=== PATIENT | female | born 1940 | race Caucasian/White ===

== ENCOUNTER → 2017-06-03 | Outpatient (CLI) | payer MEDICARE, BC ==
--- NOTE | 2017-06-03 11:49 | XR ---
Lumbosacral spine HISTORY: Trauma and pain 5 views of the lumbosacral spine No comparisons Lumbar vertebral bodies show preserved alignment. Bone mineralization is reduced. Multilevel endplate deformities are present including L1, L2, L3 and L4 compatible with compression fractures. Some mild loss of disc height at the intervertebral levels. Sclerosis present in the posterior elements. No ev ident spondylolysis. Dense atherosclerotic vascular calcifications present. Patient is post median st ernotomy. IMPRESSION: Osteoporotic compression fractures. Bone scan or MRI may be of benefit to assess for acui ty.
--- NOTE | 2017-06-03 11:51 | XR ---
Thoracic spine HISTORY: Trauma and pain 3 views of the thoracic spine, no comparisons There is multilevel thoracic compression deformities present. Bone mineralization is reduced. Multile jr spondylosis is present. Patient is post median sternotomy, postop change noted to the proximal hu merus. Prominent lung volume may be indicative of COPD. IMPRESSION: Multilevel osteoporotic compression fractures, MRI may be of benefit to assess for acuity , retropulsion as indicated.
--- NOTE | 2017-06-03 11:53 | XR ---
RIBS with PA chest x-ray HISTORY: Trauma and pain Frontal view of the chest and 4 views of the right ribs are submitted. Low bone mineralization may limit sensitivity. No displaced rib fracture is evident. Multilevel compr ession fractures are noted within the spine likely due to osteoporosis. Patient is post median sterno cisco. No pneumothorax or pleural effusion evident. Postop change noted to the proximal left humerus. Apical calcification suspected, pleural thickening. Interstitium is mildly prominent. Increased lung volumes suggest underlying COPD. IMPRESSION: Exam is limited for evaluation rib fractures. Bone scan or CT could be performed for incr eased sensitivity, multilevel osteoporotic compression fractures within the visualized spine.
== END | disposition home or self-care (01) ==
LOC: RADXRYALE 10:38
PROVIDERS: ATTEND Physician Assistant Medical
DX: S22.41XA Multiple fractures of ribs, right side, initial encounter for closed fracture (principal); M80.88XA Other osteoporosis with current pathological fracture, vertebra(e), initial encounter for fracture; G20 Parkinson's disease; M25.511 Pain in right shoulder
CPT/HCPCS: 72072; 72110

== ENCOUNTER → 2018-03-02 | Outpatient (CLI) | payer MEDICARE, BC ==
--- NOTE | 2018-03-02 23:15 | XR ---
EXAMINATION TYPE: XR femur LT DATE OF EXAM: 03/02/2018 COMPARISON: NONE HISTORY: Pain TECHNIQUE: 4 views are submitted FINDINGS: Vascular calcifications and diffuse soft tissue edema noted. There is moderate arthropathy of the hip joint. Moderate to severe arthropathy of the knee joint. Surgical clips in the soft tissue s. There appears to be deformity of the pubic ramus on the left. Referring clinician notified by tele phone. IMPRESSION: 1. Findings in suspicious for pubic ramus fracture recommend CT scan.
== END | disposition home or self-care (01) ==
LOC: RADXRYALE 14:47
PROVIDERS: ATTEND Physician Assistant
DX: M25.552 Pain in left hip (principal); M79.605 Pain in left leg

== ENCOUNTER 2018-04-12 08:16 | Emergency (ER) | payer MEDICARE, BC ==
[2018-04-12 08:27] VITALS: TEMP 97.9
--- NOTE | 2018-04-12 08:52 | ED ---
General Adult HPI - General Source: patient, family, RN notes reviewed Mode of arrival: wheelchair Limitations: no limitations <Shivam Dowling - Last Filed: 04/12/18 10:24> <Vikram Cortez - Last Filed: 04/15/18 01:12> - General Chief complaint: Extremity Injury, Lower Stated complaint: Hip Pain Time Seen by Provider: 04/12/18 08:28 - History of Present Illness Initial comments: Patient 78-year-old female presented to the emergency room today with chief complaint of pain to the left hip area that radiates down to the proximal left knee. Patient does admit that she had a fracture of the pubic rami bone approximately one month ago. She states she was following up Dr. Byrne for this he stated that the hip looked well. She described pain that was radiating down into the left leg and felt that it was coming from her back saw Dr. Alonzo. Most recent was on this past week was started on a steroid tapering dose which she has been taking along with Ultram and Pepcid. Patient states that still expressing pain at times to the left hip. She doesn't that the Ultram does help should this this morning is not as much pain at this time. Family members at bedside stating that she is becoming more immobile and having a more difficult time with ambulation. States limited walking using a walker. Family states that she is basically going from bed to chair to the bathroom. States that she complains about pain in the left hip at times after some of these shorter walks. Patient denies any recent fever, chills, shortness of breath, chest pain, abdominal pain, nausea or vomiting, numbness or tingling, dysuria or hematuria, constipation or diarrhea, headaches or visual changes, or any other complaints. (Shivam Dowling) - Related Data Allergies Allergy/AdvReac Type Severity Reaction Status Date / Time No Known Allergies Allergy Verified 04/12/18 08:27 Review of Systems ROS Other: All systems not noted in ROS Statement are negative. <Shivam Dowling - Last Filed: 04/12/18 10:24> ROS Other: All systems not noted in ROS Statement are negative. <Vikram Cortez - Last Filed: 04/15/18 01:12> ROS Statement: Those systems with pertinent positive or pertinent negative responses have been documented in the HPI. Past Medical History Past Medical History: Coronary Artery Disease (CAD), Hyperlipidemia, Hypertension, Myocardial Infarction ([place]) Additional Past Medical History / Comment(s): Parkinsons History of Any Multi-Drug Resistant Organisms: None Reported Past Surgical History: Appendectomy, Coronary Bypass/CABG, Heart Catheterization With Stent, Tonsillectomy Additional Past Surgical History / Comment(s): Cataracts Past Psychological History: No Psychological Hx Reported Smoking Status: Never smoker Past Alcohol Use History: None Reported Past Drug Use History: None Reported <Shivam Dowling - Last Filed: 04/12/18 10:24> General Exam Limitations: no limitations <Shivam Dowling - Last Filed: 04/12/18 10:24> <Vikram Cortez - Last Filed: 04/15/18 01:12> - General Exam Comments Initial Comments: General: The patient is awake and alert, in no distress, and does not appear acutely ill. Eye: Pupils are equal, round and reactive to light, extra-ocular movements are intact. No nystagmus. There is normal conjunctiva bilaterally. No signs of icterus. Ears, nose, mouth and throat: There are moist mucous membranes and no oral lesions. Neck: The neck is supple, there is no tenderness or JVD. Cardiovascular: There is a regular rate and rhythm. No murmur, rub or gallop is appreciated. Respiratory: Lungs are clear to auscultation, respirations are non-labored, breath sounds are equal. No wheezes, stridor, rales, or rhonchi. Musculoskeletal: Patient has limited range of motion due to pain. Patient no tenderness specifically over the left hip. Patient has normal appearance of thoracic lumbar spine. Does have tenderness lower lumbar. L3 down at L5. Paravertebral tenderness on the left sided this area of the lumbar spine. Strength 5/5. Sensation intact. Pulses equal bilaterally 2+. Neurological: A&O x 3. CN II-XII intact, There are no obvious motor or sensory deficits. Coordination appears grossly intact. Speech is normal. Skin: Skin is warm and dry and no rashes or lesions are noted. Psychiatric: Cooperative, appropriate mood & affect, normal judgment. (Shivam Dowling) Course <Shivam Dowling - Last Filed: 04/12/18 10:24> <Vikram Cortez - Last Filed: 04/15/18 01:12> Vital Signs 04/12/18 04/12/18 08:21 10:40 Temperature 97.9 F 97.9 F Pulse Rate 81 70 Respiratory 18 16 Rate Blood Pressure 201/76 184/84 O2 Sat by Pulse 96 96 Oximetry - Reevaluation(s) Reevaluation #1: 04/12/18 11:18 PA supervision: I did personally evaluate this case and did all the findings as well as the x-ray imaging and reports. I do agree with the assessment and plan the presentation is consistent with a radiculopathy. (Vikram Cortez) Medical Decision Making <Shivam Dowling - Last Filed: 04/12/18 10:24> <Vikram Cortez - Last Filed: 04/15/18 01:12> - Medical Decision Making Patient reexamined at this time shows no signs of distress she is resting comfort. She has been able to abdomen. Weight here in the emergency room. She uses walker. Family describing that she is ample eating less and less at home. There is been no new injury or fall since previous fall when she broke her pubic rami bone. Patient has been following up with orthopedics currently on Ultram, prednisone for her symptoms on particular pain down the left leg. Patient does not that the Ultram helps. They state that in between doses she does experience pain at times. Was discussed with family that options of admission here for possible rehab placement versus outpatient follow-up. At this time and comfortable following up outpatient. They're advised follow both orthopedics and the family physician for further recommendations. (Shivam Dowling) Disposition Is patient prescribed a controlled substance at d/c from ED?: No Time of Disposition: 10:26 <Shivam Dowling - Last Filed: 04/12/18 10:24> Is patient prescribed a controlled substance at d/c from ED?: No <Vikram Cortez - Last Filed: 04/15/18 01:12> Clinical Impression: Lumbar radiculopathy, acute Disposition: HOME SELF-CARE Condition: Good Instructions: Lumbar Radiculopathy (ED) Additional Instructions: Please follow-up with orthopedic/family doctor in the next 2 days of symptoms have not improved. Please return to emergency room if the symptoms increase or worsen or for any other concerns. Referrals: Ross Lennon, [Primary Care Provider] - 1-2 days
--- NOTE | 2018-04-12 09:29 | XR ---
PROCEDURE: XR Hip LT and AP Pelvis 3 views DATE AND TIME: 04/12/2018 9:16 AM REFERRING PHYSICIAN: Shivam Dowling CLINICAL INDICATION: PHH, Pain TECHNIQUE: Department protocol. COMPARISON: March 06, 2012 FINDINGS: Generalized osteopenia and markedly advanced degenerative disc and facet changes are redemo nstrated. Since the prior study the L5 vertebral body has been moderately decompressed, the L4 inferi or endplate has been compressed, the L3 vertebral body has been mildly compressed, and the prominent L1 vertebral body compression has progressed mildly. There is no radiographic evidence that these fin dings are hyperacute. There is no malalignment. IMPRESSION: NO DEFINITE ACUTE PROCESS.
--- NOTE | 2018-04-12 10:05 | XR ---
PROCEDURE: XR lumbar spine 3V DATE AND TIME: 04/12/2018 9:16 AM REFERRING PHYSICIAN: Shivam Dowling CLINICAL INDICATION: PHH, Pain TECHNIQUE: Department protocol. COMPARISON: None FINDINGS: Generalized osteopenia and markedly advanced degenerative disc and facet changes are redemo nstrated. Since the prior study the L5 vertebral body has been moderately decompressed, the L4 inferi or endplate has been compressed, the L3 vertebral body has been mildly compressed, and the prominent L1 vertebral body compression has progressed mildly. There is no radiographic evidence that these fin dings are hyperacute. There is no malalignment. IMPRESSION: NO DEFINITE ACUTE PROCESS.
[2018-04-12 10:41] VITALS: BP 184/84; PULSE 70; RESP 16
== END 2018-04-12 10:40 | disposition home or self-care (01) ==
LOC: EC 08:16
DX: M54.16 Radiculopathy, lumbar region (principal); I25.10 Atherosclerotic heart disease of native coronary artery without angina pectoris; I10 Essential (primary) hypertension; Z95.5 Presence of coronary angioplasty implant and graft; Z95.1 Presence of aortocoronary bypass graft
CPT/HCPCS: 72100; 73502; 99283

== ENCOUNTER → 2018-04-20 | Outpatient (CLI) | payer MEDICARE, BC ==
--- NOTE | 2018-04-20 11:33 | MR ---
EXAMINATION TYPE: MR lumbar spine wo con DATE OF EXAM: 04/20/2018 COMPARISON: 04/12/2018 lumbar spine images HISTORY: Low back pain CONTRAST: 0 mL intravenous Gadavist. TECHNIQUE: Multiplanar, multisequence images of the lumbar spine were acquired. FINDINGS: L5-S1: Disc height appears preserved. There is collapse of the L5 vertebral level. No posterior wall displacement is evident. No focal disc herniation or significant disc bulge is evident. Ligamentum fl avum laxity has mild posterior lateral thecal sac compression without lateral canal narrowing. There is severe left and moderate right foraminal narrowing. Some compression of the nerve root within the left foramen may be present. Correlate with radicular symptoms. L4-L5: Disc spaces preserved. Schmorl's node formation is present. No spinal canal stenosis present. Facet hypertrophy and ligamentum flavum laxity is posterior lateral thecal sac compression. Mild bob l narrowing is present in the lateral dimension. Foramen appear patent. Left foramen has some mild na rrowing from facet hypertrophy. L3-L4: Severe left foraminal narrowing from facet hypertrophy is present.. Some nerve root contact ma y be present within the foramen. The right foramen is patent. Disc bulging extends into the foramen b ilaterally. Schmorl's node formation may be present. There is loss of the central vertebral body heig ht of the L3 and L4 levels. No posterior wall displacement is evident. There is some disc bulging wit h mild anterior thecal sac contact. Left and right subligamentous disc herniation may be present near the foramen. L2-L3: Disc height appears preserved. No focal disc herniation is evident. Minimal disc bulge may be present with anterior thecal sac contact. Extension into the foramen is present bilaterally with mild foraminal narrowing. No AP spinal canal stenosis is present. The L2 vertebral level is preserved. L1-L2: No significant disc bulge or disc herniation is evident. No spinal canal stenosis or significa nt neural foraminal stenosis is evident. There is collapse of L1 without posterior wall displacement. T12-L1: There is collapse of L1 with some mild superior endplate collapse of T12. Mild central disc b ulge is present with mild anterior thecal sac compression. No cord contact is evident. Neural foramen are patent. T11-T12: In the sagittal plane there may be some mild posterior wall displacement of the superior end plate of T12. No cord contact or spinal canal stenosis is evident. This area is not evaluated on the axial plane. IMPRESSION: 1. Severe left L5-S1 foraminal cyst stenosis due to disc bulging and facet hypertrophy may have some compression of the left S1 nerve root. Correlate with radicular symptoms. 2. Facet hypertrophy and ligamentum flavum laxity with mild lateral canal narrowing. 3. Disc bulging into the left and right foramen as well as facet hypertrophy at the L3-4 level. Some nerve root contact within the left foramen may be present. Correlate with radicular symptoms. 4. Mild disc bulging into the L2-L3 foramen with mild narrowing. 5. Multilevel vertebral body collapse greatest at L1 superior endplate changes at T12 mid body collap se of L2 inferior endplate of L3 and collapse of L5. Mild posterior wall displacement of the superior endplate of T12 may be present without cord contact. Signal change within L5 suggest possibility of metastasis. L5 looks worse on MRI than x-ray. The inferior endplate of L4 is less well appreciated on x-ray.
== END | disposition home or self-care (01) ==
LOC: RADMRIMAIN 05:59
PROVIDERS: ATTEND Orthopaedic Surgery Orthopaedic Surgery of the Spine
DX: M99.73 Connective tissue and disc stenosis of intervertebral foramina of lumbar region (principal); M51.26 Other intervertebral disc displacement, lumbar region; M48.56XA Collapsed vertebra, not elsewhere classified, lumbar region, initial encounter for fracture
CPT/HCPCS: 72148

== ENCOUNTER 2018-06-08 11:29 | Inpatient (IN) | payer MEDICARE, BC ==
[2018-06-08] MEDS ORDERED: ACETAMINOPHEN TAB 325 MG TAB PO PRN (12:47)
[2018-06-08] MEDS ORDERED: HYDROmorphone 1 MG/ML 1 ML SYRINGE IVP PRN ×2 (12:47)
[2018-06-08] MEDS ORDERED: MAGNESIUM HYDROXIDE 2,400 MG/10 ML CUP PO PRN (12:47)
[2018-06-08] MEDS ORDERED: NALOXONE 0.4 MG/ML 1 ML VIAL IV PRN (12:47)
[2018-06-08] MEDS ORDERED: ONDANSETRON 4 MG/2 ML VIAL IVP PRN (12:47)
[2018-06-08 14:06] LABS: HCT 34.7 % (34.0-46.0); HGB 11.4 gm/dL (11.4-16.0); MCH 27.8 pg (25.0-35.0); MCHC 32.9 g/dL (31.0-37.0); MCV 84.5 fL (80.0-100.0); Mean Platelet Volume 6.2; Platelet Count 198 k/uL (150-450); RDW 13.2 % (11.5-15.5); WBC 17.1 k/uL (3.8-10.6)
[2018-06-08 14:22] LABS: Anion Gap 8 mmol/L; Blood Urea Nitrogen 17 mg/dL (7-17); Calcium 9.4 mg/dL (8.4-10.2); Carbon Dioxide 26 mmol/L (22-30); Chloride 107 mmol/L (98-107); Glucose 102 mg/dL (74-99); Potassium 4.1 mmol/L (3.5-5.1); Sodium 141 mmol/L (137-145)
[2018-06-08 14:37] LABS: INR 1.1 (<1.2); Prothrombin Time 10.5 sec (9.0-12.0)
--- NOTE | 2018-06-08 14:40 | P.HPOR ---
History of Present Illness H&P Date: 06/08/18 This 78-year-old female who is admitted for left hip fracture. Patient was seen by Dr. Ross Valdes in the office today as an outpatient. Patient states that this morning she was sitting on the edge of her bed and when she went to get up she fell onto the left hip. Patient states she that was unable to get up and her family brought her in to [facility] for evaluation. Patient denies any head injury or any loss of consciousness. Patient states that her left shoulder is also sore and she has a history of ORIF of the left proximal humerus. Patient denies being on any anticoagulants. Patient denies any fever/chills, numbness, weakness, tingling, abdominal pain, shortness of breath or chest pain. Review of Systems See HPI. Past Medical History Past Medical History: Coronary Artery Disease (CAD), Hyperlipidemia, Hypertension, Myocardial Infarction ([place]) Additional Past Medical History / Comment(s): Parkinsons History of Any Multi-Drug Resistant Organisms: None Reported Past Surgical History: Appendectomy, Coronary Bypass/CABG, Heart Catheterization With Stent, Tonsillectomy Additional Past Surgical History / Comment(s): Cataracts Past Psychological History: No Psychological Hx Reported Smoking Status: Never smoker Past Alcohol Use History: None Reported Past Drug Use History: None Reported - Past Family History Mother Family Medical History: CVA/TIA, Musculoskeletal Disorder, Neurologic Disorder Additional Family Medical History / Comment(s): Mother had beginnings of parkinsons. Father Family Medical History: Myocardial Infarction ([place]) Additional Family Medical History / Comment(s): Father of a [place] at the age of 91 yrs. Medications and Allergies Allergies Allergy/AdvReac Type Severity Reaction Status Date / Time No Known Allergies Allergy Verified 04/12/18 08:27 Physical Examination On exam patient is alert and oriented 3. Patient is sitting comfortably in a wheelchair in no acute distress. There is tenderness to palpation over the left hip. Calf is soft and nontender to palpation. Patient has full foot and ankle motion without pain or difficulty. Left lower extremity is warm and well perfused. Neurovascular status and circulatory status are intact. There is some soreness in the left shoulder. Patient has full range of motion of the left elbow, wrist and hand. Exams of the head, neck, right upper extremity and right lower extremity are within normal limits. Results X-rays of the left humerus are negative for any fracture or dislocation. No loosening of hardware. X-rays of the left hip and pelvis show a fracture of the femoral neck left femur. - Labs Result Diagrams: 06/08/18 13:46 06/08/18 13:46 Assessment and Plan (1) Closed left hip fracture Current Visit: Yes Status: Acute Code(s): S72.002A - FRACTURE OF UNSP PART OF NECK OF LEFT FEMUR, INIT SNOMED Code(s): 894862582 (2) Fall Current Visit: Yes Status: Acute Code(s): W19.XXXA - UNSPECIFIED FALL, INITIAL ENCOUNTER SNOMED Code(s): 1077965 Plan: 1. Nonweightbearing to the left lower extremity. 2. Pain control and DVT prophylaxis with SCD's ad SHAYLA hose. 3. NPO after midnight. 4. Left hip hemiarthroplasty is scheduled for 06/09/2018 pending medical clearance and consent.
[2018-06-08] MEDS: HYDROmorphone 1 MG/ML 1 ML SYRINGE IVP PRN ×2 (16:15→19:43)
[2018-06-08] MEDS: SODIUM CHLORIDE 0.9% 1,000 ML IV SCH (17:07)
[2018-06-08] MEDS: ASCORBIC ACID 500 MG TAB PO SCH (21:12)
[2018-06-08] MEDS: ATORVASTATIN 10 MG TAB PO SCH (21:12)
[2018-06-08] MEDS: PRAMIPEXOLE 0.125 MG TAB PO SCH (21:12)
[2018-06-08] MEDS: SENNOSIDES-DOCUSATE SODIUM 1 EACH TAB PO SCH (21:13)
[2018-06-09 00:24] LABS: Appearance,Urine Clear (Clear); Bilirubin,Urine Negative (Negative); Blood,Urine Negative (Negative); Color,Urine Yellow; Glucose,Urine (UA) Negative (Negative); Ketones,Urine Negative (Negative); Leukocyte Esterase,Urine Small (Negative); Mucus,Urine Occasional /hpf; Nitrite,Urine Negative (Negative); Protein,Urine Trace (Negative); RBC,Urine 19 /hpf (0-5); Squamous Epithelial Cell,Urine <1 /hpf (0-4); WBC,Urine 18 /hpf (0-5)
[2018-06-09] MEDS: HYDROmorphone 1 MG/ML 1 ML SYRINGE IVP PRN ×5 (01:09→23:54)
--- NOTE | 2018-06-09 06:24 | CONS ---
CONSULTATION DATE OF SERVICE: 06/08/2018 REASON FOR CONSULTATION: Advice regarding hypertension and myocardial infarction and other multiple medical issues requested by Orthopedic Surgery. HISTORY OF PRESENT ILLNESS: This is a 78-year-old woman with a past medical history of multiple medical problems including CAD, hypertension, hyperlipidemia, myocardial infarction, Parkinson's, CAD, CABG, stent being followed by Dr. Lennon in the outpatient setting apparently had a fall and left hip fracture. Patient evaluated by Dr. Valdes in the outpatient setting and was admitted for further evaluation and possible surgery. There is no history of any fever or rigors. No history of any headache, loss of consciousness, seizures. PAST MEDICAL HISTORY: History of CAD, hypertension, hyperlipidemia, myocardial infarction, Parkinson's, CAD, CABG, stent. MEDICATIONS: The medications are: 1. Zocor 20 mg at bedtime. 2. Mirapex 0.125 mg p.o. b.i.d. 3. Fish oil 1 p.o. b.i.d. 4. Zestril 5 mg p.o. daily. 5. Vitamin D3, 5000 units. 6. Tenormin 25 mg p.o. daily. 7. Ecotrin 81 mg p.o. daily. 8. Vitamin C 500 mg at bedtime. ALLERGIES: Allergies are none. FAMILY HISTORY: History of CVA, TIA, musculoskeletal problems. SOCIAL HISTORY: No history of current smoking or alcohol intake. REVIEW OF SYSTEMS: ENT: Diminished hearing and diminished vision, left eye. CARDIOVASCULAR SYSTEM: No angina or palpitation. RESPIRATORY SYSTEM: No cough or hemoptysis. GI: No nausea : No dysuria. NERVOUS SYSTEM: No numbness or weakness. ALLERGY/IMMUNOLOGY: No history of asthma. MUSCULOSKELETAL: As mentioned earlier. HEMATOLOGY/ONCOLOGY: No history anemia. ENDOCRINE: No history of diabetes, hypothyroidism. CONSTITUTIONAL: As mentioned earlier. DERMATOLOGY: Negative. RHEUMATOLOGY: Negative. PSYCHIATRY: As mentioned earlier. PHYSICAL EXAMINATION: Patient is alert, oriented x3. Pulse 71, blood pressure 114/70, respiration 18, temperature 97.9, pulse ox 97% on 2 L. HEENT: Conjunctivae normal. Oral mucosa moist. NECK: No jugular venous distention. No carotid bruit. No lymph node enlargement. CARDIOVASCULAR: S1 and S2 muffled, no S3, no S4. RESPIRATORY: Breath sounds diminished at the bases. No rhonchi. No crackles. ABDOMEN: Soft, nontender. No mass palpable. LEGS: Status post hip fracture. NERVOUS SYSTEM: Higher functions as mentioned earlier. Moves all 4 limbs. No focal motor or sensory deficits. LYMPHATICS: No lymphadenopathy of the neck, axillae or groin. SKIN: No ulcer, rash or bleeding. LAB STUDIES: WBC 17.1 and sodium is 141, potassium 4.1. ASSESSMENT: 1. Status post left hip fracture. 2. History of coronary artery disease. 3. Hypertension. 4. Hyperlipidemia. 5. Myocardial infarction. 6. Parkinson's. 7. History of coronary artery disease, coronary artery bypass grafting, stent. 8. History of motion sickness. RECOMMENDATION AND DISCUSSION: In this 78-year-old woman who presented with multiple medical issues, at this time I recommend to continue current medications and symptomatic treatment. Otherwise I would also recommend baseline EKG, chest x-ray. The patient appears to be medically stable and cleared for surgery with some added risk because of the past medical history, even though the previous exercise tolerance appears to be excellent. I would also recommend a cardiology consultation for continued followup. Will follow the patient closely with you. Thank you Dr. Valdes for letting us participate in the care of this patient. Please see orders for further details. The patient may be asked to follow with Dr. Lennon closely after discharge. MMODL / IJN: [id number] /
[2018-06-09 07:06] LABS: Basophils % (A) 0 %; Eosinophils # (A) 0.3 k/uL (0-0.7); Eosinophils % (A) 3 %; HCT 30.5 % (34.0-46.0); HGB 10.1 gm/dL (11.4-16.0); Lymphocytes # (A) 1.2 k/uL (1.0-4.8); Lymphocytes % (A) 12 %; MCH 28.1 pg (25.0-35.0); MCHC 33.2 g/dL (31.0-37.0); MCV 84.7 fL (80.0-100.0); Mean Platelet Volume 6.5; Monocytes # (A) 0.5 k/uL (0-1.0); Monocytes % (A) 5 %; Neutrophils # (A) 7.7 k/uL (1.3-7.7); Neutrophils % (A) 79 %; Platelet Count 170 k/uL (150-450); RDW 13.3 % (11.5-15.5); WBC 9.8 k/uL (3.8-10.6)
[2018-06-09] MEDS: LISINOPRIL 5 MG TAB PO SCH (08:27)
[2018-06-09] MEDS: ATENOLOL 25 MG TAB PO SCH (08:27)
[2018-06-09] MEDS: CHOLECALCIFEROL 1,000 UNIT TAB PO SCH (08:30)
[2018-06-09] MEDS: SODIUM CHLORIDE 0.9% 1,000 ML IV SCH ×3 (08:30→20:41)
[2018-06-09] MEDS: PRAMIPEXOLE 0.125 MG TAB PO SCH ×2 (08:31→20:41)
--- NOTE | 2018-06-09 11:05 | P.CRDCN ---
History of Present Illness History of present illness: Mrs. Moore is a pleasant 78-year-old female past medical history significant for coronary artery disease status post bypass grafting in 2010, dyslipidemia, hypertension and Parkinson's disease. She follows with Dr. Zhao in the office. We have been asked to see her in consultation for preoperative evaluation prior to hip surgery. She states she slipped and fell off her bed Friday morning onto her left side. Denies chest pain, shortness of breath, dizziness, palpitations or diaphoresis. Complains of pleuritic type pain on the left thoracic region. Denies PND or orthopnea. Bypass surgery was in 2010 she has a ROBB to LAD, SVG to diagonal, SVG to circumflex. She also underwent angioplasty of the proximal mid and distal RCA in 2010. Most recent echocardiogram performed in the office November 2015 reveals preserved left ventricular systolic function with ejection fraction 60% moderately dilated left atrium, mild to moderate mitral regurgitation with mild anterior valve prolapse and mild to moderate TR. There is no evidence of any heart failure clinically. She is euvolemic. She was sent over from Dr. Valdes's office. X -rays obtained at his office reveal fracture of the left femoral neck. There is no EKG or chest x-ray on admission. Laboratory data reviewed, WBC on admission 17.1 repeat this morning 9.8, hemoglobin 10.1, platelets 170, sodium 141, potassium 4.1, creatinine 0.53. Current cardiac medications include atenolol 25 mg daily, lisinopril 5 mg daily , aspirin 81 mg daily and simvastatin 20 mg daily. Review of Systems At the time of my exam: CONSTITUTIONAL: Denies fever. Denies chills. EYES: Denies blurred vision. Denies vision changes. Denies eye pain. EARS, NOSE, MOUTH & THROAT: Denies headache. Denies sore throat. Denies ear pain. CARDIOVASCULAR: Denies chest pain. Denies shortness of breath. Denies orthopnea. Denies PND. Denies palpitations. RESPIRATORY: Denies cough. GASTROINTESTINAL: Denies abdominal pain. Denies diarrhea. Denies constipation. Denies nausea. Denies vomiting. MUSCULOSKELETAL: Complains of discomfort of the left thoracic region as well as the left hip and lower extremity. INTEGUMENTARY: Denies pruitis. Denies rash. NEUROLOGIC: Denies numbness. Denies tingling. Denies weakness. PSYCHIATRIC: Denies anxiety. Denies depression. ENDOCRINE: Denies fatigue. Denies weight change. Denies polydipsia. Denies polyurina. GENITOURINARY: Denies burning, hematuria or urgency with micturation. HEMATOLOGIC: Denies history of anemia. Denies bleeding. Past Medical History Past Medical History: Coronary Artery Disease (CAD), Hyperlipidemia, Hypertension, Myocardial Infarction (OK) Additional Past Medical History / Comment(s): Parkinsons Last Myocardial Infarction Date:: 01/2011 History of Any Multi-Drug Resistant Organisms: None Reported Past Surgical History: Appendectomy, Coronary Bypass/CABG, Heart Catheterization With Stent, Tonsillectomy Additional Past Surgical History / Comment(s): Cataracts Past Anesthesia/Blood Transfusion Reactions: No Reported Reaction, Motion Sickness Date of Last Stent Placement:: 01/2011 Past Psychological History: No Psychological Hx Reported Smoking Status: Never smoker Past Alcohol Use History: None Reported Past Drug Use History: None Reported - Past Family History Mother Family Medical History: CVA/TIA, Musculoskeletal Disorder, Neurologic Disorder Additional Family Medical History / Comment(s): Mother had beginnings of parkinsons. Father Family Medical History: Myocardial Infarction (OK) Additional Family Medical History / Comment(s): Father of a OK at the age of 91 yrs. Medications and Allergies Home Medications Medication Instructions Recorded Confirmed Type Ascorbic Acid [Vitamin C] 500 mg PO HS 06/08/18 06/08/18 History Aspirin EC [Ecotrin Low Dose] 81 mg PO DAILY 06/08/18 06/08/18 History Atenolol [Tenormin] 25 mg PO DAILY 06/08/18 06/08/18 History Cholecalciferol [Vitamin D3] 5,000 unit PO DAILY 06/08/18 06/08/18 History Lisinopril [Zestril] 5 mg PO DAILY 06/08/18 06/08/18 History Ferdinand-3 Fatty Acids/Fish Oil [Fish 1 cap PO BID 06/08/18 06/08/18 History Oil 1,000 mg Softgel] Pramipexole [Mirapex] 0.125 mg PO BID 06/08/18 06/08/18 History Simvastatin [Zocor] 20 mg PO HS 06/08/18 06/08/18 History Allergies Allergy/AdvReac Type Severity Reaction Status Date / Time No Known Allergies Allergy Verified 06/08/18 14:52 Physical Exam Vitals: Vital Signs Temp Pulse Resp BP Pulse Ox 06/09/18 04:00 92 15 06/09/18 01:05 97.3 F L 92 15 122/70 96 06/09/18 00:00 71 18 06/08/18 20:00 71 18 06/08/18 19:00 97.9 F 71 18 114/70 97 06/08/18 18:00 98.8 F 90 16 99/61 94 L Intake and Output 06/08/18 06/09/18 06/09/18 22:59 06:59 14:59 Intake Total 195 Output Total 300 Balance 195 -300 Intake: Intake, IV Titration 195 Amount Sodium Chloride 0.9% 1, 195 000 ml @ 65 mls/hr IV . [id number] [facility] Rx#:[id number] Oral 0 Output: Urine 300 Other: Voiding Method Indwelling Catheter Indwelling Catheter Weight 53.5 kg 53.5 kg Blood pressure 122/70 heart rate 92 afebrile maintaining oxygen saturation on room air GENERAL: This is a 78-year-old female in no apparent distress at the time of my examination. HEENT: Head is atraumatic, normocephalic. Pupils are equal, round. Sclerae anicteric. Conjunctivae are clear. Mucous membranes of the mouth are moist. Neck is supple. There is no jugular venous distention. No carotid bruit is heard. LUNGS: Clear to auscultation no wheezes, rales or rhonchi. No chest wall tenderness is noted on palpation or with deep breathing. HEART: Regular rate and rhythm with murmur at the base, no rubs or gallops. S1 and S2 heard. ABDOMEN: Soft, nontender. Bowel sounds are heard. No organomegaly noted. EXTREMITIES: Mild non-pitting edema noted to left lower extremity. No swelling of the right lower extremity. No calf tenderness noted. VASCULAR: Radial and dorsalis pedis pulses palpated, no evidence of clubbing. NEUROLOGIC: Patient is awake, alert and oriented x3. Results 06/09/18 20:24 06/08/18 13:46 Coagulation 06/08/18 Range/Units 13:46 PT 10.5 (9.0-12.0) sec CBC 06/08/18 06/09/18 Range/Units 13:46 06:35 WBC 17.1 H 9.8 (3.8-10.6) k/uL RBC 4.10 3.60 L (3.80-5.40) m/uL Hgb 11.4 10.1 L (11.4-16.0) gm/dL Hct 34.7 30.5 L (34.0-46.0) % Plt Count 198 170 (150-450) k/uL Comprehensive Metabolic Panel 06/08/18 Range/Units 13:46 Sodium 141 (137-145) mmol/L Potassium 4.1 (3.5-5.1) mmol/L Chloride 107 (98-107) mmol/L Carbon Dioxide 26 (22-30) mmol/L BUN 17 (7-17) mg/dL Creatinine 0.53 (0.52-1.04) mg/dL Glucose 102 H (74-99) mg/dL Calcium 9.4 (8.4-10.2) mg/dL Current Medications Generic Name Dose Route Start Last Admin Trade Name Wilner PRN Reason Stop Dose Admin Acetaminophen 650 mg 06/08/18 12:47 Tylenol Tab PO Q4HR PRN Pain Scale 1 to 5 Ascorbic Acid 500 mg 06/08/18 21:00 06/08/18 21:12 Vitamin C PO 500 mg HS [facility] Administration Atenolol 25 mg 06/09/18 09:00 Tenormin PO DAILY [facility] Atorvastatin Calcium 10 mg 06/08/18 21:00 06/08/18 21:12 Lipitor PO 10 mg HS [facility] Administration Cholecalciferol 5,000 unit 06/09/18 09:00 Vitamin D3 PO DAILY [facility] Hydromorphone HCl 0.125 mg 06/08/18 12:47 Dilaudid IVP Q3HR PRN Pain Scale 1 to 3 Hydromorphone HCl 0.25 mg 06/08/18 12:47 Dilaudid IVP Q3HR PRN Pain Scale 4 to 6 Hydromorphone HCl 0.5 mg 06/08/18 12:47 06/09/18 04:16 Dilaudid IVP 0.5 mg Q3HR PRN Administration Pain Scale 7 to 10 Sodium Chloride 1,000 mls @ 65 mls/hr 06/08/18 13:00 06/08/18 17:07 Saline 0.9% IV 65 mls/hr .[id number] [facility] Administration Lisinopril 5 mg 06/09/18 09:00 Zestril PO DAILY [facility] Magnesium Hydroxide 2,400 mg 06/08/18 12:47 Milk Of Magnesia PO DAILY PRN Constipation Naloxone HCl 0.2 mg 06/08/18 12:47 Narcan IV Q2M PRN Opioid Reversal Ondansetron HCl 4 mg 06/08/18 12:47 Zofran IVP DAILY PRN Nausea And Vomiting Pramipexole Dihydrochloride 0.125 mg 06/08/18 21:00 06/08/18 21:12 Mirapex PO 0.125 mg BID [facility] Administration Senna/Docusate Sodium 2 each 06/08/18 21:00 06/08/18 21:13 Senokot-S PO Not Given HS [facility] Intake and Output 06/08/18 06/09/18 06/09/18 22:59 06:59 14:59 Intake Total 195 Output Total 300 Balance 195 -300 Intake: Intake, IV Titration 195 Amount Sodium Chloride 0.9% 1, 195 000 ml @ 65 mls/hr IV . [id number] [facility] Rx#:[id number] Oral 0 Output: Urine 300 Other: Voiding Method Indwelling Catheter Indwelling Catheter Weight 53.5 kg 53.5 kg 06/09/18 06:35 06/08/18 13:46 Assessment and Plan Assessment: ASSESSMENT Left femoral neck fracture status post slip and fall out of bed History of coronary artery disease status post bypass grafting 2010 Hypertension Dyslipidemia PLAN Obtain 2-D echocardiogram and Doppler study to assess cardiac structure and function. Obtain baseline EKG. Chest x-ray has been ordered per primary will be reviewed. Clinically the patient is seen and examined laying flat resting comfortably in bed. She has no symptoms of angina, shortness of breath, PND or orthopnea. She is clinically euvolemic with no acute contraindications for surgical intervention. Thank you kindly for this consultation. Nurse Practitioner note has been reviewed, I agree with a documented findings and plan of care. Patient was seen and examined.
[2018-06-09] MEDS: cefTRIAXone IN SWFI 1,000 MG/10 ML SYRINGE IVP SCH (11:45)
--- NOTE | 2018-06-09 12:35 | PN ---
PROGRESS NOTE DATE OF SERVICE: 06/09/2018 This is a 78-year-old woman who was admitted after left hip fracture to have surgery today. No chest pain, no palpitation. Cardiac investigation is stable. The chest x- ray which was done today is reviewed showed no evidence of CHF at this time. PHYSICAL EXAM: Alert and oriented x1. Pulse 90, blood pressure 130/70, respiration 16, temperature 99.8, pulse ox 94% on 2 L. HEENT: Conjunctivae normal. Oral mucosa moist. Neck is no jugular venous distention. No lymph node enlargement. CARDIOVASCULAR SYSTEM: S1, S2, muffled, no S3, no S4. RESPIRATORY: Breath sounds diminished in the bases, a few scattered rhonchi, no crackles. ABDOMEN: Soft, nontender. LEGS: Status post fracture. NERVOUS SYSTEM: No focal deficits. LABS: WBC is 9.1, hemoglobin is 10.1, UA noted. ASSESSMENT: 1. Status post left hip fracture. 2. History of coronary artery disease. 3. Hypertension. 4. Urinary tract infection, present on admission. 5. Hyperlipidemia. 6. Increased WBC, improved. 7. Myocardial infarction. 8. Parkinson's. 9. History of coronary artery disease, coronary artery bypass grafting, stenting. 10.History of motion sickness. RECOMMENDATION: recommend to continue current management and symptomatic treatment. Otherwise, add a course of antibiotics and closely monitor with Cardiology. Further recommendations to follow. The patient is currently stable. Further recommendations to follow. MMODL / IJN: [id number] /
--- NOTE | 2018-06-09 12:36 | ECHOF ---
Referral Reason:pre-op MEASUREMENTS -------- HEIGHT: 149.9 cm WEIGHT: 53.1 kg BP: 122/70 RVIDd: 3.3 cm (< 3.3) IVSd: 0.9 cm (0.6 - 1.1) LVIDd: 5.1 cm (3.9 - 5.3) LVPWd: 1.1 cm (0.6 - 1.1) IVSs: 1.7 cm LVIDs: 3.0 cm LVPWs: 1.6 cm LA Diam: 3.6 cm (2.7 - 3.8) LAESV Index (A-L): 33.44 ml/m Ao Diam: 3.7 cm (2.0 - 3.7) AV Cusp: 2.2 cm (1.5 - 2.6) MV EXCURSION: 9.111 mm (> 18.000) MV EF SLOPE: 52 mm/s (70 - 150) EPSS: 0.8 cm MV E Erlin: 1.25 m/s MV DecT: 171 ms MV A Erlin: 1.31 m/s MV E/A Ratio: 0.95 RAP: 5.00 mmHg RVSP: 43.12 mmHg FINDINGS -------- Sinus rhythm. This was a technically good study. The left ventricular size is normal. Left ventricular wall thickness is normal. Overall left vent ricular systolic function is normal with, an EF between 60 - 65 %. The right ventricle is mildly enlarged. LA is midly dilated 29-33ml/m2. The right atrium is normal in size. There is mild aortic valve sclerosis. The mitral valve leaflets are mildly thickened. Mild mitral annular calcification present. Mild m itral regurgitation is present. The peak and mean MV gradients are 9.99mmHg 3.45mmHg as measured b y doppler. Mild tricuspid regurgitation present. There is mild pulmonary hypertension. The right ventricular systolic pressure, as measured by Doppler, is 43.12mmHg. The pulmonic valve was not well visualized. The aortic root size is normal. Normal inferior vena cava with normal inspiratory collapse consistent with estimated right atrial pre ssure of 5 mmHg. There is no pericardial effusion. CONCLUSIONS -------- 1. Sinus rhythm. 2. This was a technically good study. 3. The left ventricular size is normal. 4. Left ventricular wall thickness is normal. 5. Overall left ventricular systolic function is normal with, an EF between 60 - 65 %. 6. The right ventricle is mildly enlarged. 7. LA is midly dilated 29-33ml/m2. 8. The right atrium is normal in size. 9. There is mild aortic valve sclerosis. 10. The mitral valve leaflets are mildly thickened. 11. Mild mitral annular calcification present. 12. Mild mitral regurgitation is present. 13. The peak and mean MV gradients are 9.99mmHg 3.45mmHg as measured by doppler. 14. Mild tricuspid regurgitation present. 15. There is mild pulmonary hypertension. 16. The right ventricular systolic pressure, as measured by Doppler, is 43.12mmHg. 17. The pulmonic valve was not well visualized. 18. The aortic root size is normal. 19. Normal inferior vena cava with normal inspiratory collapse consistent with estimated right atrial pressure of 5 mmHg. 20. There is no pericardial effusion. ENVIRONMENTAL SCIENTIST: Dior Dowell RDCS
--- NOTE | 2018-06-09 12:58 | XR ---
EXAMINATION TYPE: XR chest 1V portable DATE OF EXAM: 06/09/2018 COMPARISON: Prior chest x-ray 02/09/2013 HISTORY: Preop, congestive heart failure TECHNIQUE: Single frontal view of the chest is obtained. FINDINGS: Patient is rotated and post median sternotomy. Central vascularity and interstitium are in creased. Prominence of the aorta and heart may be accentuated by rotation. Apical pleural scarring is noted. Postop change noted to the left humerus is stable. Bone mineralization is reduced. No pneumot horax or pleural effusion. IMPRESSION: Findings suggest pulmonary venous hypertension and interstitial edema, additional findin gs above, follow-up recommended.
[2018-06-09] MEDS ORDERED: IV FLUID CONTINUATION 1,000 ML IV ONE (14:36)
[2018-06-09] MEDS ORDERED: LACTATED RINGERS 1,000 ML IV ONE (15:12)
[2018-06-09] MEDS ORDERED: LIDOCAINE 1% 20 ML VIAL (10MG/ML) FOR IV START INTRADERMA ONE (15:13)
[2018-06-09] MEDS ORDERED: hydrOXYzine PAMOATE 25 MG CAP PO PRN (16:39)
[2018-06-09] MEDS ORDERED: HYDROcodone/APAP 5-325MG 1 EACH TAB PO PRN (16:39)
[2018-06-09] MEDS ORDERED: NALOXONE 0.4 MG/ML 1 ML VIAL IV PRN (16:39)
[2018-06-09] MEDS ORDERED: DIAZEPAM 5 MG TAB PO PRN (16:39)
[2018-06-09] MEDS ORDERED: HYDROmorphone 1 MG/ML 1 ML SYRINGE IVP PRN ×2 (16:39)
[2018-06-09] MEDS ORDERED: PHENYLEPHRINE-0.9% NACL SYG 1 MG/10 ML SYRINGE ONE (16:43)
[2018-06-09] MEDS ORDERED: diphenhydrAMINE 50 MG/ML 1 ML VIAL ONE (16:43)
[2018-06-09] MEDS ORDERED: MIDAZOLAM 2 MG/2 ML VIAL ONE (16:43)
[2018-06-09] MEDS ORDERED: KETAMINE 10 MG/ML 20 ML VIAL ONE (16:43)
[2018-06-09] MEDS ORDERED: fentaNYL (PF) 50 MCG/ML 2 ML AMP ONE (16:43)
[2018-06-09] MEDS ORDERED: ceFAZolin 3,000 MG in SODIUM CHLORIDE 0.9% IRRIGATIO 3,000 ML IRRIGATION ONE (17:20)
--- NOTE | 2018-06-09 17:52 | P.OP ---
Date of Procedure: 06/09/18 Preoperative Diagnosis: Subcapital fracture left hip Postoperative Diagnosis: Subcapital fracture left hip Procedure(s) Performed: Left hip hemiarthroplasty Implants: Thomas and nephew Polarstem size 3 standard Thomas & Nephew tandem unipolar, 46 mm Thomas & Nephew tandem unipolar 12/14 taper sleeve, +0 mm All components were press-fit. Anesthesia: spinal Surgeon: Ross Valdes Programmer Numerical Control #1: Sheryl Silveira Estimated Blood Loss (ml): 50 Pathology: other (Femoral head) Condition: stable Disposition: PACU Indications for Procedure: This is a 78-year-old female that was seen by me in the office yesterday after falling out of bed. X-rays were obtained in the office which showed a displaced subcapital fracture of her left hip. Patient was subsequently directly admitted to the hospital for surgery today. Discussed the surgical and nonsurgical treatment options with her and her family at length including the possible outcomes complications. Informed consent was obtained. Operative Findings: The operative findings are consistent with a subcapital fracture of the left hip. Description of Procedure: Patient was seen and evaluated in the preoperative area, consent was reviewed and the operative site was marked with a skin marker. Patient was then brought to the operating room and given 2 g of Ancef intravenously. A spinal anesthetic was administered by the anesthesia department. Patient was then placed in a lateral decubitus position and held with a Montral hip positioner. The bony prominences were well-padded and an axillary roll was placed. The hip was then prepped and draped in the usual sterile fashion. A universal timeout was then performed which confirmed the patient's name, surgical site, ALLERGIES, and procedure. A standard anterolateral approach the hip was performed. Skin and subcutaneous tissues were sharply incised with an incision centered over the tip of the greater trochanter. The incision was carefully dissected down to the fascia. The fascia was then split in line with skin incision and a Charnley retractor was gently placed. The abductors were then identified, and the anterior one third of the abductors were released off the trochanter and one large sleeve. The fracture hematoma was evacuated and the proximal femur was exposed by externally rotating the femur. The fracture site was readily visualized. Next , using an osteotomy guide, the proximal femur was osteotomized at the appropriate level of the above the lesser trochanter. This bone was then removed. Attention was then turned to the femoral head. Using a corkscrew, the femoral head was removed from the acetabulum without incident. The acetabulum was inspected, and found to have no significant arthrosis. Femoral head was then measured. Attention was then redirected to the femur. Proximal femur was re-exposed and a box osteotome was used to lateralize the proximal femur. A bench hand machine was then used to locate the femoral canal. Sequential broaching was then performed to the appropriate size. The calcar was then planed and trial head and neck were placed. The hip was then gently reduced. Leg lengths were checked and found to be equal. Hip was then taken through a full range of motion was stable throughout. The hip was then gently dislocated with the aid of a bone hook. The trial head and neck were then removed. The femoral broach was then inspected and found to have a secure fit. The broach was then removed. The hip was then copiously irrigated with antibiotic solution with a pulse lavage. Components were then opened and the femoral stem was then impacted into the proximal femur. The trunnion was cleaned and dried, and the femoral head and neck were then impacted. Hip was again gently reduced. Again leg lengths were checked and found to be equal, and the hip was taken through a full range of motion and found to be stable. The hip was again irrigated with pulsatile lavage, then followed by the Irrrisept solution. The abductors were then repaired through drill holes to the bone to the greater trochanter, utilizing #5 Ethibond suture. Next the fascia was repaired with #2 strata fix suture. The subcutaneous tissue was then repaired with 3-0 Vicryl. The subcuticular tissue was then repaired with 3-0 strata fix suture. Skin was then closed with Dermabond tape. A sterile dressing was then applied and the patient was transported to the recovery room in stable condition. Programmer Numerical Control SHANNAN Brunson was required due to the complexity of surgery the need for skilled certified surgical tech/first assistant. She assisted with positioning the patient , draping the patient, retraction during the surgery, and closure of the wound.
--- NOTE | 2018-06-09 18:32 | XR ---
PROCEDURE: XR Hip Limited LT - 1V DATE AND TIME: 06/09/2018 6:19 PM REFERRING PHYSICIAN: Sheryl Silveira CLINICAL INDICATION: PHH, s/p hip ismael TECHNIQUE: Single AP view. COMPARISON: None FINDINGS: The left hip orthopedic hardware has anatomic positioning and alignment. Soft tissue emphysema noted, but no unexpected postoperative findings. IMPRESSION: Postoperative AP left hip.
[2018-06-09] MEDS: SENNOSIDES-DOCUSATE SODIUM 1 EACH TAB PO SCH (20:41)
[2018-06-09] MEDS: ATORVASTATIN 10 MG TAB PO SCH (20:41)
[2018-06-09] MEDS: ASCORBIC ACID 500 MG TAB PO SCH (20:41)
[2018-06-09 20:59] LABS: Basophils % (A) 0 %; Eosinophils # (A) 0.4 k/uL (0-0.7); Eosinophils % (A) 3 %; HCT 32.8 % (34.0-46.0); HGB 10.7 gm/dL (11.4-16.0); Lymphocytes # (A) 1.3 k/uL (1.0-4.8); Lymphocytes % (A) 11 %; MCH 27.6 pg (25.0-35.0); MCHC 32.7 g/dL (31.0-37.0); MCV 84.3 fL (80.0-100.0); Mean Platelet Volume 7.2; Monocytes # (A) 0.6 k/uL (0-1.0); Monocytes % (A) 5 %; Neutrophils # (A) 9.9 k/uL (1.3-7.7); Neutrophils % (A) 80 %; Platelet Count 164 k/uL (150-450); RDW 13.3 % (11.5-15.5); WBC 12.4 k/uL (3.8-10.6)
[2018-06-09] MEDS ORDERED: SENNOSIDES-DOCUSATE SODIUM 1 EACH TAB PO SCH (21:00)
[2018-06-09] MEDS: ceFAZolin IN SWFI 2 GM/20 ML SYRINGE IVP SCH (23:50)
[2018-06-10] MEDS: HYDROcodone/APAP 5-325MG 1 EACH TAB PO PRN ×2 (07:43→20:04)
[2018-06-10] MEDS: PRAMIPEXOLE 0.125 MG TAB PO SCH ×2 (07:47→20:03)
[2018-06-10] MEDS: RIVAROXABAN 10 MG TAB PO SCH (07:47)
[2018-06-10] MEDS: CHOLECALCIFEROL 1,000 UNIT TAB PO SCH (07:48)
[2018-06-10] MEDS: LISINOPRIL 5 MG TAB PO SCH (07:48)
[2018-06-10] MEDS: ATENOLOL 25 MG TAB PO SCH (07:50)
[2018-06-10] MEDS: ceFAZolin IN SWFI 2 GM/20 ML SYRINGE IVP SCH (09:13)
[2018-06-10] MEDS: SODIUM CHLORIDE 0.9% 1,000 ML IV SCH ×4 (09:16→23:21)
--- NOTE | 2018-06-10 09:45 | P.PN ---
Subjective Progress Note Date: 06/10/18 This is a 78-year-old female who is status post left hip hemiarthroplasty. This is postoperative day #1. Patient is seen and evaluated at bedside. Patient states that her pain is well controlled. Patient does complain of some pain in the left calf. Patient denies any fever/chills, numbness, weakness, tingling, abdominal pain, shortness of breath or chest pain. Objective - Vital Signs Vital signs: Vital Signs Temp 97.6 F 06/10/18 07:32 Pulse 85 06/10/18 07:32 Resp 16 06/10/18 07:32 BP 124/73 06/10/18 07:32 Pulse Ox 96 06/10/18 07:32 Intake & Output 06/09/18 06/10/18 06/10/18 18:59 06:59 18:59 Intake Total 1595 1050 Output Total 450 Balance 1145 1050 Weight 53.5 kg Intake: IV 1051 Intake, IV Titration 544 520 Amount Sodium Chloride 0.9% 1, 544 000 ml @ 65 mls/hr IV . [id number] [facility] Rx#:[id number] Sodium Chloride 0.9% 1, 520 000 ml @ 65 mls/hr IV . [id number] [facility] Rx#:[id number] Oral 530 Output: Urine 400 Estimated Blood Loss 50 Other: Voiding Method Indwelling Catheter Indwelling Catheter - Exam Vital signs are stable. Patient is in no acute distress and is alert and oriented 3. Calf is soft and nontender to palpation. Dressing is clean, dry, and intact. There is tenderness to palpation over the left calf. Calf is soft. Patient has full foot and ankle motion without pain or difficulty. Neurovascular status and circulatory status are intact. - Labs CBC & Chem 7: 06/09/18 20:24 06/08/18 13:46 Labs: Abnormal Lab Results - Last 24 Hours (Table) 06/09/18 Range/Units 20:24 WBC 12.4 H (3.8-10.6) k/uL Hgb 10.7 L (11.4-16.0) gm/dL Hct 32.8 L (34.0-46.0) % Neutrophils # 9.9 H (1.3-7.7) k/uL Microbiology - Last 24 Hours (Table) 06/09/18 21:30 Urine Culture - Preliminary Urine,Catheterized Assessment and Plan (1) Closed left hip fracture Current Visit: Yes Status: Acute Code(s): S72.002A - FRACTURE OF UNSP PART OF NECK OF LEFT FEMUR, INIT SNOMED Code(s): 273597413 (2) Fall Current Visit: Yes Status: Acute Code(s): W19.XXXA - UNSPECIFIED FALL, INITIAL ENCOUNTER SNOMED Code(s): 4371675 Plan: Continue routine postop care. Continue hip precautions with abductor pillow. Continue antocoagulation with Xarelto. Weightbearing as tolerated with a walker. Doppler of the left lower extremity is pending. Leave dressing in place for 10 days. Likely discharge to rehab the next 1-2 days.
[2018-06-10] MEDS: cefTRIAXone IN SWFI 1,000 MG/10 ML SYRINGE IVP SCH (10:18)
--- NOTE | 2018-06-10 11:25 | US ---
EXAMINATION TYPE: US venous doppler duplex LE LT DATE OF EXAM: 06/10/2018 9:41 AM COMPARISON: NONE CLINICAL HISTORY: pain. hx fracture. Pain. No swelling. No redness. Poor historian. SIDE PERFORMED: Left TECHNIQUE: The lower extremity deep venous system is examined utilizing real time linear array sonog alexandre with graded compression, doppler sonography and color-flow sonography. VESSELS IMAGED: External Iliac Vein (EIV) Common Femoral Vein Deep Femoral Vein Greater Saphenous Vein * Femoral Vein Popliteal Vein Small Saphenous Vein * Proximal Calf Veins (* superficial vessels) Grayscale, color doppler, spectral doppler imaging performed of the deep veins of the lower extremiti es. There is normal flow, compressibility, vascular waveforms. Left Leg: Negative for DVT IMPRESSION: No evident deep venous thrombosis at or above the left knee.
[2018-06-10] MEDS: HYDROmorphone 1 MG/ML 1 ML SYRINGE IVP PRN (12:18)
--- NOTE | 2018-06-10 12:46 | PN ---
PROGRESS NOTE DATE OF SERVICE: 06/10/2018 This is a 78-year-old woman who was admitted with left hip fracture, is being closely monitored. No chest pain. No palpitation. No fever. The patient underwent left hip hemiarthroplasty by Dr. Valdes. The venous Doppler shows no evidence of DVT. No chest pain. No palpitations. No fever. PHYSICAL EXAM: Alert and oriented x1. Pulse 85, blood pressure 125/70, respirations 16, temperature 97.6, pulse ox 96% on 3 L. HEENT: Conjunctivae normal. Oral mucosa moist. Neck is no jugular venous distention. No lymph node enlargement. CARDIOVASCULAR SYSTEM: S1, S2, muffled. RESPIRATORY: Breath sounds diminished at the bases, no rhonchi, no crackles. ABDOMEN: Soft, nontender. LEGS: Status post surgery. NERVOUS SYSTEM: No focal or motor deficits. LABS: WBC 12.4, UTI. ASSESSMENT: 1. Status post left hip fracture and hemiarthroplasty. 2. History of coronary artery disease. 3. Hypertension. 4. Urinary tract infection, present on admission. 5. Hyperlipidemia. 6. Increased WBC, improving. 7. Myocardial infarction. 8. History of Parkinson's. 9. History of gait dysfunction. 10.History of coronary artery disease, coronary artery bypass grafting, stenting. 11.History most of motion weakness. 12.FULL CODE. RECOMMENDATION: In this 78-year-old woman who presented with multiple complex medical issues, will monitor the patient closely, continue with the current management and symptomatic treatment. Otherwise, at this time I recommend continue the antibiotics, incentive spirometry, PT, OT evaluation. Otherwise, possible ECF rehab. Further recommendations to follow. MMODL / IJN: [id number] /
[2018-06-10] MEDS: SENNOSIDES-DOCUSATE SODIUM 1 EACH TAB PO SCH (20:03)
[2018-06-10] MEDS: ASCORBIC ACID 500 MG TAB PO SCH (20:03)
[2018-06-10] MEDS: ATORVASTATIN 10 MG TAB PO SCH (20:03)
[2018-06-10] MEDS ORDERED: IPRATROPIUM-ALBUTEROL 3 ML NEB INHALATION PRN (21:34)
--- NOTE | 2018-06-10 22:05 | XR ---
EXAMINATION TYPE: XR chest 1V portable DATE OF EXAM: 06/10/2018 COMPARISON: 06/09/2018 HISTORY: Fever TECHNIQUE: Single frontal view of the chest is obtained. FINDINGS: There is coarsening of interstitial pulmonary markings. There is no heart failure. There a re sternal wires. Costophrenic angles are clear. IMPRESSION: Pulmonary interstitial fibrosis. Pleural reaction at the lung bases. No gross heart fail ure.
[2018-06-11 01:46] LABS: Appearance,Urine Clear (Clear); Bacteria,Urine Rare /hpf; Bilirubin,Urine Negative (Negative); Blood,Urine Small (Negative); Color,Urine Light Yellow; Glucose,Urine (UA) Negative (Negative); Ketones,Urine Negative (Negative); Leukocyte Esterase,Urine Moderate (Negative); Nitrite,Urine Negative (Negative); PH, Urine 6.5 (5.0-8.0); Protein,Urine Negative (Negative); RBC,Urine 2 /hpf (0-5); Specific Gravity,Urine 1.004 (1.001-1.035); Urobilinogen,Urine <2.0 mg/dL (<2.0); WBC,Urine 3 /hpf (0-5)
[2018-06-11 06:46] LABS: Basophils % (A) 0 %; Eosinophils # (A) 0.4 k/uL (0-0.7); Eosinophils % (A) 4 %; HCT 28.2 % (34.0-46.0); HGB 9.4 gm/dL (11.4-16.0); Lymphocytes # (A) 0.9 k/uL (1.0-4.8); Lymphocytes % (A) 9 %; MCH 28.1 pg (25.0-35.0); MCHC 33.2 g/dL (31.0-37.0); MCV 84.4 fL (80.0-100.0); Mean Platelet Volume 6.8; Monocytes # (A) 0.6 k/uL (0-1.0); Monocytes % (A) 7 %; Neutrophils # (A) 7.3 k/uL (1.3-7.7); Neutrophils % (A) 79 %; Platelet Count 166 k/uL (150-450); RBC 3.34 m/uL (3.80-5.40); RDW 13.4 % (11.5-15.5); WBC 9.3 k/uL (3.8-10.6)
[2018-06-11] MEDS: HYDROcodone/APAP 5-325MG 1 EACH TAB PO PRN (08:14)
[2018-06-11] MEDS: LISINOPRIL 5 MG TAB PO SCH (08:15)
[2018-06-11] MEDS: PRAMIPEXOLE 0.125 MG TAB PO SCH (08:15)
[2018-06-11] MEDS: ATENOLOL 25 MG TAB PO SCH (08:15)
[2018-06-11] MEDS: RIVAROXABAN 10 MG TAB PO SCH (08:15)
[2018-06-11] MEDS: CHOLECALCIFEROL 1,000 UNIT TAB PO SCH (08:15)
[2018-06-11] MEDS: cefTRIAXone IN SWFI 1,000 MG/10 ML SYRINGE IVP SCH (08:16)
[2018-06-11] MEDS: IPRATROPIUM-ALBUTEROL 3 ML NEB INHALATION SCH ×3 (08:25→15:27)
--- NOTE | 2018-06-11 09:35 | P.DS ---
Providers Date of admission: 06/08/18 11:52 Expected date of discharge: 06/11/18 Attending physician: Ross Valdes Consults: 06/08/18 12:47 Consult Physician Routine Consulting Provider: Zayda Reyes Consult Reason/Comments: surgical clearance and medical management Do you want consulting provider notified?: Yes 06/09/18 00:08 Consult Physician Routine Consulting Provider: Alena Mcnair Consult Reason/Comments: cad Do you want consulting provider notified?: Yes Primary care physician: Ross Valdes - Discharge Diagnosis(es) (1) Closed left hip fracture Current Visit: Yes Status: Acute (2) Fall Current Visit: Yes Status: Acute Hospital Course: This is a 78-year-old female who sustained a left hip fracture after a fall on 06/08/2018. The patient presents for evaluation. After discussion and consideration patient elects to proceed with left hip hemiarthroplasty. The patient is seen preoperatively by Dr. Valdes and medically cleared for surgery by internal medicine. Patient is admitted to [facility] on 06/08/2018 and left hip hemiarthroplasty is performed on 06/09/2018. The procedures performed without complication or sequelae. The patient is doing well postoperatively. A Doppler ultrasound of the left lower extremity was done on 06/10/2018 and was negative for any DVT. Labs and vital signs are stable on day of discharge. On day of discharge patient's hip incision is healing well. There is minimal erythema. There is no drainage noted at this time. There is minimal soft tissue swelling to the hip and thigh. Patient has full foot and ankle motion without difficulty or pain. Neurovascular status to the left lower extremity is intact. Patient is discharged to rehab in good condition. Please see med rec for accurate list of home medications. Plan - Discharge Summary Discharge Rx Participant: No New Discharge Prescriptions: New HYDROcodone/APAP 5-325MG [Graham 5-325] 1 - 2 tab PO Q4-6H PRN #84 tab PRN Reason: Pain Rivaroxaban [Xarelto] 10 mg PO DAILY #30 tab Sennosides [Senokot] 1 tab PO BID #60 tablet No Action Simvastatin [Zocor] 20 mg PO HS Superior-3 Fatty Acids/Fish Oil [Fish Oil 1,000 mg Softgel] 1 cap PO BID Ascorbic Acid [Vitamin C] 500 mg PO HS Pramipexole [Mirapex] 0.125 mg PO BID Lisinopril [Zestril] 5 mg PO DAILY Cholecalciferol [Vitamin D3] 5,000 unit PO DAILY Atenolol [Tenormin] 25 mg PO DAILY Aspirin EC [Ecotrin Low Dose] 81 mg PO DAILY Discharge Medication List Ascorbic Acid [Vitamin C] 500 mg PO HS 06/08/18 [History] Aspirin EC [Ecotrin Low Dose] 81 mg PO DAILY 06/08/18 [History] Atenolol [Tenormin] 25 mg PO DAILY 06/08/18 [History] Cholecalciferol [Vitamin D3] 5,000 unit PO DAILY 06/08/18 [History] Lisinopril [Zestril] 5 mg PO DAILY 06/08/18 [History] Superior-3 Fatty Acids/Fish Oil [Fish Oil 1,000 mg Softgel] 1 cap PO BID 06/08/18 [ History] Pramipexole [Mirapex] 0.125 mg PO BID 06/08/18 [History] Simvastatin [Zocor] 20 mg PO HS 06/08/18 [History] HYDROcodone/APAP 5-325MG [Graham 5-325] 1 - 2 tab PO Q4-6H PRN #84 tab 06/11/18 [ Rx] Rivaroxaban [Xarelto] 10 mg PO DAILY #30 tab 06/11/18 [Rx] Sennosides [Senokot] 1 tab PO BID #60 tablet 06/11/18 [Rx] Follow up Appointment(s)/Referral(s): Ross Valdes DO [Primary Care Provider] - 10 Days Activity/Diet/Wound Care/Special Instructions: Weightbearing as tolerated with walker. Leave dressing intact. Dressing may be removed by home care nurse in 10 days. May shower with dressing on. Continue use if abductor pillow for 6 weeks. Follow-up with [facility] in 2 weeks, please call with any questions or concerns [phone] Discharge Disposition: TRANSFER TO SNF/ECF
[2018-06-11 09:47] VITALS: RESP 16
--- NOTE | 2018-06-11 13:02 | PN ---
PROGRESS NOTE DATE OF SERVICE: 06/11/2018 This 78-year-old woman was admitted after left knee arthroplasty, is being closely monitored. The patient's sensorium was definitely improved and the patient is planned to be discharged to [facility] on the [place]. At this time Orthopedics is following the patient closely. PAST MEDICAL HISTORY: Reviewed. REVIEW OF SYSTEMS: CARDIOVASCULAR: No angina or palpitations. RESPIRATORY: As mentioned earlier. GI: No nausea. : No dysuria. NERVOUS SYSTEM: No numbness or weakness. MUSCULOSKELETAL: As mentioned earlier. CURRENT MEDICATIONS ARE REVIEWED, INCLUDE: 1. Tylenol 650 q.4 p.r.n. 2. [place] 5 mg q.6 hours p.r.n.. 3. DuoNeb q.i.d. and p.r.n. 4. Vitamin C 500 mg q.h.s. 5. Tenormin 25 mg. 6. Lipitor 10 mg q.h.s. 7. Rocephin 1 g daily. 8. Vitamin D3 five thousand daily. 9. Valium 2.5 mg q.8 p.r.n. 10.Dilaudid p.r.n. 11.Vistaril. 12.Narcan. 13.Xarelto. PHYSICAL EXAM: Patient is alert and oriented x2. Pulse is 72, blood pressure 144/70, respiration 16, temp 97.1, pulse ox 98% on 3 L. HEENT: Conjunctivae normal. Oral mucosa moist. Neck is no jugular venous distention. No lymph node enlargement. CARDIOVASCULAR SYSTEM: S1, S2, muffled. RESPIRATION: Breath sounds diminished at the bases, a few scattered rhonchi, no crackles. ABDOMEN: Soft, nontender, no mass. LEGS: Status post surgery. NERVOUS SYSTEM: No focal deficits. LABS: UA is improving. Hemoglobin 9.4. ASSESSMENT: 1. Status post left hip fracture and hemiarthroplasty. 2. History of coronary artery. 3. Hypertension. 4. Urinary tract infection, present on admission. 5. Hyperlipidemia. 6. Increased WBC, improved. 7. Myocardial infarction. 8. History of Parkinson's. 9. Gait dysfunction. 10.History of coronary artery disease, coronary artery bypass grafting, stenting. 11.History of motion sickness. 12.FULL CODE. RECOMMENDATION: Recommend to continue current management. Continue with the monitoring and symptomatic treatment. Otherwise, at this time I would recommend resume the home medications and medication reconstitution was done. I would also discuss the final diagnosis with pulmonary as described the present chest x-ray. I would also recommend close follow up with primary physician, Dr. Lennon in the outpatient setting. Otherwise, I would also recommend follow up with Dr. Gilbert in [facility]. Once again, the patient will be discharged in a stable condition with guarded prognosis. MMODL / IJN: [id number] /
[2018-06-11] MEDS ORDERED: FUROSEMIDE 10 MG/ML 2 ML VIAL IV STA (13:39)
[2018-06-11 14:38] VITALS: BP 120/73; PULSE 99; TEMP 98.2
== END 2018-06-11 15:25 | DRG 470 ==
LOC: 2ORMAIN 11:52 → 3SUR 12:00
PROVIDERS: ADMIT Orthopaedic Surgery; ATTEND Orthopaedic Surgery
PROC: 0SRS01A Replacement of Left Hip Joint, Femoral Surface with Metal Synthetic Substitute, Uncemented, Open Approach (ICD-10-PCS; principal; 2018-06-09 07:30)
DX: S72.012A Unspecified intracapsular fracture of left femur, initial encounter for closed fracture (principal); N39.0 Urinary tract infection, site not specified; E78.5 Hyperlipidemia, unspecified; G20 Parkinson's disease; I10 Essential (primary) hypertension; I25.10 Atherosclerotic heart disease of native coronary artery without angina pectoris; I25.2 Old myocardial infarction; H91.90 Unspecified hearing loss, unspecified ear; H54.7 Unspecified visual loss; I08.1 Rheumatic disorders of both mitral and tricuspid valves; D72.829 Elevated white blood cell count, unspecified; Z79.82 Long term (current) use of aspirin; Z79.899 Other long term (current) drug therapy; Z95.5 Presence of coronary angioplasty implant and graft; Z95.1 Presence of aortocoronary bypass graft; Z90.49 Acquired absence of other specified parts of digestive tract; Z82.0 Family history of epilepsy and other diseases of the nervous system; Z82.49 Family history of ischemic heart disease and other diseases of the circulatory system; Z82.3 Family history of stroke; W06.XXXA Fall from bed, initial encounter; Y92.9 Unspecified place or not applicable
CPT/HCPCS: 71045; 73501; 80048; 81001; 83880; 85025; 85027; 85610; 86850; 86900; 86901; 87040; 87086; 88305; 88311; 93005; 93306; 94640

== ENCOUNTER → 2018-08-19 | Outpatient (CLI) | payer MEDICARE, BC ==
[2018-08-19 16:52] LABS: HCT 30.8 % (34.0-46.0); HGB 9.9 gm/dL (11.4-16.0); Hypochromasia Moderate; MCH 26.3 pg (25.0-35.0); MCHC 32.1 g/dL (31.0-37.0); MCV 81.9 fL (80.0-100.0); Mean Platelet Volume 6.4; Platelet Count 378 k/uL (150-450); RBC 3.76 m/uL (3.80-5.40); RDW 13.6 % (11.5-15.5); WBC 11.1 k/uL (3.8-10.6)
[2018-08-19 17:05] LABS: ALT 33 U/L (9-52); AST 26 U/L (14-36); Albumin 3.1 g/dL (3.5-5.0); Alkaline Phosphatase 140 U/L (38-126); Anion Gap 10 mmol/L; Blood Urea Nitrogen 18 mg/dL (7-17); Calcium 9.1 mg/dL (8.4-10.2); Carbon Dioxide 27 mmol/L (22-30); Chloride 101 mmol/L (98-107); Glucose 86 mg/dL (74-99); Potassium 4.2 mmol/L (3.5-5.1); Sodium 138 mmol/L (137-145); Total Bilirubin 0.2 mg/dL (0.2-1.3); Total Protein 6.3 g/dL (6.3-8.2)
== END | disposition home or self-care (01) ==
LOC: LABWHC1 15:25
PROVIDERS: ATTEND Thoracic Surgery (Cardiothoracic Vascular Surgery)
DX: E63.8 Other specified nutritional deficiencies (principal)
CPT/HCPCS: 36415; 80053; 84134; 85027

== ENCOUNTER 2018-11-26 14:21 | Day surgery (SDC) | payer MEDICARE, BC ==
[2018-11-25 11:32] VITALS: BMI 23.4
[~2018-11-26 14:21] MED LIST: DEXAMETHASONE SOD PHOSPHATE 10 MG/ML 1 ML VIAL IV ONE; LACTATED RINGERS 1,000 ML IV SCH; LIDOCAINE 1% 20 ML VIAL (10MG/ML) FOR IV START INTRADERMA PRN; MIDAZOLAM (PF) 2 MG/2 ML VIAL IV PRN; ONDANSETRON 4 MG/2 ML VIAL IVP ONE; Pre Op ABX Message 1 EACH MISC MISCELLANE ONE; SCOPOLAMINE 1.5MG/72HR PATCH TRANSDERM ONE
[2018-11-26] MEDS ORDERED: ceFAZolin IN SWFI 2 GM/20 ML SYRINGE IVP ONE (14:48)
[2018-11-26] MEDS ORDERED: ceFAZolin 1,000 MG in DEXTROSE/WATER 1 50ML.BAG IVPB STA (14:50)
[2018-11-26 15:03] LABS: Glucose,Whole Blood 80 mg/dL (75-99)
[2018-11-26] MEDS ORDERED: SUCCINYLCHOLINE CHLORIDE 100 MG/5 ML SYR IV ONE (15:22)
[2018-11-26] MEDS ORDERED: LIDOCAINE 1% INJ 10MG/ML (20 ML MDV) ONE (15:22)
[2018-11-26] MEDS ORDERED: PROPOFOL 10 MG/ML 20 ML VIAL IV ONE (15:22)
[2018-11-26] MEDS ORDERED: fentaNYL (PF) 50 MCG/ML 2 ML AMP ONE (15:22)
[2018-11-26] MEDS ORDERED: ePHEDrine SULFATE/0.9% NACL/PF 50 MG/5 ML SYRINGE IV ONE (15:22)
[2018-11-26] MEDS: HYDROmorphone 0.5 MG/0.5 ML SYRINGE IVP PRN ×3 (17:10→17:28)
[2018-11-26 17:14] VITALS: TEMP 97
[2018-11-26] MEDS ORDERED: ACETAMINOPHEN TAB 325 MG TAB PO PRN (17:27)
[2018-11-26] MEDS ORDERED: NALOXONE 0.4 MG/ML 1 ML VIAL IV PRN (17:27)
--- NOTE | 2018-11-26 17:36 | P.OP ---
Date of Procedure: 11/26/18 Preoperative Diagnosis: Multiple nonhealing ulcerations left lower extremity Postoperative Diagnosis: Same Procedure(s) Performed: Debridement of 3 wounds of the left foot with application of wound VAC. Anesthesia: GAYATHRI Surgeon: Stefan Mosley Estimated Blood Loss (ml): 10 Pathology: none sent Condition: stable Disposition: other Indications for Procedure: Nonhealing ulcerations left foot Operative Findings: Stage II nonhealing ulcerations of the left foot and heel Description of Procedure: Patient is a 78-year-old female who had previously presented with critical limb ischemia of the left foot. She was found be suffering from a occluded left common femoral artery for which he underwent a common femoral profundus femoris thromboendarterectomy and patch angioplasty. This resulted in markedly improved blood flow into the foot however the patient did require amputation of the left great toe due to the reversible ischemia. She had presented with 2 other wounds of the foot at that time one on the dorsum of the foot and wanted to heal. Since revascularization the patient's wounds have slowly been healing however are now in need of surgical debridement. The procedure of debridement and application of wound VAC were discussed with the patient and her daughter including all inherent risk and benefits. Patient wished to proceed with same. Description of procedure and findings patient brought to the operating room and placed in the supine position. She received general endotracheal anesthesia delivered by the department anesthesiology. The patient received 1 g of Ancef in the perioperative phase for prophylactic antibiotic therapy. Patient was then no placed in the left lateral decubitus position and the left foot and lower leg were sterilely prepped and draped in usual manner. 3 separate wounds were noted on the left foot. The toe amputation site wound measured 3.5 x 3 cm x 0.2 cm in depth. On the dorsal surface of the foot patient at a wound that measured 50 x 38 x 2 mm and the left heel wound measured 11 x 5 cm with a depth of 2 mm. All wounds had a heavy layer of fluff fibrin which was said to prided with a curet as well as a surgical scrub brush. There is no evidence of undermining, tunneling or cellulitic reaction. Her graft with adequate debridement being performed revealing good granular tissue throughout the almost the entirety of all wounds wound VAC was applied to all wounds. The wound VAC was then placed to -125 mmHg suction with good seal noted. Patient tolerated procedure well awoke without apparent consultation was transferred to recovery area in satisfactory and stable condition.
[2018-11-26 17:58] VITALS: RESP 18
[2018-11-26] MEDS ORDERED: ONDANSETRON 4 MG/2 ML VIAL IVP ONE (18:16)
[2018-11-26 20:07] VITALS: BP 153/78; PULSE 81
--- NOTE | 2018-11-30 14:14 | CDI ---
Date: 11/30/18 CDS/Software Applications Designer Name: Shelbie Walker Phone: If any questions, call Lorri Mcallister Switcher at [phone] Patient Name: Mya Moore Admit Date: 11/26/18 Discharge Date: 11/29/18 ATTENTION: The [facility] Coding Staff appreciate your assistance in clarifying documentation. Please respond to the clarification below the line at the bottom and electronically sign. The [facility] Coding staff will review the response and follow-up if needed. Please note: Queries are made part of the Legal Health Record. If you have any questions, please contact the Switcher. Dear , Please provide clarification as to the depth of each ulcer debrided. In order to correctly code debridement, the depth of the debridement is needed. Please clarify skin and subcutaneous, fascia, bone. Thank you for your kind consideration. skin and subcutaneous tissues ___ MTDD
== END 2018-11-26 20:35 | disposition home health service (06) ==
LOC: OR 14:21
PROVIDERS: ATTEND Surgery
DX: L97.429 Non-pressure chronic ulcer of left heel and midfoot with unspecified severity (principal); L97.529 Non-pressure chronic ulcer of other part of left foot with unspecified severity; Z89.412 Acquired absence of left great toe; Z98.62 Peripheral vascular angioplasty status; Z86.79 Personal history of other diseases of the circulatory system; Z95.1 Presence of aortocoronary bypass graft; I25.10 Atherosclerotic heart disease of native coronary artery without angina pectoris; I10 Essential (primary) hypertension; Z82.49 Family history of ischemic heart disease and other diseases of the circulatory system; Z82.3 Family history of stroke; E78.5 Hyperlipidemia, unspecified; G20 Parkinson's disease; Z79.82 Long term (current) use of aspirin; Z79.899 Other long term (current) drug therapy
CPT/HCPCS: 11042; 11045 ×4; J1100; J2405; J2001; J3010; J0690; J0330; J2704; J1170

== ENCOUNTER 2020-04-20 09:31 | Emergency (ER) | payer MEDICARE, BC ==
[2020-04-20 09:37] VITALS: TEMP 99.7
[2020-04-20] MEDS ORDERED: ONDANSETRON 4 MG/2 ML VIAL IVP STA (09:52)
[2020-04-20] MEDS ORDERED: FAMOTIDINE 20 MG/2 ML VIAL IV STA (09:52)
[2020-04-20] MEDS ORDERED: SODIUM CHLORIDE 0.9% 1,000 ML IV STA (09:52)
--- NOTE | 2020-04-20 09:54 | ED ---
General Adult HPI - General Chief complaint: Nausea/Vomiting/Diarrhea Stated complaint: Vomiting Time Seen by Provider: 04/20/20 09:43 Source: patient, family, RN notes reviewed Mode of arrival: wheelchair Limitations: physical limitation - History of Present Illness Initial comments: Patient is a pleasant 80-year-old female presenting to the emergency Department with complaints of nausea vomiting. Onset was yesterday afternoon. Patient has vomited several times however now has dry heaves. Patient does have some abdominal discomfort. No fevers at home. No history of chronic similar problems previously. Patient may be a little bit constipated, last bowel movement was a couple of days ago. No diarrhea. - Related Data Home Medications Medication Instructions Recorded Confirmed Ascorbic Acid [Vitamin C] 500 mg PO HS 06/08/18 04/20/20 Atenolol [Tenormin] 25 mg PO DAILY 06/08/18 04/20/20 Cholecalciferol [Vitamin D3 (25 5,000 unit PO DAILY 06/08/18 04/20/20 Mcg = 1000 Iu)] Lisinopril [Zestril] 5 mg PO DAILY 06/08/18 04/20/20 Simvastatin [Zocor] 20 mg PO HS 06/08/18 04/20/20 Aspirin [Adult Low Dose Aspirin EC] 81 mg PO DAILY 08/19/18 04/20/20 Pramipexole Di-HCl [Mirapex] 0.125 mg PO BID 04/20/20 04/20/20 Previous Rx's Medication Instructions Recorded Amoxic-Pot Clav 875-125Mg 1 tab PO Q12HR 7 Days #14 tab 04/20/20 [Augmentin 875-125] Ondansetron Odt [Zofran Odt] 4 mg PO Q8HR PRN #10 tab 04/20/20 Allergies Allergy/AdvReac Type Severity Reaction Status Date / Time No Known Allergies Allergy Verified 04/20/20 13:44 Review of Systems ROS Statement: Those systems with pertinent positive or pertinent negative responses have been documented in the HPI. ROS Other: All systems not noted in ROS Statement are negative. Constitutional: Denies: fever Eyes: Denies: eye pain ENT: Denies: ear pain Respiratory: Denies: cough, dyspnea Cardiovascular: Denies: chest pain Endocrine: Denies: fatigue Gastrointestinal: Reports: as per HPI, abdominal pain, nausea, vomiting Genitourinary: Denies: dysuria Musculoskeletal: Denies: back pain Skin: Denies: rash Neurological: Denies: weakness Past Medical History Past Medical History: Coronary Artery Disease (CAD), Hyperlipidemia, Hypertension, Myocardial Infarction (SC) Additional Past Medical History / Comment(s): Parkinsons,wounds to foot & buttocks Last Myocardial Infarction Date:: 01/2011 History of Any Multi-Drug Resistant Organisms: None Reported Past Surgical History: Appendectomy, Coronary Bypass/CABG, Heart Catheterization With Stent, Tonsillectomy Additional Past Surgical History / Comment(s): Cataracts. 10-12-18 left great toe amputation Past Anesthesia/Blood Transfusion Reactions: No Reported Reaction, Motion Si ckness Date of Last Stent Placement:: 01/2011 Past Psychological History: Depression Smoking Status: Never smoker Past Alcohol Use History: None Reported Past Drug Use History: None Reported - Past Family History Mother Family Medical History: CVA/TIA, Musculoskeletal Disorder, Neurologic Disorder Additional Family Medical History / Comment(s): Mother had beginnings of parkinsons. Father Family Medical History: Myocardial Infarction (SC) Additional Family Medical History / Comment(s): Father of a SC at the age of 91 yrs. General Exam Limitations: physical limitation General appearance: alert, in no apparent distress Head exam: Present: normocephalic Eye exam: Present: normal appearance, PERRL ENT exam: Present: normal oropharynx Neck exam: Present: normal inspection Respiratory exam: Present: normal lung sounds bilaterally Cardiovascular Exam: Present: regular rate, normal rhythm Expanded Peripheral pulses: 2+: Dorsalis Pedis (R), Dorsalis Pedis (L) GI/Abdominal exam: Present: soft, tenderness (Mild. Umbilical tenderness), normal bowel sounds. Absent: distended, guarding, rebound, rigid, pulsatile mass Extremities exam: Present: normal inspection Neurological exam: Present: alert Psychiatric exam: Present: normal affect, normal mood Skin exam: Present: normal color Course Vital Signs 04/20/20 04/20/20 04/20/20 09:34 10:26 10:30 Temperature 99.7 F H Pulse Rate 95 94 92 Respiratory 18 18 17 Rate Blood Pressure 126/73 119/83 119/83 O2 Sat by Pulse 96 97 94 L Oximetry 04/20/20 11:00 Temperature Pulse Rate 90 Respiratory 17 Rate Blood Pressure 110/51 O2 Sat by Pulse 95 Oximetry EKG Findings - EKG Comments: EKG Findings:: Sinus rhythm at 100. PVCs present. Motion artifact present. DE 176. QRS 78. QT 372. QTC 479. Normal axis. Normal QRS. No acute ST change. Medical Decision Making - Medical Decision Making Case was discussed with Dr. Harman who felt patient was comfortable could be discharged on oral antibiotics and follow-up in a week. Patient reevaluated and resting comfortably at bedside stating she feels much better. No nausea. Abdomen soft and nontender. Patient does request discharge. - Lab Data Result diagrams: 04/20/20 10:08 04/20/20 10:08 Lab Results 04/20/20 04/20/20 04/20/20 Range/Units 10:08 10:08 10:08 WBC 10.1 (3.8-10.6) k/uL RBC 4.18 (3.80-5.40) m/uL Hgb 11.8 (11.4-16.0) gm/dL Hct 36.5 (34.0-46.0) % MCV 87.4 (80.0-100.0) fL MCH 28.2 (25.0-35.0) pg MCHC 32.3 (31.0-37.0) g/dL RDW 12.8 (11.5-15.5) % Plt Count 190 (150-450) k/uL Neutrophils % 87 % Lymphocytes % 6 % Monocytes % 5 % Eosinophils % 1 % Basophils % 0 % Neutrophils # 8.8 H (1.3-7.7) k/uL Lymphocytes # 0.6 L (1.0-4.8) k/uL Monocytes # 0.5 (0-1.0) k/uL Eosinophils # 0.1 (0-0.7) k/uL Basophils # 0.0 (0-0.2) k/uL PT 10.3 (9.0-12.0) sec INR 1.0 (<1.2) APTT 23.9 (22.0-30.0) sec Sodium 138 (137-145) mmol/L Potassium 4.0 (3.5-5.1) mmol/L Chloride 104 (98-107) mmol/L Carbon Dioxide 28 (22-30) mmol/L Anion Gap 6 mmol/L BUN 25 H (7-17) mg/dL Creatinine 0.54 (0.52-1.04) mg/dL Est GFR (CKD-EPI)AfAm >90 (>60 ml/min/1.73 sqM) Est GFR (CKD-EPI)NonAf >90 (>60 ml/min/1.73 sqM) Glucose 97 (74-99) mg/dL Calcium 8.8 (8.4-10.2) mg/dL Total Bilirubin 0.7 (0.2-1.3) mg/dL AST 22 (14-36) U/L ALT 12 (4-34) U/L Alkaline Phosphatase 115 (38-126) U/L Troponin I (0.000-0.034) ng/mL Total Protein 6.2 L (6.3-8.2) g/dL Albumin 3.5 (3.5-5.0) g/dL Amylase 44 (30-110) U/L Lipase 40 (23-300) U/L Urine Color Urine Appearance (Clear) Urine pH (5.0-8.0) Ur Specific [place] (1.001-1.035) Urine Protein (Negative) Urine Glucose (UA) (Negative) Urine Ketones (Negative) Urine Blood (Negative) Urine Nitrite (Negative) Urine Bilirubin (Negative) Urine Urobilinogen (<2.0) mg/dL Ur Leukocyte Esterase (Negative) Urine RBC (0-5) /hpf Urine WBC (0-5) /hpf Ur Squamous Epith Cells (0-4) /hpf Urine Mucus (None) /hpf 04/20/20 04/20/20 Range/Units 10:08 13:25 WBC (3.8-10.6) k/uL RBC (3.80-5.40) m/uL Hgb (11.4-16.0) gm/dL Hct (34.0-46.0) % MCV (80.0-100.0) fL MCH (25.0-35.0) pg MCHC (31.0-37.0) g/dL RDW (11.5-15.5) % Plt Count (150-450) k/uL Neutrophils % % Lymphocytes % % Monocytes % % Eosinophils % % Basophils % % Neutrophils # (1.3-7.7) k/uL Lymphocytes # (1.0-4.8) k/uL Monocytes # (0-1.0) k/uL Eosinophils # (0-0.7) k/uL Basophils # (0-0.2) k/uL PT (9.0-12.0) sec INR (<1.2) APTT (22.0-30.0) sec Sodium (137-145) mmol/L Potassium (3.5-5.1) mmol/L Chloride (98-107) mmol/L Carbon Dioxide (22-30) mmol/L Anion Gap mmol/L BUN (7-17) mg/dL Creatinine (0.52-1.04) mg/dL Est GFR (CKD-EPI)AfAm (>60 ml/min/1.73 sqM) Est GFR (CKD-EPI)NonAf (>60 ml/min/1.73 sqM) Glucose (74-99) mg/dL Calcium (8.4-10.2) mg/dL Total Bilirubin (0.2-1.3) mg/dL AST (14-36) U/L ALT (4-34) U/L Alkaline Phosphatase (38-126) U/L Troponin I <0.012 (0.000-0.034) ng/mL Total Protein (6.3-8.2) g/dL Albumin (3.5-5.0) g/dL Amylase (30-110) U/L Lipase (23-300) U/L Urine Color Yellow Urine Appearance Clear (Clear) Urine pH 7.0 (5.0-8.0) Ur Specific [place] >1.050 H (1.001-1.035) Urine Protein Trace H (Negative) Urine Glucose (UA) Negative (Negative) Urine Ketones Negative (Negative) Urine Blood Trace H (Negative) Urine Nitrite Negative (Negative) Urine Bilirubin Negative (Negative) Urine Urobilinogen <2.0 (<2.0) mg/dL Ur Leukocyte Esterase Small H (Negative) Urine RBC 16 H (0-5) /hpf Urine WBC 7 H (0-5) /hpf Ur Squamous Epith Cells 2 (0-4) /hpf Urine Mucus Rare H (None) /hpf - Radiology Data Radiology results: report reviewed (Ultrasound gallbladder is limited exam. Sl udge within the gallbladder. Gallbladder players hydropic. Computed tomography scan abdomen pelvis shows probable enteritis. Hydropic gallbladder. Aortic calcifications. Vertebral compression bodies. Hepatic hypodensities, likely cyst.) Disposition Clinical Impression: Enteritis, Gallbladder sludge Disposition: HOME SELF-CARE Condition: Stable Instructions (If sedation given, give patient instructions): Acute Nausea and Vomiting (ED), Biliary Colic (ED) Additional Instructions: Please follow-up with primary care physician in the next day or 2 for recheck. Please also follow-up with Dr. Harman in less than one week for reevaluation. Return for fever, vomiting, increased pain, worsening or changing symptoms or other concerns. Prescription sent to [facility] pharmacy in [place] Prescriptions: Amoxic-Pot Clav 875-125Mg [Augmentin 875-125] 1 tab PO Q12HR 7 Days #14 tab Ondansetron Odt [Zofran Odt] 4 mg PO Q8HR PRN #10 tab PRN Reason: Nausea Is patient prescribed a controlled substance at d/c from ED?: No Referrals: Ross Lennon DO [Primary Care Provider] - 1-2 days Shivam Cerna MD [Medical Doctor] - 1-2 days Time of Disposition: 14:10
[2020-04-20 10:54] LABS: Basophils % (A) 0 %; Eosinophils # (A) 0.1 k/uL (0-0.7); Eosinophils % (A) 1 %; HCT 36.5 % (34.0-46.0); HGB 11.8 gm/dL (11.4-16.0); Lymphocytes # (A) 0.6 k/uL (1.0-4.8); Lymphocytes % (A) 6 %; MCH 28.2 pg (25.0-35.0); MCHC 32.3 g/dL (31.0-37.0); MCV 87.4 fL (80.0-100.0); Mean Platelet Volume 7.5; Monocytes # (A) 0.5 k/uL (0-1.0); Monocytes % (A) 5 %; Neutrophils # (A) 8.8 k/uL (1.3-7.7); Neutrophils % (A) 87 %; Platelet Count 190 k/uL (150-450); RBC 4.18 m/uL (3.80-5.40); RDW 12.8 % (11.5-15.5); WBC 10.1 k/uL (3.8-10.6)
[2020-04-20 10:57] LABS: ALT 12 U/L (4-34); AST 22 U/L (14-36); African American GFR (CKD) >90 (>60 ml/min/1.73 sqM); Albumin 3.5 g/dL (3.5-5.0); Alkaline Phosphatase 115 U/L (38-126); Amylase 44 U/L (30-110); Anion Gap 6 mmol/L; Blood Urea Nitrogen 25 mg/dL (7-17); Calcium 8.8 mg/dL (8.4-10.2); Carbon Dioxide 28 mmol/L (22-30); Chloride 104 mmol/L (98-107); Glucose 97 mg/dL (74-99); Non-African American GFR(CKD) >90 (>60 ml/min/1.73 sqM); Partial Thromboplastin Time 23.9 sec (22.0-30.0); Prothrombin Time 10.3 sec (9.0-12.0); Sodium 138 mmol/L (137-145); Total Bilirubin 0.7 mg/dL (0.2-1.3); Total Protein 6.2 g/dL (6.3-8.2)
--- NOTE | 2020-04-20 12:02 | CT ---
EXAMINATION TYPE: CT abdomen pelvis w con DATE OF EXAM: 04/20/2020 COMPARISON: 12/24/2012. Lumbar radiographs 06/03/2017 HISTORY: 80-year-old female Nausea and vomiting, abdominal pain TECHNIQUE: Contiguous axial scanning of the abdomen and pelvis following administration of 100 ml Iso tip 300 IV contrast. Delayed images through the kidneys and coronal/sagittal reconstructions perform ed. CT DLP: 1071.5 mGycm Automated exposure control for dose reduction was used. FINDINGS: Median sternotomy wires. Heart borderline enlarged without pericardial effusion. Interstitial and ret icular changes in the lower lungs appear chronic with mild bronchiolectasis. No pleural effusion. Small hiatal hernia. Scattered indeterminate hepatic hypodensities measuring up to 7 mm anterior mid liver. On the hypoden sities not clearly seen in 2012. Cysts remain favored. The gallbladder is hydropic measuring 5.0 cm wide. No surrounding inflammation seen at this time. No biliary ductal dilatation. Portal venous system is patent. Adrenal glands left kidney, spleen with some vascular calcifications, and pancreas appear within norm al limits allowing for some motion artifact. 8 mm lateral cortical hypodensity within the right kidney too small for accurate CT characterization, probable cyst. Moderate to severe atherosclerotic calcifications inferior abdominal aorta and common iliac arteries. There may be focal severe stenoses at the aortic bifurcation and proximal common iliac arteries. No dilated small bowel, free fluid, or free air. Some prominent fluid-filled small bowel loops in the lower abdomen and pelvis. Mild to moderate stool burden. Sigmoid diverticulosis. No pericolonic inflammatory change. Extensive artifact from the patient's left hip total arthroplasty limits visualization of the pelvis. Uterus is visualized, anteverted. Left ovary not clearly seen. Suspect visualization of a small righ t ovary. No abnormal fluid collection clearly seen in the pelvis or pelvic lymphadenopathy. Suspect severe atherosclerotic calcifications within the right common femoral artery. Bones: Old healed fracture deformities of the left superior and inferior pubic rami. Vertebral compre ssion collapse is T12-L5. Mild diffuse spinal canal narrowing throughout. Collapse of the L2, L4, L5 vertebral bodies are new from 06/03/2017. Still, age indeterminate and suspected chronic. IMPRESSION: 1. PROMINENT FLUID-FILLED SMALL BOWEL LOOPS IN THE LOWER ABDOMEN AND PELVIS MAY REFLECT AN ENTERITIS. SIGMOID DIVERTICULOSIS WITHOUT ACUTE DIVERTICULITIS. 2. HYDROPIC GALLBLADDER AT 5.0 CM WIDE. NO SURROUNDING INFLAMMATION SEEN AT THIS TIME. IF RIGHT UPPER QUADRANT PAIN OR CONCERN FOR EARLY ACUTE CHOLECYSTITIS, HIDA SCAN CAN BE CONSIDERED. 3. MODERATE TO SEVERE PROSTATIC CALCIFICATIONS. THERE MAY BE FOCAL SEVERE STENOSES AT THE AORTIC BIFU RCATION AND PROXIMAL COMMON ILIAC ARTERIES WELL THE RIGHT COMMON FEMORAL ARTERY. 4. 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 COLLAPSE OF THE L2, L4, AND L5 VERTEBRA L BODIES IS NEW FROM 06/03/2017 BUT STILL AGE INDETERMINATE AND SUSPECTED CHRONIC. CLINICALLY CORRELATE . 5. INDETERMINATE MULTIPLE HEPATIC HYPODENSITIES, MOST TOO SMALL FOR ACCURATE CT CHARACTERIZATION. KAILA IGN CYSTS ARE SUSPECTED. IF INDICATED, CONSIDER A FOLLOW-UP IN 3 MONTHS WITH MRI FOR MORE DEFINITIVE EVALUATION.
--- NOTE | 2020-04-20 13:36 | US ---
EXAMINATION TYPE: US gallbladder DATE OF EXAM: 04/20/2020 COMPARISON: CT 04/20/2020 CLINICAL HISTORY: Abdomen pain. EXAM MEASUREMENTS: Liver Length: 11.9 cm Gallbladder Wall: 0.2 cm CBD: not seen, obscured by overlying bowel gas Right Kidney: 8.1 x 3.2 x 3.8 cm Patient had to sit upright with knees up due to discomfort, very limited scanning area. Pancreas: Obscured by bowel gas Liver: minimal visualization, unable to see masses seen on CT Gallbladder: limited views, possible debris Evidence for sonographic Mclean's sign: no CBD: not visualized Right Kidney: limited visualization, no hydro or mass identified, measures small There is no ascites. IMPRESSION: Exam is somewhat limited. Possible tumefactive sludge within the gallbladder. Gallbladder appears hydropic.
[2020-04-20 13:50] LABS: Appearance,Urine Clear (Clear); Bilirubin,Urine Negative (Negative); Blood,Urine Trace (Negative); Color,Urine Yellow; Glucose,Urine (UA) Negative (Negative); Ketones,Urine Negative (Negative); Leukocyte Esterase,Urine Small (Negative); Mucus,Urine Rare /hpf; Nitrite,Urine Negative (Negative); Protein,Urine Trace (Negative); RBC,Urine 16 /hpf (0-5); Squamous Epithelial Cell,Urine 2 /hpf (0-4); Urobilinogen,Urine <2.0 mg/dL (<2.0); WBC,Urine 7 /hpf (0-5)
[2020-04-20 13:59] LABS: Specific Gravity,Urine >1.050 (1.001-1.035)
[2020-04-20 14:37] VITALS: BP 122/76; PULSE 87; RESP 18
== END 2020-04-20 14:37 | disposition home or self-care (01) ==
LOC: EC 09:31
DX: K52.9 Noninfective gastroenteritis and colitis, unspecified (principal); K82.8 Other specified diseases of gallbladder; I25.10 Atherosclerotic heart disease of native coronary artery without angina pectoris; E78.5 Hyperlipidemia, unspecified; I10 Essential (primary) hypertension; G20 Parkinson's disease; I25.2 Old myocardial infarction; Z79.82 Long term (current) use of aspirin; Z79.899 Other long term (current) drug therapy; Z95.1 Presence of aortocoronary bypass graft; Z95.5 Presence of coronary angioplasty implant and graft; Z89.412 Acquired absence of left great toe
CPT/HCPCS: 99284; 96374; 96375; 96361 ×4; 36415; 93005; 80053; 82150; 83690; 84484; 85025; 85610; 85730; 81001; 76705; 74177; U0003; J2405; Q9967

== ENCOUNTER → 2020-09-08 | Outpatient (CLI) | payer MEDICARE, BC ==
--- NOTE | 2020-09-09 15:58 | XR ---
EXAMINATION TYPE: XR wrist complete RT DATE OF EXAM: 09/08/2020 CLINICAL HISTORY: Right wrist pain, fall today TECHNIQUE: Frontal, lateral and oblique images of the right wrist are obtained. COMPARISON: None FINDINGS: There is a comminuted impacted distal radial fracture extending to the radiocarpal joint a nd likely the distal radioulnar joint. No significant angulation. No dislocation. Diffuse wrist soft tissue swelling. Decreased osseous mineralization. Degenerative changes of the fingers. Difficult to exclude small avulsion fracture fragment of the ulnar styloid. IMPRESSION: 1. Comminuted impacted intra-articular fracture of the distal radius. 2. Difficult to exclude tiny avulsion fracture fragment of the ulnar styloid. 3. Diffuse wrist soft tissue swelling. 4. Minimally decreased osseous mineralization. A Yellow level critical message alert has been initiated for Ross Lennon DO via the [employer] Critical Results System on 09/09/2020 3:56 PM. This message alert has been sent to Ross bocanegra DO via the preferences provided by the clinician for the receipt of Radiology Critical Findings. Message ID [id number].
== END | disposition home or self-care (01) ==
LOC: RADXRYALE 16:49
PROVIDERS: ATTEND Family Medicine
DX: S52.571A Other intraarticular fracture of lower end of right radius, initial encounter for closed fracture (principal); S52.611A Displaced fracture of right ulna styloid process, initial encounter for closed fracture; M79.89 Other specified soft tissue disorders; M89.8X4 Other specified disorders of bone, hand

== ENCOUNTER → 2022-03-28 | Outpatient (CLI) | payer MEDICARE, BC ==
--- NOTE | 2022-03-29 13:37 | CT ---
CTA abdomen and pelvis with runoff. HISTORY: Lower extremity pain. COMPARISON: None. TECHNIQUE: Multiple axial images were obtained through the abdomen, pelvis and lower extremities foll owing uneventful administration nonionic IV contrast. Exam was performed according to the CTA protoco l. Coronal and sagittal reconstructions were generated and reviewed. 3-D postprocessing was performed . MIPS images were obtained and reviewed. FINDINGS: Inflow CTA: There is marked diffuse vascular calcification involving abdominal aorta and iliac arteries. Secondar y to dense calcified plaque there is a moderate to severe stenosis of the distal abdominal aorta at t he bifurcation of the iliac arteries. Although there is diffuse calcification of the common and exter nal iliac arteries there is no definite significant stenosis. Outflow CTA: There is marked diffuse vascular calcification involving the superficial femoral arteries bilaterally . There are multiple mild stenoses throughout the course of the right superficial femoral artery. The re are multiple moderate to severe focal stenoses of the mid to distal left superficial femoral arter y. The popliteal arteries are patent without significant stenosis. Runoff CTA: There is diffuse disease with arteriosclerosis of the runoff vessels bilaterally. There is single ves beatris runoff via the anterior tibial arteries bilaterally. The peroneal arteries occlude in the distal third of the calf and the posterior tibial arteries occlude in the distal calf as well. IMPRESSION: 1. 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 2. Moderate to severe stenoses of the distal left superficial femoral artery. 3. Diffuse vascular calcification multiple mild stenoses of the right superficial femoral artery. 4. Single vessel runoff bilaterally via the anterior tibial arteries. 5. Diffuse vascular calcifications of the inflow, outflow and runoff arteries with diminished contras t opacification throughout which somewhat limits the evaluation.
== END | disposition home or self-care (01) ==
LOC: RADCTMAIN 15:03
PROVIDERS: ATTEND Surgery
DX: I70.213 Atherosclerosis of native arteries of extremities with intermittent claudication, bilateral legs (principal)
CPT/HCPCS: 75635; 82565; 84520

== ENCOUNTER → 2022-08-30 | Outpatient (CLI) | payer MEDICARE, BC ==
--- NOTE | 2022-09-01 15:26 | CT ---
EXAMINATION TYPE: CT angio abd aorta w/Runoff DATE OF EXAM: 08/30/2022 COMPARISON: 03/28/2022 INDICATION: Leg blockage DLP: 1588.1 mGycm, Automated exposure control for dose reduction was used. CONTRAST: 125ml mL of Isovue 370. Study performed without Oral Contrast TECHNIQUE: Axial images were obtained from above the diaphragm to the pubic rami in the axial plane a t 5 mm thick sections. Reconstructed images are reviewed on the computer in the coronal plane. FINDINGS: Limited CT sections are obtained the lung bases. Mild scattered infiltrates may be present. Peribron chial calcification is noted. Vascular calcifications within the coronary vessels. Large sized hiatal hernia is present.. CT ABDOMEN: Liver: Normal Spleen: Normal Pancreas: Normal Adrenal glands: The adrenal glands are normal. Gallbladder: Normal Kidneys: Right kidney is somewhat small. There is a 0.3 cm calcification in the medial left kidney. N o masses are evident. No hydronephrosis is present. No cysts are present. Delayed images were obta ined through the kidneys, which remain unremarkable. Aorta: Vascular calcification is within the aorta. This extends into the iliac vessels. Inferior vena cava: Normal. CT PELVIS: Loops of bowel within the abdomen and pelvis are normal. Scattered diverticuli are present. There are loops of bowel which are incompletely distended or lack oral contrast limiting their evaluation. Appendix: Normal as visualized. Urinary bladder: Normal. Genitourinary structures: Osseous structures: No suspicious lytic or sclerotic lesions. Left hip prosthesis is present. CTA: Celiac axis and superior mesenteric artery identified. Lateral renal arteries are identified. Th ere is some tortuosity of the aorta. No aneurysmal dilatation is evident. Iliac vessels are patent. I nternal and external iliac vessels are patent. Common femoral arteries are patent. There is some narrowing of the proximal right superficial femoral artery. Superficial femoral arterie s are otherwise patent. Popliteal arteries as visualized appear patent without focal stenosis. Mild n arrowing may be present within the proximal portions bilaterally. Some mild narrowing of the distal p opliteal artery on the left may be present. Proximal trifurcation vessels are patent bilaterally. The left posterior tibial artery appears occlud ed at its proximal portion. Left peroneal artery is somewhat attenuated through the midportion. Anter ior and posterior tibial arteries on the right and the anterior tibial artery on the left are patent to the level of the ankle. Anterior tibial arteries are patent past the ankle bilaterally. Posterior tibial arteries are poorly visualized distal to the ankle mortise. Peroneal arteries appear to extend to nearly the ankle bilaterally. IMPRESSIONS: 1. 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 2. Anterior tibial artery is patent at the level of the ankle. 3. Mild areas of narrowing within the proximal and distal superficial femoral arteries discussed abonahum reilly.
== END | disposition home or self-care (01) ==
LOC: RADCTMAIN 11:47
PROVIDERS: ATTEND Surgery
DX: I70.213 Atherosclerosis of native arteries of extremities with intermittent claudication, bilateral legs (principal)
CPT/HCPCS: 82565; 84520; 75635; 36415; Q9967

== ENCOUNTER → 2022-09-03 | Outpatient (CLI) | payer MEDICARE, BC ==
--- NOTE | 2022-09-04 09:05 | XR ---
EXAMINATION TYPE: XR soft tissue neck DATE OF EXAM: 09/03/2022 COMPARISON: NONE HISTORY: Cough TECHNIQUE: 2 view soft tissue neck submitted FINDINGS: Diffuse osteopenia noted. Postsurgical changes are seen involving the mediastinum and humer us. Airway appears patent. Degenerative change of the cervical spine with diffuse osteopenia. Epiglot tis normal. Calcifications of the soft tissue the neck likely related to carotid artery atherosclerot ic disease. There is a small portion of the cardiac silhouette included in the [id number] which ap pears enlarged. There is chronic rib deformities and question chronic interstitial lung disease. Apic al pleural calcifications can be associated with asbestos related disease. IMPRESSION: 1. Airways patent. See above.
== END | disposition home or self-care (01) ==
LOC: RADXRYALE 16:13
PROVIDERS: ATTEND Family Medicine
DX: S10.15XA Superficial foreign body of throat, initial encounter (principal); R05.1 Acute cough; R13.10 Dysphagia, unspecified
CPT/HCPCS: 70360

== ENCOUNTER 2023-03-12 20:29 | Emergency (ER) | payer MEDICARE, BC ==
[2023-03-12 20:59] VITALS: RESP 18; TEMP 98.3
--- NOTE | 2023-03-12 22:21 | XR ---
EXAM: XR Soft Tissue Neck CLINICAL HISTORY: ITS.REASON XR Reason: possible esophageal impaction TECHNIQUE: Frontal and lateral views of the soft tissues of the neck. COMPARISON: No relevant prior studies available. FINDINGS: Airway: No significant abnormality. Bones/joints: No acute abnormality. Soft tissues: Indeterminate calcific densities project anterior to the C2 and C3 vertebral bodies on the lateral radiograph without a correlate on the frontal projection. IMPRESSION: Indeterminate calcific densities project anterior to the C2 and C3 vertebral bodies on the lateral radiograph without a correlate on the frontal projection. CT may be considered for further characterization, as clinically indicated.
--- NOTE | 2023-03-12 22:23 | XR ---
EXAM: XR Chest, 2 Views CLINICAL HISTORY: ITS.REASON XR Reason: possible esophageal impaction TECHNIQUE: Frontal and lateral views of the chest. COMPARISON: No relevant prior studies available. FINDINGS: Lungs: Mild pulmonary vascular congestion. Pleural space: No significant abnormality. No pneumothorax. Heart: No significant abnormality. No cardiomegaly. Mediastinum: No significant abnormality. Bones/joints: Postsurgical changes are present in the left proximal humerus. Sternotomy wires. Age-indeterminate multilevel vertebral body compression fractures. IMPRESSION: Mild pulmonary vascular congestion.
--- NOTE | 2023-03-12 22:56 | ED ---
General Adult HPI - General Chief complaint: ENT Stated complaint: Food lodged in throat Time Seen by Provider: 03/12/23 21:18 Source: patient, family, RN notes reviewed, old records reviewed Mode of arrival: wheelchair Limitations: no limitations - History of Present Illness Initial comments: Patient is an 83-year-old female with past medical history remarkable for CAD, hypertension, dysphasia who states that around 5 PM she was eating a [employer] beef and broccoli meal when she states she did not to the beef very well and felt like to get stuck in her throat. Had one episode of emesis. Since that time has a little bit of irritation in her throat but has been tolerating swelling her spit, as well as fluids as well as the rest of her meal. She told her daughter this evening and brought her here for further evaluation of a concern for esophageal obstruction. Patient has been eating and drinking without difficulty. Still has a little bit of irritation in her throat. She is concerned something still may be stuck. Presents for further evaluation at this time. Denies any other symptoms. - Related Data Home Medications Medication Instructions Recorded Confirmed Ascorbic Acid [Vitamin C] 500 mg PO HS 06/08/18 04/20/20 Cholecalciferol [Vitamin D3 (25 5,000 unit PO DAILY 06/08/18 04/20/20 Mcg = 1000 Iu)] Simvastatin [Zocor] 20 mg PO HS 06/08/18 04/20/20 atenoloL [Tenormin] 25 mg PO DAILY 06/08/18 04/20/20 lisinopriL [Zestril] 5 mg PO DAILY 06/08/18 04/20/20 Aspirin [Adult Low Dose Aspirin EC] 81 mg PO DAILY 08/19/18 04/20/20 Pramipexole Di-HCl [Mirapex] 0.125 mg PO BID 04/20/20 04/20/20 Previous Rx's Medication Instructions Recorded Amoxic-Pot Clav 875-125Mg 1 tab PO Q12HR 7 Days #14 tab 04/20/20 [Augmentin 875-125] Ondansetron Odt [Zofran Odt] 4 mg PO Q8HR PRN #10 tab 04/20/20 Allergies Allergy/AdvReac Type Severity Reaction Status Date / Time No Known Allergies Allergy Verified 03/12/23 20:56 Review of Systems ROS Statement: Those systems with pertinent positive or pertinent negative responses have been documented in the HPI. Review of Systems: CONST: Denies fever EYES: Denies blurry vision ENT: Denies nasal congestion C/V: Denies Chest pain RESP: Denies shortness of breath GI: Denies abdominal pain : Denies dysuria SKIN: Denies rash. MSK: Denies joint pain. NEURO: Denies headache ROS Other: All systems not noted in ROS Statement are negative. Past Medical History Past Medical History: Coronary Artery Disease (CAD), Hyperlipidemia, Hypertens ion, Myocardial Infarction (ME) Additional Past Medical History / Comment(s): Parkinsons,wounds to foot & buttocks Last Myocardial Infarction Date:: 01/2011 History of Any Multi-Drug Resistant Organisms: None Reported Past Surgical History: Appendectomy, Coronary Bypass/CABG, Heart Catheterization With Stent, Orthopedic Surgery, Tonsillectomy Additional Past Surgical History / Comment(s): Cataracts. 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 Father Family Medical History: Myocardial Infarction (ME) Additional Family Medical History / Comment(s): Father of a ME at the age of 91 yrs. General Exam - General Exam Comments Initial Comments: General: Appears in no acute distress. HEAD: Normal with no signs of head trauma. EYES: PERRLA, EOMI, conjunctiva normal, no discharge. ENT: Hearing grossly intact, normal oropharynx. No stridor. RESPIRATORY: Clear breath sounds bilaterally. No wheezes, rales, or rhonchi. C/V: Regular rate and rhythm. S1 and S2 auscultated,peripheral pulses 2+ and intact throughout ABD: Abd is soft, nontender, nondistended EXT: no obvious deformity SKIN: No rashes or lesions observed on exposed skin. NEURO: Alert and oriented 4. Limitations: no limitations Course Vital Signs 03/12/23 20:56 Temperature 98.3 F Pulse Rate 79 Respiratory 18 Rate Blood Pressure 157/78 O2 Sat by Pulse 98 Oximetry Medical Decision Making - Medical Decision Making Was pt. sent in by a medical professional or institution (, [facility], [facility], urgent care, hospital, or senior living...) When possible be specific @ -No Did you speak to anyone other than the patient for history (EMS, parent, family, police, friend...)? What history was obtained from this source @ -No Did you review nursing and triage notes (agree or disagree)? Why? @ -I reviewed and agree with nursing and triage notes Were old charts reviewed (outside hosp., previous admission, EMS record, old EKG, old radiological studies, urgent care reports/EKG's, senior living records)? Report findings @ -No old charts were reviewed Differential Diagnosis (chest pain, altered mental status, abdominal pain women, abdominal pain men, vaginal bleeding, weakness, fever, dyspnea, syncope, headache, dizziness, GI bleed, back pain, seizure, CVA, palpatations, mental health, musculoskeletal)? @ -Esophageal foreign body, resolved esophageal food impaction, this list is not all-inclusive. EKG interpreted by me (3pts min.). @ -None done X-rays interpreted by me (1pt min.). @ -Chest x-ray as well as x-ray of the soft tissue neck revealed no obvious injury, free air. Radiology does note some cervical spine abnormalities that are unrelated and do not appear acute. CT interpreted by me (1pt min.). @ -None done U/S interpreted by me (1pt. min.). @ -None done What testing was considered but not performed or refused? (CT, X-rays, U/S, labs)? Why? @ -None What meds were considered but not given or refused? Why? @ -None Did you discuss the management of the patient with other professionals (professionals i.e. , [facility], [facility], lab, RT, psych nurse, director social, agricultural service technician, teacher, sustainability officer, case preparer and liner)? Give summary @ -No Was smoking cessation discussed for >3mins.? @ -No Was critical care preformed (if so, how long)? @ -No Were there social determinants of health that impacted care today? How? (Homelessness, low income, unemployed, alcoholism, drug addiction, trans portation, low edu. Level, literacy, decrease access to med. care, retirement, rehab)? @ -No Was there de-escalation of care discussed even if they declined (Discuss DNR or withdrawal of care, Hospice)? DNR status @ -No What co-morbidities impacted this encounter? (DM, HTN, Smoking, COPD, CAD, Cancer, CVA, ARF, Chemo, Hep., AIDS, mental health diagnosis, sleep apnea, morbid obesity)? @ -None Was patient admitted / discharged? Hospital course, mention meds given and route, prescriptions, significant lab abnormalities, going to OR and other pertinent info. @ -Based on the patient's presentation and physical exam, do believe she likely had a resolved food impaction of her esophagus. She is feeling improved at this time but wanted to be evaluated. We will obtain x-rays of the neck and chest. We also by mouth challenge the patient. Initially we'll start with chas ed and progressed to solids. She was in agreement with this plan. X-rays unremarkable for any injury. Patient has tolerated a full can of chas ed as well as crackers. She is feeling improved at this time. No longer has any discomfort. We discussed she likely had a resolved food impaction. She was in agreement with this plan. She'll be discharged from this time with strict return precautions. I instructed the patient to follow up with their PCP in the next 1-3 days. I provided contact information for follow up with GI. I explained that the patient should return to the emergency department if they experience any worsening symptoms. Strict return precautions were discussed with the patient. The patient expressed understanding of these instructions. I answered all questions that the patient had. The patient was discharged home in good condition with their prescriptions and follow up information. Undiagnosed new problem with uncertain prognosis? @ -No Drug Therapy requiring intensive monitoring for toxicity (Heparin, Nitro, Insulin, Cardizem)? @ -No Were any procedures done? @ -No Diagnosis/symptom? @ -Suspected esophageal food impaction, resolved Acute, or Chronic, or Acute on Chronic? @ -Acute Uncomplicated (without systemic symptoms) or Complicated (systemic symptoms)? @ -Uncomplicated Side effects of treatment? @ -No Exacerbation, Progression, or Severe Exacerbation? @ -No Poses a threat to life or bodily function? How? (Chest pain, [place], ME, pneumonia, PE, COPD, DKA, ARF, appy, cholecystitis, CVA, Diverticulitis, Homicidal, Suicidal, threat to staff... and all critical care pts) @ -No Disposition Clinical Impression: Obstruction of esophagus due to food impaction Disposition: HOME SELF-CARE Condition: Good Instructions (If sedation given, give patient instructions): Food Impaction (ED) Is patient prescribed a controlled substance at d/c from ED?: No Referrals: Ross Lennon DO [Primary Care Provider] - 1-2 days Graciela Greene MD [STAFF PHYSICIAN] - 1-2 days Time of Disposition: 22:51
[2023-03-12 23:09] VITALS: BP 145/79; PULSE 77
== END 2023-03-12 23:10 | disposition home or self-care (01) ==
LOC: EC 20:29
DX: K22.2 Esophageal obstruction (principal); I10 Essential (primary) hypertension; I25.10 Atherosclerotic heart disease of native coronary artery without angina pectoris; I25.2 Old myocardial infarction; G20 Parkinson's disease; E78.5 Hyperlipidemia, unspecified; Z79.82 Long term (current) use of aspirin; Z79.899 Other long term (current) drug therapy; Z95.1 Presence of aortocoronary bypass graft; Z90.49 Acquired absence of other specified parts of digestive tract
CPT/HCPCS: 70360; 71046; 99283

== ENCOUNTER 2023-03-13 11:24 | Emergency (ER) | payer MEDICARE, BC ==
[2023-03-13 11:50] VITALS: RESP 16
[2023-03-13] MEDS ORDERED: DIPH,PERTUS(ACELL)TETVAC-LF 0.5 ML VIAL IM ONE (12:17)
--- NOTE | 2023-03-13 12:19 | ED ---
General Adult HPI - General Chief complaint: Fall Stated complaint: fall - head laceration/injury Time Seen by Provider: 03/13/23 12:00 Source: patient, family, RN notes reviewed, old records reviewed Mode of arrival: wheelchair Limitations: physical limitation - History of Present Illness Initial comments: This is an 83-year-old female presents emergency department stating that she tripped and fell yesterday and bumped her head on the ground she has a laceration over the right eye she denies any headache she denies any numbness weakness per patient denies any neck pain. Patient denies being on blood. Patient also is supposed to the right forearm which she states is tender but she has no pain in any of the joints. Patient denies any other injury at this time patient denies any other problems at this time. Patient fell last night at 11:30 - Related Data Home Medications Medication Instructions Recorded Confirmed Ascorbic Acid [Vitamin C] 500 mg PO HS 06/08/18 04/20/20 Cholecalciferol [Vitamin D3 (25 5,000 unit PO DAILY 06/08/18 04/20/20 Mcg = 1000 Iu)] Simvastatin [Zocor] 20 mg PO HS 06/08/18 04/20/20 atenoloL [Tenormin] 25 mg PO DAILY 06/08/18 04/20/20 lisinopriL [Zestril] 5 mg PO DAILY 06/08/18 04/20/20 Aspirin [Adult Low Dose Aspirin EC] 81 mg PO DAILY 08/19/18 04/20/20 Pramipexole Di-HCl [Mirapex] 0.125 mg PO BID 04/20/20 04/20/20 Previous Rx's Medication Instructions Recorded Amoxic-Pot Clav 875-125Mg 1 tab PO Q12HR 7 Days #14 tab 04/20/20 [Augmentin 875-125] Ondansetron Odt [Zofran Odt] 4 mg PO Q8HR PRN #10 tab 04/20/20 Allergies Allergy/AdvReac Type Severity Reaction Status Date / Time No Known Allergies Allergy Verified 03/13/23 11:31 Review of Systems ROS Statement: Those systems with pertinent positive or pertinent negative responses have been documented in the HPI. ROS Other: All systems not noted in ROS Statement are negative. Past Medical History Past Medical History: Coronary Artery Disease (CAD), Hyperlipidemia, Hypertension, Myocardial Infarction (DC) Additional Past Medical History / Comment(s): Parkinsons,wounds to foot & buttocks Last Myocardial Infarction Date:: 01/2011 History of Any Multi-Drug Resistant Organisms: None Reported Past Surgical History: Appendectomy, Coronary Bypass/CABG, Heart Catheterization With Stent, Orthopedic Surgery, Tonsillectomy Additional Past Surgical History / Comment(s): Cataracts. 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 Father Family Medical History: Myocardial Infarction (DC) Additional Family Medical History / Comment(s): Father of a DC at the age of 91 yrs. General Exam - General Exam Comments Initial Comments: GENERAL: Patient is well-developed and well-nourished. Patient is nontoxic and well- hydrated and is in no acute distress. ENT: Neck is soft and supple. No significant lymphadenopathy is noted. Oropharynx is clear. Moist mucous membranes. Neck has full range of motion without eliciting any pain. EYES: The sclera were anicteric and conjunctiva were pink and moist. Extraocular movements were intact and pupils were equal round and reactive to light. Eyelids were unremarkable. PULMONARY: Unlabored respirations. Good breath sounds bilaterally. No audible rales rhonchi or wheezing was noted. CARDIOVASCULAR: There is a regular rate and rhythm without any murmurs gallops or rubs. Femoral pulses are equal bilaterally ABDOMEN: Soft and nontender with normal bowel sounds. No palpable organomegaly was noted. There is no palpable pulsatile mass. SKIN: Patient has ecchymosis to the posterior aspect of the right forearm in the proximal region. Patient also has a laceration above the right eyebrow that looks like it's already healing and it measures about 3 cm. NEUROLOGIC: Patient is alert and oriented x3. Cranial nerves II through XII are grossly intact. Motor and sensory are also intact. Normal speech, volume and content. Symmetrical smile. MUSCULOSKELETAL: Normal extremities with adequate strength and full range of motion. LYMPHATICS: No significant lymphadenopathy is noted PSYCHIATRIC: Normal psychiatric evaluation. Limitations: physical limitation Course Vital Signs 03/13/23 03/13/23 03/13/23 11:27 11:41 11:48 Temperature 98.6 F Pulse Rate 68 62 Respiratory 18 16 Rate Blood Pressure 156/72 143/75 O2 Sat by Pulse 95 95 97 Oximetry 03/13/23 03/13/23 12:00 12:30 Temperature Pulse Rate 76 80 Respiratory Rate Blood Pressure 143/75 153/71 O2 Sat by Pulse 95 95 Oximetry Procedures - Laceration Laceration #1 Consent Obtained: verbal consent Indication: laceration Site: face Description: linear Type of Sutures: other (I used Exofin to close the wound) Patient Tolerated Procedure: well Medical Decision Making - Medical Decision Making EKG was interpreted by myself shows a sinus rhythm at 65 bpm FL interval 190 QRS is 93 QT interval 470 QTC is 419. Patient's EKG shows no ST segment elevation or depression. Was pt. sent in by a medical professional or institution (, PA, ENLISTED AIRCREW/AERIAL OBSERVER/GUNNER, urgent care, hospital, or usp...) When possible be specific @ -No Did you speak to anyone other than the patient for history (EMS, parent, family, police, friend...)? What history was obtained from this source @ -Daughter gave most of the history Did you review nursing and triage notes (agree or disagree)? Why? @ -I reviewed and agree with nursing and triage notes Were old charts reviewed (outside hosp., previous admission, EMS record, old EKG, old radiological studies, urgent care reports/EKG's, usp records)? Report findings @ -I reviewed prior charts and lab work on this patient Differential Diagnosis (chest pain, altered mental status, abdominal pain women, abdominal pain men, vaginal bleeding, weakness, fever, dyspnea, syncope, headache, dizziness, GI bleed, back pain, seizure, CVA, palpatations, mental health, musculoskeletal)? @ -Differential Musculoskeletal Muscular strain, contusion, ligament sprain, fracture, arthritis, septic arthritis, bursitis, cellulitis, muscle spasm, nerve compression, DVT, arterial occlusion, herpes zoster, electrolyte abnormality, tumor.... This is not meant to be in all inclusive list EKG interpreted by me (3pts min.). @ -As above X-rays interpreted by me (1pt min.). @ -X-ray of the forearm knee were interpreted by myself is in no acute abnormality. CT interpreted by me (1pt min.). @ -CT of the brain and C-spine were interpreted by me. CT of the brain and C- spine showed no acute abnormality U/S interpreted by me (1pt. min.). @ -None done What testing was considered but not performed or refused? (CT, X-rays, U/S, labs)? Why? @ -None What meds were considered but not given or refused? Why? @ -None Did you discuss the management of the patient with other professionals (professionals i.e. Dr., PA, ENLISTED AIRCREW/AERIAL OBSERVER/GUNNER, lab, RT, psych nurse, social media assistant, rn imcu, teacher, worldwide chief creative officer, case specialist)? Give summary @ -No Was smoking cessation discussed for >3mins.? @ -No Was critical care preformed (if so, how long)? @ -No Were there social determinants of health that impacted care today? How? (Homelessness, low income, unemployed, alcoholism, drug addiction, transportation, low edu. Level, literacy, decrease access to med. care, [facility], rehab)? @ -No Was there de-escalation of care discussed even if they declined (Discuss DNR or withdrawal of care, Hospice)? DNR status @ -No What co-morbidities impacted this encounter? (DM, HTN, Smoking, COPD, CAD, Cancer, CVA, ARF, Chemo, Hep., AIDS, mental health diagnosis, sleep apnea, morbid obesity)? @ -None Was patient admitted / discharged? Hospital course, mention meds given and route, prescriptions, significant lab abnormalities, going to OR and other pertinent info. @ -I used Exofin to close the wound on the patient's forehead. X-rays and CTs were done all showed no acute abnormality. Daughter was informed that the patient has any further symptoms even weeks from now especially altered mental status she is to bring the patient back immediately Undiagnosed new problem with uncertain prognosis? @ -No Drug Therapy requiring intensive monitoring for toxicity (Heparin, Nitro, Insulin, Cardizem)? @ -No Were any procedures done? @ -No Diagnosis/symptom? @ -Fall Acute, or Chronic, or Acute on Chronic? @ -Acute Uncomplicated (without systemic symptoms) or Complicated (systemic symptoms)? @ -Uncomplicated Side effects of treatment? @ -No Exacerbation, Progression, or Severe Exacerbation? @ -No Poses a threat to life or bodily function? How? (Chest pain, [place], DC, pneumonia, PE, COPD, DKA, ARF, appy, cholecystitis, CVA, Diverticulitis, Homicidal, Suicidal, threat to staff... and all critical care pts) @ -No Diagnosis/symptom? @ -Laceration forehead Acute, or Chronic, or Acute on Chronic? @ -Acute Uncomplicated (without systemic symptoms) or Complicated (systemic symptoms)? @ -default Side effects of treatment? @ -none Exacerbation, Progression, or Severe Exacerbation] @ -no Poses a threat to life or bodily function? @ -no Diagnosis/symptom? @ -Contusion forearm Acute, or Chronic, or Acute on Chronic? @ -Acute Uncomplicated (without systemic symptoms) or Complicated (systemic symptoms)? @ -Uncomplicated Side effects of treatment? @ -none Exacerbation, Progression, or Severe Exacerbation] @ -no Poses a threat to life or bodily function? @ -no Disposition Clinical Impression: Fall, Forehead laceration, Contusion, forearm Disposition: HOME SELF-CARE Instructions (If sedation given, give patient instructions): Fall Prevention for Older Adults (ED), Laceration (ED) Is patient prescribed a controlled substance at d/c from ED?: No Referrals: Ross Lennon DO [Primary Care Provider] - 1-2 days Time of Disposition: 14:44
[2023-03-13] MEDS ORDERED: SODIUM CHLORIDE 0.9% 500 ML 500 ML IV STA (12:22)
--- NOTE | 2023-03-13 13:07 | CT ---
EXAMINATION TYPE: CT brain wilder wood con DATE OF EXAM: 03/13/2023 COMPARISON: NONE HISTORY: Fall injury with headache and neck pain. CT DLP: 1296.4 mGycm. Automated Exposure Control for Dose Reduction was Utilized. TECHNIQUE: CT scan of the head and cervical spine are performed without contrast. FINDINGS: There is no acute intracranial hemorrhage . Mild ventricular and sulcal prominence. Old i nfarct or encephalomalacia left frontal lobe causing slight left-sided volume loss and midline shift. Mild low-attenuation in the periventricular white matter. Hyperostosis frontalis is present. Bilater al aphakia is seen. The paranasal sinuses are clear. Cervical spine is visualized in its entirety from C1 through upper thoracic levels and demonstrates s atisfactory alignment without evidence of acute fracture or dislocation. Prevertebral soft tissue ap pears within normal limits. The C1-C2 articulation is within normal limits on the coronal images. O sseous structures are demineralized. Minimal height loss involving the C7 vertebra and T2 vertebra. M ild to moderate height loss involving the T5 vertebra. Posterior disc herniation effaces the anterior thecal sac at C4-C5 level on sagittal and axial images. Review of axial images shows multilevel unco vertebral and facet degenerative changes causing multilevel bilateral neural foraminal narrowing. The re is moderate to severe calcified plaque at bilateral carotid bulb level. Thyroid gland appears with in normal limits. Lung apices show no pneumothorax. There is partial visualization of sternal wires a nd mediastinal clips. IMPRESSION: 1. There is no acute fracture or dislocation evident in the cervical spine. 2. No acute intracranial hemorrhage is seen.
--- NOTE | 2023-03-13 13:12 | XR ---
EXAMINATION TYPE: XR forearm RT DATE OF EXAM: 03/13/2023 COMPARISON: 09/08/2020 HISTORY: Pain Two views of the forearm demonstrate that the osseous structures appear to be intact and the joint sp aces appear to be preserved. There is no acute fracture or dislocation. Chronic appearing deformity seen posteriorly on the lateral view corresponds to previous fracture. First MCP and carpometacarpal joint arthropathy noted with diffuse osteopenia. There is a positive ulnar variance. IMPRESSION: 1. No acute fracture or dislocation
--- NOTE | 2023-03-13 13:14 | XR ---
EXAMINATION TYPE: XR knee complete RT DATE OF EXAM: 03/13/2023 COMPARISON: NONE HISTORY: Pain TECHNIQUE: Three views are submitted. FINDINGS: Diffuse osteopenia. There are vascular calcifications. Hypertrophic spurring along the upper margin o f the patella.. Osseous structures are intact. No acute fracture seen. IMPRESSION: 1. No acute fracture or dislocation. 2. Diffuse osteopenia and osteoarthritis.
[2023-03-13] MEDS ORDERED: TOPICAL SKIN ADHESIVE 1 EACH AMP TOPICAL ONE (14:14)
[2023-03-13 15:23] VITALS: BP 150/63; PULSE 73; TEMP 98.2
[2023-03-13 15:50] LABS: Basophils # (A) 0.1 k/uL (0-0.2); Basophils % (A) 0 %; Eosinophils # (A) 0.3 k/uL (0-0.7); Eosinophils % (A) 3 %; HCT 35.4 % (34.0-46.0); HGB 11.8 gm/dL (11.4-16.0); Lymphocytes # (A) 1.6 k/uL (1.0-4.8); Lymphocytes % (A) 14 %; MCH 27.6 pg (25.0-35.0); MCHC 33.3 g/dL (31.0-37.0); MCV 82.9 fL (80.0-100.0); Mean Platelet Volume 8.5; Monocytes # (A) 0.7 k/uL (0-1.0); Monocytes % (A) 6 %; Neutrophils # (A) 8.1 k/uL (1.3-7.7); Neutrophils % (A) 75 %; Platelet Count 256 k/uL (150-450); RBC 4.27 m/uL (3.80-5.40); WBC 10.9 k/uL (3.8-10.6)
[2023-03-13 16:12] LABS: ALT 15 U/L (4-34); AST 29 U/L (14-36); African American GFR (CKD) 76 (>60 ml/min/1.73 sqM); Albumin 3.6 g/dL (3.5-5.0); Alkaline Phosphatase 117 U/L (38-126); Anion Gap 7 mmol/L; Blood Urea Nitrogen 23 mg/dL (7-17); Calcium 9.1 mg/dL (8.4-10.2); Carbon Dioxide 30 mmol/L (22-30); Chloride 101 mmol/L (98-107); Creatine Kinase 87 U/L (30-135); Glucose 91 mg/dL (74-99); Non-African American GFR(CKD) 66 (>60 ml/min/1.73 sqM); Potassium 4.7 mmol/L (3.5-5.1); Sodium 138 mmol/L (137-145); Total Bilirubin 0.6 mg/dL (0.2-1.3); Total Protein 6.7 g/dL (6.3-8.2)
[2023-03-14 09:50] LABS: % Iron Saturation 15.57 (12.00-45.00); Chol/HDL Ratio 3.18 Ratio; Iron 63 ug/dL (50-170); LDL Cholesterol,Calculated 77.7 mg/dL (0.0-131.0); Total Iron Binding Capacity 406 ug/dL (228-460); VLDL Calculation 18.86 mg/dL (5.00-40.00)
== END 2023-03-13 15:23 | disposition home or self-care (01) ==
LOC: EC 11:24
DX: S01.81XA Laceration without foreign body of other part of head, initial encounter (principal); S50.11XA Contusion of right forearm, initial encounter; I10 Essential (primary) hypertension; I25.10 Atherosclerotic heart disease of native coronary artery without angina pectoris; I25.2 Old myocardial infarction; E78.5 Hyperlipidemia, unspecified; F32.A Depression, unspecified; Z79.82 Long term (current) use of aspirin; Z79.899 Other long term (current) drug therapy; Z23 Encounter for immunization; W01.0XXA Fall on same level from slipping, tripping and stumbling without subsequent striking against object, initial encounter
CPT/HCPCS: 12001; 36415; 70450; 72125; 80053; 80061; 82306; 82550; 83540; 83550; 84443; 85025; 90471; 90715; 93005; 99284

== ENCOUNTER 2024-06-01 12:43 | Emergency (ER) | payer MEDICARE, BC ==
[2024-06-01 12:56] VITALS: BP 161/75; PULSE 69; RESP 16; TEMP 97.7
--- NOTE | 2024-06-01 13:16 | ED ---
Wound/Laceration HPI - General Chief Complaint: Wound/Laceration Stated Complaint: Fall-Left Hand laceration-blood thinners Time Seen by Provider: 06/01/24 13:00 Source: patient, family, RN notes reviewed Mode of arrival: wheelchair Limitations: no limitations - History of Present Illness Initial Comments: 84-year-old female presenting for fall prior to arrival. States she was at home alone and was walking when she fell to the floor. She believes it was a slip and fall as she is unsteady on her feet however she is not sure. She has an abrasion on her left thumb and is also complaining of right elbow pain and right rib pain. She does not believe she lost consciousness or hit her head. She states she laid on the floor for about 5 minutes before her daughter came home to find her. Her daughter reports she may have been on the floor for longer and is concerned since this fall was unwitnessed. Denies chest pain or shortness of breath. Patient takes daily baby aspirin. Last tetanus was March 2023 - Related Data Home Medications Medication Instructions Recorded Confirmed Simvastatin [Zocor] 20 mg PO HS 06/08/18 03/13/23 atenoloL [Tenormin] 25 mg PO DAILY 06/08/18 03/13/23 lisinopriL [Zestril] 5 mg PO DAILY 06/08/18 03/13/23 Aspirin [Adult Low Dose Aspirin EC] 81 mg PO DAILY 08/19/18 03/13/23 Pramipexole Di-HCl [Mirapex] 0.125 mg PO BID 04/20/20 03/13/23 Ascorbic Acid [Vitamin C] 1,000 mg PO DAILY 03/13/23 03/13/23 Furosemide [Lasix] 20 mg PO DAILY PRN 03/13/23 03/13/23 Sertraline [Zoloft] 25 mg PO DAILY 03/13/23 03/13/23 Previous Rx's Medication Instructions Recorded Cephalexin [Keflex] 500 mg PO Q12HR 5 Days #10 cap 06/01/24 Allergies Allergy/AdvReac Type Severity Reaction Status Date / Time No Known Allergies Allergy Verified 03/13/23 14:55 Review of Systems ROS Statement: Those systems with pertinent positive or pertinent negative responses have been documented in the HPI. ROS Other: All systems not noted in ROS Statement are negative. Past Medical History Past Medical History: Coronary Artery Disease (CAD), Hyperlipidemia, Hypertension, Myocardial Infarction ([place]) Additional Past Medical History / Comment(s): Parkinsons,wounds to foot & buttocks Last Myocardial Infarction Date:: 01/2011 History of Any Multi-Drug Resistant Organisms: None Reported Past Surgical History: Appendectomy, Coronary Bypass/CABG, Heart Catheterization With Stent, Orthopedic Surgery, Tonsillectomy Additional Past Surgical History / Comment(s): Cataracts. 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 Father Family Medical History: Myocardial Infarction ([place]) Additional Family Medical History / Comment(s): Father of a [place] at the age of 91 yrs. General Exam Limitations: no limitations General appearance: alert, in no apparent distress Head exam: Present: atraumatic, normocephalic, normal inspection Eye exam: Present: normal appearance, PERRL, EOMI. Absent: scleral icterus, conjunctival injection, periorbital swelling ENT exam: Present: normal exam, mucous membranes moist Neck exam: Present: normal inspection. Absent: tenderness, meningismus, lymphadenopathy Respiratory exam: Present: normal lung sounds bilaterally, chest wall tenderness (Mild right rib tenderness). Absent: respiratory distress, wheezes, rales, rhonchi, stridor Cardiovascular Exam: Present: regular rate, normal rhythm, normal heart sounds. Absent: systolic murmur, diastolic murmur, rubs, gallop, clicks GI/Abdominal exam: Present: soft, normal bowel sounds. Absent: distended, tenderness, guarding, rebound, rigid Left Shoulder Exam: Present: normal inspection, full ROM. Absent: tenderness, swelling Upper Arm exam: Present: normal inspection, full ROM. Absent: tenderness, swelling Elbow exam: Present: normal inspection, full ROM. Absent: tenderness, swelling Forearm Wrist exam: Present: normal inspection, full ROM. Absent: tenderness, swelling Hand Wrist exam: Present: full ROM, laceration (Skin tear extending around thumb with minimal active bleeding. Full range of motion of thumb. Cap refill less than 2 seconds.). Absent: normal inspection, tenderness, swelling Vascular: Present: vascular compromise, normal capillary refill. Absent: radial pulse Right Shoulder Exam: Present: normal inspection, full ROM. Absent: tenderness, swelling, abrasion Upper Arm exam: Present: normal inspection, full ROM. Absent: tenderness, swelling Elbow exam: Present: normal inspection, full ROM. Absent: tenderness, swelling Forearm Wrist exam: Present: normal inspection, full ROM. Absent: tenderness, swelling Hand Wrist exam: Present: normal inspection, full ROM. Absent: tenderness, swelling Vascular: Present: normal capillary refill, radial pulse. Absent: vascular compromise Neurological exam: Present: alert, oriented X3 Psychiatric exam: Present: normal affect, normal mood Skin exam: Present: warm, dry, intact, normal color. Absent: rash Course Vital Signs 06/01/24 12:52 Temperature 97.7 F Pulse Rate 69 Respiratory 16 Rate Blood Pressure 161/75 O2 Sat by Pulse 92 L Oximetry Medical Decision Making - Medical Decision Making Was pt. sent in by a medical professional or institution (, PA, MAIL TELLER, urgent care, hospital, or long term...) When possible be specific @ -No Did you speak to anyone other than the patient for history (EMS, parent, family, police, friend...)? What history was obtained from this source @ -Patient's daughter supplemented history Did you review nursing and triage notes (agree or disagree)? Why? @ -I reviewed and agree with nursing and triage notes Were old charts reviewed (outside hosp., previous admission, EMS record, old EKG, old radiological studies, urgent care reports/EKG's, long term records)? Report findings @ -No old charts were reviewed Differential Diagnosis (chest pain, altered mental status, abdominal pain women, abdominal pain men, vaginal bleeding, weakness, fever, dyspnea, syncope, headache, dizziness, GI bleed, back pain, seizure, CVA, palpatations, mental health, musculoskeletal)? @ -Differential Musculoskeletal Muscular strain, contusion, ligament sprain, fracture, arthritis, septic arthritis, bursitis, cellulitis, muscle spasm, nerve compression, DVT, arterial occlusion, herpes zoster, electrolyte abnormality, tumor.... This is not meant to be in all inclusive list EKG interpreted by me (3pts min.). @ -As above X-rays interpreted by me (1pt min.). @ -Chest x-ray reveals cardiomegaly and pulmonary vascular congestion however reviewed chest x-ray of March 2023 which revealed pulmonary congestion as well x- ray of left hand, x-ray of right ribs and elbow reveal no acute fracture or dislocation CT interpreted by me (1pt min.). @ -CT of head and neck revealed mild bifrontal atrophy and mild burden of chronic small vessel ischemic disease, encephalomalacia likely old infarct, no acute intracranial abnormality, C-spine shows degenerative grade 1 anterolisthesis, partial opacification left mastoid air cells, suspect chronic pleural paronychial scarring throughout U/S interpreted by me (1pt. min.). @ -None done What testing was considered but not performed or refused? (CT, X-rays, U/S, labs)? Why? @ -None What meds were considered but not given or refused? Why? @ -None Did you discuss the management of the patient with other professionals (professionals i.e. , PA, MAIL TELLER, lab, RT, psych nurse, perinatal social worker, front end loader operator, teacher, traffic division commanding officer, case management specialist)? Give summary @ -No Was smoking cessation discussed for >3mins.? @ -No Was critical care preformed (if so, how long)? @ -No Were there social determinants of health that impacted care today? How? (Homelessness, low income, unemployed, alcoholism, drug addiction, transportation, low edu. Level, literacy, decrease access to med. care, fdc, rehab)? @ -No Was there de-escalation of care discussed even if they declined (Discuss DNR or withdrawal of care, Hospice)? DNR status @ -No What co-morbidities impacted this encounter? (DM, HTN, Smoking, COPD, CAD, Cancer, CVA, ARF, Chemo, Hep., AIDS, mental health diagnosis, sleep apnea, morbid obesity)? @ -None Was patient admitted / discharged? Hospital course, mention meds given and route, prescriptions, significant lab abnormalities, going to OR and other pertinent info. @ -Patient was discharged. Patient was seen and evaluated for fall earlier today. Patient believes it was mechanical fall but is not completely sure. Vital signs are within normal limits, satting 92% on room air however patient states this is her normal. Physical examination remarkable for abrasion to left hand. Neuro examination unremarkable. CT of head and neck revealed no acute fracture or abnormality. EKG reveals normal sinus rhythm with no ST changes. Chest x-ray reveals cardiomegaly and pulmonary vascular congestion however unchanged from previous x-ray. X-ray of left hand and right elbow and right ribs are negative for acute abnormality. Lab work including CBC, CMP, coags, lactic acid, troponin unremarkable for BUN of 30 and alkaline phosphate of 138. Discussed findings with patient and daughter. I do believe at this time fall was mechanical as there are no signs of emergent etiology upon examination. Steri-Strips applied to abrasion as sutures are not indicated at this time patient and daughter are agreeable to discharge at this time. Strict return parameters discussed. Patient started on antibiotics for bacterial prophylaxis for left hand abrasion. Case was discussed with my ED attending Dr. Philippe. Patient discharged stable condition. Undiagnosed new problem with uncertain prognosis? @ -No Drug Therapy requiring intensive monitoring for toxicity (Heparin, Nitro, Insulin, Cardizem)? @ -No Were any procedures done? @ -No Diagnosis/symptom? @ -Mechanical fall, left hand abrasion Acute, or Chronic, or Acute on Chronic? @ -Acute Uncomplicated (without systemic symptoms) or Complicated (systemic symptoms)? @ -Uncomplicated Side effects of treatment? @ -No Exacerbation, Progression, or Severe Exacerbation? @ -No Poses a threat to life or bodily function? How? (Chest pain, [place], [place], pneumonia, PE, COPD, DKA, ARF, appy, cholecystitis, CVA, Diverticulitis, Homicidal, Suicidal, threat to staff... and all critical care pts) @ -Unlikely at this time - Lab Data Result diagrams: 06/01/24 14:17 06/01/24 14:17 Lab Results 06/01/24 06/01/24 06/01/24 Range/Units 14:17 14:17 14:17 WBC 9.9 (3.8-10.6) k/uL RBC 4.43 (3.80-5.40) m/uL Hgb 12.2 (11.4-16.0) gm/dL Hct 37.6 (34.0-46.0) % MCV 85.1 (80.0-100.0) fL MCH 27.6 (25.0-35.0) pg MCHC 32.5 (31.0-37.0) g/dL RDW 13.7 (11.5-15.5) % Plt Count 237 (150-450) k/uL MPV 7.4 Neutrophils % 77 % Lymphocytes % 14 % Monocytes % 5 % Eosinophils % 3 % Basophils % 1 % Neutrophils # 7.6 (1.3-7.7) k/uL Lymphocytes # 1.3 (1.0-4.8) k/uL Monocytes # 0.5 (0-1.0) k/uL Eosinophils # 0.3 (0-0.7) k/uL Basophils # 0.1 (0-0.2) k/uL PT 10.6 (10.0-12.5) sec INR 1.0 (<1.2) APTT 24.3 (22.0-30.0) sec Sodium 138 (137-145) mmol/L Potassium 4.9 (3.5-5.1) mmol/L Chloride 104 (98-107) mmol/L Carbon Dioxide 28 (22-30) mmol/L Anion Gap 6 mmol/L BUN 30 H (7-17) mg/dL Creatinine 0.97 (0.52-1.04) mg/dL Est GFR (CKD-EPI)AfAm 63 (>60 ml/min/1.73 sqM) Est GFR (CKD-EPI)NonAf 54 (>60 ml/min/1.73 sqM) Glucose 93 (74-99) mg/dL Plasma Lactic Acid Jigar (0.7-2.0) mmol/L Calcium 9.6 (8.4-10.2) mg/dL Total Bilirubin 0.5 (0.2-1.3) mg/dL AST 26 (14-36) U/L ALT 12 (4-34) U/L Alkaline Phosphatase 138 H (38-126) U/L Troponin I (0.000-0.034) ng/mL Total Protein 7.0 (6.3-8.2) g/dL Albumin 4.1 (3.5-5.0) g/dL 06/01/24 06/01/24 Range/Units 14:17 14:17 WBC (3.8-10.6) k/uL RBC (3.80-5.40) m/uL Hgb (11.4-16.0) gm/dL Hct (34.0-46.0) % MCV (80.0-100.0) fL MCH (25.0-35.0) pg MCHC (31.0-37.0) g/dL RDW (11.5-15.5) % Plt Count (150-450) k/uL MPV Neutrophils % % Lymphocytes % % Monocytes % % Eosinophils % % Basophils % % Neutrophils # (1.3-7.7) k/uL Lymphocytes # (1.0-4.8) k/uL Monocytes # (0-1.0) k/uL Eosinophils # (0-0.7) k/uL Basophils # (0-0.2) k/uL PT (10.0-12.5) sec INR (<1.2) APTT (22.0-30.0) sec Sodium (137-145) mmol/L Potassium (3.5-5.1) mmol/L Chloride (98-107) mmol/L Carbon Dioxide (22-30) mmol/L Anion Gap mmol/L BUN (7-17) mg/dL Creatinine (0.52-1.04) mg/dL Est GFR (CKD-EPI)AfAm (>60 ml/min/1.73 sqM) Est GFR (CKD-EPI)NonAf (>60 ml/min/1.73 sqM) Glucose (74-99) mg/dL Plasma Lactic Acid Jigar 0.7 (0.7-2.0) mmol/L Calcium (8.4-10.2) mg/dL Total Bilirubin (0.2-1.3) mg/dL AST (14-36) U/L ALT (4-34) U/L Alkaline Phosphatase (38-126) U/L Troponin I <0.012 (0.000-0.034) ng/mL Total Protein (6.3-8.2) g/dL Albumin (3.5-5.0) g/dL - EKG Data -: EKG Interpreted by Id EKG Comments: EKG reveals normal sinus rhythm with first-degree AV block. Ventricular rate 68 bpm, NJ interval 212, QRS duration 92, QT/QTc 402/420 Disposition Clinical Impression: Fall, Abrasion of right hand Disposition: HOME SELF-CARE Condition: Stable Instructions (If sedation given, give patient instructions): Fall Prevention for Older Adults (ED), Abrasion (ED) Additional Instructions: Please take antibiotic as directed. Please return to the Emergency Department if symptoms worsen or any other concerns. Prescriptions: Cephalexin [Keflex] 500 mg PO Q12HR 5 Days #10 cap Is patient prescribed a controlled substance at d/c from ED?: No Referrals: Ross Lennon DO [Primary Care Provider] - 1-2 days Time of Disposition: 15:19
--- NOTE | 2024-06-01 14:12 | CT ---
EXAMINATION TYPE: CT brain wilder wood con DATE OF EXAM: 06/01/2024 COMPARISON: None HISTORY: 84-year-old female with pain after fall CT DLP: 1342.9 mGycm Automated exposure control for dose reduction was used. Technique: Examination of the head was done in axial plane without intravenous contrast. Coronal and sagittal reconstructions performed. CT of the cervical spine was obtained in axial plane without intravenous injection of contrast mater ial. Coronal and sagittal reformatted images were obtained from the axial views for evaluation of f ractures, spinal alignment and canal. FINDINGS: Head: There is no evidence of acute intracranial hemorrhage, acute ischemic changes, mass, mass-effect, or extra-axial fluid collection. There is no effacement of cerebral sulci or basal subarachnoid cister ns. There is no hydrocephalus. There is no midline shift. Nuñez-white matter distinction is preserv ed. Mild bifrontal cerebral volume loss. Encephalomalacia left frontal lobe related to prior vascular tra umatic insult Atherosclerotic calcifications in the carotid siphons. Mild patchy white matter hypodensities in both cerebral hemispheres. Normal variation hyperostosis frontalis interna. Paranasal sinuses well pneumatized. Orbits and globe s are intact. Partial opacification left mastoid air cells. Cervical spine: No cranial cervical junction abnormality, predental space widening, or prevertebral soft tissue swell ing. Degenerative change of the C1 dens of dictation. Scattered mild to moderate facet and uncovertebral joint arthropathy. Degenerative grade 1 anterolisthesis C4-C5, C6-C7, C7-T1. Patient is prominently obliqued towards the left limiting the evaluation. No discrete fracture is seen. Median sternotomy wires. Groundglass and reticular change in the visualized lungs. Some biapical pleu ral parenchymal scarring also present. Minimal anterior wedging T1, T3, T4 vertebral bodies suspected old given the lack of paravertebral so ft tissue swelling. Sagittal and coronal reformatted images confirm above findings. COMBINED IMPRESSION: 1. Mild bifrontal atrophy and mild burden of chronic small vessel ischemic disease. 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 No acute intracranial abnormality seen. 2. Cervical spine shows degenerative grade 1 anterolisthesis C4-C5, C6-C7, and C7-T1. Mild anterior w edging of T1, T3, and T4 vertebral bodies suspected old given the lack of paravertebral soft tissue s welling. Clinically correlate. No definite acute fracture seen. 3. Partial opacification left mastoid air cells. Correlate for any mastoid pain to exclude mastoiditi s. 4. Suspect chronic pleural parenchymal scarring throughout the lungs.
--- NOTE | 2024-06-01 14:21 | XR ---
EXAMINATION TYPE: XR hand complete LT DATE OF EXAM: 06/01/2024 1:51 PM CLINICAL INDICATION:Female, 84 years old with history of left hand injury; [facility] COMPARISON: None TECHNIQUE: XR hand complete LT Frontal, lateral and oblique views were obtained. FINDINGS: Normal alignment of the visualized joints. No acute osseous pathology is identified. No e vidence of soft tissue swelling. Multifocal degeneration changes with joint space narrowing and osteo phyte formation. IMPRESSION: 1. No acute osseous pathology. 2. 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
--- NOTE | 2024-06-01 14:22 | XR ---
EXAMINATION TYPE: XR elbow complete RT DATE OF EXAM: 06/01/2024 1:51 PM CLINICAL INDICATION:Female, 84 years old with history of right elbow injury; [facility] COMPARISON: None TECHNIQUE: XR elbow complete RT; elbow was examined in AP, lateral, and oblique projections. FINDINGS: No evidence of any acute osseous pathology, joint dislocation, or soft tissue swelling is n oted. No evidence of joint effusion is present. IMPRESSION: No evidence of acute fracture.
--- NOTE | 2024-06-01 14:22 | XR ---
EXAMINATION TYPE: XR chest 2V DATE OF EXAM: 06/01/2024 1:51 PM CLINICAL INDICATION:Female, 84 years old with history of fall; COMPARISON: Chest radiographs from 03/12/2023 TECHNIQUE: XR chest 2V Frontal view of the chest. FINDINGS: Lungs/Pleura: There is no evidence of pleural effusion, focal consolidation, or pneumothorax. Pulmonary vascularity: Pulmonary vascular congestion. Heart/mediastinum: Cardiomediastinal silhouette is enlarged and stable. Musculoskeletal: No acute osseous pathology. Shoulder fixation hardware appears intact. IMPRESSION: Cardiomegaly and mild pulmonary vascular congestion. Correlate with BNP for congestive heart failure.
[2024-06-01 14:26] LABS: Basophils # (A) 0.1 k/uL (0-0.2); Basophils % (A) 1 %; Eosinophils # (A) 0.3 k/uL (0-0.7); Eosinophils % (A) 3 %; HCT 37.6 % (34.0-46.0); HGB 12.2 gm/dL (11.4-16.0); Lymphocytes # (A) 1.3 k/uL (1.0-4.8); Lymphocytes % (A) 14 %; MCH 27.6 pg (25.0-35.0); MCHC 32.5 g/dL (31.0-37.0); MCV 85.1 fL (80.0-100.0); Mean Platelet Volume 7.4; Monocytes # (A) 0.5 k/uL (0-1.0); Monocytes % (A) 5 %; Neutrophils # (A) 7.6 k/uL (1.3-7.7); Neutrophils % (A) 77 %; Platelet Count 237 k/uL (150-450); RBC 4.43 m/uL (3.80-5.40); RDW 13.7 % (11.5-15.5); WBC 9.9 k/uL (3.8-10.6)
--- NOTE | 2024-06-01 14:34 | XR ---
EXAMINATION TYPE: XR ribs RT DATE OF EXAM: 06/01/2024 1:51 PM CLINICAL INDICATION:Female, 84 years old with history of fall; [facility] COMPARISON: Chest radiograph same day. TECHNIQUE: XR ribs RT; Frontal and oblique views of the ribs with frontal chest radiograph. FINDINGS: Limited evaluation due to chondrocalcinosis and overlapping structures. No displaced fractu re definitely visualized. Sternotomy wires are present. The remainder of the chest is grossly unremar kable. Multilevel degeneration changes throughout the spine. Aortic stent graft noted. IMPRESSION: No acute osseous pathology.
[2024-06-01 14:36] LABS: Partial Thromboplastin Time 24.3 sec (22.0-30.0); Prothrombin Time 10.6 sec (10.0-12.5)
[2024-06-01 14:52] LABS: ALT 12 U/L (4-34); AST 26 U/L (14-36); African American GFR (CKD) 63 (>60 ml/min/1.73 sqM); Albumin 4.1 g/dL (3.5-5.0); Alkaline Phosphatase 138 U/L (38-126); Anion Gap 6 mmol/L; Blood Urea Nitrogen 30 mg/dL (7-17); Calcium 9.6 mg/dL (8.4-10.2); Carbon Dioxide 28 mmol/L (22-30); Chloride 104 mmol/L (98-107); Glucose 93 mg/dL (74-99); Non-African American GFR(CKD) 54 (>60 ml/min/1.73 sqM); Potassium 4.9 mmol/L (3.5-5.1); Sodium 138 mmol/L (137-145); Total Bilirubin 0.5 mg/dL (0.2-1.3)
== END 2024-06-01 15:48 | disposition home or self-care (01) ==
LOC: EC 12:43
DX: S60.511A Abrasion of right hand, initial encounter (principal); W01.0XXA Fall on same level from slipping, tripping and stumbling without subsequent striking against object, initial encounter
CPT/HCPCS: 36415; 70450; 71046; 72125; 80053; 83605; 84484; 85025; 85610; 85730; 93005; 99284

== ENCOUNTER 2024-09-20 10:13 | Inpatient (IN) | payer MEDICARE, BC ==
--- NOTE | 2024-09-20 10:40 | ED ---
General Adult HPI - General Chief complaint: Extremity Injury, Lower Stated complaint: R hip fracture Time Seen by Provider: 09/20/24 10:15 Source: patient, family, RN notes reviewed Mode of arrival: wheelchair Limitations: no limitations - History of Present Illness Initial comments: 84 year old female presents to the emergency department per Dr. Mosqueda request. Approximately three weeks ago she fell onto her right hip for which she was seen previously. According to her daughter, she has fractures in two places but was sent home to follow physical therapy with a walker. She states that her pain was worsening and was sent in from office today. 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 She denies blood thinners. She denies other complaints. - Related Data Home Medications Medication Instructions Recorded Confirmed Simvastatin [Zocor] 20 mg PO HS 06/08/18 03/13/23 atenoloL [Tenormin] 25 mg PO DAILY 06/08/18 03/13/23 lisinopriL [Zestril] 5 mg PO DAILY 06/08/18 03/13/23 Aspirin [Adult Low Dose Aspirin EC] 81 mg PO DAILY 08/19/18 03/13/23 Pramipexole Di-HCl [Mirapex] 0.125 mg PO BID 04/20/20 03/13/23 Ascorbic Acid [Vitamin C] 1,000 mg PO DAILY 03/13/23 03/13/23 Furosemide [Lasix] 20 mg PO DAILY PRN 03/13/23 03/13/23 Sertraline [Zoloft] 25 mg PO DAILY 03/13/23 03/13/23 Previous Rx's Medication Instructions Recorded Cephalexin [Keflex] 500 mg PO Q12HR 5 Days #10 cap 06/01/24 Allergies Allergy/AdvReac Type Severity Reaction Status Date / Time No Known Allergies Allergy Verified 09/20/24 10:17 Review of Systems ROS Statement: Those systems with pertinent positive or pertinent negative responses have been documented in the HPI. ROS Other: All systems not noted in ROS Statement are negative. Past Medical History Past Medical History: Coronary Artery Disease (CAD), Hyperlipidemia, Hypertension, Myocardial Infarction ([place]) Additional Past Medical History / Comment(s): Parkinsons,wounds to foot & buttocks Last Myocardial Infarction Date:: 01/2011 History of Any Multi-Drug Resistant Organisms: None Reported Past Surgical History: Appendectomy, Coronary Bypass/CABG, Heart Catheterization With Stent, Orthopedic Surgery, Tonsillectomy Additional Past Surgical History / Comment(s): Cataracts. 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 Father Family Medical History: Myocardial Infarction ([place]) Additional Family Medical History / Comment(s): Father of a [place] at the age of 91 yrs. General Exam Limitations: no limitations General appearance: alert, in no apparent distress Head exam: Present: atraumatic, normocephalic, normal inspection Eye exam: Present: normal appearance, PERRL, EOMI. Absent: scleral icterus, conjunctival injection, periorbital swelling ENT exam: Present: normal exam, mucous membranes moist Neck exam: Present: normal inspection. Absent: tenderness, meningismus, lymphadenopathy Respiratory exam: Present: normal lung sounds bilaterally. Absent: respiratory distress, wheezes, rales, rhonchi, stridor Cardiovascular Exam: Present: regular rate, normal rhythm, normal heart sounds. Absent: systolic murmur, diastolic murmur, rubs, gallop, clicks GI/Abdominal exam: Present: soft, normal bowel sounds. Absent: distended, tenderness, guarding, rebound, rigid Extremities exam: Present: normal inspection, full ROM, tenderness (mild right rib/pelvic), normal capillary refill. Absent: pedal edema, joint swelling, calf tenderness Back exam: Present: normal inspection Neurological exam: Present: alert, oriented X3, CN II-XII intact Psychiatric exam: Present: normal affect, normal mood Skin exam: Present: warm, dry, intact, normal color. Absent: rash Course Vital Signs 09/20/24 09/20/24 10:14 10:31 Temperature 98 F 98.3 F Pulse Rate 74 70 Respiratory 20 15 Rate Blood Pressure 149/75 121/52 O2 Sat by Pulse 99 94 L Oximetry Medical Decision Making - Medical Decision Making Was pt. sent in by a medical professional or institution (SHANNAN Shaw, OPTICAL LATHE OPERATOR, urgent care, hospital, or retirement...) When possible be specific @ -Orthopedics Did you speak to anyone other than the patient for history (EMS, parent, family, police, friend...)? What history was obtained from this source @ -No Did you review nursing and triage notes (agree or disagree)? Why? @ -I reviewed and agree with nursing and triage notes Were old charts reviewed (outside hosp., previous admission, EMS record, old EKG, old radiological studies, urgent care reports/EKG's, retirement records)? Report findings @ -No old charts were reviewed Differential Diagnosis (chest pain, altered mental status, abdominal pain women, abdominal pain men, vaginal bleeding, weakness, fever, dyspnea, syncope, headache, dizziness, GI bleed, back pain, seizure, CVA, palpatations, mental health, musculoskeletal)? @ -Pelvic fracture, hip fracture EKG interpreted by me (3pts min.). @ -None X-rays interpreted by me (1pt min.). @ -None done CT interpreted by me (1pt min.). @ -None done U/S interpreted by me (1pt. min.). @ -None done What testing was considered but not performed or refused? (CT, X-rays, U/S, labs)? Why? @ -None What meds were considered but not given or refused? Why? @ -None Did you discuss the management of the patient with other professionals (professionals i.e. SHANNAN Shaw, OPTICAL LATHE OPERATOR, lab, RT, psych nurse, social secretary, delivery driver assistant, teacher, strategic debriefing officer, social work case manager)? Give summary @ -I did this case with [facility] associate recommends inpatient treatment further imaging to follow as needed ordered by orthopedics Was smoking cessation discussed for >3mins.? @ -No Was critical care preformed (if so, how long)? @ -No Were there social determinants of health that impacted care today? How? (Homelessness, low income, unemployed, alcoholism, drug addiction, transportation, low edu. Level, literacy, decrease access to med. care, fpc, rehab)? @ -No Was there de-escalation of care discussed even if they declined (Discuss DNR or withdrawal of care, Hospice)? DNR status @ -No What co-morbidities impacted this encounter? (DM, HTN, Smoking, COPD, CAD, Cancer, CVA, ARF, Chemo, Hep., AIDS, mental health diagnosis, sleep apnea, morbid obesity)? @ -None Was patient admitted / discharged? Hospital course, mention meds given and route, prescriptions, significant lab abnormalities, going to OR and other pertinent info. @ -Admitted patient sent over from orthopedics for admission, therapy, possible MRI or further imaging as needed. For right pelvic fracture Undiagnosed new problem with uncertain prognosis? @ -No Drug Therapy requiring intensive monitoring for toxicity (Heparin, Nitro, Insulin, Cardizem)? @ -No Were any procedures done? @ -No Diagnosis/symptom? @ -Right superior, inferior pubic rami fracture Acute, or Chronic, or Acute on Chronic? @ -Acute Uncomplicated (without systemic symptoms) or Complicated (systemic symptoms)? @ -Complicated Side effects of treatment? @ -No Exacerbation, Progression, or Severe Exacerbation? @ -No Poses a threat to life or bodily function? How? (Chest pain, [place], [place], pneumonia, PE, COPD, DKA, ARF, appy, cholecystitis, CVA, Diverticulitis, Homicidal, Suicidal, threat to staff... and all critical care pts) @ -No Disposition Clinical Impression: Fracture of right inferior pubic ramus, Fracture of right superior pubic ramus Disposition: ADMITTED IP TO THIS [facility] Condition: Fair Referrals: Ross Lennon DO [Primary Care Provider] - 1-2 days Time of Disposition: 11:10
[2024-09-20] MEDS ORDERED: NALOXONE 0.4 MG/ML 1 ML VIAL IV PRN (11:10)
[2024-09-20] MEDS ORDERED: ACETAMINOPHEN TAB 325 MG TAB PO PRN (11:10)
[2024-09-20] MEDS ORDERED: ONDANSETRON 4 MG/2 ML VIAL IVP PRN (11:10)
[2024-09-20] MEDS ORDERED: traMADol 50 MG TAB PO PRN (11:32)
[2024-09-20 11:59] LABS: Basophils % (A) 0 %; Eosinophils # (A) 0.1 k/uL (0-0.7); Eosinophils % (A) 1 %; HCT 35.6 % (34.0-46.0); HGB 11.4 gm/dL (11.4-16.0); Lymphocytes # (A) 0.7 k/uL (1.0-4.8); Lymphocytes % (A) 5 %; MCH 27.9 pg (25.0-35.0); MCHC 31.9 g/dL (31.0-37.0); MCV 87.5 fL (80.0-100.0); Mean Platelet Volume 7.2; Monocytes # (A) 0.5 k/uL (0-1.0); Monocytes % (A) 3 %; Neutrophils # (A) 12.9 k/uL (1.3-7.7); Neutrophils % (A) 91 %; Platelet Count 296 k/uL (150-450); RBC 4.07 m/uL (3.80-5.40); RDW 13.1 % (11.5-15.5); WBC 14.2 k/uL (3.8-10.6)
--- NOTE | 2024-09-20 12:17 | P.HPOR ---
History of Present Illness H&P Date: 09/20/24 The patient is a very pleasant 84-year-old female who is well-known to my offices practice. The patient had a left-sided hip fracture [address] partner [address]. Valdes. 3 weeks ago the patient sustained a ground-level fall this had pain in her hip and groin since that time. She was brought into the office this morning where x-rays showed a right superior and inferior pubic rami fracture. The patient was having a difficult time getting around at home and her family was having increasing difficulty taking care of her. They brought her to the emergency department to be admitted for likely placement to rehab. Past Medical History Past Medical History: Coronary Artery Disease (CAD), Hyperlipidemia, Hypertension, Myocardial Infarction ([place]) Additional Past Medical History / Comment(s): Parkinsons,wounds to foot & buttoc ks Last Myocardial Infarction Date:: 01/2011 History of Any Multi-Drug Resistant Organisms: None Reported Past Surgical History: Appendectomy, Coronary Bypass/CABG, Heart Catheterization With Stent, Orthopedic Surgery, Tonsillectomy Additional Past Surgical History / Comment(s): Cataracts. 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 Father Family Medical History: Myocardial Infarction ([place]) Additional Family Medical History / Comment(s): Father of a [place] at the age of 91 yrs. Medications and Allergies Home Medications Medication Instructions Recorded Confirmed Type RX: Simvastatin [Zocor] 20 mg PO HS 06/08/18 03/13/23 History RX: atenoloL [Tenormin] 25 mg PO DAILY 06/08/18 03/13/23 History RX: lisinopriL [Zestril] 5 mg PO DAILY 06/08/18 03/13/23 History Aspirin [Adult Low Dose Aspirin EC] 81 mg PO DAILY 08/19/18 03/13/23 History Pramipexole Di-HCl [Mirapex] 0.125 mg PO BID 04/20/20 03/13/23 History Ascorbic Acid [Vitamin C] 1,000 mg PO DAILY 03/13/23 03/13/23 History Furosemide [Lasix] 20 mg PO DAILY PRN 03/13/23 03/13/23 History Sertraline [Zoloft] 25 mg PO DAILY 03/13/23 03/13/23 History Cephalexin [Keflex] 500 mg PO Q12HR 5 Days #10 cap 06/01/24 Rx Allergies Allergy/AdvReac Type Severity Reaction Status Date / Time No Known Allergies Allergy Verified 09/20/24 10:17 Physical Examination at the time of my evaluation in the office the patient was sitting comfortably in a wheelchair. She was alert and able to answer questions. Her head was normocephalic and atraumatic. She demonstrates nonlabored breathing with symmetric chest expansion. She had no obvious deformities to the upper extremities and no tenderness. There was a healed incision over the left hip. She had pain with passive range of motion of the right hip. Results x-rays from my office showed a right high root superior pubic rami fracture, a right inferior pubic rami fracture, a prior left hip hemiarthroplasty, severe degenerative disc disease in the lumbar spine, and abdominal aortic stent, and severe osteopenia. - Labs Labs: Abnormal Lab Results - Last 24 Hours (Table) 09/20/24 Range/Units 11:53 WBC 14.2 H (3.8-10.6) k/uL Neutrophils # 12.9 H (1.3-7.7) k/uL Lymphocytes # 0.7 L (1.0-4.8) k/uL H & H 09/20/24 Range/Units 11:53 Hgb 11.4 (11.4-16.0) gm/dL Hct 35.6 (34.0-46.0) % Result Diagrams: 09/20/24 11:53 Assessment and Plan Assessment: subacute right superior and inferior pubic rami fracture Failure to thrive Prior left hip fracture status post hemiarthroplasty Multiple Medical problems Plan: the patient was seen by me in the office earlier this morning. She had x-ray findings showing pubic rami fractures. She has been having increasing pain and difficulty caring for herself at home with her daughter. They presented to the ER for admission to the hospital for pain control and placement for rehab. Internal medicine will be consulted for medical management. She can weight-bear as tolerated with a walker. Time with Patient: Greater than 30
[2024-09-20 12:26] LABS: ALT 13 U/L (4-34); AST 18 U/L (14-36); African American GFR (CKD) >90 (>60 ml/min/1.73 sqM); Albumin 3.6 g/dL (3.5-5.0); Alkaline Phosphatase 251 U/L (38-126); Anion Gap 7 mmol/L; Blood Urea Nitrogen 21 mg/dL (7-17); Calcium 9.1 mg/dL (8.4-10.2); Carbon Dioxide 28 mmol/L (22-30); Chloride 104 mmol/L (98-107); Glucose 113 mg/dL (74-99); Magnesium 2.1 mg/dL (1.6-2.3); Non-African American GFR(CKD) 81 (>60 ml/min/1.73 sqM); Potassium 4.3 mmol/L (3.5-5.1); Sodium 139 mmol/L (137-145); Total Bilirubin 0.3 mg/dL (0.2-1.3); Total Protein 6.4 g/dL (6.3-8.2)
[2024-09-20 12:54] LABS: Appearance,Urine Clear (Clear); Bilirubin,Urine Negative (Negative); Blood,Urine Negative (Negative); Color,Urine Colorless; Glucose,Urine (UA) Negative (Negative); Ketones,Urine Negative (Negative); Leukocyte Esterase,Urine Negative (Negative); Nitrite,Urine Negative (Negative); Protein,Urine Negative (Negative); Specific Gravity,Urine 1.012 (1.001-1.035); Urobilinogen,Urine <2.0 mg/dL (<2.0)
[2024-09-20] MEDS ORDERED: FUROSEMIDE 20 MG TAB PO PRN (17:23)
--- NOTE | 2024-09-20 18:40 | P.HPIM ---
History of Present Illness H&P Date: 09/20/24 Patient is a 84-year-old female with CAD, hypertension, hyperlipidemia, chronic left leg swelling, Parkinson's, depression who came in for right hip pain. Today she reported that she fell in the bathroom and was down for about 20 minutes where in she hit her right hip onto the floor first. She experienced sharp pain on her right hip radiating to the back and an intensity of 8 out of 10. She also noticed a bruise in her anterior right thigh. She denies loss of consciousness, lightheadedness, sweats, changes in vision, facial asymmetry, weakness, tremors, palpitations, chest pain, shortness of breath, leg tenderness, or abdominal pain. X-ray recorded on Ortho notes show that she had a right superior and inferior pubic rami fracture. WBC elevated at 14.2, glucose 113, ALP 251. Vitals on admission show patient was afebrile at 98 F pulse rate 74 respiration rate 20 elevated blood pressure at 149/75 O2 saturation 99% on room air. Review of systems: Pertinent positives and negatives as discussed in HPI, a complete review of systems was performed and all other systems are negative. Social history: Tobacco: Denies tobacco use Alcohol: denies alcohol use Recreational drugs: Denies recreational drug use Travel: No recent travel Physical examination: General: non toxic, no distress Derm: no unusual rashes/lesions, warm Head: atraumatic, normocephalic, symmetric Eyes: EOMI, anicteric sclera, pupils equal round reactive to light ENT: Nose and ears atraumatic Neck: No cervical lymphadenopathy, trachea midline, supple Mouth: no lip lesion, mucus membranes moist Cardiovascular: S1S2 reg, no murmur Lungs: CTA bilateral, no rhonchi, no rales, no accessory muscle use Abdominal: soft, nondistended, nontender to palpation, no guarding Ext: no gross muscle atrophy, no contractures, positive dorsalis pedis pulse bilateral, bruise localized to the right medial thigh, +2 left lower extremity pitting edema Neuro: CN II-XI grossly intact, no gross focal neuro deficits Psych: Alert and oriented x 3, appropriate affect and mood Assessment/Plan: 84-year-old female who came in from [facility] and was found on chest x-ray to have a right superior and inferior pubic rami fracture. #. CAD Aspirin 81 mg p.o. daily #. Hypertension Lisinopril 5 mg p.o. daily, atenolol 25 mg daily Anticipate improvement with pain control as well #. Hyperlipidemia Simvastatin 20 mg p.o. daily #. Depression Sertraline 25 mg p.o. daily #. Chronic left leg swelling Furosemide 20 mg p.o. daily as needed #. Leukocytosis likely reactive due to fall WBC 14.2. Patient not experiencing any symptoms such as fever and is stable at this time Will monitor CBC for now #. Hyperglycemia likely reactive to fall Glucose at 113 patient not symptomatic Will monitor CMP for now #. Increased ALP ALP at 251 Will monitor CMP for now #. Right superior and inferior pubic rami fracture secondary to mechanical fall Pain control and anticoagulation per primary orthopedic surgery service DVT ppx: Lovenox 40 mg SQ daily Dispo: The patient is admitted with an anticipated greater than than 2 midnight stay for evaluation of right superior and inferior pubic rami fracture CODE STATUS: No code Discussed with: Patient and patient's daughter Anticipated discharge place: Home Madeleine Pinto MD PGY-1 IM Dictation was produced using [employer] dictation software. please excuse any grammatical, word or spelling errors. I saw and evaluated the patient during the cabezas and critical portions of this encounter, and discussed the case in detail with the resident author of this note, I agree with the Assessment and Plan, and my changes, if any, are highlighted in blue. Past Medical History Past Medical History: Coronary Artery Disease (CAD), Hyperlipidemia, Hypertension, Myocardial Infarction ([place]) Additional Past Medical History / Comment(s): Parkinsons,wounds to foot & buttocks Last Myocardial Infarction Date:: 01/2011 History of Any Multi-Drug Resistant Organisms: None Reported Past Surgical History: Appendectomy, Coronary Bypass/CABG, Heart Catheterization With Stent, Orthopedic Surgery, Tonsillectomy Additional Past Surgical History / Comment(s): Cataracts. 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 Father Family Medical History: Myocardial Infarction ([place]) Additional Family Medical History / Comment(s): Father of a [place] at the age of 91 yrs. Medications and Allergies Home Medications Medication Instructions Recorded Confirmed Type Simvastatin [Zocor] 20 mg PO HS 06/08/18 09/20/24 History atenoloL [Tenormin] 25 mg PO DAILY 06/08/18 09/20/24 History lisinopriL [Zestril] 5 mg PO DAILY 06/08/18 09/20/24 History Aspirin [Adult Low Dose Aspirin EC] 81 mg PO DAILY 08/19/18 09/20/24 History Ascorbic Acid [Vitamin C] 1,000 mg PO HS 03/13/23 09/20/24 History Furosemide [Lasix] 20 mg PO DAILY PRN 03/13/23 09/20/24 History Sertraline [Zoloft] 25 mg PO HS 03/13/23 09/20/24 History Cholecalciferol [Vitamin D3 (125 125 mcg PO DAILY 09/20/24 09/20/24 History Mcg = 5000 Iu)] Ferrous Sulfate [Feosol] 325 mg PO DAILY 09/20/24 09/20/24 History Pramipexole [Mirapex] 0.5 mg PO BID 09/20/24 09/20/24 History Allergies Allergy/AdvReac Type Severity Reaction Status Date / Time No Known Allergies Allergy Verified 09/20/24 12:30 Physical Exam Osteopathic Statement: *. No significant issues noted on an osteopathic structural exam other than those noted in the History and Physical/Consult. Vitals: Vital Signs Temp Pulse Resp BP Pulse Ox 09/20/24 16:00 98.1 F 76 17 149/63 95 09/20/24 14:00 16 09/20/24 13:20 15 09/20/24 11:46 69 17 149/63 95 09/20/24 10:31 98.3 F 70 15 121/52 94 L 09/20/24 10:14 98 F 74 20 149/75 99 Intake and Output 09/20/24 09/20/24 09/20/24 06:59 14:59 22:59 Other: Weight 60.781 kg Results CBC & Chem 7: 09/20/24 11:53 09/20/24 11:53 Labs: Abnormal Lab Results - Last 24 Hours (Table) 09/20/24 09/20/24 Range/Units 11:53 11:53 WBC 14.2 H (3.8-10.6) k/uL Neutrophils # 12.9 H (1.3-7.7) k/uL Lymphocytes # 0.7 L (1.0-4.8) k/uL BUN 21 H (7-17) mg/dL Glucose 113 H (74-99) mg/dL Alkaline Phosphatase 251 H (38-126) U/L
[2024-09-20] MEDS: PRAMIPEXOLE 0.5 MG TAB PO SCH (22:00)
[2024-09-20] MEDS: ASCORBIC ACID 500 MG TAB PO SCH (22:00)
[2024-09-20] MEDS: SERTRALINE 25 MG TAB PO SCH (22:00)
[2024-09-20] MEDS: ATORVASTATIN 10 MG TAB PO SCH (22:00)
[2024-09-21] MEDS: FERROUS SULFATE 325 MG TAB PO SCH (08:49)
[2024-09-21] MEDS: CHOLECALCIFEROL 125 MCG (5000 IU) TABLET PO SCH (08:49)
[2024-09-21] MEDS: ENOXAPARIN 40 MG/0.4 ML SYRINGE SQ SCH (08:49)
[2024-09-21] MEDS: lisinopriL 5 MG TAB PO SCH (08:49)
[2024-09-21] MEDS: atenoloL 25 MG TAB PO SCH (08:49)
[2024-09-21] MEDS: ASPIRIN 81 MG PO SCH (08:49)
[2024-09-21 09:04] LABS: ALT 9 U/L (8-44); AST 13 U/L (13-35); Albumin 3.1 g/dL (3.8-4.9); Albumin/Globulin Ratio 1.48 Ratio (1.60-3.17); Alkaline Phosphatase 221 U/L (41-126); BUN/Creat Ratio 27.14 Ratio (12.00-20.00); Calcium 8.4 mg/dL (8.7-10.3); Carbon Dioxide 25.3 mmol/L (21.6-31.8); Chloride 107 mmol/L (96-109); Globulin 2.1 g/dL (1.6-3.3); Glucose 79 mg/dL (70-110); Potassium 4.1 mmol/L (3.5-5.5); Sodium 141 mmol/L (135-145); Total Bilirubin <0.2 mg/dL (0.3-1.2); Total Protein 5.2 g/dL (6.2-8.2)
[2024-09-21] MEDS: HYDROcodone/APAP 5-325MG 1 EACH TAB PO PRN (10:21)
[2024-09-21 10:29] LABS: Basophils # (A) 0.09 X 10*3/uL (0.00-0.10); Basophils % (A) 0.8 %; Eosinophils # (A) 0.29 X 10*3/uL (0.04-0.35); Eosinophils % (A) 2.5 %; HCT 31.7 % (37.2-46.3); HGB 9.8 g/dL (12.0-15.0); Lymphocytes # (A) 2.24 X 10*3/uL (0.90-5.00); Lymphocytes % (A) 19.7 %; MCH 28.3 pg (27.0-32.0); MCHC 30.9 g/dL (32.0-37.0); MCV 91.6 FL (80.0-97.0); Mean Platelet Volume 10.5 FL (9.5-12.2); Monocytes # (A) 1.29 X 10*3/uL (0.20-1.00); Monocytes % (A) 11.3 %; NRBC Per 100 WBC 0 X 10*3/uL (0.00-0.01); Neutrophils # (A) 7.39 X 10*3/uL (1.80-7.70); Platelet Count 268 X 10*3/uL (140-440); RBC 3.46 X 10*6/uL (4.10-5.20); RDW 13.6 % (11.5-14.5); WBC 11.38 X 10*3/uL (4.50-10.00)
--- NOTE | 2024-09-21 11:18 | P.PN ---
Subjective Progress Note Date: 09/21/24 Patient is a 84-year-old female with CAD, hypertension, hyperlipidemia, chronic left leg swelling, Parkinson's, depression who came in for right hip pain. Today she reported that she fell in the bathroom and was down for about 20 minutes where in she hit her right hip onto the floor first. She experienced sharp pain on her right hip radiating to the back and an intensity of 8 out of 10. She also noticed a bruise in her anterior right thigh. She denies loss of consciousness, lightheadedness, sweats, changes in vision, facial asymmetry, weakness, tremors, palpitations, chest pain, shortness of breath, leg tenderness, or abdominal pain. X-ray recorded on Ortho notes show that she had a right superior and inferior pubic rami fracture. WBC elevated at 14.2, glucose 113, ALP 251. Vitals on admission show patient was afebrile at 98 F pulse rate 74 respiration rate 20 elevated blood pressure at 149/75 O2 saturation 99% on room air. 09/21/2024 patient seen and examined at bedside. Patient had no new complaints or new symptoms overnight. Vitals unremarkable overnight. WBC 11.38 hemoglobin 9.8 platelet 268,000 sodium 141 potassium 4.1 BUN 19 creatinine 0.7 glucose 79 calcium 8.4 AST 13 ALT 9 albumin 3.1 total protein 5.2 alk phos 221 Review of systems: Pertinent positives and negatives as discussed in HPI, a complete review of systems was performed and all other systems are negative. Physical examination: General: non toxic, no distress Derm: no unusual rashes/lesions, warm Head: atraumatic, normocephalic, symmetric Eyes: EOMI, anicteric sclera, pupils equal round reactive to light ENT: Nose and ears atraumatic Neck: No cervical lymphadenopathy, trachea midline, supple Mouth: no lip lesion, mucus membranes moist Cardiovascular: S1S2 reg, no murmur Lungs: CTA bilateral, no rhonchi, no rales, no accessory muscle use Abdominal: soft, nondistended, nontender to palpation, no guarding Ext: no gross muscle atrophy, no contractures, positive dorsalis pedis pulse bilateral, bruise localized to the right medial thigh, +2 left lower extremity pitting edema Neuro: CN II-XI grossly intact, no gross focal neuro deficits Psych: Alert and oriented x 3, appropriate affect and mood Assessment/Plan: 84-year-old female who came in [facility] and was found on chest x-ray to have a right superior and inferior pubic rami fracture. #. CAD Aspirin 81 mg p.o. daily #. Hypertension Lisinopril 5 mg p.o. daily, atenolol 25 mg daily Anticipate improvement with pain control as well #. Hyperlipidemia Simvastatin 20 mg p.o. daily #. Depression Sertraline 25 mg p.o. daily #. Chronic left leg swelling Furosemide 20 mg p.o. daily as needed #. Leukocytosis likely reactive due to fall, improving WBC 14.2 today at 11.38 Patient not experiencing any symptoms such as fever and is stable at this time Will monitor CBC for now #. Hyperglycemia likely reactive to fall, resolved Glucose at 113 patient not symptomatic Will monitor CMP for now #. Increased ALP ALP at 251. Today at 221 Will monitor CMP for now #. Hypocalcemia #. Hypoalbuminemia Albumin 3.1. Corrected calcium 9.1. Patient has no symptoms and is stable Monitor CMP for now #. Right superior and inferior pubic rami fracture secondary to mechanical fall Pain control and anticoagulation per primary orthopedic surgery service DVT ppx: Lovenox 40 mg SQ daily I saw and evaluated the patient during the cabezas and critical portions of this encounter, and discussed the case in detail with the resident author of this note, I agree with the Assessment and Plan, and my changes, if any, are highlighted in blue. Objective - Vital Signs Vital signs: Vital Signs Temp 98.2 F 09/21/24 01:57 Pulse 65 09/21/24 01:57 Resp 15 09/21/24 01:57 BP 129/56 09/21/24 01:57 Pulse Ox 93 L 09/21/24 01:57 FiO2 Intake & Output 09/20/24 09/21/24 09/21/24 18:59 06:59 18:59 Output Total 300 150 Balance -300 -150 Weight 60.781 kg Output: Urine 300 150 Other: Voiding Method Diaper - Labs CBC & Chem 7: 09/21/24 02:54 09/21/24 02:54 Labs: Abnormal Lab Results - Last 24 Hours (Table) 09/20/24 09/20/24 Range/Units 11:53 11:53 WBC 14.2 H (3.8-10.6) k/uL Neutrophils # 12.9 H (1.3-7.7) k/uL Lymphocytes # 0.7 L (1.0-4.8) k/uL BUN 21 H (7-17) mg/dL Glucose 113 H (74-99) mg/dL Alkaline Phosphatase 251 H (38-126) U/L
--- NOTE | 2024-09-21 15:06 | P.PN ---
Subjective Progress Note Date: 09/21/24 Principal diagnosis: subacute right superior and inferior pubic rami fracture The patient is a very pleasant 84-year-old female who is well-known to my offices practice. The patient had a left-sided hip fracture 2018 managed [address] partner [address] Valdes. 3 weeks ago the patient sustained a ground-level fall this had pain in her hip and groin since that time. She was brought into the office this morning where x-rays showed a right superior and inferior pubic rami fracture. The patient was having a difficult time getting around at home and her family was having increasing difficulty taking care of her. They brought her to the emergency department to be admitted for likely placement to rehab. 09/21/2024 progress note: Spoke with nursing staff, no acute events overnight. Patient was evaluated by physical therapy and short acute rehab was recommended. Patient is a 72-hour stay, planning for discharge to rehab on 09/23/2024. Spoke with patient, no acute events overnight, no new complaints today. Objective - Vital Signs Vital signs: Vital Signs Temp 97.4 F L 09/21/24 12:23 Pulse 63 09/21/24 12:23 Resp 18 09/21/24 12:23 BP 129/57 09/21/24 12:23 Pulse Ox 96 09/21/24 12:23 FiO2 Intake & Output 09/20/24 09/21/24 09/21/24 18:59 06:59 18:59 Output Total 300 150 Balance -300 -150 Weight 60.781 kg Output: Urine 300 150 Other: Voiding Method Diaper Incontinent External Catheter - Exam Patient was examined at bedside today. Patient was sitting up in chair. Patient was awake, alert, and able to answer questions difficulty due to chronic hearing loss per patient. Her head is normocephalic and atraumatic. She demonstrates nonlabored breathing with symmetric chest expansion. She had no obvious deformities to the upper extremities and no tenderness. She had pain with passive range of motion of the right hip. - Labs CBC & Chem 7: 09/21/24 02:54 09/21/24 02:54 Labs: Abnormal Lab Results - Last 24 Hours (Table) 09/21/24 09/21/24 Range/Units 02:54 02:54 WBC 11.38 H (4.50-10.00) X 10*3/uL RBC 3.46 L (4.10-5.20) X 10*6/uL Hgb 9.8 L (12.0-15.0) g/dL Hct 31.7 L (37.2-46.3) % MCHC 30.9 L (32.0-37.0) g/dL Immature Gran # 0.08 H (0.00-0.04) X 10*3/uL Monocytes # 1.29 H (0.20-1.00) X 10*3/uL BUN/Creatinine Ratio 27.14 H (12.00-20.00) Ratio Calcium 8.4 L (8.7-10.3) mg/dL Total Bilirubin <0.2 L (0.3-1.2) mg/dL Alkaline Phosphatase 221 H (41-126) U/L Total Protein 5.2 L (6.2-8.2) g/dL Albumin 3.1 L (3.8-4.9) g/dL Albumin/Globulin Ratio 1.48 L (1.60-3.17) Ratio Assessment and Plan Assessment: : subacute right superior and inferior pubic rami fracture Failure to thrive Prior left hip fracture status post hemiarthroplasty Multiple Medical problems Plan: She had x-ray findings showing pubic rami fractures. She has been having increasing pain and difficulty caring for herself at home with her daughter. They presented to the ER for admission to the hospital for pain control and placement for rehab. Internal medicine will be consulted for medical management. She can weight-bear as tolerated with a walker. She will stay for 72 hours, has been evaluated with physical therapy, rehabilitation case coordinator has been involved, and plan is to transfer to rehab on 09/23/2024.
[2024-09-22 08:47] LABS: Basophils # (A) 0.09 X 10*3/uL (0.00-0.10); Basophils % (A) 0.8 %; Eosinophils # (A) 0.49 X 10*3/uL (0.04-0.35); Eosinophils % (A) 4.1 %; HCT 36.2 % (37.2-46.3); HGB 11.3 g/dL (12.0-15.0); Lymphocytes # (A) 2.09 X 10*3/uL (0.90-5.00); Lymphocytes % (A) 17.4 %; MCH 27.7 pg (27.0-32.0); MCHC 31.2 g/dL (32.0-37.0); MCV 88.7 FL (80.0-97.0); Mean Platelet Volume 10.2 FL (9.5-12.2); Monocytes # (A) 1.16 X 10*3/uL (0.20-1.00); Monocytes % (A) 9.7 %; NRBC Per 100 WBC 0 X 10*3/uL (0.00-0.01); Neutrophils # (A) 8.08 X 10*3/uL (1.80-7.70); Neutrophils % (A) 67.3 %; Platelet Count 300 X 10*3/uL (140-440); RBC 4.08 X 10*6/uL (4.10-5.20); RDW 13.5 % (11.5-14.5); WBC 11.99 X 10*3/uL (4.50-10.00)
[2024-09-22 08:58] LABS: ALT 9 U/L (8-44); AST 14 U/L (13-35); Albumin 3.3 g/dL (3.8-4.9); Albumin/Globulin Ratio 1.43 Ratio (1.60-3.17); Alkaline Phosphatase 252 U/L (41-126); BUN/Creat Ratio 27.14 Ratio (12.00-20.00); Calcium 8.8 mg/dL (8.7-10.3); Carbon Dioxide 25.8 mmol/L (21.6-31.8); Chloride 106 mmol/L (96-109); Globulin 2.3 g/dL (1.6-3.3); Glucose 89 mg/dL (70-110); Potassium 4.5 mmol/L (3.5-5.5); Sodium 140 mmol/L (135-145); Total Bilirubin 0.2 mg/dL (0.3-1.2); Total Protein 5.6 g/dL (6.2-8.2)
[2024-09-22] MEDS: NYSTATIN 100,000 UNIT/GM POWD 15 GM TOPICAL SCH (10:05)
--- NOTE | 2024-09-22 12:25 | P.PN ---
Subjective Progress Note Date: 09/22/24 Principal diagnosis: subacute right superior and inferior pubic rami fracture The patient is a very pleasant 84-year-old female who is well-known to my offices practice. The patient had a left-sided hip fracture 2018 managed [address] my partner [address] Valdes. 3 weeks ago the patient sustained a ground-level fall this had pain in her hip and groin since that time. She was brought into the office this morning where x-rays showed a right superior and inferior pubic rami fracture. The patient was having a difficult time getting around at home and her family was having increasing difficulty taking care of her. They brought her to the emergency department to be admitted for likely placement to rehab. 09/21/2024 progress note: Spoke with nursing staff, no acute events overnight. Patient was evaluated by physical therapy and short acute rehab was recommended. Patient is a 72-hour stay, planning for discharge to rehab on 09/23/2024. Spoke with patient, no acute events overnight, no new complaints today. 09/22/2024 progress note: Spoke with nursing staff, no acute events overnight. Spoke with patient, no acute events overnight, patient complains of mild right hip pain, discussed I would discuss with nurse team. Objective - Vital Signs Vital signs: Vital Signs Temp 98.4 F 09/22/24 07:30 Pulse 59 L 09/22/24 07:30 Resp 17 09/22/24 07:30 BP 147/72 09/22/24 07:30 Pulse Ox 96 09/22/24 07:30 FiO2 Intake & Output 09/21/24 09/22/24 09/22/24 18:59 06:59 18:59 Intake Total 1500 Output Total 450 1100 Balance -450 400 Intake: Oral 1500 Output: Urine 450 1100 Other: Voiding Method Incontinent External Catheter External Catheter # Voids 1 1 - Exam Patient was examined at bedside today. Patient was sitting up in chair. Patient was awake, alert, and able to answer questions difficulty due to chronic hearing loss per patient. Her head is normocephalic and atraumatic. She demonstrates nonlabored breathing with symmetric chest expansion. She had no obvious deformities to the upper extremities and no tenderness. She had pain with passive range of motion of the right hip. - Labs CBC & Chem 7: 09/22/24 05:59 09/22/24 05:59 Labs: Abnormal Lab Results - Last 24 Hours (Table) 09/22/24 09/22/24 Range/Units 05:59 05:59 WBC 11.99 H (4.50-10.00) X 10*3/uL RBC 4.08 L (4.10-5.20) X 10*6/uL Hgb 11.3 L (12.0-15.0) g/dL Hct 36.2 L (37.2-46.3) % MCHC 31.2 L (32.0-37.0) g/dL Immature Gran # 0.08 H (0.00-0.04) X 10*3/uL Neutrophils # 8.08 H (1.80-7.70) X 10*3/uL Monocytes # 1.16 H (0.20-1.00) X 10*3/uL Eosinophils # 0.49 H (0.04-0.35) X 10*3/uL BUN/Creatinine Ratio 27.14 H (12.00-20.00) Ratio Total Bilirubin 0.2 L (0.3-1.2) mg/dL Alkaline Phosphatase 252 H (41-126) U/L Total Protein 5.6 L (6.2-8.2) g/dL Albumin 3.3 L (3.8-4.9) g/dL Albumin/Globulin Ratio 1.43 L (1.60-3.17) Ratio Assessment and Plan Assessment: : subacute right superior and inferior pubic rami fracture Failure to thrive Prior left hip fracture status post hemiarthroplasty Multiple Medical problems Plan: She had x-ray findings showing pubic rami fractures. She has been having increasing pain and difficulty caring for herself at home with her daughter. They presented to the ER for admission to the hospital for pain control and placement for rehab. Internal medicine will be consulted for medical management. She can weight-bear as tolerated with a walker. She will stay for 72 hours, has been evaluated with physical therapy, case specialist has been involved, and plan is to transfer to rehab on 09/23/2024.
--- NOTE | 2024-09-22 14:26 | P.PN ---
Subjective Progress Note Date: 09/22/24 Patient is a 84-year-old female with CAD, hypertension, hyperlipidemia, chronic left leg swelling, Parkinson's, depression who came in for right hip pain. Today she reported that she fell in the bathroom and was down for about 20 minutes where in she hit her right hip onto the floor first. She experienced sharp pain on her right hip radiating to the back and an intensity of 8 out of 10. She also noticed a bruise in her anterior right thigh. She denies loss of consciousness, lightheadedness, sweats, changes in vision, facial asymmetry, weakness, tremors, palpitations, chest pain, shortness of breath, leg tenderness, or abdominal pain. X-ray recorded on Ortho notes show that she had a right superior and inferior pubic rami fracture. WBC elevated at 14.2, glucose 113, ALP 251. Vitals on admission show patient was afebrile at 98 F pulse rate 74 respiration rate 20 elevated blood pressure at 149/75 O2 saturation 99% on room air. 09/21/2024 patient seen and examined at bedside. Patient had no new complaints or new symptoms overnight. Vitals unremarkable overnight. WBC 11.38 hemoglobin 9.8 platelet 268,000 sodium 141 potassium 4.1 BUN 19 creatinine 0.7 glucose 79 calcium 8.4 AST 13 ALT 9 albumin 3.1 total protein 5.2 alk phos 221 09/22/2024 patient seen and examined at bedside. Patient had no new complaints or new symptoms overnight. Vitals unremarkable overnight. WBC 11.99 hemoglobin 11.3 platelet count 300,000 sodium 140 potassium 4.5 chloride 106 bicarb 25.8 BUN 19 creatinine 0.7 glucose 89 calcium 8.8 alk phos 252 albumin 3.3 Review of systems: Pertinent positives and negatives as discussed in HPI, a complete review of systems was performed and all other systems are negative. Physical examination: General: non toxic, no distress Derm: no unusual rashes/lesions, warm Head: atraumatic, normocephalic, symmetric Eyes: EOMI, anicteric sclera, pupils equal round reactive to light ENT: Nose and ears atraumatic Neck: No cervical lymphadenopathy, trachea midline, supple Mouth: no lip lesion, mucus membranes moist Cardiovascular: S1S2 reg, no murmur Lungs: CTA bilateral, no rhonchi, no rales, no accessory muscle use Abdominal: soft, nondistended, nontender to palpation, no guarding Ext: no gross muscle atrophy, no contractures, positive dorsalis pedis pulse bilateral, bruise localized to the right medial thigh, +2 left lower extremity pitting edema Neuro: CN II-XI grossly intact, no gross focal neuro deficits Psych: Alert and oriented x 3, appropriate affect and mood Assessment/Plan: 84-year-old female who came in [facility] and was found on chest x-ray to have a right superior and inferior pubic rami fracture. #. CAD Aspirin 81 mg p.o. daily #. Hypertension Lisinopril 5 mg p.o. daily, atenolol 25 mg daily Anticipate improvement with pain control as well #. Hyperlipidemia Simvastatin 20 mg p.o. daily #. Depression Sertraline 25 mg p.o. daily #. Chronic left leg swelling Furosemide 20 mg p.o. daily as needed #. Leukocytosis likely reactive due to fall, improving WBC 14.2 -> 11.38 -> 11.99 Patient not experiencing any symptoms such as fever and is stable at this time Will monitor CBC for now #. Hyperglycemia likely reactive to fall, resolved Glucose at 89 #. Increased ALP, likely due to fracture ALP initially 251 -> 221 -> 252. Patient has no symptoms and is stable Will monitor CMP #. Hypocalcemia #. Hypoalbuminemia Albumin 3. Corrected calcium 9.4. Patient has no symptoms and is stable Monitor CMP for now #. Right superior and inferior pubic rami fracture secondary to mechanical fall Pain control and anticoagulation per primary orthopedic surgery service. In acute rehab for 72 hours (last day 09/23/2024) DVT ppx: Lovenox 40 mg SQ daily Dispo: The patient is admitted with an anticipated greater than than 2 midnight stay for evaluation of right superior and inferior pubic rami fracture CODE STATUS: No code Anticipated discharge place: Home Madeleine Pinto MD PGY-1 IM Dictation was produced using [email or web address] dictation software. please excuse any grammatical, word or spelling errors. I saw and evaluated the patient during the cabezas and critical portions of this encounter, and discussed the case in detail with the resident author of this note, I agree with the Assessment and Plan, and my changes, if any, are ment ioned below. Plans for SNF tomorrow. Objective - Vital Signs Vital signs: Vital Signs Temp 98.4 F 09/22/24 07:30 Pulse 59 L 09/22/24 07:30 Resp 17 09/22/24 07:30 BP 147/72 09/22/24 07:30 Pulse Ox 96 09/22/24 07:30 FiO2 Intake & Output 09/21/24 09/22/24 09/22/24 18:59 06:59 18:59 Intake Total 1500 Output Total 450 1100 Balance -450 400 Intake: Oral 1500 Output: Urine 450 1100 Other: Voiding Method Incontinent External Catheter External Catheter # Voids 1 1 - Labs CBC & Chem 7: 09/22/24 05:59 09/22/24 05:59 Labs: Abnormal Lab Results - Last 24 Hours (Table) 09/21/24 09/21/24 Range/Units 02:54 02:54 WBC 11.38 H (4.50-10.00) X 10*3/uL RBC 3.46 L (4.10-5.20) X 10*6/uL Hgb 9.8 L (12.0-15.0) g/dL Hct 31.7 L (37.2-46.3) % MCHC 30.9 L (32.0-37.0) g/dL Immature Gran # 0.08 H (0.00-0.04) X 10*3/uL Monocytes # 1.29 H (0.20-1.00) X 10*3/uL BUN/Creatinine Ratio 27.14 H (12.00-20.00) Ratio Calcium 8.4 L (8.7-10.3) mg/dL Total Bilirubin <0.2 L (0.3-1.2) mg/dL Alkaline Phosphatase 221 H (41-126) U/L Total Protein 5.2 L (6.2-8.2) g/dL Albumin 3.1 L (3.8-4.9) g/dL Albumin/Globulin Ratio 1.48 L (1.60-3.17) Ratio
--- NOTE | 2024-09-23 07:44 | P.PN ---
Subjective Progress Note Date: 09/23/24 Principal diagnosis: subacute right superior and inferior pubic rami fracture The patient is a very pleasant 84-year-old female who is well-known to my offices practice. The patient had a left-sided hip fracture 2018 managed by my partner Dr. Valdes. 3 weeks ago the patient sustained a ground-level fall this had pain in her hip and groin since that time. She was brought into the office this morning where x-rays showed a right superior and inferior pubic rami fracture. The patient was having a difficult time getting around at home and her family was having increasing difficulty taking care of her. They brought her to the emergency department to be admitted for likely placement to rehab. 09/21/2024 progress note: Spoke with nursing staff, no acute events overnight. Patient was evaluated by physical therapy and short acute rehab was recommended. Patient is a 72-hour stay, planning for discharge to rehab on 09/23/2024. Spoke with patient, no acute events overnight, no new complaints today. 09/22/2024 progress note: Spoke with nursing staff, no acute events overnight. Spoke with patient, no acute events overnight, patient complains of mild right hip pain, discussed I would discuss with nurse team. 09/23/2024 progress note: Spoke with nursing staff, no acute events overnight. Spoke with patient, no acute events overnight, doing well, eating breakfast at time of visit. No new complaints. Plans for rehab 09/24/2024. Objective - Vital Signs Vital signs: Vital Signs Temp 98.1 F 09/23/24 00:47 Pulse 69 09/23/24 00:47 Resp 18 09/23/24 00:47 BP 122/72 09/23/24 00:47 Pulse Ox 94 L 09/23/24 00:47 FiO2 Intake & Output 09/22/24 09/23/24 09/23/24 18:59 06:59 18:59 Output Total 1200 100 Balance -1200 -100 Output: Urine 1200 100 Other: Voiding Method External Catheter - Exam Patient was examined at bedside today. Patient was sitting up in bed eating breakfast. Patient was awake, alert, and able to answer questions but difficulty due to chronic hearing loss per patient. Her head is normocephalic and atraumatic. She demonstrates nonlabored breathing with symmetric chest expansion. She had no obvious deformities to the upper extremities and no tenderness. She had pain with passive range of motion of the right hip. - Labs CBC & Chem 7: 09/22/24 05:59 09/22/24 05:59 Labs: Abnormal Lab Results - Last 24 Hours (Table) 09/22/24 09/22/24 Range/Units 05:59 05:59 WBC 11.99 H (4.50-10.00) X 10*3/uL RBC 4.08 L (4.10-5.20) X 10*6/uL Hgb 11.3 L (12.0-15.0) g/dL Hct 36.2 L (37.2-46.3) % MCHC 31.2 L (32.0-37.0) g/dL Immature Gran # 0.08 H (0.00-0.04) X 10*3/uL Neutrophils # 8.08 H (1.80-7.70) X 10*3/uL Monocytes # 1.16 H (0.20-1.00) X 10*3/uL Eosinophils # 0.49 H (0.04-0.35) X 10*3/uL BUN/Creatinine Ratio 27.14 H (12.00-20.00) Ratio Total Bilirubin 0.2 L (0.3-1.2) mg/dL Alkaline Phosphatase 252 H (41-126) U/L Total Protein 5.6 L (6.2-8.2) g/dL Albumin 3.3 L (3.8-4.9) g/dL Albumin/Globulin Ratio 1.43 L (1.60-3.17) Ratio Assessment and Plan Assessment: : subacute right superior and inferior pubic rami fracture Failure to thrive Prior left hip fracture status post hemiarthroplasty Multiple Medical problems Plan: She had x-ray findings showing pubic rami fractures. She has been having increasing pain and difficulty caring for herself at home with her daughter. They presented to the ER for admission to the hospital for pain control and placement for rehab. Internal medicine will be consulted for medical management. She can weight-bear as tolerated with a walker. She has been evaluated by physical therapy, patient case manager, and plan is to transfer to rehab on 09/24/2024.
[2024-09-23 08:24] LABS: Basophils # (A) 0.09 X 10*3/uL (0.00-0.10); Basophils % (A) 0.8 %; Eosinophils # (A) 0.45 X 10*3/uL (0.04-0.35); Eosinophils % (A) 3.9 %; HGB 10.3 g/dL (12.0-15.0); Lymphocytes % (A) 14.9 %; MCH 28.1 pg (27.0-32.0); MCHC 31.2 g/dL (32.0-37.0); MCV 89.9 FL (80.0-97.0); Mean Platelet Volume 10.2 FL (9.5-12.2); Monocytes % (A) 10.5 %; NRBC Per 100 WBC 0 X 10*3/uL (0.00-0.01); Neutrophils # (A) 7.88 X 10*3/uL (1.80-7.70); Platelet Count 252 X 10*3/uL (140-440); RBC 3.67 X 10*6/uL (4.10-5.20); RDW 13.5 % (11.5-14.5); WBC 11.42 X 10*3/uL (4.50-10.00)
--- NOTE | 2024-09-23 08:30 | P.DS ---
Providers Date of admission: 09/20/24 11:34 Attending physician: Emerson Mosqueda Consults: 09/20/24 11:10 Consult Physician Urgent Consulting Provider: Lebron Winter Consult Reason/Comments: Medical management Do you want consulting provider notified?: Yes [facility] Course: The patient is a very pleasant 84-year-old female who is well-known to my [facility] practice. The patient had a left-sided hip fracture 2018 managed by my partner Dr. Valdes. 3 weeks ago the patient sustained a ground-level fall this had pain in her hip and groin since that time. She was brought into the office this morning where x-rays showed a right superior and inferior pubic rami fracture. The patient was having a difficult time getting around at home and her family was having increasing difficulty taking care of her. They brought her to the emergency department to be admitted for likely placement to rehab. 09/21/2024 progress note: Spoke with nursing staff, no acute events overnight. Patient was evaluated by physical therapy and short acute rehab was recommended. Patient is a 72-hour stay, planning for discharge to rehab on 09/23/2024. Spoke with patient, no acute events overnight, no new complaints today. 09/22/2024 progress note: Spoke with nursing staff, no acute events overnight. Spoke with patient, no acute events overnight, patient complains of mild right hip pain, discussed I would discuss with nurse team. 09/23/2024 progress note: Spoke with nursing staff, no acute events overnight. Spoke with patient, no acute events overnight, doing well, eating breakfast at time of visit. No new complaints. Update: Patient has been accepted to [facility] rehab facility, medication scripts printed and placed in chart, start form completed and placed in chart, will transfer today 09/23/2024. She can weight-bear as tolerated with walker. Assessment: subacute right superior and inferior pubic rami fracture Failure to thrive Prior left hip fracture status post hemiarthroplasty Multiple Medical problems Patient Condition at Discharge: Fair Plan - Discharge Summary Discharge Rx Participant: No New Discharge Prescriptions: New Docusate [Colace] 100 mg PO BID #60 capsule Omeprazole 20 mg PO DAILY PRN #30 tab PRN Reason: Gi Upset HYDROcodone/APAP 5-325MG [[place] 5] 1 each PO Q6HR PRN #28 tab PRN Reason: Pain No Action Simvastatin [Zocor] 20 mg PO HS lisinopriL [Zestril] 5 mg PO DAILY atenoloL [Tenormin] 25 mg PO DAILY Aspirin [Adult Low Dose Aspirin EC] 81 mg PO DAILY Ascorbic Acid [Vitamin C] 1,000 mg PO HS Furosemide [Lasix] 20 mg PO DAILY PRN PRN Reason: Edema Pramipexole [Mirapex] 0.5 mg PO BID Sertraline [Zoloft] 25 mg PO HS Ferrous Sulfate [Feosol] 325 mg PO DAILY Cholecalciferol [Vitamin D3 (125 Mcg = 5000 Iu)] 125 mcg PO DAILY Discharge Medication List Simvastatin [Zocor] 20 mg PO HS 06/08/18 [History] atenoloL [Tenormin] 25 mg PO DAILY 06/08/18 [History] lisinopriL [Zestril] 5 mg PO DAILY 06/08/18 [History] Aspirin [Adult Low Dose Aspirin EC] 81 mg PO DAILY 08/19/18 [History] Ascorbic Acid [Vitamin C] 1,000 mg PO HS 03/13/23 [History] Furosemide [Lasix] 20 mg PO DAILY PRN 03/13/23 [History] Sertraline [Zoloft] 25 mg PO HS 03/13/23 [History] Cholecalciferol [Vitamin D3 (125 Mcg = 5000 Iu)] 125 mcg PO DAILY 09/20/24 [History] Ferrous Sulfate [Feosol] 325 mg PO DAILY 09/20/24 [History] Pramipexole [Mirapex] 0.5 mg PO BID 09/20/24 [History] Docusate [Colace] 100 mg PO BID #60 capsule 09/23/24 [Rx] HYDROcodone/APAP 5-325MG [[place] 5] 1 each PO Q6HR PRN #28 tab 09/23/24 [Rx] Omeprazole 20 mg PO DAILY PRN #30 tab 09/23/24 [Rx] Follow up Appointment(s)/Referral(s): Ross Lennon DO [Primary Care Provider] - 1-2 days Emerson Mosqueda MD [Medical Doctor] - 2 Weeks Activity/Diet/Wound Care/Special Instructions: Weightbearing status: Weight-bear as tolerated with walker. Resume home aspirin regimen for anticoagulation. Discharge Disposition: TRANSFER TO SNF/ECF
[2024-09-23 08:43] LABS: BUN/Creat Ratio 28.38 Ratio (12.00-20.00); Blood Urea Nitrogen 22.7 mg/dL (9.0-27.0); Calcium 8.4 mg/dL (8.7-10.3); Carbon Dioxide 24.8 mmol/L (21.6-31.8); Chloride 107 mmol/L (96-109); Glucose 108 mg/dL (70-110); Potassium 4.3 mmol/L (3.5-5.5); Sodium 142 mmol/L (135-145)
[2024-09-23 13:41] VITALS: BP 122/76; PULSE 66; RESP 15; TEMP 98.3
--- NOTE | 2024-09-23 15:11 | P.PN ---
Subjective Progress Note Date: 09/23/24 Patient is a 84-year-old female with CAD, hypertension, hyperlipidemia, chronic left leg swelling, Parkinson's, depression who came in for right hip pain. Today she reported that she fell in the bathroom and was down for about 20 minutes where in she hit her right hip onto the floor first. She experienced sharp pain on her right hip radiating to the back and an intensity of 8 out of 10. She also noticed a bruise in her anterior right thigh. She denies loss of consciousness, lightheadedness, sweats, changes in vision, facial asymmetry, weakness, tremors, palpitations, chest pain, shortness of breath, leg tenderness, or abdominal pain. X-ray recorded on Ortho notes show that she had a right superior and inferior pubic rami fracture. WBC elevated at 14.2, glucose 113, ALP 251. Vitals on admission show patient was afebrile at 98 F pulse rate 74 respiration rate 20 elevated blood pressure at 149/75 O2 saturation 99% on room air. 09/21/2024 patient seen and examined at bedside. Patient had no new complaints or new symptoms overnight. Vitals unremarkable overnight. WBC 11.38 hemoglobin 9.8 platelet 268,000 sodium 141 potassium 4.1 BUN 19 creatinine 0.7 glucose 79 calcium 8.4 AST 13 ALT 9 albumin 3.1 total protein 5.2 alk phos 221 09/22/2024 patient seen and examined at bedside. Patient had no new complaints or new symptoms overnight. Vitals unremarkable overnight. WBC 11.99 hemoglobin 11.3 platelet count 300,000 sodium 140 potassium 4.5 chloride 106 bicarb 25.8 BUN 19 creatinine 0.7 glucose 89 calcium 8.8 alk phos 252 albumin 3.3 09/23/2024 patient seen and examined at bedside. Patient had no new complaints or new symptoms overnight. Vitals unremarkable overnight. WBC 11.44 hemoglobin 10.3 platelet count 352,000 sodium 142 potassium 4.3 BUN 22 creatinine 0.8 glucose 108 calcium 8.4 Review of systems: Pertinent positives and negatives as discussed in HPI, a complete review of systems was performed and all other systems are negative. Physical examination: General: non toxic, no distress Derm: no unusual rashes/lesions, warm Head: atraumatic, normocephalic, symmetric Eyes: EOMI, anicteric sclera, pupils equal round reactive to light ENT: Nose and ears atraumatic Neck: No cervical lymphadenopathy, trachea midline, supple Mouth: no lip lesion, mucus membranes moist Cardiovascular: S1S2 reg, no murmur Lungs: CTA bilateral, no rhonchi, no rales, no accessory muscle use Abdominal: soft, nondistended, nontender to palpation, no guarding Ext: no gross muscle atrophy, no contractures, positive dorsalis pedis pulse bilateral, +2 left lower extremity pitting edema Neuro: CN II-XI grossly intact, no gross focal neuro deficits Psych: Alert and oriented x 3, appropriate affect and mood Assessment/Plan: 84-year-old female who came in [facility] and was found on chest x-ray to have a right superior and inferior pubic rami fracture. #. CAD Aspirin 81 mg p.o. daily #. Hypertension Lisinopril 5 mg p.o. daily, atenolol 25 mg daily Anticipate improvement with pain control as well #. Hyperlipidemia Simvastatin 20 mg p.o. daily #. Depression Sertraline 25 mg p.o. daily #. Chronic left leg swelling Furosemide 20 mg p.o. daily as needed #. Leukocytosis likely reactive due to fall, stable WBC 14.2 -> 11.38 -> 11.99 -> 11.42 Patient not experiencing any symptoms such as fever and is stable at this time Will monitor CBC for now #. Hyperglycemia likely reactive to fall, resolved Glucose at 89 #. Increased ALP, likely due to fracture ALP initially 251 -> 221 -> 252. Patient has no symptoms and is stable #. Hypocalcemia, stable #. Hypoalbuminemia, stable Patient has no symptoms and is stable #. Right superior and inferior pubic rami fracture secondary to mechanical fall Pain control and anticoagulation per primary orthopedic surgery service. In acute rehab for 72 hours (last day 09/23/2024) DVT ppx: Lovenox 40 mg SQ daily Dispo: The patient is admitted with an anticipated greater than than 2 midnight stay for evaluation of right superior and inferior pubic rami fracture CODE STATUS: No code Anticipated discharge place: Subacute rehab Madeleine Pinto MD PGY-1 IM Dictation was produced using [employer] dictation software. please excuse any grammatical, word or spelling errors. Patient is medically optimized for discharge Thank you for allowing us to participate in the care of this pleasant patient. Do not hesitate to contact us with questions. Someone can be reached from the [facility] hospitalist group all hours of the day at [phone] or via perfect serve. I have seen and evaluated the patient today. Discussed with the resident and agree with the residents finding and plan as documented in the resident's note. Changes highlighted in blue font. Objective - Vital Signs Vital signs: Vital Signs Temp 98.3 F 09/23/24 13:02 Pulse 66 09/23/24 13:02 Resp 15 09/23/24 13:02 BP 122/76 09/23/24 13:02 Pulse Ox 96 09/23/24 13:02 FiO2 Intake & Output 09/22/24 09/23/24 09/23/24 18:59 06:59 18:59 Output Total 1200 100 Balance -1200 -100 Output: Urine 1200 100 Other: Voiding Method External Catheter External Catheter - Labs CBC & Chem 7: 09/23/24 05:41 09/23/24 05:41 Labs: Abnormal Lab Results - Last 24 Hours (Table) 09/23/24 09/23/24 Range/Units 05:41 05:41 WBC 11.42 H (4.50-10.00) X 10*3/uL RBC 3.67 L (4.10-5.20) X 10*6/uL Hgb 10.3 L (12.0-15.0) g/dL Hct 33.0 L (37.2-46.3) % MCHC 31.2 L (32.0-37.0) g/dL Immature Gran # 0.10 H (0.00-0.04) X 10*3/uL Neutrophils # 7.88 H (1.80-7.70) X 10*3/uL Monocytes # 1.20 H (0.20-1.00) X 10*3/uL Eosinophils # 0.45 H (0.04-0.35) X 10*3/uL BUN/Creatinine Ratio 28.38 H (12.00-20.00) Ratio Calcium 8.4 L (8.7-10.3) mg/dL
== END 2024-09-23 17:24 | DRG 536 ==
LOC: EC 10:13 → 4SSUR 11:34
PROVIDERS: ADMIT Orthopaedic Surgery; ATTEND Orthopaedic Surgery
DX: S32.511A Fracture of superior rim of right pubis, initial encounter for closed fracture (principal); M79.89 Other specified soft tissue disorders; S32.591A Other specified fracture of right pubis, initial encounter for closed fracture; F32.A Depression, unspecified; E78.5 Hyperlipidemia, unspecified; I10 Essential (primary) hypertension; I25.10 Atherosclerotic heart disease of native coronary artery without angina pectoris; R73.9 Hyperglycemia, unspecified; G20.A1 Parkinson's disease without dyskinesia, without mention of fluctuations; R62.7 Adult failure to thrive; D72.829 Elevated white blood cell count, unspecified; E88.09 Other disorders of plasma-protein metabolism, not elsewhere classified; E83.51 Hypocalcemia; I25.2 Old myocardial infarction; W19.XXXA Unspecified fall, initial encounter; Z68.27 Body mass index [BMI] 27.0-27.9, adult; Z79.82 Long term (current) use of aspirin; Z95.1 Presence of aortocoronary bypass graft
CPT/HCPCS: 80048; 80053; 81003; 83735; 85025; 99285

== ENCOUNTER 2024-11-21 20:33 | Inpatient (IN) | payer MEDICARE, BC ==
--- NOTE | 2024-11-21 21:03 | ED ---
Fever HPI - General Chief Complaint: Fall Stated Complaint: fall Time Seen by Provider: 11/21/24 21:02 Source: patient, EMS, RN notes reviewed, old records reviewed, Caregiver Mode of arrival: EMS Limitations: no limitations - History of Present Illness Initial Comments: This is a 84 female to the ER for evaluation patient presents today for evaluation of a fall unsure of how patient fell the patient was found down unsure of injuries. Patient does have fever or historian secondary to clinical condition, patient is again a poor historian history obtained from prior records and transport MD Complaint: fever, malaise, weakness, other (Fall from standing) -: unknown Temperature Source: subjective Context: sick contacts, multiple patients with similar symptoms Associated Symptoms: chills, nasal congestion, sore throat, cough, shortness of breath, nausea, confusion Treatments Prior to Arrival: none - Related Data Home Medications Medication Instructions Recorded Confirmed Simvastatin [Zocor] 20 mg PO HS 06/08/18 11/22/24 atenoloL [Tenormin] 25 mg PO DAILY 06/08/18 11/22/24 lisinopriL [Zestril] 5 mg PO DAILY 06/08/18 11/22/24 Aspirin [Adult Low Dose Aspirin EC] 81 mg PO DAILY 08/19/18 11/22/24 Furosemide [Lasix] 20 mg PO DAILY PRN 03/13/23 11/22/24 Sertraline [Zoloft] 25 mg PO HS 03/13/23 11/22/24 Cholecalciferol [Vitamin D3 (125 125 mcg PO DAILY 09/20/24 11/22/24 Mcg = 5000 Iu)] Ferrous Sulfate [Iron (65 MG 325 mg PO DAILY 09/20/24 11/22/24 Elemental)] Pramipexole [Mirapex] 0.5 mg PO BID 09/20/24 11/22/24 Ascorbic Acid [Vitamin C] 500 mg PO DAILY 11/22/24 11/22/24 Omeprazole [PriLOSEC] 20 mg PO DAILY 11/22/24 11/22/24 Previous Rx's Medication Instructions Recorded Docusate [Colace] 100 mg PO BID #60 capsule 09/23/24 Allergies Allergy/AdvReac Type Severity Reaction Status Date / Time No Known Allergies Allergy Verified 11/21/24 20:55 Review of Systems ROS Statement: Those systems with pertinent positive or pertinent negative responses have been documented in the HPI. ROS Other: All systems not noted in ROS Statement are negative. Past Medical History Past Medical History: Coronary Artery Disease (CAD), Hyperlipidemia, Hypertens ion, Myocardial Infarction (OR) Additional Past Medical History / Comment(s): Parkinsons,wounds to foot & buttocks Last Myocardial Infarction Date:: 01/2011 History of Any Multi-Drug Resistant Organisms: None Reported Past Surgical History: Appendectomy, Coronary Bypass/CABG, Heart Catheterization With Stent, Orthopedic Surgery, Tonsillectomy Additional Past Surgical History / Comment(s): Cataracts. 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 Father Family Medical History: Myocardial Infarction (OR) Additional Family Medical History / Comment(s): Father of a OR at the age of 91 yrs. General Exam Limitations: no limitations General appearance: anxious Head exam: Present: atraumatic, normocephalic, normal inspection Eye exam: Present: normal appearance, PERRL, EOMI. Absent: scleral icterus, conjunctival injection, periorbital swelling ENT exam: Present: normal exam, mucous membranes moist Neck exam: Present: normal inspection. Absent: tenderness, meningismus, lymphadenopathy Respiratory exam: Present: normal lung sounds bilaterally. Absent: respiratory distress, wheezes, rales, rhonchi, stridor Cardiovascular Exam: Present: regular rate, normal rhythm, normal heart sounds. Absent: systolic murmur, diastolic murmur, rubs, gallop, clicks GI/Abdominal exam: Present: soft, normal bowel sounds. Absent: distended, tenderness, guarding, rebound, rigid Extremities exam: Present: normal inspection, full ROM, normal capillary refill. Absent: tenderness, pedal edema, joint swelling, calf tenderness Back exam: Present: normal inspection Neurological exam: Present: alert, oriented X3, CN II-XII intact Psychiatric exam: Present: normal affect, normal mood Skin exam: Present: warm, dry, intact, normal color. Absent: rash Course Vital Signs 11/21/24 11/21/24 11/21/24 20:46 21:00 22:15 Temperature 100.9 F H 101.1 F H Pulse Rate 104 H 75 Respiratory 18 20 Rate Blood Pressure 134/98 80/21 O2 Sat by Pulse 92 L Oximetry Fraction of Inspired Oxygen (FIO2) 11/21/24 11/21/24 11/21/24 22:25 22:37 22:40 Temperature Pulse Rate 76 71 Respiratory 24 28 H Rate Blood Pressure 71/40 73/43 O2 Sat by Pulse 94 L 92 L Oximetry Fraction of 50 Inspired Oxygen (FIO2) 11/21/24 11/21/24 11/21/24 23:00 23:30 23:42 Temperature Pulse Rate 81 68 73 Respiratory 20 20 20 Rate Blood Pressure 68/39 69/46 69/46 O2 Sat by Pulse 95 96 96 Oximetry Fraction of Inspired Oxygen (FIO2) 11/22/24 11/22/24 11/22/24 00:00 00:07 00:27 Temperature Pulse Rate 75 68 72 Respiratory 20 20 Rate Blood Pressure 81/51 90/74 O2 Sat by Pulse 99 96 Oximetry Fraction of Inspired Oxygen (FIO2) 11/22/24 11/22/24 11/22/24 00:28 00:34 00:44 Temperature Pulse Rate 90 72 Respiratory Rate Blood Pressure 73/63 O2 Sat by Pulse 99 Oximetry Fraction of 40 Inspired Oxygen (FIO2) 11/22/24 11/22/24 11/22/24 01:00 01:14 01:42 Temperature Pulse Rate 81 79 66 Respiratory 20 20 20 Rate Blood Pressure 70/58 70/58 73/39 O2 Sat by Pulse 97 97 97 Oximetry Fraction of Inspired Oxygen (FIO2) 11/22/24 11/22/24 11/22/24 02:39 03:50 03:56 Temperature 97.9 F Pulse Rate 73 62 Respiratory 20 16 Rate Blood Pressure 83/55 86/41 O2 Sat by Pulse 97 98 Oximetry Fraction of 40 Inspired Oxygen (FIO2) 11/22/24 11/22/24 11/22/24 04:21 05:16 05:37 Temperature Pulse Rate 61 65 62 Respiratory 18 17 Rate Blood Pressure 83/47 102/56 110/76 O2 Sat by Pulse 97 97 99 Oximetry Fraction of Inspired Oxygen (FIO2) - Reevaluation(s) Reevaluation #1: 11/21/24 22:18 Medical records reviewed Reevaluation #2: 11/21/24 22:18 Patient symptoms improved Reevaluation #3: 11/21/24 22:18 Informed of results questions answered Reevaluation #4: Was pt. sent in by a medical professional or institution ([facility] Shaw, [employer], urgent care, hospital, or skilled nursing...) When possible be specific @ -no Did you speak to anyone other than the patient for history (EMS, parent, family, police, friend...)? What history was obtained from this source @ -no Did you review nursing and triage notes (agree or disagree)? Why? @ -agree Are old charts reviewed (outside hosp., previous admission, EMS record, old EKG, old radiological studies, urgent care reports/EKG's, skilled nursing records)? Report findings @ -yes Differential Diagnosis (chest pain, altered mental status, abdominal pain women, abdominal pain men, vaginal bleeding, weakness, fever, dyspnea, syncope, headache, dizziness, GI bleed, back pain, seizure, CVA, palpatations, mental health, musculoskeletal)? @ -prior EKG interpreted by me (3pts min.). @ -yes X-rays interpreted by me (1pt min.). @ -yes negative for acute disease CT interpreted by me (1pt min.). @ -Yes negative for acute disease U/S interpreted by me (1pt. min.). @ -no What testing was considered but not performed or refused? (CT, X-rays, U/S, labs)? Why? @ -none What meds were considered but not given or refused? Why? @ -none Did you discuss the management of the patient with other professionals (professionals i.e. SHANNAN Shaw, [employer]ER, lab, RT, psych nurse, bilingual social worker, die maker, teacher, wildlife conservation officer, child support case officer)? Give summary @ -no Was smoking cessation discussed for >3mins.? @ -no Was critical care preformed (if so, how long)? @ -no Were there social determinants of health that impacted care today? How? (Homelessness, low income, unemployed, alcoholism, drug addiction, transportation, low edu. Level, literacy, decrease access to med. care, shelter, rehab)? @ -none Was there de-escalation of care discussed even if they declined (Discuss DNR or withdrawal of care, Hospice)? DNR status @ -no What co-morbidities impacted this encounter? (DM, HTN, Smoking, COPD, CAD, Cancer, CVA, ARF, Chemo, Hep., AIDS, mental health diagnosis, sleep apnea, morbid obesity)? @ -none Was patient admitted / discharged? Hospital course, mention meds given and route, prescriptions, significant lab abnormalities, going to OR and other pertinent info. @ - 83 female fall found down with fever. Patient will be admitted on IV antibiotics, found to have influenza here in the ER started on antibiotics prophylaxis, patient will be admitted for symptomatic therapy Admitted Undiagnosed new problem with uncertain prognosis? @ -no Drug Therapy requiring intensive monitoring for toxicity (Heparin, Nitro, Insulin, Cardizem)? @ -no Were any procedures done? @ -no Diagnosis/symptom? @ -Influenza fever weakness Acute, or Chronic, or Acute on Chronic? @ -Acute Uncomplicated (without systemic symptoms) or Complicated (systemic symptoms)? @ -Complicated Side effects of treatment? @ -no Exacerbation, Progression, or Severe Exacerbation? @ -exacerbation Poses a threat to life or bodily function? How? (Chest pain, USA, OR, pneumonia, PE, COPD, DKA, ARF, appy, cholecystitis, CVA, Diverticulitis, Homicidal, Suicidal, threat to staff... and all critical care pts) @ -yes yes extremes of age Reevaluation #5: Differential Fever: Pneumonia, viral URI, endocarditis, myocarditis, pericarditis, otitis, sinusitis, peritonsillar Abscess, retropharyngeal Abscess, epiglottitis, peritonitis, appendicitis, Svetlana cystitis, diverticulitis, hepatitis, colitis, UTI, PID, TOA, pyelonephritis, prostatitis, epididymitis, meningitis, encephalitis, pulmonary embolism, CVA, thyroid storm, pancreatitis, adrenal crisis, cavernous sinus thrombosis, this is not meant to be an all-inclusive list. - Consultations Consultation #1: With sound who agrees to admit this patient Medical Decision Making - Medical Decision Making 83 female fall found down with fever. Patient will be admitted on IV antibiotics, found to have influenza here in the ER started on antibiotics prophylaxis, patient will be admitted for symptomatic therapy - Lab Data Result diagrams: 11/28/24 03:07 11/28/24 03:07 Lab Results 11/21/24 11/21/24 11/21/24 Range/Units 21:20 21:20 21:20 WBC 19.0 H (3.8-10.6) k/uL RBC 4.06 (3.80-5.40) m/uL Hgb 11.5 (11.4-16.0) gm/dL Hct 34.9 (34.0-46.0) % MCV 86.0 (80.0-100.0) fL MCH 28.3 (25.0-35.0) pg MCHC 32.9 (31.0-37.0) g/dL RDW 13.4 (11.5-15.5) % Plt Count 213 (150-450) k/uL MPV 7.4 Neutrophils % 94 % Lymphocytes % 2 % Monocytes % 3 % Eosinophils % 0 % Basophils % 0 % Neutrophils # 17.8 H (1.3-7.7) k/uL Lymphocytes # 0.4 L (1.0-4.8) k/uL Monocytes # 0.6 (0-1.0) k/uL Eosinophils # 0.1 (0-0.7) k/uL Basophils # 0.0 (0-0.2) k/uL Hypochromasia Slight PT 12.3 (10.0-12.5) sec INR 1.1 (<1.2) APTT 22.9 (22.0-30.0) sec Sodium 134 L (137-145) mmol/L Potassium 4.3 (3.5-5.1) mmol/L Chloride 100 (98-107) mmol/L Carbon Dioxide 24 (22-30) mmol/L Anion Gap 10 mmol/L BUN 22 H (7-17) mg/dL Creatinine 0.95 (0.52-1.04) mg/dL Est GFR (CKD-EPI)AfAm 64 (>60 ml/min/1.73 sqM) Est GFR (CKD-EPI)NonAf 56 (>60 ml/min/1.73 sqM) Glucose 119 H (74-99) mg/dL POC Glucose (mg/dL) (70-110) mg/dL POC Glu Web Developer Programmer ID Lactic Ac Sepsis Rflx Plasma Lactic Acid Jigar (0.7-2.0) mmol/L Calcium 8.5 (8.4-10.2) mg/dL Phosphorus 3.8 (2.5-4.5) mg/dL Magnesium 1.9 (1.6-2.3) mg/dL Total Bilirubin 0.3 (0.2-1.3) mg/dL AST 57 H (14-36) U/L ALT 30 (4-34) U/L Alkaline Phosphatase 168 H (38-126) U/L Creatine Kinase (30-135) U/L Troponin I (0.000-0.034) ng/mL NT-Pro-B Natriuret Pep 4500 pg/mL Total Protein 6.3 (6.3-8.2) g/dL Albumin 3.5 (3.5-5.0) g/dL Procalcitonin (0.02-0.50) ng/mL Urine Color Urine Appearance (Clear) Urine pH (5.0-8.0) Ur Specific Arp (1.001-1.035) Urine Protein (Negative) Urine Glucose (UA) (Negative) Urine Ketones (Negative) Urine Blood (Negative) Urine Nitrite (Negative) Urine Bilirubin (Negative) Urine Urobilinogen (<2.0) mg/dL Ur Leukocyte Esterase (Negative) Urine RBC (0-5) /hpf Urine WBC (0-5) /hpf Urine Bacteria (None) /hpf Hyaline Casts (0-2) /lpf Granular Casts (0) /lpf Urine Mucus (None) /hpf Influenza Type A (PCR) (Not Detectd) Influenza Type B (PCR) (Not Detectd) RSV (PCR) (Not Detectd) SARS-CoV-2 (PCR) (Not Detectd) 11/21/24 11/21/24 11/21/24 Range/Units 21:20 21:20 21:20 WBC (3.8-10.6) k/uL RBC (3.80-5.40) m/uL Hgb (11.4-16.0) gm/dL Hct (34.0-46.0) % MCV (80.0-100.0) fL MCH (25.0-35.0) pg MCHC (31.0-37.0) g/dL RDW (11.5-15.5) % Plt Count (150-450) k/uL MPV Neutrophils % % Lymphocytes % % Monocytes % % Eosinophils % % Basophils % % Neutrophils # (1.3-7.7) k/uL Lymphocytes # (1.0-4.8) k/uL Monocytes # (0-1.0) k/uL Eosinophils # (0-0.7) k/uL Basophils # (0-0.2) k/uL Hypochromasia PT (10.0-12.5) sec INR (<1.2) APTT (22.0-30.0) sec Sodium (137-145) mmol/L Potassium (3.5-5.1) mmol/L Chloride (98-107) mmol/L Carbon Dioxide (22-30) mmol/L Anion Gap mmol/L BUN (7-17) mg/dL Creatinine (0.52-1.04) mg/dL Est GFR (CKD-EPI)AfAm (>60 ml/min/1.73 sqM) Est GFR (CKD-EPI)NonAf (>60 ml/min/1.73 sqM) Glucose (74-99) mg/dL POC Glucose (mg/dL) (70-110) mg/dL POC Glu Web Developer Programmer ID Lactic Ac Sepsis Rflx Plasma Lactic Acid Jigar 2.5 H* (0.7-2.0) mmol/L Calcium (8.4-10.2) mg/dL Phosphorus (2.5-4.5) mg/dL Magnesium (1.6-2.3) mg/dL Total Bilirubin (0.2-1.3) mg/dL AST (14-36) U/L ALT (4-34) U/L Alkaline Phosphatase (38-126) U/L Creatine Kinase (30-135) U/L Troponin I 0.860 H* (0.000-0.034) ng/mL NT-Pro-B Natriuret Pep pg/mL Total Protein (6.3-8.2) g/dL Albumin (3.5-5.0) g/dL Procalcitonin (0.02-0.50) ng/mL Urine Color Urine Appearance (Clear) Urine pH (5.0-8.0) Ur Specific Arp (1.001-1.035) Urine Protein (Negative) Urine Glucose (UA) (Negative) Urine Ketones (Negative) Urine Blood (Negative) Urine Nitrite (Negative) Urine Bilirubin (Negative) Urine Urobilinogen (<2.0) mg/dL Ur Leukocyte Esterase (Negative) Urine RBC (0-5) /hpf Urine WBC (0-5) /hpf Urine Bacteria (None) /hpf Hyaline Casts (0-2) /lpf Granular Casts (0) /lpf Urine Mucus (None) /hpf Influenza Type A (PCR) Detected A (Not Detectd) Influenza Type B (PCR) Not Detected (Not Detectd) RSV (PCR) Not Detected (Not Detectd) SARS-CoV-2 (PCR) Not Detected (Not Detectd) 11/21/24 11/21/24 11/22/24 Range/Units 21:20 22:05 00:47 WBC (3.8-10.6) k/uL RBC (3.80-5.40) m/uL Hgb (11.4-16.0) gm/dL Hct (34.0-46.0) % MCV (80.0-100.0) fL MCH (25.0-35.0) pg MCHC (31.0-37.0) g/dL RDW (11.5-15.5) % Plt Count (150-450) k/uL MPV Neutrophils % % Lymphocytes % % Monocytes % % Eosinophils % % Basophils % % Neutrophils # (1.3-7.7) k/uL Lymphocytes # (1.0-4.8) k/uL Monocytes # (0-1.0) k/uL Eosinophils # (0-0.7) k/uL Basophils # (0-0.2) k/uL Hypochromasia PT (10.0-12.5) sec INR (<1.2) APTT (22.0-30.0) sec Sodium (137-145) mmol/L Potassium (3.5-5.1) mmol/L Chloride (98-107) mmol/L Carbon Dioxide (22-30) mmol/L Anion Gap mmol/L BUN (7-17) mg/dL Creatinine (0.52-1.04) mg/dL Est GFR (CKD-EPI)AfAm (>60 ml/min/1.73 sqM) Est GFR (CKD-EPI)NonAf (>60 ml/min/1.73 sqM) Glucose (74-99) mg/dL POC Glucose (mg/dL) (70-110) mg/dL POC Glu Web Developer Programmer ID Lactic Ac Sepsis Rflx Y Plasma Lactic Acid Jigar 0.8 (0.7-2.0) mmol/L Calcium (8.4-10.2) mg/dL Phosphorus (2.5-4.5) mg/dL Magnesium (1.6-2.3) mg/dL Total Bilirubin (0.2-1.3) mg/dL AST (14-36) U/L ALT (4-34) U/L Alkaline Phosphatase (38-126) U/L Creatine Kinase 102 (30-135) U/L Troponin I (0.000-0.034) ng/mL NT-Pro-B Natriuret Pep pg/mL Total Protein (6.3-8.2) g/dL Albumin (3.5-5.0) g/dL Procalcitonin (0.02-0.50) ng/mL Urine Color Urine Appearance (Clear) Urine pH (5.0-8.0) Ur Specific Arp (1.001-1.035) Urine Protein (Negative) Urine Glucose (UA) (Negative) Urine Ketones (Negative) Urine Blood (Negative) Urine Nitrite (Negative) Urine Bilirubin (Negative) Urine Urobilinogen (<2.0) mg/dL Ur Leukocyte Esterase (Negative) Urine RBC (0-5) /hpf Urine WBC (0-5) /hpf Urine Bacteria (None) /hpf Hyaline Casts (0-2) /lpf Granular Casts (0) /lpf Urine Mucus (None) /hpf Influenza Type A (PCR) (Not Detectd) Influenza Type B (PCR) (Not Detectd) RSV (PCR) (Not Detectd) SARS-CoV-2 (PCR) (Not Detectd) 11/22/24 11/22/24 11/22/24 Range/Units 00:53 00:53 02:50 WBC 11.2 H (3.8-10.6) k/uL RBC 3.27 L (3.80-5.40) m/uL Hgb 9.0 L D (11.4-16.0) gm/dL Hct 28.3 L (34.0-46.0) % MCV 86.7 (80.0-100.0) fL MCH 27.4 (25.0-35.0) pg MCHC 31.6 (31.0-37.0) g/dL RDW 13.5 (11.5-15.5) % Plt Count 152 (150-450) k/uL MPV 7.9 Neutrophils % 92 % Lymphocytes % 3 % Monocytes % 4 % Eosinophils % 0 % Basophils % 0 % Neutrophils # 10.3 H (1.3-7.7) k/uL Lymphocytes # 0.3 L (1.0-4.8) k/uL Monocytes # 0.5 (0-1.0) k/uL Eosinophils # 0.0 (0-0.7) k/uL Basophils # 0.0 (0-0.2) k/uL Hypochromasia PT (10.0-12.5) sec INR (<1.2) APTT (22.0-30.0) sec Sodium 135 L (137-145) mmol/L Potassium 3.8 (3.5-5.1) mmol/L Chloride 107 (98-107) mmol/L Carbon Dioxide 22 (22-30) mmol/L Anion Gap 6 mmol/L BUN 21 H (7-17) mg/dL Creatinine 0.90 (0.52-1.04) mg/dL Est GFR (CKD-EPI)AfAm 69 (>60 ml/min/1.73 sqM) Est GFR (CKD-EPI)NonAf 60 (>60 ml/min/1.73 sqM) Glucose 99 (74-99) mg/dL POC Glucose (mg/dL) (70-110) mg/dL POC Glu Web Developer Programmer ID Lactic Ac Sepsis Rflx Plasma Lactic Acid Jigar (0.7-2.0) mmol/L Calcium 7.2 L (8.4-10.2) mg/dL Phosphorus 4.0 (2.5-4.5) mg/dL Magnesium 1.7 (1.6-2.3) mg/dL Total Bilirubin 0.3 (0.2-1.3) mg/dL AST 182 H (14-36) U/L ALT 83 H (4-34) U/L Alkaline Phosphatase 156 H (38-126) U/L Creatine Kinase (30-135) U/L Troponin I (0.000-0.034) ng/mL NT-Pro-B Natriuret Pep pg/mL Total Protein 4.7 L (6.3-8.2) g/dL Albumin 2.3 L (3.5-5.0) g/dL Procalcitonin (0.02-0.50) ng/mL Urine Color Yellow Urine Appearance Cloudy H (Clear) Urine pH 5.5 (5.0-8.0) Ur Specific Arp 1.028 (1.001-1.035) Urine Protein 1+ H (Negative) Urine Glucose (UA) Negative (Negative) Urine Ketones Trace H (Negative) Urine Blood Negative (Negative) Urine Nitrite Negative (Negative) Urine Bilirubin Negative (Negative) Urine Urobilinogen <2.0 (<2.0) mg/dL Ur Leukocyte Esterase Negative (Negative) Urine RBC 1 (0-5) /hpf Urine WBC 2 (0-5) /hpf Urine Bacteria Rare H (None) /hpf Hyaline Casts 4 H (0-2) /lpf Granular Casts 4 (0) /lpf Urine Mucus Rare H (None) /hpf Influenza Type A (PCR) (Not Detectd) Influenza Type B (PCR) (Not Detectd) RSV (PCR) (Not Detectd) SARS-CoV-2 (PCR) (Not Detectd) 11/22/24 11/22/24 11/22/24 Range/Units 06:08 06:25 06:25 WBC (3.8-10.6) k/uL RBC (3.80-5.40) m/uL Hgb (11.4-16.0) gm/dL Hct (34.0-46.0) % MCV (80.0-100.0) fL MCH (25.0-35.0) pg MCHC (31.0-37.0) g/dL RDW (11.5-15.5) % Plt Count (150-450) k/uL MPV Neutrophils % % Lymphocytes % % Monocytes % % Eosinophils % % Basophils % % Neutrophils # (1.3-7.7) k/uL Lymphocytes # (1.0-4.8) k/uL Monocytes # (0-1.0) k/uL Eosinophils # (0-0.7) k/uL Basophils # (0-0.2) k/uL Hypochromasia PT (10.0-12.5) sec INR (<1.2) APTT (22.0-30.0) sec Sodium 137 (137-145) mmol/L Potassium 3.9 (3.5-5.1) mmol/L Chloride 109 H (98-107) mmol/L Carbon Dioxide 20 L (22-30) mmol/L Anion Gap 8 mmol/L BUN 21 H (7-17) mg/dL Creatinine 0.87 (0.52-1.04) mg/dL Est GFR (CKD-EPI)AfAm 71 (>60 ml/min/1.73 sqM) Est GFR (CKD-EPI)NonAf 62 (>60 ml/min/1.73 sqM) Glucose 96 (74-99) mg/dL POC Glucose (mg/dL) 114 H (70-110) mg/dL POC Glu Web Developer Programmer ID Feucht Hanane Lactic Ac Sepsis Rflx Plasma Lactic Acid Jigar (0.7-2.0) mmol/L Calcium 7.4 L (8.4-10.2) mg/dL Phosphorus (2.5-4.5) mg/dL Magnesium 1.8 (1.6-2.3) mg/dL Total Bilirubin 0.1 L (0.2-1.3) mg/dL AST 329 H (14-36) U/L ALT 156 H (4-34) U/L Alkaline Phosphatase 183 H (38-126) U/L Creatine Kinase (30-135) U/L Troponin I (0.000-0.034) ng/mL NT-Pro-B Natriuret Pep pg/mL Total Protein 5.0 L (6.3-8.2) g/dL Albumin 2.6 L (3.5-5.0) g/dL Procalcitonin 29.20 H (0.02-0.50) ng/mL Urine Color Urine Appearance (Clear) Urine pH (5.0-8.0) Ur Specific Arp (1.001-1.035) Urine Protein (Negative) Urine Glucose (UA) (Negative) Urine Ketones (Negative) Urine Blood (Negative) Urine Nitrite (Negative) Urine Bilirubin (Negative) Urine Urobilinogen (<2.0) mg/dL Ur Leukocyte Esterase (Negative) Urine RBC (0-5) /hpf Urine WBC (0-5) /hpf Urine Bacteria (None) /hpf Hyaline Casts (0-2) /lpf Granular Casts (0) /lpf Urine Mucus (None) /hpf Influenza Type A (PCR) (Not Detectd) Influenza Type B (PCR) (Not Detectd) RSV (PCR) (Not Detectd) SARS-CoV-2 (PCR) (Not Detectd) 11/22/24 Range/Units 06:30 WBC 8.0 (3.8-10.6) k/uL RBC 3.67 L (3.80-5.40) m/uL Hgb 10.2 L (11.4-16.0) gm/dL Hct 32.2 L (34.0-46.0) % MCV 87.7 (80.0-100.0) fL MCH 27.9 (25.0-35.0) pg MCHC 31.9 (31.0-37.0) g/dL RDW 13.5 (11.5-15.5) % Plt Count 160 (150-450) k/uL MPV 7.5 Neutrophils % 85 % Lymphocytes % 9 % Monocytes % 4 % Eosinophils % 0 % Basophils % 0 % Neutrophils # 6.8 (1.3-7.7) k/uL Lymphocytes # 0.7 L (1.0-4.8) k/uL Monocytes # 0.3 (0-1.0) k/uL Eosinophils # 0.0 (0-0.7) k/uL Basophils # 0.0 (0-0.2) k/uL Hypochromasia Moderate PT (10.0-12.5) sec INR (<1.2) APTT (22.0-30.0) sec Sodium (137-145) mmol/L Potassium (3.5-5.1) mmol/L Chloride (98-107) mmol/L Carbon Dioxide (22-30) mmol/L Anion Gap mmol/L BUN (7-17) mg/dL Creatinine (0.52-1.04) mg/dL Est GFR (CKD-EPI)AfAm (>60 ml/min/1.73 sqM) Est GFR (CKD-EPI)NonAf (>60 ml/min/1.73 sqM) Glucose (74-99) mg/dL POC Glucose (mg/dL) (70-110) mg/dL POC Glu Web Developer Programmer ID Lactic Ac Sepsis Rflx Plasma Lactic Acid Jigar (0.7-2.0) mmol/L Calcium (8.4-10.2) mg/dL Phosphorus (2.5-4.5) mg/dL Magnesium (1.6-2.3) mg/dL Total Bilirubin (0.2-1.3) mg/dL AST (14-36) U/L ALT (4-34) U/L Alkaline Phosphatase (38-126) U/L Creatine Kinase (30-135) U/L Troponin I (0.000-0.034) ng/mL NT-Pro-B Natriuret Pep pg/mL Total Protein (6.3-8.2) g/dL Albumin (3.5-5.0) g/dL Procalcitonin (0.02-0.50) ng/mL Urine Color Urine Appearance (Clear) Urine pH (5.0-8.0) Ur Specific Arp (1.001-1.035) Urine Protein (Negative) Urine Glucose (UA) (Negative) Urine Ketones (Negative) Urine Blood (Negative) Urine Nitrite (Negative) Urine Bilirubin (Negative) Urine Urobilinogen (<2.0) mg/dL Ur Leukocyte Esterase (Negative) Urine RBC (0-5) /hpf Urine WBC (0-5) /hpf Urine Bacteria (None) /hpf Hyaline Casts (0-2) /lpf Granular Casts (0) /lpf Urine Mucus (None) /hpf Influenza Type A (PCR) (Not Detectd) Influenza Type B (PCR) (Not Detectd) RSV (PCR) (Not Detectd) SARS-CoV-2 (PCR) (Not Detectd) - EKG Data -: EKG Interpreted by Me (EKG is sinus tachycardia 103 PA 187 QRS 95 QTc 395) - Radiology Data Radiology results: report reviewed (CT brain C-spine chest and pelvis negative for acute disease), image reviewed Disposition Clinical Impression: Fever, Weakness, Fall, NSTEMI (non-ST elevated myocardial infarction), Influenza A Disposition: ADMITTED IP TO THIS HOSP Condition: Fair Is patient prescribed a controlled substance at d/c from ED?: No Time of Disposition: 22:10
[2024-11-21] MEDS: ACETAMINOPHEN IV (For NPO) 1,000 MG in EMPTY BAG 1 BAG IVPB STA (21:39)
[2024-11-21 21:51] LABS: Basophils % (A) 0 %; Eosinophils # (A) 0.1 k/uL (0-0.7); Eosinophils % (A) 0 %; HCT 34.9 % (34.0-46.0); HGB 11.5 gm/dL (11.4-16.0); Hypochromasia Slight; Lymphocytes # (A) 0.4 k/uL (1.0-4.8); Lymphocytes % (A) 2 %; MCH 28.3 pg (25.0-35.0); MCHC 32.9 g/dL (31.0-37.0); Mean Platelet Volume 7.4; Monocytes # (A) 0.6 k/uL (0-1.0); Monocytes % (A) 3 %; Neutrophils # (A) 17.8 k/uL (1.3-7.7); Neutrophils % (A) 94 %; Platelet Count 213 k/uL (150-450); RBC 4.06 m/uL (3.80-5.40); RDW 13.4 % (11.5-15.5)
[2024-11-21 22:03] LABS: ALT 30 U/L (4-34); AST 57 U/L (14-36); African American GFR (CKD) 64 (>60 ml/min/1.73 sqM); Albumin 3.5 g/dL (3.5-5.0); Alkaline Phosphatase 168 U/L (38-126); Anion Gap 10 mmol/L; Blood Urea Nitrogen 22 mg/dL (7-17); Calcium 8.5 mg/dL (8.4-10.2); Carbon Dioxide 24 mmol/L (22-30); Chloride 100 mmol/L (98-107); Glucose 119 mg/dL (74-99); INR 1.1 (<1.2); Magnesium 1.9 mg/dL (1.6-2.3); Non-African American GFR(CKD) 56 (>60 ml/min/1.73 sqM); Partial Thromboplastin Time 22.9 sec (22.0-30.0); Phosphorus 3.8 mg/dL (2.5-4.5); Potassium 4.3 mmol/L (3.5-5.1); Prothrombin Time 12.3 sec (10.0-12.5); Sodium 134 mmol/L (137-145); Total Bilirubin 0.3 mg/dL (0.2-1.3); Total Protein 6.3 g/dL (6.3-8.2)
--- NOTE | 2024-11-21 22:04 | CT ---
EXAMINATION TYPE: CT brain cspine wo con DATE OF EXAM: 11/21/2024 9:57 PM COMPARISON: None. CLINICAL INDICATION: Female, 84 years old with history of fall; Fall this evening, multiple recent fa lls., pain TECHNIQUE: Brain: Multiple axial CT images of the brain were obtained without IV contrast. Cspine: Axial CT images from the skull base to the inferior aspect of T2 we obtained without intraven ous contrast. Coronal and sagittal reformatted images were also reviewed. . CT DLP: 1285.2 mGycm, Automated exposure control for dose reduction was used. FINDINGS: Brain: Extra-axial spaces: No abnormal extra-axial fluid collections. Ventricular system: Dilatation in proportion to cerebral atrophy. Cerebral parenchyma: Remote left frontal lobe injury. Cerebral atrophy. No acute intraparenchymal hem orrhage or mass effect. The la-white junction is well differentiated. Scattered hypoattenuating ar eas are seen within the white matter. Cerebellum: Unremarkable. Mass effect: No evidence of midline shift. Intracranial vasculature: Atherosclerotic calcifications of the intracranial vessels. Soft tissues: Normal. Calvarium/osseous structures: No depressed skull fracture. Paranasal sinuses and mastoid air cells: Clear. Visualized orbits: Bilateral aphakia Cervical spine: Fracture: Multilevel wedge compression deformities throughout the spine. Worse at T4 with up to 50% h eight loss. Osseous structures: Diffuse osseous demineralization. This limits evaluation for fractures. Multileve l degenerative disc disease changes with endplate spurring and disc osteophyte complex's. Vertebral alignment: Within normal limits. Spinal canal/Neural Foramina: No evidence of significant spinal canal narrowing. No evidence for sign ificant neural foraminal stenosis. Neck soft tissues: Prevertebral soft tissues are within normal limits. Other: The airway is patent. Atherosclerosis of the carotid bifurcations. Pulmonary vascular congesti on. Pleural calcified plaques. IMPRESSION: 1. No acute intracranial process. 2. Nonspecific white matter changes, likely secondary to chronic small vessel ischemic disease. 3. Remote left frontal lobe injury. 4. Multilevel wedge compression deformities throughout the visualized spine correlate with pain and MRI to exclude acute/subacute fracture. No obvious displaced spinal fracture. 5. Mild multilevel degenerative disc disease. 6. Partially visualized pulmonary edema correlate with serum BNP. 7. Calcified pleural plaques correlate for history of asbestos exposure. Diffuse osseous demineraliz ation. [facility], , 11/21/2024 10:01 PM
--- NOTE | 2024-11-21 22:04 | XR ---
EXAMINATION TYPE: XR chest 1V DATE OF EXAM: 11/21/2024 COMPARISON: Chest x-ray June 01, 2024 CLINICAL INDICATION: Female, 84 years old with history of Weakness; TECHNIQUE: Single frontal view of the chest is obtained. FINDINGS: Overlying sternal wires are redemonstrated. Cardiomegaly with ectatic thoracic aorta is ag ain seen. There is chronic parenchymal change with patchy bibasilar opacities. Osseous structures are intact. IMPRESSION: Chronic changes and cardiomegaly with new bibasilar atelectasis and/or less likely acute infiltrates. [facility], , 11/21/2024 10:01 PM
--- NOTE | 2024-11-21 22:05 | XR ---
EXAMINATION TYPE: XR pelvis AP view DATE OF EXAM: 11/21/2024 10:00 PM COMPARISON: 03/02/2018 CLINICAL INDICATION: Female, 84 years old with history of FALL; pain [facility] TECHNIQUE: XR pelvis AP view, examined in a single projection. FINDINGS: Left hip arthroplasty appears intact. There is no evidence of fracture or dislocation. Ther e is no soft tissue abnormality. No abnormal calcifications are present. Multilevel degenerative geena nges of the lower spine. The hips appear intact. No significant degeneration. Atherosclerosis of the arterial vasculature. St ent grafts noted throughout the vasculature. IMPRESSION: Somewhat limited exam due to body habitus, no discrete fracture visualized. No acute osseous patholog y. [facility], , 11/21/2024 10:03 PM
[2024-11-21 22:10] LABS: NT-Pro-B-Type Natriuretic Pept 4500 pg/mL
[2024-11-21] MEDS ORDERED: MORPHINE SULFATE 4 MG/ML SYRINGE IV PRN (22:10)
[2024-11-21] MEDS ORDERED: ONDANSETRON 4 MG/2 ML VIAL IVP PRN (22:10)
[2024-11-21] MEDS ORDERED: NALOXONE 0.4 MG/ML 1 ML VIAL IV PRN (22:10)
[2024-11-21] MEDS: SODIUM CHLORIDE 0.9% 1,000 ML IV STA ×3 (22:11→22:55)
[2024-11-21] MEDS: IBUPROFEN IV 800 MG in SODIUM CHLORIDE 0.9% 250 ML IV ONE (22:12)
[2024-11-21] MEDS: ONDANSETRON 4 MG/2 ML VIAL IVP STA (22:15)
[2024-11-21 22:28] LABS: Influenza A Detected (Not Detectd); Influenza B Not Detected (Not Detectd); RSV Not Detected (Not Detectd)
[2024-11-21] MEDS: SODIUM CHLORIDE 0.9% 1,000 ML IV SCH (22:50)
[2024-11-21] MEDS: SODIUM CHLORIDE 0.9% 500 ML 500 ML IV ONE (23:49)
[2024-11-21] MEDS: AZITHROMYCIN 500 MG in SODIUM CHLORIDE 0.9% 250 ML IVPB STA (23:51)
[2024-11-22] MEDS: IPRATROPIUM-ALBUTEROL 3 ML NEB INHALATION STA (00:26)
[2024-11-22 01:16] LABS: Basophils % (A) 0 %; Eosinophils % (A) 0 %; HCT 28.3 % (34.0-46.0); Lymphocytes # (A) 0.3 k/uL (1.0-4.8); Lymphocytes % (A) 3 %; MCH 27.4 pg (25.0-35.0); MCHC 31.6 g/dL (31.0-37.0); MCV 86.7 fL (80.0-100.0); Mean Platelet Volume 7.9; Monocytes # (A) 0.5 k/uL (0-1.0); Monocytes % (A) 4 %; Neutrophils # (A) 10.3 k/uL (1.3-7.7); Neutrophils % (A) 92 %; Platelet Count 152 k/uL (150-450); RBC 3.27 m/uL (3.80-5.40); RDW 13.5 % (11.5-15.5); WBC 11.2 k/uL (3.8-10.6)
[2024-11-22 01:41] LABS: ALT 83 U/L (4-34); AST 182 U/L (14-36); African American GFR (CKD) 69 (>60 ml/min/1.73 sqM); Albumin 2.3 g/dL (3.5-5.0); Alkaline Phosphatase 156 U/L (38-126); Anion Gap 6 mmol/L; Blood Urea Nitrogen 21 mg/dL (7-17); Calcium 7.2 mg/dL (8.4-10.2); Carbon Dioxide 22 mmol/L (22-30); Chloride 107 mmol/L (98-107); Glucose 99 mg/dL (74-99); Magnesium 1.7 mg/dL (1.6-2.3); Non-African American GFR(CKD) 60 (>60 ml/min/1.73 sqM); Potassium 3.8 mmol/L (3.5-5.1); Sodium 135 mmol/L (137-145); Total Bilirubin 0.3 mg/dL (0.2-1.3); Total Protein 4.7 g/dL (6.3-8.2)
--- NOTE | 2024-11-22 02:20 | P.HPIM ---
History of Present Illness H&P Date: 11/22/24 Patient is a 84-year-old female with CAD, hypertension, hyperlipidemia, Parkinson's, depression who came into the ED with chief complaint of weakness and a fall. Further history regarding mechanism of fall was difficult to obtain due to patient's current clinical status. Per chart review, patient was febrile on arrival and deemed to be a poor historian. She did endorse feeling fatigued at the time of interview. She also reported feeling short of breath over the past few days with subjective fever and chills. Denies experiencing chest discomfort at the time of interview. Vitals on admission for 200.9, heart rate 104, respiratory rate 18, blood pressure 134/98, saturating 92% on 3 L nasal cannula then switched to BiPAP at an FiO2 of 50% and saturating 95% EKG independently interpreted as sinus tachycardia with rate of 103 bpm and QTc of 395 ms CXR shows chronic changes and cardiomegaly with new bibasilar atelectasis and/or acute infiltrates CT of head and cervical spine showed no acute intracranial process, multilevel wedge compression deformities, multilevel degenerative disc disease X-ray of the pelvis shows no discrete fracture Labs on admission show WBCs of 19 with left shift, hemoglobin 11.5, platelet 213. PT 12.3, INR 1.1, PTT 22.9. Sodium 134, potassium 4.3, chloride 100, bicarb 24, BUN 22, creatinine 0.95, glucose 119. Lactic acid 2.5, repeat 0.8. AST 57, ALT, ALP 168. CK102. Troponin 0.86. NT proBNP 4500. Cepheid positive for influenza A. Review of systems: Pertinent positives and negatives as discussed in HPI, a complete review of systems was performed and all other systems are negative. Physical examination: Vital signs reviewed General: Somewhat ill-appearing female, on BiPAP, no distress, appears at stated age Derm: warm, dry, intact Head: atraumatic, normocephalic, symmetric Eyes: anicteric sclera Mouth: no lip lesion, mucus membranes moist Cardiovascular: S1 S2 reg, no murmur Lungs: Coarse breath sounds with rhonchi diffusely, no rales, no accessory muscle use Abdominal: soft, non-tender to palpation, nondistended Extremities: No cyanosis, clubbing, or pedal edema. This is wild Neuro: Lethargic, Oriented to person, time and place, Gross neurological examination did not reveal any focal deficits. Cranial nerves II to XII grossly intact. Bilateral upper and lower extremity muscle strength intact and sensation intact. Psych: well appearing, appropriate affect Assessment/Plan: Patient is a 84-year-old female CAD, hypertension, hyperlipidemia, Parkinson's, and depression who came to the ED with chief complaint of weakness and a fall. Case was discussed with the ED doc and patient will be admitted to internal medicine service. Active: Septic shock Acute hypoxic respiratory failure secondary to Influenza A infection Chest x-ray showed bibasilar atelectasis and/or acute infiltrates Patient currently on BiPAP Continue DuoNebs 4 times daily and every 2 hours as needed Continue Zithromax 500 mg daily Discontinued Rocephin 2 g daily Initiate cefepime 2 g daily Follow-up procalcitonin Consult pulmonology Initiate pressors and transfer patient to MICU Patient is agreeable to IV pressor support although does not wish to undergo CPR or be placed on a ventilator Mechanical fall of unknown etiology CT of head and cervical spine showed no acute intracranial process, multilevel wedge compression deformities, multilevel degenerative disc disease X-ray of the pelvis shows no discrete fracture Fall precautions PT consult Elevated troponin and NT proBNP Continue aspirin 81 mg daily Cardiac monitoring Consult cardiology Follow-up echocardiogram Patient currently denying chest discomfort Hyponatremia, likely secondary to dehydration Continue to monitor Continue IV fluids Lactic acidosis, likely secondary to dehydration Continue to monitor Continue IV fluids Chronic: Hypertension Hold atenolol 25 mg daily Hold lisinopril 5 mg daily Hyperlipidemia Continue simvastatin 20 mg p.o. at bedtime Parkinson's Continue Mirapex 0.5 mg twice daily Depression Continue sertraline 25 mg p.o. at bedtime GERD Continue omeprazole 20 mg F: 0.9% NS at 125 mL/h E: Replete as needed N: Heart healthy A: Fall precautions DVT prophylaxis: Lovenox 40 mg subcutaneously daily The patient is admitted with an anticipated more than 2 midnight stay for evaluation of cute hypoxic respiratory failure CODE STATUS: NO CODE Discussed with: Patient Anticipated discharge place: Pending clinical course Past Medical History Past Medical History: Coronary Artery Disease (CAD), Hyperlipidemia, Hyper tension, Myocardial Infarction ([place]) Additional Past Medical History / Comment(s): Parkinsons,wounds to foot & buttocks Last Myocardial Infarction Date:: 01/2011 History of Any Multi-Drug Resistant Organisms: None Reported Past Surgical History: Appendectomy, Coronary Bypass/CABG, Heart Catheterization With Stent, Orthopedic Surgery, Tonsillectomy Additional Past Surgical History / Comment(s): Cataracts. 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 Father Family Medical History: Myocardial Infarction ([place]) Additional Family Medical History / Comment(s): Father of a [place] at the age of 91 yrs. Medications and Allergies Home Medications Medication Instructions Recorded Confirmed Type Simvastatin [Zocor] 20 mg PO HS 06/08/18 09/20/24 History atenoloL [Tenormin] 25 mg PO DAILY 06/08/18 09/20/24 History lisinopriL [Zestril] 5 mg PO DAILY 06/08/18 09/20/24 History Aspirin [Adult Low Dose Aspirin EC] 81 mg PO DAILY 08/19/18 09/20/24 History Ascorbic Acid [Vitamin C] 1,000 mg PO HS 03/13/23 09/20/24 History Furosemide [Lasix] 20 mg PO DAILY PRN 03/13/23 09/20/24 History Sertraline [Zoloft] 25 mg PO HS 03/13/23 09/20/24 History Cholecalciferol [Vitamin D3 (125 125 mcg PO DAILY 09/20/24 09/20/24 History Mcg = 5000 Iu)] Ferrous Sulfate [Iron (65 MG 325 mg PO DAILY 09/20/24 09/20/24 History Elemental)] Pramipexole [Mirapex] 0.5 mg PO BID 09/20/24 09/20/24 History Docusate [Colace] 100 mg PO BID #60 capsule 09/23/24 Rx HYDROcodone/APAP 5-325MG [[place] 5] 1 each PO Q6HR PRN #28 tab 09/23/24 Rx Omeprazole 20 mg PO DAILY PRN #30 tab 09/23/24 Rx Allergies Allergy/AdvReac Type Severity Reaction Status Date / Time No Known Allergies Allergy Verified 11/21/24 20:55 Physical Exam Vitals: Vital Signs Temp Pulse Resp BP Pulse Ox FiO2 11/22/24 00:07 68 20 90/74 96 11/21/24 23:42 73 20 69/46 96 11/21/24 22:40 50 11/21/24 22:37 71 28 H 73/43 92 L 11/21/24 22:25 76 24 71/40 94 L 11/21/24 22:15 101.1 F H 75 80/21 92 L 11/21/24 20:46 100.9 F H 104 H 18 134/98 Intake and Output 11/21/24 11/21/24 11/22/24 14:59 22:59 06:59 Other: Weight 60.781 kg Results CBC & Chem 7: 11/22/24 00:53 11/22/24 00:53 Labs: Abnormal Lab Results - Last 24 Hours (Table) 11/21/24 11/21/24 11/21/24 Range/Units 21:20 21:20 21:20 WBC 19.0 H (3.8-10.6) k/uL Neutrophils # 17.8 H (1.3-7.7) k/uL Lymphocytes # 0.4 L (1.0-4.8) k/uL Sodium 134 L (137-145) mmol/L BUN 22 H (7-17) mg/dL Glucose 119 H (74-99) mg/dL Plasma Lactic Acid Jigar 2.5 H* (0.7-2.0) mmol/L AST 57 H (14-36) U/L Alkaline Phosphatase 168 H (38-126) U/L Troponin I (0.000-0.034) ng/mL Influenza Type A (PCR) (Not Detectd) 11/21/24 11/21/24 Range/Units 21:20 21:20 WBC (3.8-10.6) k/uL Neutrophils # (1.3-7.7) k/uL Lymphocytes # (1.0-4.8) k/uL Sodium (137-145) mmol/L BUN (7-17) mg/dL Glucose (74-99) mg/dL Plasma Lactic Acid Jigar (0.7-2.0) mmol/L AST (14-36) U/L Alkaline Phosphatase (38-126) U/L Troponin I 0.860 H* (0.000-0.034) ng/mL Influenza Type A (PCR) Detected A (Not Detectd)
[2024-11-22] MEDS: SODIUM CHLORIDE 0.9% 1,000 ML IV ONE (03:30)
[2024-11-22] MEDS ORDERED: IPRATROPIUM-ALBUTEROL 3 ML NEB INHALATION PRN (03:51)
[2024-11-22 03:53] LABS: Appearance,Urine Cloudy (Clear); Bacteria,Urine Rare /hpf; Bilirubin,Urine Negative (Negative); Blood,Urine Negative (Negative); Color,Urine Yellow; Glucose,Urine (UA) Negative (Negative); Granular Casts,Urine 4 /lpf (0); Hyaline Casts,Urine 4 /lpf (0-2); Ketones,Urine Trace (Negative); Leukocyte Esterase,Urine Negative (Negative); Mucus,Urine Rare /hpf; Nitrite,Urine Negative (Negative); PH, Urine 5.5 (5.0-8.0); Protein,Urine 1+ (Negative); RBC,Urine 1 /hpf (0-5); Specific Gravity,Urine 1.028 (1.001-1.035); Urobilinogen,Urine <2.0 mg/dL (<2.0); WBC,Urine 2 /hpf (0-5)
[2024-11-22] MEDS ORDERED: PANTOPRAZOLE 40 MG TABLET PO PRN (03:58)
[2024-11-22] MEDS: CEFEPIME 2 GM in SODIUM CHLORIDE 0.9% 100 ML IVPB SCH ×2 (04:38→12:08)
[2024-11-22] MEDS: NOREPINEPHRINE 4 MG in SODIUM CHLORIDE 0.9% 250 ML IV SCH ×2 (05:11→07:55)
[2024-11-22 06:09] LABS: Glucose,Whole Blood 114 mg/dL (70-110)
--- NOTE | 2024-11-22 06:35 | P.CNPUL ---
History of Present Illness Consult date: 11/22/24 Requesting physician: Milagro Kirkland Reason for consult: other (ICU management; vasopressors) Chief complaint: Fall History of present illness: Patient is 84-year-old female with past medical history significant for coronary artery disease with previous CABG, hypertension, hyperlipidemia, among other things. I was contacted by [facility] physician as the patient was hypotensive refractory to fluid resuscitation, and needed to be started on vasopressors. Currently, an overflow patient in the ED. Patient presented the emergency department late last night after having a fall at her assisted living facility. I believe she stays at [facility]. While in the emergency department, she was noted to have high fevers with a Tmax of 101.1 F. Also, has had a cough over the last 2 days. She did test positive for influenza A. Chest x-ray showing cardiomegaly, pulmonary vascular congestion, with new bibasilar atelectasis and/or less likely acute infiltrates. Patient was placed on BiPAP in the emergency department. She has received a total of 3.5 L normal saline form of fluid boluses. Despite this, reportedly remained hypotensive, and started on Levophed. I am currently evaluating the patient in the emergency department, room 16. She is on BiPAP with settings 12/5 and FiO2 of 40%. She is achieving adequate tidal volumes of around 400. Respiratory rate is nontachypneic and nonlabored. SpO2 is reading 100%. She is awake and appears alert on the BiPAP. She does follow commands appropriately. It is difficult to communicate as the patient is hard of hearing and on BiPAP. Normal saline is currently infusing at 125 mL/h. Patient also is on norepinephrine at 0.03 mcg/kg/min. Blood pressure is up to 110/[address] of the brain and C-spine done on arrival did not show any acute intracranial process. 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 Multi level wedge compression deformities throughout the visualized spine correlate with pain and MRI to exclude acute/subacute f racture. No obvious displaced spinal fracture. Multilevel degenerative disc disease. Calcified pleural plaquing noted. Most recent CBC: WC count 11, hemoglobin 9, hematocrit 28.3, platelets 152. CMP: Sodium 135, potassium 3.8, chloride 107, serum bicarb 22, BUN 21, creatinine 0.9, glucose 99. Lactic was 2.5 and is down to 0.8. Magnesium 1.7. LFTs mildly elevated. Troponin initially 0.86. EKG: Sinus tachycardia, rate 103 bpm, minimal diffuse ST depressions. NT proBNP was elevated at 4500. She has been started on combination of empiric antibiotics in the form of azithromycin and cefepime, as well as, Tamiflu. Review of Systems ROS unobtainable: due to mental status Past Medical History Past Medical History: Coronary Artery Disease (CAD), Hyperlipidemia, Hypertension, Myocardial Infarction ([place]) Additional Past Medical History / Comment(s): Parkinsons,wounds to foot & buttoc ks Last Myocardial Infarction Date:: 01/2011 History of Any Multi-Drug Resistant Organisms: None Reported Past Surgical History: Appendectomy, Coronary Bypass/CABG, Heart Catheterization With Stent, Orthopedic Surgery, Tonsillectomy Additional Past Surgical History / Comment(s): Cataracts. 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 Father Family Medical History: Myocardial Infarction ([place]) Additional Family Medical History / Comment(s): Father of a [place] at the age of 91 yrs. Medications and Allergies Home Medications Medication Instructions Recorded Confirmed Type Simvastatin [Zocor] 20 mg PO HS 06/08/18 09/20/24 History atenoloL [Tenormin] 25 mg PO DAILY 06/08/18 09/20/24 History lisinopriL [Zestril] 5 mg PO DAILY 06/08/18 09/20/24 History Aspirin [Adult Low Dose Aspirin EC] 81 mg PO DAILY 08/19/18 09/20/24 History Ascorbic Acid [Vitamin C] 1,000 mg PO HS 03/13/23 09/20/24 History Furosemide [Lasix] 20 mg PO DAILY PRN 03/13/23 09/20/24 History Sertraline [Zoloft] 25 mg PO HS 03/13/23 09/20/24 History Cholecalciferol [Vitamin D3 (125 125 mcg PO DAILY 09/20/24 09/20/24 History Mcg = 5000 Iu)] Ferrous Sulfate [Iron (65 MG 325 mg PO DAILY 09/20/24 09/20/24 History Elemental)] Pramipexole [Mirapex] 0.5 mg PO BID 09/20/24 09/20/24 History Docusate [Colace] 100 mg PO BID #60 capsule 09/23/24 Rx HYDROcodone/APAP 5-325MG [[place] 5] 1 each PO Q6HR PRN #28 tab 09/23/24 Rx Omeprazole 20 mg PO DAILY PRN #30 tab 09/23/24 Rx Allergies Allergy/AdvReac Type Severity Reaction Status Date / Time No Known Allergies Allergy Verified 11/21/24 20:55 Physical Exam Vitals: Vital Signs Temp Pulse Resp BP Pulse Ox FiO2 11/22/24 05:37 62 110/76 99 11/22/24 05:16 65 17 102/56 97 11/22/24 04:21 61 18 83/47 97 11/22/24 03:56 62 16 86/41 98 11/22/24 03:50 40 11/22/24 02:39 97.9 F 73 20 83/55 97 11/22/24 01:42 66 20 73/39 97 11/22/24 01:14 79 20 70/58 97 11/22/24 01:00 81 20 70/58 97 11/22/24 00:44 72 11/22/24 00:34 90 73/63 99 11/22/24 00:28 40 11/22/24 00:27 72 11/22/24 00:07 68 20 90/74 96 11/22/24 00:00 75 20 81/51 99 11/21/24 23:42 73 20 69/46 96 11/21/24 23:30 68 20 69/46 96 11/21/24 23:00 81 20 68/39 95 11/21/24 22:40 50 11/21/24 22:37 71 28 H 73/43 92 L 11/21/24 22:25 76 24 71/40 94 L 11/21/24 22:15 101.1 F H 75 80/21 92 L 11/21/24 21:00 20 11/21/24 20:46 100.9 F H 104 H 18 134/98 Intake and Output 11/21/24 11/21/24 11/22/24 14:59 22:59 06:59 Other: Weight 60.781 kg GENERAL EXAM: Alert and calm, 84-year-old female, on BiPAP, follows commands appropriately. Nondistressed. HEAD: Normocephalic and atraumatic EYES: Normal reaction of pupils, equal size. NOSE: Clear with pink turbinates. THROAT: No erythema or exudates. NECK: No masses, no JVD. CHEST: No chest wall deformity. LUNGS: Equal air entry with coarse rhonchi bilaterally and bibasilar crackles. On BiPAP with settings 12/5 and FiO2 40%. Achieving tidal volumes around 400 cc and nontachypneic. No conversational dyspnea or accessory muscle use.. CVS: S1 and S2 normal with no audible murmur, regular rhythm. No extra heart sounds ABDOMEN: No hepatosplenomegaly, active bowel sounds, no guarding or rigidity. SPINE: No scoliosis or deformity SKIN: No rashes CENTRAL NERVOUS SYSTEM: No focal deficits, tone is normal in all 4 extremities. EXTREMITIES: There is no peripheral edema, clubbing, or cyanosis. Peripheral pulses are intact. Results - Laboratory Findings CBC and BMP: 11/22/24 00:53 11/22/24 00:53 PT/INR, D-dimer PT 12.3 sec (10.0-12.5) 11/21/24 21:20 INR 1.1 (<1.2) 11/21/24 21:20 Abnormal lab findings: Abnormal Labs 11/21/24 11/21/24 11/21/24 21:20 21:20 21:20 WBC 19.0 H RBC Hgb Hct Neutrophils # 17.8 H Lymphocytes # 0.4 L Sodium 134 L BUN 22 H Glucose 119 H Plasma Lactic Acid Jigar 2.5 H* Calcium AST 57 H ALT Alkaline Phosphatase 168 H Troponin I Total Protein Albumin Urine Appearance Urine Protein Urine Ketones Urine Bacteria Hyaline Casts Urine Mucus Influenza Type A (PCR) 11/21/24 11/21/24 11/22/24 21:20 21:20 00:53 WBC 11.2 H RBC 3.27 L Hgb 9.0 L D Hct 28.3 L Neutrophils # 10.3 H Lymphocytes # 0.3 L Sodium BUN Glucose Plasma Lactic Acid Jigar Calcium AST ALT Alkaline Phosphatase Troponin I 0.860 H* Total Protein Albumin Urine Appearance Urine Protein Urine Ketones Urine Bacteria Hyaline Casts Urine Mucus Influenza Type A (PCR) Detected A 11/22/24 11/22/24 00:53 02:50 WBC RBC Hgb Hct Neutrophils # Lymphocytes # Sodium 135 L BUN 21 H Glucose Plasma Lactic Acid Jigar Calcium 7.2 L AST 182 H ALT 83 H Alkaline Phosphatase 156 H Troponin I Total Protein 4.7 L Albumin 2.3 L Urine Appearance Cloudy H Urine Protein 1+ H Urine Ketones Trace H Urine Bacteria Rare H Hyaline Casts 4 H Urine Mucus Rare H Influenza Type A (PCR) - Diagnostic Findings Chest x-ray: image reviewed Assessment and Plan Assessment: Acute influenza A infection Suspect acute CHF exacerbation, unknown ejection fraction Acute hypoxemic respiratory failure, currently on BiPAP, chest x-ray demonstrating cardiomegaly with pulmonary vascular congestion and bibasilar atelectasis and/or less likely acute infiltrates. NT proBNP and elevated at 4500 Sepsis/septic shock, with hypotension refractory to fluid resuscitation, currently on low-dose norepinephrine Acute leukocytosis Acute febrile illness Elevated troponins, rule out non-ST elevation CA Fall, unspecified; CT of the brain and C-spine done on arrival did not show any acute intracranial process. 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 Multi level wedge compression deformities throughout the visualized spine. No obvious displaced spinal fracture. Multilevel degenerative disc disease. Normocytic, normochromic anemia; possibly hemodilutional, monitor for acute blood loss History of hypertension History of hyperlipidemia History of coronary artery disease with previous CABG History of anxiety/depression History of Parkinson's disease Plan: Patient's medications, labs, imaging reviewed Hypotension refractory to aggressive fluid resuscitation, with a total of 3.5 L normal saline in the form of fluid boluses Patient requiring low-dose norepinephrine which is currently infusing at 0.03 mcg/kg/min Continue empiric antibiotics Blood cultures pending Procalcitonin level pending Continue Tamiflu Chest x-ray concerning for CHF exacerbation/pulmonary edema, continue on BiPAP with current settings Obtain transthoracic echocardiogram Consider diuresing this patient when blood pressure stabilizes Cardiology consulted Patient carries a DO NOT RESUSCITATE/DO NOT INTUBATE status. Reportedly okay with vasopressors Patient will be transferred to the intensive care unit, prognosis is guarded secondary to above mentioned comorbidities I have personally seen and examined the patient, performed the documentation and the assessment and plan as written. Number of minutes spent on the visit:20 Time with Patient: Greater than 30
[2024-11-22 06:52] LABS: Basophils % (A) 0 %; Eosinophils % (A) 0 %; HCT 32.2 % (34.0-46.0); HGB 10.2 gm/dL (11.4-16.0); Hypochromasia Moderate; Lymphocytes # (A) 0.7 k/uL (1.0-4.8); Lymphocytes % (A) 9 %; MCH 27.9 pg (25.0-35.0); MCHC 31.9 g/dL (31.0-37.0); MCV 87.7 fL (80.0-100.0); Mean Platelet Volume 7.5; Monocytes # (A) 0.3 k/uL (0-1.0); Monocytes % (A) 4 %; Neutrophils # (A) 6.8 k/uL (1.3-7.7); Neutrophils % (A) 85 %; Platelet Count 160 k/uL (150-450); RBC 3.67 m/uL (3.80-5.40); RDW 13.5 % (11.5-15.5)
[2024-11-22] MEDS: IPRATROPIUM-ALBUTEROL 3 ML NEB INHALATION SCH (07:28)
[2024-11-22 07:38] LABS: ALT 156 U/L (4-34); AST 329 U/L (14-36); African American GFR (CKD) 71 (>60 ml/min/1.73 sqM); Albumin 2.6 g/dL (3.5-5.0); Alkaline Phosphatase 183 U/L (38-126); Anion Gap 8 mmol/L; Blood Urea Nitrogen 21 mg/dL (7-17); Calcium 7.4 mg/dL (8.4-10.2); Carbon Dioxide 20 mmol/L (22-30); Chloride 109 mmol/L (98-107); Glucose 96 mg/dL (74-99); Magnesium 1.8 mg/dL (1.6-2.3); Non-African American GFR(CKD) 62 (>60 ml/min/1.73 sqM); Potassium 3.9 mmol/L (3.5-5.1); Sodium 137 mmol/L (137-145); Total Bilirubin 0.1 mg/dL (0.2-1.3)
[2024-11-22] MEDS: ENOXAPARIN 40 MG/0.4 ML SYRINGE SQ SCH (08:47)
[2024-11-22] MEDS: ASPIRIN 81 MG PO SCH (08:47)
[2024-11-22] MEDS: OSELTAMIVIR 30 MG CAP PO SCH (08:48)
[2024-11-22] MEDS ORDERED: OSELTAMIVIR 75 MG CAP PO SCH (09:00)
--- NOTE | 2024-11-22 11:29 | CA ---
Transthoracic Echo Report Name: Mya Moore Age: 84 Gender: F : 1940 Exam Date: 11/22/2024 07:47 Exam Location: [facility] Ht (in): 59 Wt (lb): 134 Ordering Physician: Carmen Hui MD Attending/Referring Phys: Section Maintainer Dior Dowell RDCS Procedure CPT: Indications: LV function Cardiac Hx: Technical Quality: Good Contrast 1: Total Dose (mL): Contrast 2: Total Dose (mL): MEASUREMENTS (Male / Female) Normal Values 2D ECHO LV Diastolic Diameter PLAX 4.8 cm 4.2 - 5.9 / 3.9 - 5.3 cm LV Systolic Diameter PLAX 3.2 cm IVS Diastolic Thickness 1.0 cm 0.6 - 1.0 / 0.6 - 0.9 cm LVPW Diastolic Thickness 1.0 cm 0.6 - 1.0 / 0.6 - 0.9 cm LV Relative Wall Thickness 0.4 RV Internal Dim ED PLAX 3.7 cm LA Systolic Diameter LX 4.0 cm 3.0 - 4.0 / 2.7 - 3.8 cm LV Diastolic Volume MOD 4C 79.0 cm??? LV Systolic Volume MOD 4C 36.5 cm??? LV Ejection Fraction MOD 4C 53.8 % LV Cardiac Index MOD 4C 1768.9 cm???/min???m??? LV Diastolic Length 4C 7.4 cm LV Systolic Length 4C 6.1 cm LV Diastolic Volume MOD 2C 67.8 cm??? LV Systolic Volume MOD 2C 35.8 cm??? LV Ejection Fraction MOD 2C 47.2 % LV Cardiac Index MOD 2C 1332.9 cm???/min???m??? LV Diastolic Length 2C 7.5 cm LV Systolic Length 2C 6.1 cm LA Volume 78.2 cm??? 18 - 58 / 22 - 52 cm??? LA Volume Index 48.6 cm???/m??? 16 - 28 cm???/m??? M-MODE Aortic Root Diameter MM 3.6 cm AV Cusp Separation MM 2.3 cm DOPPLER AV Peak Velocity 141.4 cm/s AV Peak Gradient 8.0 mmHg MV Peak Velocity 177.2 cm/s MV Peak Gradient 12.6 mmHg MV Mean Velocity 97.9 cm/s MV Mean Gradient 4.4 mmHg MV Velocity Time Integral 52.0 cm MV Area PHT 3.3 cm??? MR Peak Velocity 532.2 cm/s MR Peak Gradient 113.3 mmHg Mitral E Point Velocity 115.0 cm/s Mitral A Point Velocity 139.2 cm/s Mitral E to A Ratio 0.8 MV Deceleration Time 226.6 ms TR Peak Velocity 347.2 cm/s TR Peak Gradient 48.2 mmHg Right Ventricular Systolic Press 53.2 mmHg FINDINGS Left Ventricle Left ventricular ejection fraction is estimated at 50%. Left ventricular cavity size normal. Left ventricular wall thickness normal. Right Ventricle Moderate right ventricular dilatation. Moderate pulmonary hypertension. Right ventricular systolic pressure estimated at 53 mm hg. Right Atrium Moderate right atrial dilatation. No right atrial thrombus or mass seen. Left Atrium Normal left atrial size. No left atrial thrombus or mass present. Mitral Valve Mild thickening/calcification of the anterior mitral valve leaflet. Moderate thickening/calcification of the posterior mitral valve leaflet. Moderate to severe mitral regurgitation. Mild gradient across MV Aortic Valve Trileaflet aortic valve. Thickened aortic valve without stenosis. No aortic regurgitation. Tricuspid Valve Structurally normal tricuspid valve. Moderate tricuspid regurgitation. Pulmonic Valve Structurally normal pulmonic valve. Mild pulmonic regurgitation. Pericardium No pericardial or pleural effusion. Aorta Normal size aortic root and proximal ascending aorta. CONCLUSIONS Left ventricular ejection 50% RVSP 53 Moderate right ventricular dilation Moderate to severe mitral calcification Mean gradient across mitral valve 4mmHg at heart rate 60 bpm consistent with mild mitral stenosis Moderate to severe mitral regurgitation Moderate tricuspid regurgitation No pericardial effusion Previewed by: Dr. Gustavo Reddy DO (Electronically Signed) Final Date: 22 November 2024 11:28
[2024-11-22] MEDS ORDERED: HEPARIN SODIUM 1,000 UN/ML (10ML VL) IV PRN (11:32)
[2024-11-22] MEDS: HEPARIN SODIUM 1,000 UN/ML (10ML VL) IV ONE (12:01)
[2024-11-22] MEDS: HEPARIN SOD,PORK IN 0.45% NACL 25,000 UNIT in 0.45% NACL 1 250ML.BAG IV SCH (12:03)
[2024-11-22 12:15] LABS: INR 1.1 (<1.2); Prothrombin Time 12.2 sec (10.0-12.5)
[2024-11-22] MEDS: MAGNESIUM SULFATE-D5W PMX 1 GM in DEXTROSE/WATER 1 100ML.BAG IVPB ONE (12:15)
[2024-11-22] MEDS: PRAMIPEXOLE 0.5 MG TAB PO SCH (12:15)
--- NOTE | 2024-11-22 12:22 | US ---
EXAMINATION TYPE: US liver DATE OF EXAM: 11/22/2024 COMPARISON: 04/20/2020 CLINICAL INDICATION: Female, 84 years old with history of assess for Budd Chiari; 84 years old in ICU with influenza, assess for Budd Chiari, elevated labs TECHNIQUE: Grayscale and color Doppler imaging of the right upper quadrant was performed. FINDINGS: EXAM MEASUREMENTS: Liver Length: 16.0 cm Gallbladder Wall: 0.4 cm CBD: 0.6 cm Right Kidney: 7.2 x 3.2 x 4.1 cm CHIEF CONTROLLER NOTES:difficult to image, elderly patient coughing and unable to take in deep breath, no mobility Pancreas: limited view appears wnl Liver: limited views, flow noted within hepatic veins Gallbladder: single, 1.1cm probable stone seen toward neck with possible inflammation seen surroundi ng GB Evidence for sonographic Mclean's sign: no CBD: wnl Right Kidney: atrophic, limited assessment IMPRESSION: 1. Cholelithiasis with mild wall thickening and borderline biliary duct dilation. Mild pericholecysti c fluid seen. Findings are suspicious for acute cholecystitis. 2. Hepatic veins appear to be patent. A Forrest level critical message alert has been initiated for Milagro Kirkland MD via the [employer] Results System on 11/22/2024 12:19 PM. This message alert has been sent to Milagro Kirkland MD vi a the preferences provided by the clinician for the receipt of Radiology Critical Findings. Message I D [id number]. [facility], , 11/22/2024 12:20 PM
--- NOTE | 2024-11-22 13:54 | P.PN ---
Subjective Progress Note Date: 11/22/24 Hospital Course: Patient is a 84-year-old female with CAD, hypertension, hyperlipidemia, Parkinson's, depression who came into the ED with chief complaint of weakness and a fall. Further history regarding mechanism of fall was difficult to obtain due to patient's current clinical status. Per chart review, patient was febrile on arrival and deemed to be a poor historian. She did endorse feeling fatigued at the time of interview. She also reported feeling short of breath over the past few days with subjective fever and chills. Denies experiencing chest discomfort at the time of interview. Vitals on admission for 200.9, heart rate 104, respiratory rate 18, blood pressure 134/98, saturating 92% on 3 L nasal cannula then switched to BiPAP at an FiO2 of 50% and saturating 95% EKG independently interpreted as sinus tachycardia with rate of 103 bpm and QTc of 395 ms CXR shows chronic changes and cardiomegaly with new bibasilar atelectasis and/or acute infiltrates CT of head and cervical spine showed no acute intracranial process, multilevel wedge compression deformities, multilevel degenerative disc disease X-ray of the pelvis shows no discrete fracture Labs on admission show WBCs of 19 with left shift, hemoglobin 11.5, platelet 213. PT 12.3, INR 1.1, PTT 22.9. Sodium 134, potassium 4.3, chloride 100, bicarb 24, BUN 22, creatinine 0.95, glucose 119. Lactic acid 2.5, repeat 0.8. AST 57, ALT, ALP 168. CK102. Troponin 0.86. NT proBNP 4500. Cepheid positive for influenza A. Review of systems: Pertinent positives and negatives as discussed in HPI, a complete review of systems was performed and all other systems are negative. Subjective: 11/22/2024: Pertinent positives and negatives as discussed above, a complete review of systems was performed and all other systems are negative. Vitals: Signs Reviewed Physical Exam: Vital signs reviewed General: Somewhat ill-appearing female, no distress, appears at stated age Derm: warm, dry, intact Head: atraumatic, normocephalic, symmetric Eyes: anicteric sclera Mouth: no lip lesion, mucus membranes moist Cardiovascular: S1 S2 reg, no murmur Lungs: Coarse breath sounds with rhonchi diffusely, no rales, no accessory muscle use Abdominal: soft, non-tender to palpation, nondistended Extremities: No cyanosis, clubbing, or pedal edema. This is wild Neuro: Lethargic, Oriented to person, time and place, Gross neurological examination did not reveal any focal deficits. Cranial nerves II to XII grossly intact. Bilateral upper and lower extremity muscle strength intact and sensation intact. Psych: well appearing, appropriate affect Data Received Today: Pertinent Labs: Troponin 0.860 => 1.730, AST 329, ALT 156, alk phos 183, CO2 20, anion gap 8, BUN 21, creatinine 0.7, hemoglobin 10.2, MCV 87 point Imaging: Gallbladder ultrasound concerning for acute cholecystitis Assessment/Plan: Patient is a 84-year-old female CAD, hypertension, hyperlipidemia, Parkinson's, and depression who came to the ED with chief complaint of weakness and a fall. Active: Septic shock Acute hypoxic respiratory failure secondary to Influenza A infection Chest x-ray showed bibasilar atelectasis and/or acute infiltrates Patient currently off BiPAP, on 1 L nasal cannula Continue DuoNebs 4 times daily and every 2 hours as needed Continue Zithromax 500 mg daily Continue with cefepime 2 g Fluids discontinued, consider diuresis Procalcitonin pending Blood cultures pending MRSA nares, sputum culture, Legionella urine ordered Pulmonology following Patient is agreeable to IV pressor support although does not wish to undergo CPR or be placed on a ventilator Elevated troponin and NT proBNP Likely type II NSTEMI Continue aspirin 81 mg daily Troponin 0.860 => 1.730, continue to trend Follow-up echocardiogram Patient currently denying chest discomfort Aspirin 81 mg p.o. daily Cardiac monitoring Placed on heparin by cardiology Consult cardiology Possible acute cholecystitis Transaminitis Ischemic hepatitis vs congestive hepatopathy U/S liver Doppler showing cholelithiasis with mild wall thickening and borderline biliary duct dilatation, mild pericholecystic fluid seen. Findings suspicious for acute cholecystitis. Hepatic veins appear to be patent Surgery consulted Patient also started on Flagyl 500 IV every 8 hours Normocytic anemia Hgb 10.2, MCV 87.7 at baseline Continue to monitor with follow-up CBC Mechanical fall of unknown etiology CT of head and cervical spine showed no acute intracranial process, multilevel wedge compression deformities, multilevel degenerative disc disease X-ray of the pelvis shows no discrete fracture Fall precautions PT consult Non-anion gap metabolic acidosis CO2 20, anion gap 8 Likely secondary to fluids Monitor with follow-up BMP Chronic: Hypertension Hold atenolol 25 mg daily Hold lisinopril 5 mg daily Hyperlipidemia Continue simvastatin 20 mg p.o. at bedtime Parkinson's Continue Mirapex 0.5 mg twice daily Depression Continue sertraline 25 mg p.o. at bedtime GERD Continue omeprazole 20 mg Resolved: Hyponatremia, likely secondary to dehydration Lactic acidosis, likely secondary to dehydration F: N/A E: Replete as needed N: Heart healthy A: Fall precautions DVT ppx: Lovenox 40 mg SQ daily Code status: NO CODE, okay with vasopressors Anticipated discharge place: Pending clinical course Anticipated discharge time: Pending clinical course Galina Pelletier MD PGY-1 IM Dictation was produced using [employer] dictation software. please excuse any grammatical, word or spelling errors. I have seen and evaluated the patient today. Discussed with the resident and agree with the residents finding and plan as documented in the resident's note. Changes highlighted in blue font. This is an update note, no charge associated with note. Objective - Vital Signs Vital signs: Vital Signs Temp 98.4 F 11/22/24 06:49 Pulse 57 L 11/22/24 06:49 Resp 17 11/22/24 06:49 BP 129/67 11/22/24 06:49 Pulse Ox 99 11/22/24 06:49 FiO2 40 11/22/24 06:49 Intake & Output 11/21/24 11/22/24 11/22/24 18:59 06:59 18:59 Intake Total 125 Output Total 0 Balance 125 Weight 60.781 kg Intake: IV 125 Sodium Chloride 0.9% 1, 125 000 ml @ 125 mls/hr IV . Q8H ELIZABETH Rx#:[id number] Oral 0 Output: Urine 0 - Labs CBC & Chem 7: 11/22/24 06:30 11/22/24 06:25 Labs: Abnormal Lab Results - Last 24 Hours (Table) 11/21/24 11/21/24 11/21/24 Range/Units 21:20 21:20 21:20 WBC 19.0 H (3.8-10.6) k/uL RBC (3.80-5.40) m/uL Hgb (11.4-16.0) gm/dL Hct (34.0-46.0) % Neutrophils # 17.8 H (1.3-7.7) k/uL Lymphocytes # 0.4 L (1.0-4.8) k/uL Sodium 134 L (137-145) mmol/L BUN 22 H (7-17) mg/dL Glucose 119 H (74-99) mg/dL POC Glucose (mg/dL) (70-110) mg/dL Plasma Lactic Acid Jigar 2.5 H* (0.7-2.0) mmol/L Calcium (8.4-10.2) mg/dL AST 57 H (14-36) U/L ALT (4-34) U/L Alkaline Phosphatase 168 H (38-126) U/L Troponin I (0.000-0.034) ng/mL Total Protein (6.3-8.2) g/dL Albumin (3.5-5.0) g/dL Urine Appearance (Clear) Urine Protein (Negative) Urine Ketones (Negative) Urine Bacteria (None) /hpf Hyaline Casts (0-2) /lpf Urine Mucus (None) /hpf Influenza Type A (PCR) (Not Detectd) 11/21/24 11/21/24 11/22/24 Range/Units 21:20 21:20 00:53 WBC 11.2 H (3.8-10.6) k/uL RBC 3.27 L (3.80-5.40) m/uL Hgb 9.0 L D (11.4-16.0) gm/dL Hct 28.3 L (34.0-46.0) % Neutrophils # 10.3 H (1.3-7.7) k/uL Lymphocytes # 0.3 L (1.0-4.8) k/uL Sodium (137-145) mmol/L BUN (7-17) mg/dL Glucose (74-99) mg/dL POC Glucose (mg/dL) (70-110) mg/dL Plasma Lactic Acid Jigar (0.7-2.0) mmol/L Calcium (8.4-10.2) mg/dL AST (14-36) U/L ALT (4-34) U/L Alkaline Phosphatase (38-126) U/L Troponin I 0.860 H* (0.000-0.034) ng/mL Total Protein (6.3-8.2) g/dL Albumin (3.5-5.0) g/dL Urine Appearance (Clear) Urine Protein (Negative) Urine Ketones (Negative) Urine Bacteria (None) /hpf Hyaline Casts (0-2) /lpf Urine Mucus (None) /hpf Influenza Type A (PCR) Detected A (Not Detectd) 11/22/24 11/22/24 11/22/24 Range/Units 00:53 02:50 06:08 WBC (3.8-10.6) k/uL RBC (3.80-5.40) m/uL Hgb (11.4-16.0) gm/dL Hct (34.0-46.0) % Neutrophils # (1.3-7.7) k/uL Lymphocytes # (1.0-4.8) k/uL Sodium 135 L (137-145) mmol/L BUN 21 H (7-17) mg/dL Glucose (74-99) mg/dL POC Glucose (mg/dL) 114 H (70-110) mg/dL Plasma Lactic Acid Jigar (0.7-2.0) mmol/L Calcium 7.2 L (8.4-10.2) mg/dL AST 182 H (14-36) U/L ALT 83 H (4-34) U/L Alkaline Phosphatase 156 H (38-126) U/L Troponin I (0.000-0.034) ng/mL Total Protein 4.7 L (6.3-8.2) g/dL Albumin 2.3 L (3.5-5.0) g/dL Urine Appearance Cloudy H (Clear) Urine Protein 1+ H (Negative) Urine Ketones Trace H (Negative) Urine Bacteria Rare H (None) /hpf Hyaline Casts 4 H (0-2) /lpf Urine Mucus Rare H (None) /hpf Influenza Type A (PCR) (Not Detectd) 11/22/24 Range/Units 06:30 WBC (3.8-10.6) k/uL RBC 3.67 L (3.80-5.40) m/uL Hgb 10.2 L (11.4-16.0) gm/dL Hct 32.2 L (34.0-46.0) % Neutrophils # (1.3-7.7) k/uL Lymphocytes # 0.7 L (1.0-4.8) k/uL Sodium (137-145) mmol/L BUN (7-17) mg/dL Glucose (74-99) mg/dL POC Glucose (mg/dL) (70-110) mg/dL Plasma Lactic Acid Jigar (0.7-2.0) mmol/L Calcium (8.4-10.2) mg/dL AST (14-36) U/L ALT (4-34) U/L Alkaline Phosphatase (38-126) U/L Troponin I (0.000-0.034) ng/mL Total Protein (6.3-8.2) g/dL Albumin (3.5-5.0) g/dL Urine Appearance (Clear) Urine Protein (Negative) Urine Ketones (Negative) Urine Bacteria (None) /hpf Hyaline Casts (0-2) /lpf Urine Mucus (None) /hpf Influenza Type A (PCR) (Not Detectd)
--- NOTE | 2024-11-22 15:30 | P.GSCN ---
History of Present Illness Consult date: 11/22/24 History of present illness: CHIEF COMPLAINT: Fall HISTORY OF PRESENT ILLNESS: This is a 84-year-old female who came into the ER after a fall. She reports that she was changing and her leg gave out. And she fell. Patient currently in the ICU. She did have respiratory failure with evidence of influenza A positive. She has had elevated troponin started on IV heparin. Followed by cardiology service. She did have elevated LFTs and an abdominal ultrasound was ordered that reported cholelithiasis with mild wall thickening and borderline biliary duct dilatation. Mild pericholecystic fluid seen findings are suspicious for acute cholecystitis. Surgical service has been consulted for possible acute cholecystitis. Patient did eat a few fries at lunch and reports no abdominal pain. She denies any nausea or vomiting. She reports having diarrhea at home but now resolved. She does admit to a cough. She did have a fever of 101.1 last night. She has also had some hypotension which is now improved. Currently off of Levophed. She is currently been transition from BiPAP to nasal cannula. PAST MEDICAL HISTORY: Coronary Artery Disease (CAD), Hyperlipidemia, Hypertension, Myocardial Infarction ([place]), Parkinsons, PAST SURGICAL HISTORY: Appendectomy, Coronary Bypass/CABG, Heart Catheterization With Stent, Orthopedic Surgery, Tonsillectomy MEDICATIONS: See below ALLERGIES: See below SOCIAL HISTORY: No illicit drug use. REVIEW OF SYSTEMS: CONSTITUTIONAL: Denies fever or chills. HEENT: Denies blurred vision, vision changes, or eye pain. Denies hemoptysis CARDIOVASCULAR: Denies chest pain or pressure. RESPIRATORY: No shortness of breath. GASTROINTESTINAL: See HPI for pertinent findings HEMATOLOGIC: Denies bleeding disorders. GENITOURINARY: Denies any blood in urine or increased urinary frequency. SKIN: Denies pruitis. Denies rash. PHYSICAL EXAM: VITAL SIGNS: Reviewed GENERAL: Well-developed in no acute distress. HEENT: No sclera icterus. Extraocular movements grossly intact. Moist buccal mucosa. Head is atraumatic, normocephalic. No nasal drainage. ABDOMEN: Soft. Nondistended. Mild tenderness palpation right upper quadrant. No rebound or guarding. NEUROLOGIC: Alert and oriented. Cranial nerves II through XII grossly intact. LABORATORY DATA: WBC 19 down to 8.0 Hgb 10.2 platelets 160 Total bilirubin 0.1 AST 329 ALT 156 alk phos 183 Troponin 1.730 Influenza A positive Elevated BNP IMAGING: Liver ultrasound cholelithiasis with mild wall thickening and borderline biliary ductal dilatation. Mild pericholecystic fluid seen. Findings are suspicious for acute cholecystitis. CT scan of the brain no acute intracranial process nonspecific white matter change remote left frontal lobe injury. Multilevel wedge compression deformities throughout the visualized spine Echo EF 50% mild right ventricle dilation moderate to severe mitral calcification mild mitral stenosis, moderate to severe mitral regurg moderate tricuspid regurg ASSESSMENT: 1. Cholecystitis. Right upper quadrant tenderness on exam. Liver ultrasound reported cholelithiasis with mild wall thickening and borderline biliary ductal dilatation. Mild pericholecystic fluid 2. Influenza A positive 3. Sepsis present on admission 4. Acute hypoxic respiratory failure 5. Elevated troponin 6. Elevated BNP PLAN: -Recommend low-fat diet -Repeat LFTs in a.m. -Continue to monitor patient closely. Patient may need a cholecystostomy tube for acute cholecystitis. She is not a good surgical candidate. -Continue antibiotics -Continue supportive care -Further recommendations forthcoming per surgeon Phys[employer] note has been reviewed by physician. Signing provider agrees with the documented findings, assessment, and plan of care. Attestation Patient seen and examined at bedside in the ICU. Presented with chief complaint of fall. She did have respiratory failure with evidence of influenza A. She also was noted to have elevated troponin and started on IV heparin. She was found to have elevated LFTs and secondary to this, liver ultrasound was performed with cholelithiasis with mild wall thickening and borderline biliary d uctal dilation. Secondary to this there is findings suspicious for acute cholecystitis. Patient denying any abdominal pain and currently tolerating diet. On deep palpation she believes she has mild tenderness to the right upper quadrant. At this point, patient is DNR. She is unsure if she would undergo any surgical procedure. Due to both respiratory and cardiac issues, patient is not a good surgical candidate. If concern for any infectious source of the gallbladder, recommend cholecystostomy tube. Currently, without any obvious symptoms, continue with current management. Anita Rodriguze DO Past Medical History Past Medical History: Coronary Artery Disease (CAD), Heart Failure, Hyperlipidemia, Hypertension, Myocardial Infarction ([place]) Additional Past Medical History / Comment(s): Parkinsons Last Myocardial Infarction Date:: 01/2011 History of Any Multi-Drug Resistant Organisms: None Reported Past Surgical History: Appendectomy, Coronary Bypass/CABG, Heart Catheterization With Stent, Orthopedic Surgery, Tonsillectomy Additional Past Surgical History / Comment(s): Cataracts. 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 Father Family Medical History: Myocardial Infarction ([place]) Additional Family Medical History / Comment(s): Father of a [place] at the age of 91 yrs. Medications and Allergies Home Medications Medication Instructions Recorded Confirmed Type Simvastatin [Zocor] 20 mg PO HS 06/08/18 11/22/24 History atenoloL [Tenormin] 25 mg PO DAILY 06/08/18 11/22/24 History lisinopriL [Zestril] 5 mg PO DAILY 06/08/18 11/22/24 History Aspirin [Adult Low Dose Aspirin EC] 81 mg PO DAILY 08/19/18 11/22/24 History Furosemide [Lasix] 20 mg PO DAILY PRN 03/13/23 11/22/24 History Sertraline [Zoloft] 25 mg PO HS 03/13/23 11/22/24 History Cholecalciferol [Vitamin D3 (125 125 mcg PO DAILY 09/20/24 11/22/24 History Mcg = 5000 Iu)] Ferrous Sulfate [Iron (65 MG 325 mg PO DAILY 09/20/24 11/22/24 History Elemental)] Pramipexole [Mirapex] 0.5 mg PO BID 09/20/24 11/22/24 History Docusate [Colace] 100 mg PO BID #60 capsule 09/23/24 11/22/24 Rx Ascorbic Acid [Vitamin C] 500 mg PO DAILY 11/22/24 11/22/24 History Omeprazole [PriLOSEC] 20 mg PO DAILY 11/22/24 11/22/24 History Allergies Allergy/AdvReac Type Severity Reaction Status Date / Time No Known Allergies Allergy Verified 11/21/24 20:55 Surgical - Exam Osteopathic Statement: *. No significant issues noted on an osteopathic structural exam other than those noted in the History and Physical/Consult. Vital Signs Temp Pulse Resp BP 100.9 F H 104 H 18 134/98 11/21/24 20:46 11/21/24 20:46 11/21/24 20:46 11/21/24 20:46 Results - Labs 11/22/24 06:30 11/22/24 06:25 Abnormal Lab Results - Last 24 Hours (Table) 11/21/24 11/21/24 11/21/24 Range/Units 21:20 21:20 21:20 WBC 19.0 H (3.8-10.6) k/uL RBC (3.80-5.40) m/uL Hgb (11.4-16.0) gm/dL Hct (34.0-46.0) % Neutrophils # 17.8 H (1.3-7.7) k/uL Lymphocytes # 0.4 L (1.0-4.8) k/uL Sodium 134 L (137-145) mmol/L Chloride (98-107) mmol/L Carbon Dioxide (22-30) mmol/L BUN 22 H (7-17) mg/dL Glucose 119 H (74-99) mg/dL POC Glucose (mg/dL) (70-110) mg/dL Plasma Lactic Acid Jigar 2.5 H* (0.7-2.0) mmol/L Calcium (8.4-10.2) mg/dL Total Bilirubin (0.2-1.3) mg/dL AST 57 H (14-36) U/L ALT (4-34) U/L Alkaline Phosphatase 168 H (38-126) U/L Troponin I (0.000-0.034) ng/mL Total Protein (6.3-8.2) g/dL Albumin (3.5-5.0) g/dL Procalcitonin (0.02-0.50) ng/mL Urine Appearance (Clear) Urine Protein (Negative) Urine Ketones (Negative) Urine Bacteria (None) /hpf Hyaline Casts (0-2) /lpf Urine Mucus (None) /hpf Influenza Type A (PCR) (Not Detectd) 11/21/24 11/21/24 11/22/24 Range/Units 21:20 21:20 00:53 WBC 11.2 H (3.8-10.6) k/uL RBC 3.27 L (3.80-5.40) m/uL Hgb 9.0 L D (11.4-16.0) gm/dL Hct 28.3 L (34.0-46.0) % Neutrophils # 10.3 H (1.3-7.7) k/uL Lymphocytes # 0.3 L (1.0-4.8) k/uL Sodium (137-145) mmol/L Chloride (98-107) mmol/L Carbon Dioxide (22-30) mmol/L BUN (7-17) mg/dL Glucose (74-99) mg/dL POC Glucose (mg/dL) (70-110) mg/dL Plasma Lactic Acid Jigar (0.7-2.0) mmol/L Calcium (8.4-10.2) mg/dL Total Bilirubin (0.2-1.3) mg/dL AST (14-36) U/L ALT (4-34) U/L Alkaline Phosphatase (38-126) U/L Troponin I 0.860 H* (0.000-0.034) ng/mL Total Protein (6.3-8.2) g/dL Albumin (3.5-5.0) g/dL Procalcitonin (0.02-0.50) ng/mL Urine Appearance (Clear) Urine Protein (Negative) Urine Ketones (Negative) Urine Bacteria (None) /hpf Hyaline Casts (0-2) /lpf Urine Mucus (None) /hpf Influenza Type A (PCR) Detected A (Not Detectd) 11/22/24 11/22/24 11/22/24 Range/Units 00:53 02:50 06:08 WBC (3.8-10.6) k/uL RBC (3.80-5.40) m/uL Hgb (11.4-16.0) gm/dL Hct (34.0-46.0) % Neutrophils # (1.3-7.7) k/uL Lymphocytes # (1.0-4.8) k/uL Sodium 135 L (137-145) mmol/L Chloride (98-107) mmol/L Carbon Dioxide (22-30) mmol/L BUN 21 H (7-17) mg/dL Glucose (74-99) mg/dL POC Glucose (mg/dL) 114 H (70-110) mg/dL Plasma Lactic Acid Jigar (0.7-2.0) mmol/L Calcium 7.2 L (8.4-10.2) mg/dL Total Bilirubin (0.2-1.3) mg/dL AST 182 H (14-36) U/L ALT 83 H (4-34) U/L Alkaline Phosphatase 156 H (38-126) U/L Troponin I (0.000-0.034) ng/mL Total Protein 4.7 L (6.3-8.2) g/dL Albumin 2.3 L (3.5-5.0) g/dL Procalcitonin (0.02-0.50) ng/mL Urine Appearance Cloudy H (Clear) Urine Protein 1+ H (Negative) Urine Ketones Trace H (Negative) Urine Bacteria Rare H (None) /hpf Hyaline Casts 4 H (0-2) /lpf Urine Mucus Rare H (None) /hpf Influenza Type A (PCR) (Not Detectd) 11/22/24 11/22/24 11/22/24 Range/Units 06:25 06:25 06:30 WBC (3.8-10.6) k/uL RBC 3.67 L (3.80-5.40) m/uL Hgb 10.2 L (11.4-16.0) gm/dL Hct 32.2 L (34.0-46.0) % Neutrophils # (1.3-7.7) k/uL Lymphocytes # 0.7 L (1.0-4.8) k/uL Sodium (137-145) mmol/L Chloride 109 H (98-107) mmol/L Carbon Dioxide 20 L (22-30) mmol/L BUN 21 H (7-17) mg/dL Glucose (74-99) mg/dL POC Glucose (mg/dL) (70-110) mg/dL Plasma Lactic Acid Jigar (0.7-2.0) mmol/L Calcium 7.4 L (8.4-10.2) mg/dL Total Bilirubin 0.1 L (0.2-1.3) mg/dL AST 329 H (14-36) U/L ALT 156 H (4-34) U/L Alkaline Phosphatase 183 H (38-126) U/L Troponin I (0.000-0.034) ng/mL Total Protein 5.0 L (6.3-8.2) g/dL Albumin 2.6 L (3.5-5.0) g/dL Procalcitonin 29.20 H (0.02-0.50) ng/mL Urine Appearance (Clear) Urine Protein (Negative) Urine Ketones (Negative) Urine Bacteria (None) /hpf Hyaline Casts (0-2) /lpf Urine Mucus (None) /hpf Influenza Type A (PCR) (Not Detectd) 11/22/24 Range/Units 10:30 WBC (3.8-10.6) k/uL RBC (3.80-5.40) m/uL Hgb (11.4-16.0) gm/dL Hct (34.0-46.0) % Neutrophils # (1.3-7.7) k/uL Lymphocytes # (1.0-4.8) k/uL Sodium (137-145) mmol/L Chloride (98-107) mmol/L Carbon Dioxide (22-30) mmol/L BUN (7-17) mg/dL Glucose (74-99) mg/dL POC Glucose (mg/dL) (70-110) mg/dL Plasma Lactic Acid Jigar (0.7-2.0) mmol/L Calcium (8.4-10.2) mg/dL Total Bilirubin (0.2-1.3) mg/dL AST (14-36) U/L ALT (4-34) U/L Alkaline Phosphatase (38-126) U/L Troponin I 1.730 H* (0.000-0.034) ng/mL Total Protein (6.3-8.2) g/dL Albumin (3.5-5.0) g/dL Procalcitonin (0.02-0.50) ng/mL Urine Appearance (Clear) Urine Protein (Negative) Urine Ketones (Negative) Urine Bacteria (None) /hpf Hyaline Casts (0-2) /lpf Urine Mucus (None) /hpf Influenza Type A (PCR) (Not Detectd) Diabetes panel 11/21/24 11/22/24 11/22/24 Range/Units 21:20 00:53 06:25 Sodium 134 L 135 L 137 (137-145) mmol/L Potassium 4.3 3.8 3.9 (3.5-5.1) mmol/L Chloride 100 107 109 H (98-107) mmol/L Carbon Dioxide 24 22 20 L (22-30) mmol/L BUN 22 H 21 H 21 H (7-17) mg/dL Creatinine 0.95 0.90 0.87 (0.52-1.04) mg/dL Glucose 119 H 99 96 (74-99) mg/dL Calcium 8.5 7.2 L 7.4 L (8.4-10.2) mg/dL AST 57 H 182 H 329 H (14-36) U/L ALT 30 83 H 156 H (4-34) U/L Alkaline Phosphatase 168 H 156 H 183 H (38-126) U/L Total Protein 6.3 4.7 L 5.0 L (6.3-8.2) g/dL Albumin 3.5 2.3 L 2.6 L (3.5-5.0) g/dL Calcium panel 11/21/24 11/22/24 11/22/24 Range/Units 21:20 00:53 06:25 Calcium 8.5 7.2 L 7.4 L (8.4-10.2) mg/dL Phosphorus 3.8 4.0 (2.5-4.5) mg/dL Albumin 3.5 2.3 L 2.6 L (3.5-5.0) g/dL Pituitary panel 11/21/24 11/22/24 11/22/24 Range/Units 21:20 00:53 06:25 Sodium 134 L 135 L 137 (137-145) mmol/L Potassium 4.3 3.8 3.9 (3.5-5.1) mmol/L Chloride 100 107 109 H (98-107) mmol/L Carbon Dioxide 24 22 20 L (22-30) mmol/L BUN 22 H 21 H 21 H (7-17) mg/dL Creatinine 0.95 0.90 0.87 (0.52-1.04) mg/dL Glucose 119 H 99 96 (74-99) mg/dL Calcium 8.5 7.2 L 7.4 L (8.4-10.2) mg/dL Adrenal panel 11/21/24 11/22/24 11/22/24 Range/Units 21:20 00:53 06:25 Sodium 134 L 135 L 137 (137-145) mmol/L Potassium 4.3 3.8 3.9 (3.5-5.1) mmol/L Chloride 100 107 109 H (98-107) mmol/L Carbon Dioxide 24 22 20 L (22-30) mmol/L BUN 22 H 21 H 21 H (7-17) mg/dL Creatinine 0.95 0.90 0.87 (0.52-1.04) mg/dL Glucose 119 H 99 96 (74-99) mg/dL Calcium 8.5 7.2 L 7.4 L (8.4-10.2) mg/dL Total Bilirubin 0.3 0.3 0.1 L (0.2-1.3) mg/dL AST 57 H 182 H 329 H (14-36) U/L ALT 30 83 H 156 H (4-34) U/L Alkaline Phosphatase 168 H 156 H 183 H (38-126) U/L Total Protein 6.3 4.7 L 5.0 L (6.3-8.2) g/dL Albumin 3.5 2.3 L 2.6 L (3.5-5.0) g/dL
[2024-11-22] MEDS: metroNIDAZOLE-NS PMX 500 MG in SALINE 1 100ML.BAG IVPB SCH (16:02)
[2024-11-22] MEDS: FUROSEMIDE 10 MG/ML 4 ML VIAL IV STA (19:19)
[2024-11-22] MEDS: SODIUM CHLORIDE 0.9% 1,000 ML IV SCH (19:48)
[2024-11-22] MEDS: ATORVASTATIN 10 MG TAB PO SCH (21:46)
[2024-11-22] MEDS: SERTRALINE 25 MG TAB PO SCH (21:46)
[2024-11-22] MEDS: AZITHROMYCIN 500 MG in SODIUM CHLORIDE 0.9% 250 ML IVPB SCH (22:03)
--- NOTE | 2024-11-22 22:08 | CONS ---
CONSULTATION HISTORY OF PRESENT ILLNESS: Mya is an 84-year-old lady with history of coronary artery disease, hypertension, dyslipidemia, parkinsonism, depression, came to the hospital, feeling weak, unwell and having had a fall at home. She has hypoxic respiratory failure and tested positive for influenza. Cardiology had been consulted because of elevated troponin. At the time of my evaluation this morning, patient appears comfortable at rest. Does not have any chest pain and does not have shortness of breath. An echocardiogram showed normal LV function with moderate pulmonary hypertension. There is moderate to severe mitral regurgitation with mild mitral stenosis. Her troponin had gone all the way up to 1.7. EKG shows sinus tachycardia, normal axis, normal intervals. Patient has complex and multiple issues including non-STEMI and influenza. I am going to start her on heparin and treat her with heparin for 24 to 48 hours. When she recovers from her infection, she will need a stress test or a cardiac catheterization. PAST MEDICAL HISTORY: Significant for coronary artery disease, hypertension, and dyslipidemia. CURRENT MEDICATIONS: Include, 1. Aspirin. 2. Lasix. 3. Prilosec. 4. Simvastatin. 5. Tenormin. 6. Lisinopril. ALLERGIES: There are no known drug allergies. FAMILY HISTORY: Negative for premature coronary artery disease. SOCIAL HISTORY: Negative for current smoking, EtOH abuse, or drug abuse. REVIEW OF SYSTEMS: 14 out of 14 review of systems has been performed, pertinent are as documented. PHYSICAL EXAMINATION: GENERAL: Comfortable at rest. VITAL SIGNS: Stable. CHEST: Diminished air entry at the bases. HEART: First and second heart sounds. Systolic murmur at the apex. ABDOMEN: Soft. EXTREMITIES: Did not reveal any edema. Peripheral pulses are felt. LABORATORY DATA: Labs show that the troponin is elevated, creatinine is 0.8, hemoglobin is 10.2 with a platelet count of 160. ASSESSMENT: 1. Acute uot-NM-hczdeir elevation myocardial infarction. 2. Influenza. 3. History of fall. PLAN: Patient does not have any evidence of injuries anywhere. I am going to start her on IV heparin and follow her closely. MMSARAL / KRISTYN: [id number] /
[2024-11-22] MEDS: FUROSEMIDE 10 MG/ML 2 ML VIAL IV ONE (23:46)
[2024-11-23 06:41] LABS: INR 1.1 (<1.2); Prothrombin Time 11.6 sec (10.0-12.5)
[2024-11-23 07:24] LABS: Basophils % (A) 0 %; Eosinophils # (A) 0.1 k/uL (0-0.7); Eosinophils % (A) 1 %; HCT 32.7 % (34.0-46.0); HGB 10.4 gm/dL (11.4-16.0); Hypochromasia Moderate; Lymphocytes # (A) 0.6 k/uL (1.0-4.8); Lymphocytes % (A) 10 %; MCH 27.8 pg (25.0-35.0); MCV 86.8 fL (80.0-100.0); Mean Platelet Volume 8.4; Monocytes # (A) 0.4 k/uL (0-1.0); Monocytes % (A) 6 %; Neutrophils # (A) 5.2 k/uL (1.3-7.7); Neutrophils % (A) 82 %; Platelet Count 138 k/uL (150-450); RBC 3.76 m/uL (3.80-5.40); RDW 13.5 % (11.5-15.5); WBC 6.3 k/uL (3.8-10.6)
[2024-11-23 08:25] LABS: ALT 162 U/L (4-34); AST 243 U/L (14-36); African American GFR (CKD) 79 (>60 ml/min/1.73 sqM); Albumin 2.7 g/dL (3.5-5.0); Alkaline Phosphatase 156 U/L (38-126); Anion Gap 8 mmol/L; Blood Urea Nitrogen 16 mg/dL (7-17); Calcium 8.1 mg/dL (8.4-10.2); Carbon Dioxide 22 mmol/L (22-30); Chloride 108 mmol/L (98-107); Glucose 67 mg/dL (74-99); Non-African American GFR(CKD) 69 (>60 ml/min/1.73 sqM); Potassium 3.9 mmol/L (3.5-5.1); Sodium 138 mmol/L (137-145); Total Bilirubin 0.4 mg/dL (0.2-1.3); Total Protein 5.3 g/dL (6.3-8.2)
--- NOTE | 2024-11-23 08:51 | XR ---
EXAMINATION TYPE: XR chest 1V portable DATE OF EXAM: 11/23/2024 COMPARISON: 11/21/2024 CLINICAL INDICATION: Female, 84 years old with history of dyspnea; , TECHNIQUE: XR chest 1V portable views of the chest. FINDINGS: Post median sternotomy changes with bilateral consolidation and pleural effusion. Interstitial patter n. Apical pleural thickening with calcifications which can be associated with inhalational\is best is related disease. Postsurgical change left shoulder. Positioning limits assessment portions of the up per lobe. IMPRESSION: 1. Correlate for CHF otherwise consider interstitial pneumonia. [facility], , 11/23/2024 8:49 AM
[2024-11-23] MEDS ORDERED: metroNIDAZOLE-NS PMX 500 MG in SALINE 1 100ML.BAG IVPB SCH (10:00)
[2024-11-23] MEDS: PANTOPRAZOLE 40 MG TABLET PO SCH (10:22)
[2024-11-23] MEDS: FUROSEMIDE 10 MG/ML 2 ML VIAL IV ONE (10:22)
[2024-11-23 10:54] LABS: Glucose,Whole Blood 79 mg/dL (70-110)
--- NOTE | 2024-11-23 11:20 | PN ---
PROGRESS NOTE SUBJECTIVE: Mya is an 84-year-old lady with history of coronary artery disease, hypertension, dyslipidemia, and parkinsonism, who presented to hospital with feeling weak and unwell and having had a fall at home. She was tested positive for influenza and had non ST- segment elevation HI. I started her on IV heparin yesterday. This morning she is feeling better. Denies any chest pain. Her shortness of breath has improved. CURRENT MEDICATIONS: Include, 1. Aspirin. 2. Atorvastatin. 3. Tamiflu. 4. IV heparin along with antibiotics. OBJECTIVE: VITAL SIGNS: Heart rate is 76 beats per minute, blood pressure is 127/69, respiratory rate is 18, O2 saturation is 96%. CHEST: Reveals bilateral rhonchi. HEART: Reveals first and second heart sounds. No gallop. Has a systolic murmur at the apex. ABDOMEN: Soft. EXTREMITIES: Did not reveal any edema. Peripheral pulses are felt. LABORATORY DATA: Labs show that the troponin is down to 1.2. Potassium is 3.9, hemoglobin is 10.4 with a platelet count of 138. AST and ALT are elevated. ASSESSMENT: 1. Influenza. 2. Respiratory insufficiency. 3. Non ST-segment elevation myocardial infarction. PLAN: The patient is stable hemodynamically. I am going to stop the heparin at this time and leave her on subcu heparin. MMODL / IJN: [id number] /
--- NOTE | 2024-11-23 12:15 | P.PN ---
Subjective Progress Note Date: 11/23/24 Principal diagnosis: Influenza. Patient is 84-year-old female with past medical history significant for coronary artery disease with previous CABG, hypertension, hyperlipidemia, among other things. I was contacted by [facility] physician as the patient was hypotensive refractory to fluid resuscitation, and needed to be started on vasopressors. Currently, an overflow patient in the ED. Patient presented the emergency department late last night after having a fall at her assisted living facility. I believe she stays at [facility]. While in the emergency department, she was noted to have high fevers with a Tmax of 101.1 F. Also, has had a cough over the last 2 days. She did test positive for influenza A. Chest x-ray showing cardiomegaly, pulmonary vascular congestion, with new bibasilar atelectasis and/or less likely acute infiltrates. Patient was placed on BiPAP in the emergency department. She has received a total of 3.5 L normal saline form of fluid boluses. Despite this, reportedly remained hypotensive, and started on Levophed. I am currently evaluating the patient in the emergency department, room 16. She is on BiPAP with settings 12/5 and FiO2 of 40%. She is achieving adequate tidal volumes of around 400. Respiratory rate is nontachypneic and nonlabored. SpO2 is reading 100%. She is awake and appears alert on the BiPAP. She does follow commands appropriately. It is difficult to communicate as the patient is hard of hearing and on BiPAP. Normal saline is currently infusing at 125 mL/h. Patient also is on norepinephrine at 0.03 mcg/k g/min. Blood pressure is up to 110/[address] of the brain and C-spine done on arrival did not show any acute intracranial process. 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 Multi level wedge compression deformities throughout the visualized spine correlate with pain and MRI to exclude acute/subacute fracture. No obvious displaced spinal fracture. Multilevel degenerative disc disease. Calcified pleural plaquing noted. Most recent CBC: WC count 11, hemoglobin 9, hematocrit 28.3, platelets 152. CMP: Sodium 135, potassium 3.8, chloride 107, serum bicarb 22, BUN 21, creatinine 0.9, glucose 99. Lactic was 2.5 and is down to 0.8. Magnesium 1.7. LFTs mildly elevated. Troponin initially 0.86. EKG: Sinus tachycardia, rate 103 bpm, minimal diffuse ST depressions. NT proBNP was elevated at 4500. She has been started on combination of empiric antibiotics in the form of azithromycin and cefepime, as well as, Tamiflu. Progress note dated November 23, 2024. 84-year-old female seen in consultation yesterday. Please see my note above. The patient was admitted with a diagnosis of weakness, and influenza. She was admitted to the intensive care unit, because she required fluid resuscitation, and vasopressors. Currently, she is seen today in room 253. She is on 2 L. She continues on heparin via weight-based protocol for a non-ST segment elevation myocardial infarction. In addition, she is getting saline at KVO, as well as a number of different antibiotics including azithromycin, cefepime, Flagyl, and Tamiflu. She will get some Lasix 20 mg IV push today. Her procalcitonin level was 29.2. Current laboratory includes a white count 6.3, hemoglobin 10.4, macro 32.7, platelet count 138,000. Sodium 138, potassium 3.9, chlorides 108, CO2 22, BUN 16, creatinine 0.8. AST is 243. ALT is 162. Albumin 2.7. Sputum sampling is thus far negative. Chest x-ray shows possible CHF. Ultrasound of the abdomen suggest cholelithiasis and possible acute cholecystitis. Objective - Vital Signs Vital signs: Vital Signs Temp 98.4 F 11/23/24 08:00 Pulse 76 11/23/24 10:00 Resp 21 11/23/24 10:00 BP 127/69 11/23/24 10:00 Pulse Ox 96 11/23/24 10:00 FiO2 40 11/23/24 08:00 Intake & Output 11/22/24 11/23/24 11/23/24 18:59 06:59 18:59 Intake Total 871.321 982.299 55.094 Output Total 200 1200 Balance 671.321 -217.701 55.094 Weight 71.8 kg Intake: IV 825 440 40 Sodium Chloride 0.9% 1, 825 100 000 ml @ 125 mls/hr IV . Q8H [facility] Rx#:[id number] kvo 340 40 Intake, IV Titration 46.321 42.299 15.094 Amount Heparin Sod,Pork in 0.45% 43.966 42.299 15.094 NaCl 25,000 unit In 0.45 % NaCl 1 250ml.bag @ 12 UNITS/KG/HR 7.294 mls/hr IV .Q24H [facility] Rx#: [id number] Norepinephrine 4 mg In 2.355 Sodium Chloride 0.9% 250 ml @ 0.01 MCG/KG/MIN 2. 316 mls/hr IV .Q24H [facility] Rx#:[id number] Oral 0 500 Output: Urine 200 1200 Other: Voiding Method Incontinent Incontinent Incontinent External Catheter External Catheter External Catheter # Voids 1 - Exam No acute distress, oriented 3. Patient is very frail appearing. She continues on oxygen at 2 L. HEENT examination is grossly unremarkable. Mucous membranes are moist. No oral lesions. Neck supple. Full range of motion. No adenopathy thyromegaly or neck vein distention. Cardiovascular examination reveals regular rhythm rate. S1-S2 normal. No S3 or S4. No discernible murmur noted. Lungs reveal scattered rhonchi and crackles. Breath sounds equal. She does not take deep breaths. No wheezes. Abdomen soft bowel sounds are heard. No masses or tenderness. Extremities are intact. No cyanosis or clubbing. Very trace edema. Skin is without rash or lesion. Neurologic examination is brief but nonfocal. - Labs CBC & Chem 7: 11/23/24 06:15 11/23/24 07:48 Labs: Abnormal Lab Results - Last 24 Hours (Table) 11/22/24 11/22/24 11/23/24 Range/Units 14:15 17:09 02:57 RBC (3.80-5.40) m/uL Hgb (11.4-16.0) gm/dL Hct (34.0-46.0) % Plt Count (150-450) k/uL Lymphocytes # (1.0-4.8) k/uL APTT >200.0 H* 135.5 H* (22.0-30.0) sec Chloride (98-107) mmol/L Glucose (74-99) mg/dL Calcium (8.4-10.2) mg/dL AST (14-36) U/L ALT (4-34) U/L Alkaline Phosphatase (38-126) U/L Troponin I 1.280 H* (0.000-0.034) ng/mL Total Protein (6.3-8.2) g/dL Albumin (3.5-5.0) g/dL 11/23/24 11/23/24 Range/Units 06:15 07:48 RBC 3.76 L (3.80-5.40) m/uL Hgb 10.4 L (11.4-16.0) gm/dL Hct 32.7 L (34.0-46.0) % Plt Count 138 L (150-450) k/uL Lymphocytes # 0.6 L (1.0-4.8) k/uL APTT (22.0-30.0) sec Chloride 108 H (98-107) mmol/L Glucose 67 L (74-99) mg/dL Calcium 8.1 L (8.4-10.2) mg/dL AST 243 H (14-36) U/L ALT 162 H (4-34) U/L Alkaline Phosphatase 156 H (38-126) U/L Troponin I (0.000-0.034) ng/mL Total Protein 5.3 L (6.3-8.2) g/dL Albumin 2.7 L (3.5-5.0) g/dL Microbiology - Last 24 Hours (Table) 11/22/24 16:00 Gram Stain - Final Sputum Sputum Culture - Final Assessment and Plan Assessment: Acute influenza A infection. Suspect acute CHF exacerbation. Acute hypoxemic respiratory failure. Sepsis/septic shock, with hypotension. Acute leukocytosis. Acute febrile illness. Elevated troponins, rule out non-ST elevation NM. Fall, unspecified; CT of the brain and C-spine done on arrival did not show any acute intracranial process. Normocytic, normochromic anemia. History of hypertension. History of hyperlipidemia. History of coronary artery disease with previous CABG. History of anxiety/depression. History of Parkinson's disease. Plan: Plan dated November 23, 2024. The patient is seen again in the intensive care unit, room 253. She continues on IV heparin via weight-based protocol, for non-ST segment elevation myocardial infarction. She is on 2 L of oxygen. She is getting saline at KVO. Because of her chest x-ray, and fluid resuscitation, she will get Lasix 20 mg IV push x 1. The patient's Flagyl and azithromycin will be continued. In addition, Tamiflu will be continued. The patient cefepime can be discontinued. Her procalcitonin level was 29.2. Labs, x-rays, and all medications are reviewed. Prognosis is guarded. The patient is a DO NOT RESUSCITATE patient. Time with Patient: Greater than 30
--- NOTE | 2024-11-23 13:12 | P.PN ---
Subjective Progress Note Date: 11/23/24 Hospital Course: Patient is a 84-year-old female with CAD, hypertension, hyperlipidemia, Parkinson's, depression who came into the ED with chief complaint of weakness and a fall. Further history regarding mechanism of fall was difficult to obtain due to patient's current clinical status. Per chart review, patient was febrile on arrival and deemed to be a poor historian. She did endorse feeling fatigued at the time of interview. She also reported feeling short of breath over the past few days with subjective fever and chills. Denies experiencing chest discomfort at the time of interview. Vitals on admission for 200.9, heart rate 104, respiratory rate 18, blood pressure 134/98, saturating 92% on 3 L nasal cannula then switched to BiPAP at an FiO2 of 50% and saturating 95% EKG independently interpreted as sinus tachycardia with rate of 103 bpm and QTc of 395 ms CXR shows chronic changes and cardiomegaly with new bibasilar atelectasis and/or acute infiltrates CT of head and cervical spine showed no acute intracranial process, multilevel wedge compression deformities, multilevel degenerative disc disease X-ray of the pelvis shows no discrete fracture Labs on admission show WBCs of 19 with left shift, hemoglobin 11.5, platelet 213. PT 12.3, INR 1.1, PTT 22.9. Sodium 134, potassium 4.3, chloride 100, bicarb 24, BUN 22, creatinine 0.95, glucose 119. Lactic acid 2.5, repeat 0.8. AST 57, ALT, ALP 168. CK102. Troponin 0.86. NT proBNP 4500. Cepheid positive for influenza A. Review of systems: Pertinent positives and negatives as discussed in HPI, a complete review of systems was performed and all other systems are negative. Subjective: 11/23/2024: Patient seen and evaluated bedside. No acute events overnight, no acute complaints. Patient states she is feeling slightly better. Pertinent positives and negatives as discussed above, a complete review of systems was performed and all other systems are negative. Vitals: Signs Reviewed Physical Exam: Vital signs reviewed General: Somewhat ill-appearing female, no distress, appears at stated age Derm: warm, dry, intact Head: atraumatic, normocephalic, symmetric Eyes: anicteric sclera Mouth: no lip lesion, mucus membranes moist Cardiovascular: S1 S2 reg, no murmur Lungs: Coarse breath sounds with rhonchi diffusely, no rales, no accessory muscle use Abdominal: soft, non-tender to palpation, nondistended Extremities: No cyanosis, clubbing, or pedal edema. This is wild Neuro: Lethargic, Oriented to person, time and place, Gross neurological examination did not reveal any focal deficits. Cranial nerves II to XII grossly intact. Bilateral upper and lower extremity muscle strength intact and sensation intact. Psych: well appearing, appropriate affect Data Received Today: Pertinent Labs: Blood culture showing no growth after 24 hours, WBC 6.3, Hgb 10.4, sodium 138, glucose 67, AST 243, ALT 162, alk phos 196 Imaging: CXR currently interpreted showing pulmonary edema Assessment/Plan: Patient is a 84-year-old female CAD, hypertension, hyperlipidemia, Parkinson's, and depression who came to the ED with chief complaint of weakness and a fall. Active: Septic shock Acute hypoxic respiratory failure secondary to Influenza A infection Chest x-ray showed bibasilar atelectasis and/or acute infiltrates Patient currently off BiPAP, on 1 L nasal cannula Continue DuoNebs 4 times daily and every 2 hours as needed Continue Zithromax 500 mg daily Cefepime discontinued, started on ceftriaxone 2 g every 24 hours Discussed with pulmonology Lasix 20 mg IV once Procalcitonin 29.2 Blood cultures showing no growth after 24 hours Sputum culture showing sputum unsatisfactory for culture MRSA nares, sputum culture, Legionella urine ordered Patient is agreeable to IV pressor support although does not wish to undergo CPR or be placed on a ventilator Elevated troponin and NT proBNP NSTEMI Continue aspirin 81 mg daily Continue atorvastatin 10 mg p.o. at bedtime Troponin 0.860 => 1.730 => 1.280 Follow-up echocardiogram Patient currently denying chest discomfort Cardiac monitoring Neurology note reviewed, recommending discontinuing heparin drip Possible acute cholecystitis Transaminitis Ischemic hepatitis vs congestive hepatopathy U/S liver Doppler showing cholelithiasis with mild wall thickening and borderline biliary duct dilatation, mild pericholecystic fluid seen. Findings suspicious for acute cholecystitis. Hepatic veins appear to be patent Surgery note reviewed, unsure if she would undergo any surgical procedure, poor surgical candidate, if infection source is that gallbladder consider cholecystotomy tube Continue with Flagyl 500 IV every 8 hours, and ceftriaxone 2 g every 24 hours Normocytic anemia Continue to monitor with follow-up CBC Mechanical fall of unknown etiology CT of head and cervical spine showed no acute intracranial process, multilevel wedge compression deformities, multilevel degenerative disc disease X-ray of the pelvis shows no discrete fracture Fall precautions PT consult Chronic: Hypertension Hold atenolol 25 mg daily Hold lisinopril 5 mg daily Hyperlipidemia Continue simvastatin 20 mg p.o. at bedtime Parkinson's Continue Mirapex 0.5 mg twice daily Depression Continue sertraline 25 mg p.o. at bedtime GERD Continue omeprazole 20 mg Resolved: Hyponatremia, likely secondary to dehydration Lactic acidosis, likely secondary to dehydration Non-anion gap metabolic acidosis F: N/A E: Replete as needed N: Heart healthy A: Fall precautions DVT ppx: Lovenox 40 mg SQ daily Code status: NO CODE, okay with vasopressors Anticipated discharge place: Pending clinical course Anticipated discharge time: Pending clinical course Galina Pelletier MD PGY-1 IM Dictation was produced using [employer] dictation software. please excuse any grammatical, word or spelling errors. I have seen and evaluated the patient today. Discussed with the resident and agree with the residents finding and plan as documented in the resident's note. Changes highlighted in blue font. Objective - Vital Signs Vital signs: Vital Signs Temp 97.9 F 11/23/24 06:00 Pulse 77 11/23/24 06:00 Resp 27 H 11/23/24 06:00 BP 126/92 11/23/24 06:00 Pulse Ox 96 11/23/24 06:00 FiO2 35 11/22/24 07:28 Intake & Output 11/22/24 11/22/24 11/23/24 06:59 18:59 06:59 Intake Total 871.321 982.299 Output Total 200 1200 Balance 671.321 -217.701 Weight 60.781 kg 71.8 kg Intake: IV 825 440 Sodium Chloride 0.9% 1, 825 100 000 ml @ 125 mls/hr IV . Q8H [facility] Rx#:[id number] kvo 340 Intake, IV Titration 46.321 42.299 Amount Heparin Sod,Pork in 0.45% 43.966 42.299 NaCl 25,000 unit In 0.45 % NaCl 1 250ml.bag @ 12 UNITS/KG/HR 7.294 mls/hr IV .Q24H [facility] Rx#: [id number] Norepinephrine 4 mg In 2.355 Sodium Chloride 0.9% 250 ml @ 0.01 MCG/KG/MIN 2. 316 mls/hr IV .Q24H [facility] Rx#:[id number] Oral 0 500 Output: Urine 200 1200 Other: Voiding Method Incontinent Incontinent External Catheter External Catheter # Voids 1 - Labs CBC & Chem 7: 11/23/24 06:15 11/23/24 07:48 Labs: Abnormal Lab Results - Last 24 Hours (Table) 11/22/24 11/22/24 11/22/24 Range/Units 06:25 06:25 06:30 RBC 3.67 L (3.80-5.40) m/uL Hgb 10.2 L (11.4-16.0) gm/dL Hct 32.2 L (34.0-46.0) % Lymphocytes # 0.7 L (1.0-4.8) k/uL APTT (22.0-30.0) sec Chloride 109 H (98-107) mmol/L Carbon Dioxide 20 L (22-30) mmol/L BUN 21 H (7-17) mg/dL Calcium 7.4 L (8.4-10.2) mg/dL Total Bilirubin 0.1 L (0.2-1.3) mg/dL AST 329 H (14-36) U/L ALT 156 H (4-34) U/L Alkaline Phosphatase 183 H (38-126) U/L Troponin I (0.000-0.034) ng/mL Total Protein 5.0 L (6.3-8.2) g/dL Albumin 2.6 L (3.5-5.0) g/dL Procalcitonin 29.20 H (0.02-0.50) ng/mL 11/22/24 11/22/24 11/22/24 Range/Units 10:30 14:15 17:09 RBC (3.80-5.40) m/uL Hgb (11.4-16.0) gm/dL Hct (34.0-46.0) % Lymphocytes # (1.0-4.8) k/uL APTT >200.0 H* (22.0-30.0) sec Chloride (98-107) mmol/L Carbon Dioxide (22-30) mmol/L BUN (7-17) mg/dL Calcium (8.4-10.2) mg/dL Total Bilirubin (0.2-1.3) mg/dL AST (14-36) U/L ALT (4-34) U/L Alkaline Phosphatase (38-126) U/L Troponin I 1.730 H* 1.280 H* (0.000-0.034) ng/mL Total Protein (6.3-8.2) g/dL Albumin (3.5-5.0) g/dL Procalcitonin (0.02-0.50) ng/mL 11/23/24 Range/Units 02:57 RBC (3.80-5.40) m/uL Hgb (11.4-16.0) gm/dL Hct (34.0-46.0) % Lymphocytes # (1.0-4.8) k/uL APTT 135.5 H* (22.0-30.0) sec Chloride (98-107) mmol/L Carbon Dioxide (22-30) mmol/L BUN (7-17) mg/dL Calcium (8.4-10.2) mg/dL Total Bilirubin (0.2-1.3) mg/dL AST (14-36) U/L ALT (4-34) U/L Alkaline Phosphatase (38-126) U/L Troponin I (0.000-0.034) ng/mL Total Protein (6.3-8.2) g/dL Albumin (3.5-5.0) g/dL Procalcitonin (0.02-0.50) ng/mL Microbiology - Last 24 Hours (Table) 11/22/24 16:00 Gram Stain - Final Sputum Sputum Culture - Final
--- NOTE | 2024-11-23 14:02 | P.PN ---
Subjective Progress Note Date: 11/23/24 SURGICAL PROGRESS NOTE CHIEF COMPLAINT: Fall HISTORY OF PRESENT ILLNESS: Surgical service is following in regards to patient's cholecystitis. She is lying in bed comfortably. She is on nasal cannula. She is in the ICU for sepsis, acute hypoxic respiratory failure and influenza A positive. Patient also diagnosed with a non-ST elevated NH and followed by cardiology. They have discontinued the IV heparin. Patient reports no abdominal pain. She denies any nausea or vomiting. She did eat applesauce for breakfast this morning. Afebrile. WBC 6.3 Hgb 10.4 platelets 138 total bilirubin 0.4 AST 243 ALT 162 alk phos 156 AST and alk phos trending down. ALT slightly more elevated. PHYSICAL EXAM: VITAL SIGNS: Reviewed. GENERAL: no acute distress. ABDOMEN: Soft. Nondistended. Tenderness with palpation of the right upper quadrant with deep palpation NEUROLOGIC: Alert and oriented. Cranial nerves II through XII grossly intact. ASSESSMENT: 1. Cholecystitis. Right upper quadrant tenderness on exam. Liver ultrasound reported cholelithiasis with mild wall thickening and borderline biliary ductal dilatation. Mild pericholecystic fluid 2. Influenza A positive 3. Sepsis present on admission 4. Acute hypoxic respiratory failure 5. Elevated troponin 6. Elevated BNP PLAN: -Continue low-fat diet -Continue to monitor -Patient is not a good surgical candidate due to both respiratory and cardiac issues. -If patient requiring intervention would recommend cholecystostomy tube Physician [employer] Operator note has been reviewed by physician. Signing provider agrees with the documented findings, assessment, and plan of care. Objective - Vital Signs Vital signs: Vital Signs Temp 98.4 F 11/23/24 08:00 Pulse 88 11/23/24 12:49 Resp 21 11/23/24 10:00 BP 127/69 11/23/24 10:00 Pulse Ox 96 11/23/24 10:00 FiO2 40 11/23/24 08:00 Intake & Output 11/22/24 11/23/24 11/23/24 18:59 06:59 18:59 Intake Total 871.321 982.299 55.094 Output Total 200 1200 Balance 671.321 -217.701 55.094 Weight 71.8 kg Intake: IV 825 440 40 Sodium Chloride 0.9% 1, 825 100 000 ml @ 125 mls/hr IV . Q8H [facility] Rx#:[id number] kvo 340 40 Intake, IV Titration 46.321 42.299 15.094 Amount Heparin Sod,Pork in 0.45% 43.966 42.299 15.094 NaCl 25,000 unit In 0.45 % NaCl 1 250ml.bag @ 12 UNITS/KG/HR 7.294 mls/hr IV .Q24H [facility] Rx#: [id number] Norepinephrine 4 mg In 2.355 Sodium Chloride 0.9% 250 ml @ 0.01 MCG/KG/MIN 2. 316 mls/hr IV .Q24H [facility] Rx#:[id number] Oral 0 500 Output: Urine 200 1200 Other: Voiding Method Incontinent Incontinent Incontinent External Catheter External Catheter External Catheter # Voids 1 - Labs CBC & Chem 7: 11/23/24 06:15 11/23/24 07:48 Labs: Abnormal Lab Results - Last 24 Hours (Table) 11/22/24 11/22/24 11/23/24 Range/Units 14:15 17:09 02:57 RBC (3.80-5.40) m/uL Hgb (11.4-16.0) gm/dL Hct (34.0-46.0) % Plt Count (150-450) k/uL Lymphocytes # (1.0-4.8) k/uL APTT >200.0 H* 135.5 H* (22.0-30.0) sec Chloride (98-107) mmol/L Glucose (74-99) mg/dL Calcium (8.4-10.2) mg/dL AST (14-36) U/L ALT (4-34) U/L Alkaline Phosphatase (38-126) U/L Troponin I 1.280 H* (0.000-0.034) ng/mL Total Protein (6.3-8.2) g/dL Albumin (3.5-5.0) g/dL 11/23/24 11/23/24 Range/Units 06:15 07:48 RBC 3.76 L (3.80-5.40) m/uL Hgb 10.4 L (11.4-16.0) gm/dL Hct 32.7 L (34.0-46.0) % Plt Count 138 L (150-450) k/uL Lymphocytes # 0.6 L (1.0-4.8) k/uL APTT (22.0-30.0) sec Chloride 108 H (98-107) mmol/L Glucose 67 L (74-99) mg/dL Calcium 8.1 L (8.4-10.2) mg/dL AST 243 H (14-36) U/L ALT 162 H (4-34) U/L Alkaline Phosphatase 156 H (38-126) U/L Troponin I (0.000-0.034) ng/mL Total Protein 5.3 L (6.3-8.2) g/dL Albumin 2.7 L (3.5-5.0) g/dL Microbiology - Last 24 Hours (Table) 11/21/24 21:03 Blood Culture - Preliminary Blood 11/22/24 16:00 Gram Stain - Final Sputum Sputum Culture - Final Assessment and Plan Assessment: 84 yo female w/ elevated LFTs, hx of budd chiari no indication for surgery at this time, patient is symptomatic at this time if patient does become symptomatic, recommend cholecystostomy tube as patient is high risk for surgery Time with Patient: Less than 30
[2024-11-23 15:20] VITALS: BMI 31.9
[2024-11-23] MEDS: HEPARIN SODIUM,PORCINE 5,000 UNIT/ML 1 ML VIAL SQ SCH (15:45)
[2024-11-23] MEDS: metroNIDAZOLE-NS PMX 500 MG in SALINE 1 100ML.BAG IVPB SCH (15:46)
[2024-11-24 03:43] LABS: Basophils % (A) 0 %; Eosinophils # (A) 0.1 k/uL (0-0.7); Eosinophils % (A) 1 %; HCT 31.7 % (34.0-46.0); HGB 9.9 gm/dL (11.4-16.0); Hypochromasia Marked; Lymphocytes # (A) 0.8 k/uL (1.0-4.8); Lymphocytes % (A) 14 %; MCH 27.7 pg (25.0-35.0); MCHC 31.4 g/dL (31.0-37.0); MCV 88.3 fL (80.0-100.0); Mean Platelet Volume 7.7; Monocytes # (A) 0.3 k/uL (0-1.0); Monocytes % (A) 6 %; Neutrophils # (A) 4.2 k/uL (1.3-7.7); Neutrophils % (A) 77 %; Platelet Count 140 k/uL (150-450); RBC 3.59 m/uL (3.80-5.40); RDW 13.5 % (11.5-15.5); WBC 5.5 k/uL (3.8-10.6)
[2024-11-24 04:03] LABS: ALT 121 U/L (4-34); AST 130 U/L (14-36); African American GFR (CKD) 83 (>60 ml/min/1.73 sqM); Albumin 2.6 g/dL (3.5-5.0); Alkaline Phosphatase 151 U/L (38-126); Anion Gap 7 mmol/L; Blood Urea Nitrogen 11 mg/dL (7-17); Calcium 8.2 mg/dL (8.4-10.2); Carbon Dioxide 25 mmol/L (22-30); Chloride 104 mmol/L (98-107); Glucose 95 mg/dL (74-99); Magnesium 1.8 mg/dL (1.6-2.3); Non-African American GFR(CKD) 72 (>60 ml/min/1.73 sqM); Potassium 3.3 mmol/L (3.5-5.1); Sodium 136 mmol/L (137-145); Total Bilirubin 0.3 mg/dL (0.2-1.3); Total Protein 5.1 g/dL (6.3-8.2)
[2024-11-24] MEDS: POTASSIUM CHLORIDE ER 20 MEQ TAB.ER PO STA (10:19)
[2024-11-24] MEDS: atenoloL 25 MG TAB PO SCH (10:19)
--- NOTE | 2024-11-24 11:04 | P.PN ---
Subjective Progress Note Date: 11/24/24 This is an 84-year-old female patient of Dr. Zhao with past medical history of coronary artery disease status post bypass grafting in 2010, dyslipidemia, hypertension, Parkinson's disease, peripheral vascular disease. Patient presented to the emergency center on 11/21 after a fall at [facility]. Patient required BiPAP initially and was positive for influenza A. Patient was initially in the intensive care unit as she required vasopressors cardiology was consulted due to elevated troponins. Patient was diagnosed with a non-ST HI. She was stabilized, weaned off vasopressors and BiPAP, transferred to the [facility] floor. Patient is seen today on the [facility] floor. Patient has been transferred from ICU. Patient denies having any chest pain, no breathing difficulties. She states she came into the hospital because she had a fall. She states she does not have any appetite. Blood pressure 145/85, heart rate 79, pulse ox 98% on 3 L nasal cannula. Repeat blood work reveals WBC 5.5, hemoglobin 9.9, sodium 136, potassium 3.3 and has been replaced. Liver enzymes are elevated with AST 130, ALT 121, alkaline phosphatase 151. Yesterday, patient received 1 dose of IV Lasix 20 mg for suspected heart failure. Echocardiogram reveals EF of 50%, RVSP 53, moderate right ventricle dilation, moderate to severe mitral calcification, mild mitral valve stenosis, moderate to severe mitral regurgitation, moderate tricuspid regurgitation, no pericardial effusion. Physical examination: Gen: This is an 84-year-old female in no acute distress VS: reviewed HEENT: Head is atraumatic, normocephalic. Pupils equal, round. Sclerae is anicteric. LUNGS: Bilateral rhonchi. No intercostal retractions. HEART: Regular rate and rhythm. Systolic murmur. ABDOMEN: Soft No tenderness. EXTREMITIES: No pedal edema. No calf tenderness. NEUROLOGICAL: Patient is awake, alert and oriented x3. Assessment: NSTEMI, type II secondary to acute respiratory failure, influenza, sepsis Acute influenza infection Acute hypoxic respiratory failure Sepsis with septic shock requiring vasopressors, weaned off vasopressors Fall and generalized weakness Anemia Elevated liver function test Possible acute cholecystitis with no plan for surgical intervention History of coronary artery disease with prior bypass grafting in 2010 Hypertension Dyslipidemia Plan: Continue patient on aspirin, atorvastatin Resume atenolol Hold lisinopril No plan for any additional cardiac workup at this time due to multiple acute conditions. Further recommendations to follow based upon clinical course Nurse practitioner note has been reviewed, I agree with documented findings and plan of care. Patient was seen and examined. Objective - Vital Signs Vital signs: Vital Signs Temp 97.9 F 11/24/24 07:08 Pulse 79 11/24/24 07:08 Resp 20 11/24/24 07:08 BP 145/85 11/24/24 07:08 Pulse Ox 98 11/24/24 07:08 FiO2 40 11/23/24 08:00 Intake & Output 11/23/24 11/24/24 11/24/24 18:59 06:59 18:59 Intake Total 55.094 Output Total 500 Balance -444.906 Weight 71.8 kg Intake: IV 40 kvo 40 Intake, IV Titration 15.094 Amount Heparin Sod,Pork in 0.45% 15.094 NaCl 25,000 unit In 0.45 % NaCl 1 250ml.bag @ 12 UNITS/KG/HR 7.294 mls/hr IV .Q24H [facility] Rx#: [id number] Output: Urine 500 Other: Voiding Method Incontinent Incontinent External Catheter External Catheter - Labs CBC & Chem 7: 11/24/24 02:56 11/24/24 02:56 Labs: Abnormal Lab Results - Last 24 Hours (Table) 11/24/24 11/24/24 Range/Units 02:56 02:56 RBC 3.59 L (3.80-5.40) m/uL Hgb 9.9 L (11.4-16.0) gm/dL Hct 31.7 L (34.0-46.0) % Plt Count 140 L (150-450) k/uL Lymphocytes # 0.8 L (1.0-4.8) k/uL Sodium 136 L (137-145) mmol/L Potassium 3.3 L (3.5-5.1) mmol/L Calcium 8.2 L (8.4-10.2) mg/dL AST 130 H (14-36) U/L ALT 121 H (4-34) U/L Alkaline Phosphatase 151 H (38-126) U/L Total Protein 5.1 L (6.3-8.2) g/dL Albumin 2.6 L (3.5-5.0) g/dL Microbiology - Last 24 Hours (Table) 11/22/24 13:25 Nasal Screen MRSA/MSSA - Final Nasopharyngeal Swab 11/21/24 21:03 Blood Culture - Preliminary Blood
--- NOTE | 2024-11-24 11:42 | P.PN ---
Subjective Progress Note Date: 11/24/24 Patient is a 84-year-old female with CAD, hypertension, hyperlipidemia, Parkinson's, depression who came into the ED with chief complaint of weakness and a fall. Further history regarding mechanism of fall was difficult to obtain due to patient's current clinical status. Per chart review, patient was febrile on arrival and deemed to be a poor historian. She did endorse feeling fatigued at the time of interview. She also reported feeling short of breath over the past few days with subjective fever and chills. Denies experiencing chest discomfort at the time of interview. Vitals on admission for 200.9, heart rate 104, respiratory rate 18, blood pressure 134/98, saturating 92% on 3 L nasal cannula then switched to BiPAP at an FiO2 of 50% and saturating 95% EKG independently interpreted as sinus tachycardia with rate of 103 bpm and QTc of 395 ms CXR shows chronic changes and cardiomegaly with new bibasilar atelectasis and/or acute infiltrates CT of head and cervical spine showed no acute intracranial process, multilevel wedge compression deformities, multilevel degenerative disc disease X-ray of the pelvis shows no discrete fracture Labs on admission show WBCs of 19 with left shift, hemoglobin 11.5, platelet 213. PT 12.3, INR 1.1, PTT 22.9. Sodium 134, potassium 4.3, chloride 100, bicarb 24, BUN 22, creatinine 0.95, glucose 119. Lactic acid 2.5, repeat 0.8. AST 57, ALT, ALP 168. CK102. Troponin 0.86. NT proBNP 4500. Cepheid positive for influenza A. Review of systems: Pertinent positives and negatives as discussed in HPI, a complete review of systems was performed and all other systems are negative. Subjective: 11/23/2024: Patient seen and evaluated bedside. No acute events overnight, no acute complaints. Patient states she is feeling slightly better. 11/24/2024: Patient seen evaluated bedside. No acute events overnight. Patient complaining of not feeling well. Pertinent positives and negatives as discussed above, a complete review of systems was performed and all other systems are negative. Vitals: Signs Reviewed Physical Exam: Vital signs reviewed General: Somewhat ill-appearing female, no distress, appears at stated age Derm: warm, dry, intact Head: atraumatic, normocephalic, symmetric Eyes: anicteric sclera Mouth: no lip lesion, mucus membranes moist Cardiovascular: S1 S2 reg, no murmur Lungs: Coarse breath sounds with rhonchi diffusely, no rales, no accessory muscle use Abdominal: soft, non-tender to palpation, nondistended Extremities: No cyanosis, clubbing, or pedal edema. This is wild Neuro: Lethargic, Oriented to person, time and place, Gross neurological examination did not reveal any focal deficits. Cranial nerves II to XII grossly intact. Bilateral upper and lower extremity muscle strength intact and sensation intact. Psych: well appearing, appropriate affect Data Received Today: Pertinent Labs: WBC 5.5, Hgb 9.9, MCV 88.3, sodium 136, potassium 3.3, AST 130, ALT 121, alk phos 151 MRSA/MSSA nares: No MRSA or MSSA isolated Imaging: No new imaging Assessment/Plan: Patient is a 84-year-old female CAD, hypertension, hyperlipidemia, Parkinson's, and depression who came to the ED with chief complaint of weakness and a fall. Active: Septic shock, resolved Acute hypoxic respiratory failure secondary to Influenza A infection Continue DuoNebs 4 times daily and every 2 hours as needed Continue with ceftriaxone 2 g every 24 hours Procalcitonin 29.2 Blood cultures showing no growth after 24 hours Sputum culture showing sputum unsatisfactory for culture MRSA/MSSA nares: No MRSA or MSSA isolated Patient is agreeable to IV pressor support although does not wish to undergo CPR or be placed on a ventilator Patient downgraded from ICU to [facility] floor Pulmonology note reviewed, continue management as above Speech therapy recommending dysphagia diet, no overt aspiration noted Elevated troponin and NT proBNP NSTEMI Continue aspirin 81 mg daily Continue atorvastatin 10 mg p.o. at bedtime Troponin 0.860 => 1.730 => 1.280 Echocardiogram EF 50%, RVSP 53, moderate right ventricular echo with Tatian Patient currently denying chest discomfort Cardiac monitoring Heparin drip switched to heparin SQ every 8 hours by cardiology Cardiology note reviewed, recommending discontinuing heparin drip, placed back on home atenolol Possible acute cholecystitis Transaminitis Ischemic hepatitis vs congestive hepatopathy U/S liver Doppler showing cholelithiasis with mild wall thickening and borderline biliary duct dilatation, mild pericholecystic fluid seen. Findings suspicious for acute cholecystitis. Hepatic veins appear to be patent Continue with Flagyl 500 IV every 8 hours, and ceftriaxone 2 g every 24 hours Surgery note reviewed, no plans for surgical intervention Hypokalemia Potassium 3.3 Replacement 40 mEq potassium chloride Normocytic anemia Continue to monitor with follow-up CBC Mechanical fall of unknown etiology CT of head and cervical spine showed no acute intracranial process, multilevel wedge compression deformities, multilevel degenerative disc disease X-ray of the pelvis shows no discrete fracture Fall precautions PT recommending short acute rehab Chronic: Hypertension Hold atenolol 25 mg daily Hold lisinopril 5 mg daily Hyperlipidemia Continue simvastatin 20 mg p.o. at bedtime Parkinson's Continue Mirapex 0.5 mg twice daily Depression Continue sertraline 25 mg p.o. at bedtime GERD Continue omeprazole 20 mg Resolved: Hyponatremia, likely secondary to dehydration Lactic acidosis, likely secondary to dehydration Non-anion gap metabolic acidosis F: N/A E: Replete as needed N: Heart healthy A: Fall precautions DVT ppx: Heparin SQ every 8 hours Code status: NO CODE, okay with vasopressors Anticipated discharge place: [facility] Anticipated discharge time: Likely 24-48 hours Galina Pelletier MD PGY-1 IM Dictation was produced using [employer] dictation software. please excuse any grammatical, word or spelling errors. I have seen and evaluated the patient today. Discussed with the resident and agree with the residents finding and plan as documented in the resident's note. Changes highlighted in blue font. Objective - Vital Signs Vital signs: Vital Signs Temp 97.9 F 11/24/24 07:08 Pulse 79 11/24/24 07:08 Resp 20 11/24/24 07:08 BP 145/85 11/24/24 07:08 Pulse Ox 98 11/24/24 07:08 FiO2 40 11/23/24 08:00 Intake & Output 11/23/24 11/24/24 11/24/24 18:59 06:59 18:59 Intake Total 55.094 Output Total 500 Balance -444.906 Weight 71.8 kg Intake: IV 40 kvo 40 Intake, IV Titration 15.094 Amount Heparin Sod,Pork in 0.45% 15.094 NaCl 25,000 unit In 0.45 % NaCl 1 250ml.bag @ 12 UNITS/KG/HR 7.294 mls/hr IV .Q24H [facility] Rx#: [id number] Output: Urine 500 Other: Voiding Method Incontinent Incontinent External Catheter External Catheter - Labs CBC & Chem 7: 11/24/24 02:56 11/24/24 02:56 Labs: Abnormal Lab Results - Last 24 Hours (Table) 11/23/24 11/24/24 11/24/24 Range/Units 07:48 02:56 02:56 RBC 3.59 L (3.80-5.40) m/uL Hgb 9.9 L (11.4-16.0) gm/dL Hct 31.7 L (34.0-46.0) % Plt Count 140 L (150-450) k/uL Lymphocytes # 0.8 L (1.0-4.8) k/uL Sodium 136 L (137-145) mmol/L Potassium 3.3 L (3.5-5.1) mmol/L Chloride 108 H (98-107) mmol/L Glucose 67 L (74-99) mg/dL Calcium 8.1 L 8.2 L (8.4-10.2) mg/dL AST 243 H 130 H (14-36) U/L ALT 162 H 121 H (4-34) U/L Alkaline Phosphatase 156 H 151 H (38-126) U/L Total Protein 5.3 L 5.1 L (6.3-8.2) g/dL Albumin 2.7 L 2.6 L (3.5-5.0) g/dL Microbiology - Last 24 Hours (Table) 11/22/24 13:25 Nasal Screen MRSA/MSSA - Final Nasopharyngeal Swab 11/21/24 21:03 Blood Culture - Preliminary Blood
--- NOTE | 2024-11-24 13:40 | P.PN ---
Subjective Progress Note Date: 11/24/24 Patient is 84-year-old female with past medical history significant for coronary artery disease with previous CABG, hypertension, hyperlipidemia, among other things. I was contacted by [facility] physician as the patient was hypotensive refractory to fluid resuscitation, and needed to be started on vasopressors. Currently, an overflow patient in the ED. Patient presented the emergency department late last night after having a fall at her assisted living facility. I believe she stays at [facility]. While in the emergency department, she was noted to have high fevers with a Tmax of 101.1 F. Also, has had a cough over the last 2 days. She did test positive for influenza A. Chest x-ray showing cardiomegaly, pulmonary vascular congestion, with new bibasilar atelectasis and/or less likely acute infiltrates. Patient was placed on BiPAP in the emergency department. She has received a total of 3.5 L normal saline form of fluid boluses. Despite this, reportedly remained hypotensive, and start ed on Levophed. I am currently evaluating the patient in the emergency department, room 16. She is on BiPAP with settings 12/5 and FiO2 of 40%. She is achieving adequate tidal volumes of around 400. Respiratory rate is nontachypneic and nonlabored. SpO2 is reading 100%. She is awake and appears alert on the BiPAP. She does follow commands appropriately. It is difficult to communicate as the patient is hard of hearing and on BiPAP. Normal saline is currently infusing at 125 mL/h. Patient also is on norepinephrine at 0.03 mcg/kg/min. Blood pressure is up to 110/[address] of the brain and C-spine done on arrival did not show any acute intracranial process. 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 Multi level wedge compression deformities throughout the visualized spine correlate with pain and MRI to exclude acute/subacute fracture. No obvious displaced spinal fracture. Multilevel degenerative disc disease. Calcified pleural plaquing noted. Most recent CBC: WC count 11, hemoglobin 9, hematocrit 28.3, platelets 152. CMP: Sodium 135, potassium 3.8, chloride 107, serum bicarb 22, BUN 21, creatinine 0.9, glucose 99. Lactic was 2.5 and is down to 0.8. Magnesium 1.7. LFTs mildly elevated. Troponin initially 0.86. EKG: Sinus tachycardia, rate 103 bpm, minimal diffuse ST depressions. NT proBNP was elevated at 4500. She has been started on combination of empiric antibiotics in the form of azithromycin and cefepime, as well as, Tamiflu. Progress note dated November 23, 2024. 84-year-old female seen in consultation yesterday. Please see my note above. The patient was admitted with a diagnosis of weakness, and influenza. She was admitted to the intensive care unit, because she required fluid resuscitation, and vasopressors. Currently, she is seen today in room 253. She is on 2 L. She continues on heparin via weight-based protocol for a non-ST segment elevation myocardial infarction. In addition, she is getting saline at KVO, as well as a number of different antibiotics including azithromycin, cefepime, Flagyl, and Tamiflu. She will get some Lasix 20 mg IV push today. Her procalcitonin level was 29.2. Current laboratory includes a white count 6.3, hemoglobin 10.4, macro 32.7, platelet count 138,000. Sodium 138, potassium 3.9, chlorides 108, CO2 22, BUN 16, creatinine 0.8. AST is 243. ALT is 162. Albumin 2.7. Sputum sampling is thus far negative. Chest x-ray shows possible CHF. Ultrasound of the abdomen suggest cholelithiasis and possible acute cholecystitis. The patient is seen today November 24, 2024 in follow-up on the regular medical floor. She is currently resting in bed. Awake and alert in no acute distress. Maintaining good O2 saturations in the 90s on 3 L/min per nasal cannula. She is receiving normal saline at 10 mL/h. Blood cultures revealed no growth. Sputum culture revealed no growth. White count 5.5. Hemoglobin 9.9. Platelets 140. Sodium 136. Potassium 3.3. Bicarb 25. BUN 11. Creatinine 0.77. AST 130. ALT 121. She remains on DuoNeb inhalations, ceftriaxone and Flagyl. Remains on Tamiflu. Objective - Vital Signs Vital signs: Vital Signs Temp 97.9 F 11/24/24 07:08 Pulse 88 11/24/24 13:01 Resp 18 11/24/24 13:01 BP 145/85 11/24/24 07:08 Pulse Ox 98 11/24/24 07:08 FiO2 40 11/23/24 08:00 Intake & Output 11/23/24 11/24/24 11/24/24 18:59 06:59 18:59 Intake Total 55.094 Output Total 500 Balance -444.906 Weight 71.8 kg Intake: IV 40 kvo 40 Intake, IV Titration 15.094 Amount Heparin Sod,Pork in 0.45% 15.094 NaCl 25,000 unit In 0.45 % NaCl 1 250ml.bag @ 12 UNITS/KG/HR 7.294 mls/hr IV .Q24H [facility] Rx#: [id number] Output: Urine 500 Other: Voiding Method Incontinent Incontinent Incontinent External Catheter External Catheter External Catheter - Exam GENERAL EXAM: Alert, 84-year-old female, on 3 L/min per nasal cannula, resting comfortably in bed. Nondistressed. HEAD: Normocephalic and atraumatic EYES: Normal reaction of pupils, equal size. NOSE: Clear with pink turbinates. THROAT: No erythema or exudates. NECK: No masses, no JVD. CHEST: No chest wall deformity. LUNGS: Equal air entry with coarse rhonchi bilaterally and bibasilar crackles. No conversational dyspnea. CVS: S1 and S2 normal with no audible murmur, regular rhythm. No extra heart sounds ABDOMEN: No hepatosplenomegaly, active bowel sounds, no guarding or rigidity. SPINE: No scoliosis or deformity SKIN: No rashes CENTRAL NERVOUS SYSTEM: No focal deficits, tone is normal in all 4 extremities. EXTREMITIES: There is no peripheral edema, clubbing, or cyanosis. Peripheral pulses are intact. - Labs CBC & Chem 7: 11/24/24 02:56 11/24/24 02:56 Labs: Abnormal Lab Results - Last 24 Hours (Table) 11/24/24 11/24/24 Range/Units 02:56 02:56 RBC 3.59 L (3.80-5.40) m/uL Hgb 9.9 L (11.4-16.0) gm/dL Hct 31.7 L (34.0-46.0) % Plt Count 140 L (150-450) k/uL Lymphocytes # 0.8 L (1.0-4.8) k/uL Sodium 136 L (137-145) mmol/L Potassium 3.3 L (3.5-5.1) mmol/L Calcium 8.2 L (8.4-10.2) mg/dL AST 130 H (14-36) U/L ALT 121 H (4-34) U/L Alkaline Phosphatase 151 H (38-126) U/L Total Protein 5.1 L (6.3-8.2) g/dL Albumin 2.6 L (3.5-5.0) g/dL Microbiology - Last 24 Hours (Table) 11/21/24 21:03 Blood Culture - Preliminary Blood 11/22/24 13:25 Nasal Screen MRSA/MSSA - Final Nasopharyngeal Swab Assessment and Plan Assessment: Acute influenza A infection Suspect acute CHF exacerbation, unknown ejection fraction Acute hypoxemic respiratory failure, currently on BiPAP, chest x-ray demonstrating cardiomegaly with pulmonary vascular congestion and bibasilar atelectasis and/or less likely acute infiltrates. NT proBNP and elevated at 45 00 Sepsis/septic shock, with hypotension refractory to fluid resuscitation, initially on low-dose norepinephrine, recovered Acute leukocytosis Acute febrile illness Elevated troponins, rule out non-ST elevation PA Fall, unspecified; CT of the brain and C-spine done on arrival did not show any acute intracranial process. 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 Multi level wedge compression deformities throughout the visualized spine. No obvious displaced spinal fracture. Multilevel degenerative disc disease. Normocytic, normochromic anemia; possibly hemodilutional, monitor for acute blood loss History of hypertension History of hyperlipidemia History of coronary artery disease with previous CABG History of anxiety/depression History of Parkinson's disease Plan: The patient was seen and evaluated Labs and medications reviewed Currently on 3 L nasal cannula Continue antibiotics Continue Tamiflu Titrate the FiO2 as tolerated Increase activity as tolerated DNR CODE STATUS Plan is for [facility] with home care at discharge I have personally seen and examined the patient, performed the documentation and the assessment and plan as written. Number of minutes spent on the visit: 10 Dictation was produced using [employer] dictation software. Please excuse any grammatical, word or spelling errors.
[2024-11-25 07:11] LABS: Basophils % (A) 1 %; Eosinophils # (A) 0.1 k/uL (0-0.7); Eosinophils % (A) 3 %; HCT 32.7 % (34.0-46.0); HGB 10.4 gm/dL (11.4-16.0); Hypochromasia Moderate; Lymphocytes % (A) 22 %; MCH 27.8 pg (25.0-35.0); MCV 86.9 fL (80.0-100.0); Mean Platelet Volume 8.1; Monocytes # (A) 0.4 k/uL (0-1.0); Monocytes % (A) 8 %; Neutrophils # (A) 2.9 k/uL (1.3-7.7); Neutrophils % (A) 64 %; Platelet Count 141 k/uL (150-450); RBC 3.76 m/uL (3.80-5.40); RDW 13.4 % (11.5-15.5); WBC 4.5 k/uL (3.8-10.6)
[2024-11-25 07:27] LABS: ALT 85 U/L (4-34); AST 65 U/L (14-36); African American GFR (CKD) >90 (>60 ml/min/1.73 sqM); Albumin 2.6 g/dL (3.5-5.0); Alkaline Phosphatase 143 U/L (38-126); Anion Gap 3 mmol/L; Blood Urea Nitrogen 8 mg/dL (7-17); Calcium 8.4 mg/dL (8.4-10.2); Carbon Dioxide 31 mmol/L (22-30); Chloride 104 mmol/L (98-107); Globulin 2.6 g/dL; Glucose 99 mg/dL (74-99); Magnesium 1.8 mg/dL (1.6-2.3); Non-African American GFR(CKD) 82 (>60 ml/min/1.73 sqM); Potassium 4.2 mmol/L (3.5-5.1); Sodium 138 mmol/L (137-145); Total Bilirubin 0.3 mg/dL (0.2-1.3); Total Protein 5.2 g/dL (6.3-8.2)
--- NOTE | 2024-11-25 13:08 | P.PN ---
Subjective Progress Note Date: 11/25/24 Patient is 84-year-old female with past medical history significant for coronary artery disease with previous CABG, hypertension, hyperlipidemia, among other things. I was contacted by Sound physician as the patient was hypotensive refractory to fluid resuscitation, and needed to be started on vasopressors. Currently, an overflow patient in the ED. Patient presented the emergency department late last night after having a fall at her assisted living facility. I believe she stays at [facility]. While in the emergency department, she was noted to have high fevers with a Tmax of 101.1 F. Also, has had a cough over the last 2 days. She did test positive for influenza A. Chest x-ray showing cardiomegaly, pulmonary vascular congestion, with new bibasilar atelectasis and/or less likely acute infiltrates. Patient was placed on BiPAP in the emergency department. She has received a total of 3.5 L normal saline form of fluid boluses. Despite this, reportedly remained hypotensive, and start ed on Levophed. I am currently evaluating the patient in the emergency department, room 16. She is on BiPAP with settings 12/5 and FiO2 of 40%. She is achieving adequate tidal volumes of around 400. Respiratory rate is nontachypneic and nonlabored. SpO2 is reading 100%. She is awake and appears alert on the BiPAP. She does follow commands appropriately. It is difficult to communicate as the patient is hard of hearing and on BiPAP. Normal saline is currently infusing at 125 mL/h. Patient also is on norepinephrine at 0.03 mcg/kg/min. Blood pressure is up to 110/[address] of the brain and C-spine done on arrival did not show any acute intracranial process. 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 Multi level wedge compression deformities throughout the visualized spine correlate with pain and MRI to exclude acute/subacute fracture. No obvious displaced spinal fracture. Multilevel degenerative disc disease. Calcified pleural plaquing noted. Most recent CBC: WC count 11, hemoglobin 9, hematocrit 28.3, platelets 152. CMP: Sodium 135, potassium 3.8, chloride 107, serum bicarb 22, BUN 21, creatinine 0.9, glucose 99. Lactic was 2.5 and is down to 0.8. Magnesium 1.7. LFTs mildly elevated. Troponin initially 0.86. EKG: Sinus tachycardia, rate 103 bpm, minimal diffuse ST depressions. NT proBNP was elevated at 4500. She has been started on combination of empiric antibiotics in the form of azithromycin and cefepime, as well as, Tamiflu. Progress note dated November 23, 2024. 84-year-old female seen in consultation yesterday. Please see my note above. The patient was admitted with a diagnosis of weakness, and influenza. She was admitted to the intensive care unit, because she required fluid resuscitation, and vasopressors. Currently, she is seen today in room 253. She is on 2 L. She continues on heparin via weight-based protocol for a non-ST segment elevation myocardial infarction. In addition, she is getting saline at KVO, as well as a number of different antibiotics including azithromycin, cefepime, Flagyl, and Tamiflu. She will get some Lasix 20 mg IV push today. Her procalcitonin level was 29.2. Current laboratory includes a white count 6.3, hemoglobin 10.4, macro 32.7, platelet count 138,000. Sodium 138, potassium 3.9, chlorides 108, CO2 22, BUN 16, creatinine 0.8. AST is 243. ALT is 162. Albumin 2.7. Sputum sampling is thus far negative. Chest x-ray shows possible CHF. Ultrasound of the abdomen suggest cholelithiasis and possible acute cholecystitis. The patient is seen today November 24, 2024 in follow-up on the regular medical floor. She is currently resting in bed. Awake and alert in no acute distress. Maintaining good O2 saturations in the 90s on 3 L/min per nasal cannula. She is receiving normal saline at 10 mL/h. Blood cultures revealed no growth. Sputum culture revealed no growth. White count 5.5. Hemoglobin 9.9. Platelets 140. Sodium 136. Potassium 3.3. Bicarb 25. BUN 11. Creatinine 0.77. AST 130. ALT 121. She remains on DuoNeb inhalations, ceftriaxone and Flagyl. Remains on Tamiflu. The patient is seen today November 25, 2024 in follow-up on the regular medical floor. She is awake and alert in no acute distress. Resting fairly comfortably in bed. She is maintaining good O2 saturations in the 90s on 3 L/min per nasal cannula. She remains on Tamiflu. Continued on ceftriaxone and Flagyl. White count 4.5. Hemoglobin 10.4. Platelets 141. Sodium 138. Potassium 4.2. Bi carb 31. BUN 8. Creatinine 0.66. Glucose 99. AST 65. ALT 85. Alk phos 143. She is continued on DuoNeb inhalations. Heparin for DVT prophylaxis. Objective - Vital Signs Vital signs: Vital Signs Temp 98.2 F 11/25/24 06:58 Pulse 76 11/25/24 11:26 Resp 22 11/25/24 06:58 BP 146/102 11/25/24 06:58 Pulse Ox 96 11/25/24 07:29 FiO2 40 11/23/24 08:00 Intake & Output 11/24/24 11/25/24 11/25/24 18:59 06:59 18:59 Output Total 300 1525 Balance -300 -1525 Output: Urine 300 1525 Other: Voiding Method Incontinent Incontinent Incontinent External Catheter External Catheter External Catheter # Voids 1 - Exam GENERAL EXAM: Alert, pleasant 84-year-old female, on 3 L/min per nasal cannula, resting in bed. HEAD: Normocephalic and atraumatic EYES: Normal reaction of pupils, equal size. NOSE: Clear with pink turbinates. THROAT: No erythema or exudates. NECK: No masses, no JVD. CHEST: No chest wall deformity. LUNGS: Equal air entry with coarse rhonchi bilaterally and bibasilar crackles. No conversational dyspnea. CVS: S1 and S2 normal with no audible murmur, regular rhythm. No extra heart sounds ABDOMEN: No hepatosplenomegaly, active bowel sounds, no guarding or rigidity. SPINE: No scoliosis or deformity SKIN: No rashes CENTRAL NERVOUS SYSTEM: No focal deficits, tone is normal in all 4 extremities. EXTREMITIES: There is no peripheral edema, clubbing, or cyanosis. Peripheral pulses are intact. - Labs CBC & Chem 7: 11/25/24 06:43 11/25/24 06:43 Labs: Abnormal Lab Results - Last 24 Hours (Table) 11/25/24 11/25/24 Range/Units 06:43 06:43 RBC 3.76 L (3.80-5.40) m/uL Hgb 10.4 L (11.4-16.0) gm/dL Hct 32.7 L (34.0-46.0) % Plt Count 141 L (150-450) k/uL Carbon Dioxide 31 H (22-30) mmol/L AST 65 H (14-36) U/L ALT 85 H (4-34) U/L Alkaline Phosphatase 143 H (38-126) U/L Total Protein 5.2 L (6.3-8.2) g/dL Albumin 2.6 L (3.5-5.0) g/dL Microbiology - Last 24 Hours (Table) 11/21/24 21:03 Blood Culture - Preliminary Blood Assessment and Plan Assessment: Acute influenza A infection Suspect acute CHF exacerbation, diastolic, preserved left ventricular systolic function with ejection fraction of 50% Acute hypoxemic respiratory failure, secondary to above, chest x-ray demonstrating cardiomegaly with pulmonary vascular congestion and bibasilar atelectasis and/or less likely acute infiltrates. NT proBNP and elevated at 4500 Sepsis/septic shock, with hypotension refractory to fluid resuscitation, init ially on low-dose norepinephrine, recovered Acute leukocytosis Acute febrile illness Elevated troponins, rule out non-ST elevation DC Fall, unspecified; CT of the brain and C-spine done on arrival did not show any acute intracranial process. 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 Multi level wedge compression deformities throughout the visualized spine. No obvious displaced spinal fracture. Multilevel degenerative disc disease. Normocytic, normochromic anemia; possibly hemodilutional, monitor for acute blood loss History of hypertension History of hyperlipidemia History of coronary artery disease with previous CABG History of anxiety/depression History of Parkinson's disease Plan: The patient was seen and evaluated Labs and medications reviewed Currently on 3 L nasal cannula Titrate the FiO2 as tolerated Increase activity as tolerated DNR CODE STATUS Plan is for [facility] with home care at discharge I have personally seen and examined the patient, performed the documentation and the assessment and plan as written. Number of minutes spent on the visit: 10 Dictation was produced using Inter[employer] dictation software. Please excuse any grammatical, word or spelling errors.
--- NOTE | 2024-11-25 13:41 | P.PN ---
Subjective Progress Note Date: 11/25/24 Patient is a 84-year-old female with CAD, hypertension, hyperlipidemia, Parkinson's, depression who came into the ED with chief complaint of weakness and a fall. Further history regarding mechanism of fall was difficult to obtain due to patient's current clinical status. Per chart review, patient was febrile on arrival and deemed to be a poor historian. She did endorse feeling fatigued at the time of interview. She also reported feeling short of breath over the past few days with subjective fever and chills. Denies experiencing chest discomfort at the time of interview. Vitals on admission for 200.9, heart rate 104, respiratory rate 18, blood pressure 134/98, saturating 92% on 3 L nasal cannula then switched to BiPAP at an FiO2 of 50% and saturating 95% EKG independently interpreted as sinus tachycardia with rate of 103 bpm and QTc of 395 ms CXR shows chronic changes and cardiomegaly with new bibasilar atelectasis and/or acute infiltrates CT of head and cervical spine showed no acute intracranial process, multilevel wedge compression deformities, multilevel degenerative disc disease X-ray of the pelvis shows no discrete fracture Labs on admission show WBCs of 19 with left shift, hemoglobin 11.5, platelet 213. PT 12.3, INR 1.1, PTT 22.9. Sodium 134, potassium 4.3, chloride 100, bicarb 24, BUN 22, creatinine 0.95, glucose 119. Lactic acid 2.5, repeat 0.8. AST 57, ALT, ALP 168. CK102. Troponin 0.86. NT proBNP 4500. Cepheid positive for influenza A. Review of systems: Pertinent positives and negatives as discussed in HPI, a complete review of systems was performed and all other systems are negative. Subjective: 11/23/2024: Patient seen and evaluated bedside. No acute events overnight, no acute complaints. Patient states she is feeling slightly better. 11/24/2024: Patient seen evaluated bedside. No acute events overnight. Patient complaining of not feeling well. 11/25/2024: Patient seen and evaluated bedside. No acute events overnight. When asked patient states she is not feeling well and thinks she is getting worse. She reports of harming herself and suicidal ideation. Reports of depressed mood for over 2 weeks, not eating as well. Pertinent positives and negatives as discussed above, a complete review of systems was performed and all other systems are negative. Vitals: Signs Reviewed Physical Exam: Vital signs reviewed General: Somewhat ill-appearing female, no distress, appears at stated age Derm: warm, dry, intact Head: atraumatic, normocephalic, symmetric Eyes: anicteric sclera Mouth: no lip lesion, mucus membranes moist Cardiovascular: S1 S2 reg, no murmur Lungs: Coarse breath sounds with rhonchi diffusely, no rales, no accessory mus naveen use Abdominal: soft, non-tender to palpation, nondistended Extremities: No cyanosis, clubbing, or pedal edema. Neuro: Lethargic, Oriented to person, time and place, Gross neurological examination did not reveal any focal deficits. Cranial nerves II to XII grossly intact. Bilateral upper and lower extremity muscle strength intact and sensation intact. Psych: well appearing, appropriate affect Data Received Today: Pertinent Labs: WBC 4.5, hemoglobin 10.4, platelet 141, creatinine 0.66, total bili 0.3, AST 65, ALT 85, ALP 143 Imaging: No new imaging Assessment/Plan: Patient is a 84-year-old female CAD, hypertension, hyperlipidemia, Parkinson's, and depression who came to the ED with chief complaint of weakness and a fall. Active: Septic shock, resolved Acute hypoxic respiratory failure secondary to Influenza A infection Continue DuoNebs 4 times daily and every 2 hours as needed Procalcitonin 29.2 Blood cultures showing no growth after 72 hours Sputum culture showing sputum unsatisfactory for culture MRSA/MSSA nares: No MRSA or MSSA isolated Patient is agreeable to IV pressor support although does not wish to undergo CPR or be placed on a ventilator [facility] Pulmonology note reviewed, continue management as above Speech therapy recommending dysphagia diet, no overt aspiration noted Elevated troponin and NT proBNP NSTEMI Continue aspirin 81 mg daily Continue atorvastatin 10 mg p.o. at bedtime Troponin 0.860 => 1.730 => 1.280 Echocardiogram EF 50%, RVSP 53, moderate right ventricular dilatation Patient currently denying chest discomfort Cardiac monitoring Heparin drip switched to heparin SQ every 8 hours by cardiology Cardiology following, continue home atenolol Possible acute cholecystitis Transaminitis Ischemic hepatitis vs congestive hepatopathy U/S liver Doppler showing cholelithiasis with mild wall thickening and borderline biliary duct dilatation, mild pericholecystic fluid seen. Findings suspicious for acute cholecystitis. Hepatic veins appear to be patent Continue with Flagyl 500 IV every 8 hours, and ceftriaxone 2 g every 24 hours Continue with Rocephin 2 g every 24 hours Surgery following, no plans for surgical intervention Depression Continue sertraline 25 mg p.o. at bedtime, consider increasing dose Patient reported of harming herself Psych consult Normocytic anemia Continue to monitor with follow-up CBC Mechanical fall of unknown etiology CT of head and cervical spine showed no acute intracranial process, multilevel wedge compression deformities, multilevel degenerative disc disease X-ray of the pelvis shows no discrete fracture Fall precautions PT recommending short acute rehab Chronic: Hypertension Continue atenolol 25 mg daily Hold lisinopril 5 mg daily Hyperlipidemia Continue simvastatin 20 mg p.o. at bedtime Parkinson's Continue Mirapex 0.5 mg twice daily GERD Continue omeprazole 20 mg Resolved: Hyponatremia, likely secondary to dehydration Lactic acidosis, likely secondary to dehydration Non-anion gap metabolic acidosis Hyperkalemia F: N/A E: Replete as needed N: Heart healthy A: Fall precautions DVT ppx: Heparin SQ every 8 hours Code status: NO CODE, okay with vasopressors Anticipated discharge place: [facility] Anticipated discharge time: Likely 24-48 hours Galina Pelletier MD PGY-1 IM Dictation was produced using [employer] dictation software. please excuse any grammatical, word or spelling errors. I have seen and evaluated the patient today. Discussed with the resident and agree with the residents finding and plan as documented in the resident's note. Changes highlighted in blue font. Objective - Vital Signs Vital signs: Vital Signs Temp 97.8 F 11/25/24 01:28 Pulse 85 11/25/24 01:28 Resp 19 11/25/24 01:28 BP 143/82 11/25/24 01:28 Pulse Ox 98 11/25/24 01:28 FiO2 40 11/23/24 08:00 Intake & Output 11/24/24 11/24/24 11/25/24 06:59 18:59 06:59 Output Total 300 1525 Balance -300 -1525 Output: Urine 300 1525 Other: Voiding Method Incontinent Incontinent Incontinent External Catheter External Catheter External Catheter # Voids 1 - Labs CBC & Chem 7: 11/25/24 06:43 11/25/24 06:43 Labs: Microbiology - Last 24 Hours (Table) 11/21/24 21:03 Blood Culture - Preliminary Blood
[2024-11-25] MEDS: guaiFENesin 600 MG TABLET.ER PO PRN (21:50)
[2024-11-26 05:06] LABS: Basophils % (A) 1 %; Eosinophils # (A) 0.2 k/uL (0-0.7); Eosinophils % (A) 3 %; HCT 33.7 % (34.0-46.0); HGB 10.5 gm/dL (11.4-16.0); Hypochromasia Marked; Lymphocytes # (A) 1.2 k/uL (1.0-4.8); Lymphocytes % (A) 22 %; MCH 27.2 pg (25.0-35.0); MCHC 31.2 g/dL (31.0-37.0); MCV 87.3 fL (80.0-100.0); Mean Platelet Volume 7.9; Monocytes # (A) 0.3 k/uL (0-1.0); Monocytes % (A) 6 %; Neutrophils # (A) 3.6 k/uL (1.3-7.7); Neutrophils % (A) 65 %; Platelet Count 145 k/uL (150-450); RBC 3.86 m/uL (3.80-5.40); RDW 13.4 % (11.5-15.5); WBC 5.5 k/uL (3.8-10.6)
[2024-11-26 05:21] LABS: ALT 64 U/L (4-34); AST 46 U/L (14-36); African American GFR (CKD) >90 (>60 ml/min/1.73 sqM); Albumin 2.6 g/dL (3.5-5.0); Alkaline Phosphatase 138 U/L (38-126); Anion Gap 3 mmol/L; Blood Urea Nitrogen 12 mg/dL (7-17); Calcium 8.6 mg/dL (8.4-10.2); Carbon Dioxide 32 mmol/L (22-30); Chloride 104 mmol/L (98-107); Globulin 2.5 g/dL; Glucose 97 mg/dL (74-99); Magnesium 1.8 mg/dL (1.6-2.3); Non-African American GFR(CKD) 82 (>60 ml/min/1.73 sqM); Potassium 4.2 mmol/L (3.5-5.1); Sodium 139 mmol/L (137-145); Total Bilirubin 0.4 mg/dL (0.2-1.3); Total Protein 5.1 g/dL (6.3-8.2)
[2024-11-26] MEDS ORDERED: QUEtiapine 25 MG TAB PO PRN (13:41)
--- NOTE | 2024-11-26 13:50 | P.CN ---
Psychiatric Consult - . Consult date: 11/26/24 Consult:: 11/26/24 13:13 IDENTIFYING DATA: This patient is a 84-year-old female REASON FOR REFERRAL: Psychiatry was consulted for depression and suicidal ideations HISTORY OF PRESENT ILLNESS: The patient presented to the hospital initially on 11/21 presented to the ER for a fall having fever and also malaise. Patient was noted to have elevated white count and also neutrophil count. Troponins were also elevated, patient was positive for influenza A infection. She has been having acute CHF and also respiratory failure. Patient's nurse states that patient has not had any behavioral issues however he is noted to at times be talking to herself or yelling out. Patient was seen laying in bed today, she was agreeable to speak to video game script writer. She had a fairly constricted affect, had nasal cannula and respiratory distress. She correctly identified her name age did not know today's date, she knew that she was in [facility]. She claims that she has had Parkinson's disease for the past 10 years. She was a fairly poor historian however did state that she did have a fall at home and has been feeling "terrible". She states that she is endorsing some depression, denying any anxiety at this time. Her depression appears to be fairly chronic, has been taking Zoloft for several years. She is endorsing passive thoughts of "do not want to be here" however no specific suicidal intent or ideations. Denying any homicidal ideations. He is claiming that she is hearing some voices and also possibly seeing things that are not there. Claims that her sleep and appetite have been on and off. denies any paranoia or delusions. Patients admits to using no recreational drugs or cigarettes PAST PSYCHIATRIC HISTORY: Patient has a a history of Parkinson's disease. Patient is currently on Zoloft 25 mg nightly. Patient denies any previous psychiatric hospitalizations. Patient denies any psychiatric outpatient follow- up. Patient denies any history of suicide attempts in the past. Past Medical History: Coronary Artery Disease (CAD), Hyperlipidemia, Hypertension, Myocardial Infarction (MT) Additional Past Medical History / Comment(s): Parkinsons,wounds to foot & butto cks Last Myocardial Infarction Date:: 01/2011 History of Any Multi-Drug Resistant Organisms: None Reported Past Surgical History: Appendectomy, Coronary Bypass/CABG, Heart Catheterization With Stent, Orthopedic Surgery, Tonsillectomy Additional Past Surgical History / Comment(s): Cataracts. 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 CHEMICAL DEPENDENCY HISTORY: as per HPI. FAMILY PSYCHIATRIC/SUBSTANCE USE HISTORY: Denies SOCIAL HISTORY: Patient was born and raised in [place]. Claims that she completed high school, worked at a [employer]. Denies any legal history. She was unable to give further details about her social history MENTAL STATUS EXAM: General Appearance: Patient appears to be fairly ill, in respiratory distress, stated age is alert, attempts to cooperate. Patient appears to have fair hygiene and grooming wearing hospital gown with fair eye contact. Behavior: Patient is calmly lying in bed without any agitated behavior. In mild respiratory distress, Speech: Patient's speech is fluent and nonpressured. Fairly concrete, soft tone of voice Mood/Affect: Patient reports their mood is "depressed", affect is congruent and flat affect Suicidality/Homicidality: Patient denies having any suicidal or homicidal ideation intent or plan. She did endorse passive thoughts of "not wanting to be here" no specific plan or intent Perceptions: admits to hallucinations both auditory and visual Though content/process: No delusions or paranoia. Fairly concrete poverty of content Memory and concentration: AOX2, follows most commands, does not know today's date. Cannot spell "WORLD" backwards Judgment and insight: Poor/Limited IMPRESSIONS: Depressive disorder unspecified Parkinson's disease PLAN: -At this time patient DOES NOT meet criteria for inpatient psychiatric admission. -Delirium precautions recommended with patient including - avoiding use of narcotics and GUM DIPPER sedatives, limit anticholinergic medications when possible, frequent re-orientation, minimize use of restraints, open window shades during the day and close them at night -Would recommend the following medication changes/additions: Increase Zoloft to 37.5 mg daily for mood/anxiety. Start Seroquel 12.5 mg nightly scheduled for sleep/hallucinations. Added Seroquel 12.5 mg twice daily as needed for hallucinations/agitation -garage worker to provide patient with outpatient mental health/psychiatry resources for appropriate follow up upon discharge -Communicated plan to patient's nurse -Will continue to follow along as needed -would recommend placement in NH for patient as she appears to have difficulties with functioning and self care. -Please contact with any questions. 11/26/24 13:42
--- NOTE | 2024-11-26 14:30 | P.PN ---
Subjective Progress Note Date: 11/26/24 Patient is 84-year-old female with past medical history significant for coronary artery disease with previous CABG, hypertension, hyperlipidemia, among other things. I was contacted by [facility] physician as the patient was hypotensive refractory to fluid resuscitation, and needed to be started on vasopressors. Currently, an overflow patient in the ED. Patient presented the emergency department late last night after having a fall at her assisted living facility. I believe she stays at [facility]. While in the emergency department, she was noted to have high fevers with a Tmax of 101.1 F. Also, has had a cough over the last 2 days. She did test positive for influenza A. Chest x-ray showing cardiomegaly, pulmonary vascular congestion, with new bibasilar atelectasis and/or less likely acute infiltrates. Patient was placed on BiPAP in the emergency department. She has received a total of 3.5 L normal saline form of fluid boluses. Despite this, reportedly remained hypotensive, and start ed on Levophed. I am currently evaluating the patient in the emergency department, room 16. She is on BiPAP with settings 12/5 and FiO2 of 40%. She is achieving adequate tidal volumes of around 400. Respiratory rate is nontachypneic and nonlabored. SpO2 is reading 100%. She is awake and appears alert on the BiPAP. She does follow commands appropriately. It is difficult to communicate as the patient is hard of hearing and on BiPAP. Normal saline is currently infusing at 125 mL/h. Patient also is on norepinephrine at 0.03 mcg/kg/min. Blood pressure is up to 110/[address] of the brain and C-spine done on arrival did not show any acute intracranial process. 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 Multi level wedge compression deformities throughout the visualized spine correlate with pain and MRI to exclude acute/subacute fracture. No obvious displaced spinal fracture. Multilevel degenerative disc disease. Calcified pleural plaquing noted. Most recent CBC: WC count 11, hemoglobin 9, hematocrit 28.3, platelets 152. CMP: Sodium 135, potassium 3.8, chloride 107, serum bicarb 22, BUN 21, creatinine 0.9, glucose 99. Lactic was 2.5 and is down to 0.8. Magnesium 1.7. LFTs mildly elevated. Troponin initially 0.86. EKG: Sinus tachycardia, rate 103 bpm, minimal diffuse ST depressions. NT proBNP was elevated at 4500. She has been started on combination of empiric antibiotics in the form of azithromycin and cefepime, as well as, Tamiflu. Progress note dated November 23, 2024. 84-year-old female seen in consultation yesterday. Please see my note above. The patient was admitted with a diagnosis of weakness, and influenza. She was admitted to the intensive care unit, because she required fluid resuscitation, and vasopressors. Currently, she is seen today in room 253. She is on 2 L. She continues on heparin via weight-based protocol for a non-ST segment elevation myocardial infarction. In addition, she is getting saline at KVO, as well as a number of different antibiotics including azithromycin, cefepime, Flagyl, and Tamiflu. She will get some Lasix 20 mg IV push today. Her procalcitonin level was 29.2. Current laboratory includes a white count 6.3, hemoglobin 10.4, macro 32.7, platelet count 138,000. Sodium 138, potassium 3.9, chlorides 108, CO2 22, BUN 16, creatinine 0.8. AST is 243. ALT is 162. Albumin 2.7. Sputum sampling is thus far negative. Chest x-ray shows possible CHF. Ultrasound of the abdomen suggest cholelithiasis and possible acute cholecystitis. The patient is seen today November 24, 2024 in follow-up on the regular medical floor. She is currently resting in bed. Awake and alert in no acute distress. Maintaining good O2 saturations in the 90s on 3 L/min per nasal cannula. She is receiving normal saline at 10 mL/h. Blood cultures revealed no growth. Sputum culture revealed no growth. White count 5.5. Hemoglobin 9.9. Platelets 140. Sodium 136. Potassium 3.3. Bicarb 25. BUN 11. Creatinine 0.77. AST 130. ALT 121. She remains on DuoNeb inhalations, ceftriaxone and Flagyl. Remains on Tamiflu. The patient is seen today November 25, 2024 in follow-up on the regular medical floor. She is awake and alert in no acute distress. Resting fairly comfortably in bed. She is maintaining good O2 saturations in the 90s on 3 L/min per nasal cannula. She remains on Tamiflu. Continued on ceftriaxone and Flagyl. White count 4.5. Hemoglobin 10.4. Platelets 141. Sodium 138. Potassium 4.2. Bi carb 31. BUN 8. Creatinine 0.66. Glucose 99. AST 65. ALT 85. Alk phos 143. She is continued on DuoNeb inhalations. Heparin for DVT prophylaxis. The patient is seen today November 26, 2024 in follow-up on the regular medical floor. She is currently resting in bed. Awake and alert in no acute distress. She is maintaining good O2 saturations in the 90s on 3 L/min per nasal cannula. She is continued on ceftriaxone and Flagyl. Continued on Tamiflu. Heparin for DVT prophylaxis. Sputum culture revealed no growth. Blood culture revealed no growth. White count 5.5. Hemoglobin 10.5. Platelets 145. Sodium 139. Potassium 4.2. Bicarb 32. BUN 12. Creatinine 0.66. AST 46. ALT 64. Objective - Vital Signs Vital signs: Vital Signs Temp 97.7 F 11/26/24 07:10 Pulse 82 11/26/24 12:04 Resp 20 11/26/24 07:10 BP 152/83 11/26/24 07:10 Pulse Ox 98 11/26/24 07:10 FiO2 40 11/23/24 08:00 Intake & Output 11/25/24 11/26/24 11/26/24 18:59 06:59 18:59 Output Total 325 300 Balance -325 -300 Weight 71.8 kg Output: Urine 325 300 Other: Voiding Method Incontinent Incontinent Incontinent External Catheter External Catheter External Catheter # Voids 2 1 # Bowel Movements 2 1 1 - Exam GENERAL EXAM: Alert, 84-year-old female, on 3 L/min per nasal cannula. HEAD: Normocephalic and atraumatic EYES: Normal reaction of pupils, equal size. NOSE: Clear with pink turbinates. THROAT: No erythema or exudates. NECK: No masses, no JVD. CHEST: No chest wall deformity. LUNGS: Equal air entry with coarse rhonchi bilaterally and bibasilar crackles. No conversational dyspnea. CVS: S1 and S2 normal with no audible murmur, regular rhythm. No extra heart sounds ABDOMEN: No hepatosplenomegaly, active bowel sounds, no guarding or rigidity. SPINE: No scoliosis or deformity SKIN: No rashes CENTRAL NERVOUS SYSTEM: No focal deficits, tone is normal in all 4 extremities. EXTREMITIES: There is no peripheral edema, clubbing, or cyanosis. Peripheral pulses are intact. - Labs CBC & Chem 7: 11/26/24 04:38 11/26/24 04:38 Labs: Abnormal Lab Results - Last 24 Hours (Table) 11/26/24 11/26/24 Range/Units 04:38 04:38 Hgb 10.5 L (11.4-16.0) gm/dL Hct 33.7 L (34.0-46.0) % Plt Count 145 L (150-450) k/uL Carbon Dioxide 32 H (22-30) mmol/L AST 46 H (14-36) U/L ALT 64 H (4-34) U/L Alkaline Phosphatase 138 H (38-126) U/L Total Protein 5.1 L (6.3-8.2) g/dL Albumin 2.6 L (3.5-5.0) g/dL Microbiology - Last 24 Hours (Table) 11/21/24 21:03 Blood Culture - Preliminary Blood Assessment and Plan Assessment: Acute influenza A infection Suspect acute CHF exacerbation, diastolic, preserved left ventricular systolic function with ejection fraction of 50% Acute hypoxemic respiratory failure, secondary to above, chest x-ray dem onstrating cardiomegaly with pulmonary vascular congestion and bibasilar atelectasis and/or less likely acute infiltrates. NT proBNP and elevated at 4500 Sepsis/septic shock, with hypotension refractory to fluid resuscitation, initially on low-dose norepinephrine, recovered Acute leukocytosis Acute febrile illness Elevated troponins, rule out non-ST elevation UT Fall, unspecified; CT of the brain and C-spine done on arrival did not show any acute intracranial process. 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 Multi level wedge compression deformities throughout the visualized spine. No obvious displaced spinal fracture. Multilevel degenerative disc disease. Normocytic, normochromic anemia; possibly hemodilutional, monitor for acute blood loss History of hypertension History of hyperlipidemia History of coronary artery disease with previous CABG History of anxiety/depression History of Parkinson's disease Plan: The patient was seen and evaluated Labs and medications reviewed Seen by psychiatry for her depression Recommending ECF placement Currently on 3 L nasal cannula Titrate the FiO2 as tolerated Increase activity as tolerated DNR CODE STATUS Awaiting ECF placement possibly at [facility] I have personally seen and examined the patient, performed the documentation and the assessment and plan as written. Number of minutes spent on the visit: 10 Dictation was produced using [employer] dictation software. Please excuse any grammatical, word or spelling errors.
--- NOTE | 2024-11-26 16:21 | P.PN ---
Subjective Progress Note Date: 11/26/24 Patient is a 84-year-old female with CAD, hypertension, hyperlipidemia, Parkinson's, depression who came into the ED with chief complaint of weakness and a fall. Further history regarding mechanism of fall was difficult to obtain due to patient's current clinical status. Per chart review, patient was febrile on arrival and deemed to be a poor historian. She did endorse feeling fatigued at the time of interview. She also reported feeling short of breath over the past few days with subjective fever and chills. Denies experiencing chest discomfort at the time of interview. Vitals on admission for 200.9, heart rate 104, respiratory rate 18, blood pressure 134/98, saturating 92% on 3 L nasal cannula then switched to BiPAP at an FiO2 of 50% and saturating 95% EKG independently interpreted as sinus tachycardia with rate of 103 bpm and QTc of 395 ms CXR shows chronic changes and cardiomegaly with new bibasilar atelectasis and/or acute infiltrates CT of head and cervical spine showed no acute intracranial process, multilevel wedge compression deformities, multilevel degenerative disc disease X-ray of the pelvis shows no discrete fracture Labs on admission show WBCs of 19 with left shift, hemoglobin 11.5, platelet 213. PT 12.3, INR 1.1, PTT 22.9. Sodium 134, potassium 4.3, chloride 100, bicarb 24, BUN 22, creatinine 0.95, glucose 119. Lactic acid 2.5, repeat 0.8. AST 57, ALT, ALP 168. CK102. Troponin 0.86. NT proBNP 4500. Cepheid positive for influenza A. Review of systems: Pertinent positives and negatives as discussed in HPI, a complete review of systems was performed and all other systems are negative. Subjective: Patient seen and evaluated bedside. No acute events overnight. When asked patient states she is not feeling well and thinks she is getting worse. Today she reports of eating very little. Patient denies any suicidal ideation. Pertinent positives and negatives as discussed above, a complete review of systems was performed and all other systems are negative. Vitals: Signs Reviewed Physical Exam: Vital signs reviewed General: Somewhat ill-appearing female, no distress, appears at stated age Derm: warm, dry, intact Head: atraumatic, normocephalic, symmetric Eyes: anicteric sclera Mouth: no lip lesion, mucus membranes moist Cardiovascular: S1 S2 reg, no murmur Lungs: Coarse breath sounds with rhonchi diffusely, no rales, no accessory muscle use Abdominal: soft, non-tender to palpation, nondistended Extremities: No cyanosis, clubbing, or pedal edema. Neuro: Lethargic, Oriented to person, time and place, Gross neurological examination did not reveal any focal deficits. Cranial nerves II to XII grossly intact. Bilateral upper and lower extremity muscle strength intact and sensation intact. Psych: well appearing, appropriate affect Data Received Today: Pertinent Labs: WBC 5.5, Hgb 10.5 AST 46, ALT 64, alk phos 138 Imaging: No new imaging Assessment/Plan: Patient is a 84-year-old female CAD, hypertension, hyperlipidemia, Parkinson's, and depression who came to the ED with chief complaint of weakness and a fall. Active: Septic shock, resolved Acute hypoxic respiratory failure secondary to Influenza A infection Continue DuoNebs 4 times daily and every 2 hours as needed Procalcitonin 29.2 Blood cultures showing no growth after 72 hours Sputum culture showing sputum unsatisfactory for culture MRSA/MSSA nares: No MRSA or MSSA isolated Patient is agreeable to IV pressor support although does not wish to undergo CPR or be placed on a ventilator Patient downgraded from ICU to [facility] floor Pulmonology note reviewed, continue management as above Speech therapy recommending dysphagia diet, no overt aspiration noted Elevated troponin and NT proBNP NSTEMI Continue aspirin 81 mg daily Continue atorvastatin 10 mg p.o. at bedtime Troponin 0.860 => 1.730 => 1.280 Echocardiogram EF 50%, RVSP 53, moderate right ventricular dilatation Patient currently denying chest discomfort Cardiac monitoring Heparin drip switched to heparin SQ every 8 hours by cardiology Cardiology following, continue home atenolol Possible acute cholecystitis Transaminitis possibly secondary to congestive hepatopathy U/S liver Doppler showing cholelithiasis with mild wall thickening and borderline biliary duct dilatation, mild pericholecystic fluid seen. Findings suspicious for acute cholecystitis. Hepatic veins appear to be patent Continue with Flagyl 500 IV every 8 hours, and ceftriaxone 2 g every 24 hours Continue with Rocephin 2 g every 24 hours Surgery following, no plans for surgical intervention Depression Patient reported of harming herself 1 day ago, denied SI today Psych note reviewed, increase Zoloft to 37.5 mg daily, start Seroquel 12.5 nightly for sleep/hallucinations, Seroquel twice daily as needed for hallucinations/agitation Normocytic anemia Continue to monitor with follow-up CBC Mechanical fall of unknown etiology CT of head and cervical spine showed no acute intracranial process, multilevel wedge compression deformities, multilevel degenerative disc disease X-ray of the pelvis shows no discrete fracture Fall precautions PT recommending short acute rehab Chronic: Hypertension Continue atenolol 25 mg daily Hold lisinopril 5 mg daily Hyperlipidemia Continue simvastatin 20 mg p.o. at bedtime Parkinson's Continue Mirapex 0.5 mg twice daily GERD Continue omeprazole 20 mg Resolved: Hyponatremia, likely secondary to dehydration Lactic acidosis, likely secondary to dehydration Non-anion gap metabolic acidosis Hyperkalemia F: N/A E: Replete as needed N: Heart healthy A: Fall precautions DVT ppx: Heparin SQ every 8 hours Code status: NO CODE, okay with vasopressors Anticipated discharge place: [facility] Anticipated discharge time: Likely 24-48 hours Galina Pelletier MD PGY-1 IM Dictation was produced using [employer] dictation software. please excuse any grammatical, word or spelling errors. I saw and evaluated the patient during the cabezas and critical portions of this encounter, and discussed the case in detail with the resident author of this note, I agree with the Assessment and Plan, and my changes, if any, are highlighted in blue. Objective - Vital Signs Vital signs: Vital Signs Temp 97.9 F 11/26/24 00:49 Pulse 80 11/26/24 00:49 Resp 20 11/26/24 00:49 BP 136/77 11/26/24 00:49 Pulse Ox 96 11/26/24 00:49 FiO2 40 11/23/24 08:00 Intake & Output 11/25/24 11/26/24 11/26/24 18:59 06:59 18:59 Output Total 325 300 Balance -325 -300 Weight 71.8 kg Output: Urine 325 300 Other: Voiding Method Incontinent Incontinent External Catheter External Catheter # Voids 2 1 # Bowel Movements 2 1 - Labs CBC & Chem 7: 11/26/24 04:38 11/26/24 04:38 Labs: Abnormal Lab Results - Last 24 Hours (Table) 11/26/24 11/26/24 Range/Units 04:38 04:38 Hgb 10.5 L (11.4-16.0) gm/dL Hct 33.7 L (34.0-46.0) % Plt Count 145 L (150-450) k/uL Carbon Dioxide 32 H (22-30) mmol/L AST 46 H (14-36) U/L ALT 64 H (4-34) U/L Alkaline Phosphatase 138 H (38-126) U/L Total Protein 5.1 L (6.3-8.2) g/dL Albumin 2.6 L (3.5-5.0) g/dL Microbiology - Last 24 Hours (Table) 11/21/24 21:03 Blood Culture - Preliminary Blood
--- NOTE | 2024-11-26 16:48 | P.PN ---
Subjective This is an 84-year-old female patient of Dr. Zhao with past medical history of coronary artery disease status post bypass grafting in 2010, dyslipidemia, hypertension, Parkinson's disease, peripheral vascular disease. Patient presented to the emergency center on 11/21 after a fall at assisted living facility. Patient required BiPAP initially and was positive for influenza A. Patient was initially in the intensive care unit as she required vasopressors cardiology was consulted due to elevated troponins. Patient was diagnosed with a non-ST IN. She was stabilized, weaned off vasopressors and BiPAP, transferred to the [facility] floor. Patient is seen today on the [facility] floor. Patient has been transferred from ICU. Patient denies having any chest pain, no breathing difficulties. She states she came into the hospital because she had a fall. She states she does not have any appetite. Blood pressure 145/85, heart rate 79, pulse ox 98% on 3 L nasal cannula. Repeat blood work reveals WBC 5.5, hemoglobin 9.9, sodium 136, potassium 3.3 and has been replaced. Liver enzymes are elevated with AST 130, ALT 121, alkaline phosphatase 151. Yesterday, patient received 1 dose of IV Lasix 20 mg for suspected heart failure. Echocardiogram reveals EF of 50%, RVSP 53, moderate right ventricle dilation, moderate to severe mitral calcification, mild mitral valve stenosis, moderate to severe mitral regurgitation, moderate tricuspid regurgitation, no pericardial effusion. 11/26 patient seen and examined. Patient denies any chest pain or pressure. She remains somewhat confused. Her son is there with her and she is telling her son that she cannot move her hands or legs. Later after I left the room the son admits she crossed her legs on her own. She would not lift any over extremities for me. His being evaluated by psych. her son thinks she "just wants to give up." Physical examination: Gen: This is an 84-year-old female in no acute distress VS: reviewed HEENT: Head is atraumatic, normocephalic. Pupils equal, round. Sclerae is anicteric. LUNGS: Bilateral rhonchi. No intercostal retractions. HEART: Regular rate and rhythm. Systolic murmur. ABDOMEN: Soft No tenderness. EXTREMITIES: No pedal edema. No calf tenderness. NEUROLOGICAL: Patient is awake, alert confused. Assessment: NSTEMI, type II secondary to acute respiratory failure, influenza, sepsis Acute influenza infection Acute hypoxic respiratory failure Sepsis with septic shock requiring vasopressors, weaned off vasopressors Fall and generalized weakness Anemia Elevated liver function test Possible acute cholecystitis with no plan for surgical intervention History of coronary artery disease with prior bypass grafting in 2010 Hypertension Dyslipidemia Plan: Non-STEMI appears type II mechanism. Not having any angina-type symptoms. Continue with medical therapy. No further recommendations from a cardiology standpoint. Please call with any questions. Objective - Vital Signs Vital signs: Vital Signs Temp 98.3 F 11/26/24 13:56 Pulse 82 11/26/24 15:37 Resp 20 11/26/24 13:56 BP 151/74 11/26/24 13:56 Pulse Ox 98 11/26/24 13:56 FiO2 40 11/23/24 08:00 Intake & Output 11/25/24 11/26/24 11/26/24 18:59 06:59 18:59 Output Total 325 300 Balance -325 -300 Weight 71.8 kg Output: Urine 325 300 Other: Voiding Method Incontinent Incontinent Incontinent External Catheter External Catheter External Catheter # Voids 2 1 # Bowel Movements 2 1 1 - Labs CBC & Chem 7: 11/26/24 04:38 11/26/24 04:38 Labs: Abnormal Lab Results - Last 24 Hours (Table) 11/26/24 11/26/24 Range/Units 04:38 04:38 Hgb 10.5 L (11.4-16.0) gm/dL Hct 33.7 L (34.0-46.0) % Plt Count 145 L (150-450) k/uL Carbon Dioxide 32 H (22-30) mmol/L AST 46 H (14-36) U/L ALT 64 H (4-34) U/L Alkaline Phosphatase 138 H (38-126) U/L Total Protein 5.1 L (6.3-8.2) g/dL Albumin 2.6 L (3.5-5.0) g/dL Microbiology - Last 24 Hours (Table) 11/21/24 21:03 Blood Culture - Preliminary Blood
[2024-11-26] MEDS ORDERED: ZINC OXIDE PASTE (Z-GUARD) 1 APPLIC TOPICAL PRN (16:59)
[2024-11-26] MEDS: SERTRALINE 25 MG TAB PO ONE (18:02)
[2024-11-26 18:22] LABS: Partial Thromboplastin Time 25.3 sec (22.0-30.0); Prothrombin Time 11.4 sec (10.0-12.5)
[2024-11-26] MEDS: QUEtiapine 25 MG TAB PO SCH (22:05)
[2024-11-27] MEDS: SERTRALINE 25 MG TAB PO SCH (08:43)
--- NOTE | 2024-11-27 11:41 | P.PN ---
Subjective Progress Note Date: 11/27/24 Patient is 84-year-old female with past medical history significant for coronary artery disease with previous CABG, hypertension, hyperlipidemia, among other things. I was contacted by [facility] physician as the patient was hypotensive refractory to fluid resuscitation, and needed to be started on vasopressors. Currently, an overflow patient in the ED. Patient presented the emergency department late last night after having a fall at her assisted living facility. I believe she stays at [facility]. While in the emergency department, she was noted to have high fevers with a Tmax of 101.1 F. Also, has had a cough over the last 2 days. She did test positive for influenza A. Chest x-ray showing cardiomegaly, pulmonary vascular congestion, with new bibasilar atelectasis and/or less likely acute infiltrates. Patient was placed on BiPAP in the emergency department. She has received a total of 3.5 L normal saline form of fluid boluses. Despite this, reportedly remained hypotensive, and start ed on Levophed. I am currently evaluating the patient in the emergency department, room 16. She is on BiPAP with settings 12/5 and FiO2 of 40%. She is achieving adequate tidal volumes of around 400. Respiratory rate is nontachypneic and nonlabored. SpO2 is reading 100%. She is awake and appears alert on the BiPAP. She does follow commands appropriately. It is difficult to communicate as the patient is hard of hearing and on BiPAP. Normal saline is currently infusing at 125 mL/h. Patient also is on norepinephrine at 0.03 mcg/kg/min. Blood pressure is up to 110/[address] of the brain and C-spine done on arrival did not show any acute intracranial process. 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 Multi level wedge compression deformities throughout the visualized spine correlate with pain and MRI to exclude acute/subacute fracture. No obvious displaced spinal fracture. Multilevel degenerative disc disease. Calcified pleural plaquing noted. Most recent CBC: WC count 11, hemoglobin 9, hematocrit 28.3, platelets 152. CMP: Sodium 135, potassium 3.8, chloride 107, serum bicarb 22, BUN 21, creatinine 0.9, glucose 99. Lactic was 2.5 and is down to 0.8. Magnesium 1.7. LFTs mildly elevated. Troponin initially 0.86. EKG: Sinus tachycardia, rate 103 bpm, minimal diffuse ST depressions. NT proBNP was elevated at 4500. She has been started on combination of empiric antibiotics in the form of azithromycin and cefepime, as well as, Tamiflu. Progress note dated November 23, 2024. 84-year-old female seen in consultation yesterday. Please see my note above. The patient was admitted with a diagnosis of weakness, and influenza. She was admitted to the intensive care unit, because she required fluid resuscitation, and vasopressors. Currently, she is seen today in room 253. She is on 2 L. She continues on heparin via weight-based protocol for a non-ST segment elevation myocardial infarction. In addition, she is getting saline at KVO, as well as a number of different antibiotics including azithromycin, cefepime, Flagyl, and Tamiflu. She will get some Lasix 20 mg IV push today. Her procalcitonin level was 29.2. Current laboratory includes a white count 6.3, hemoglobin 10.4, macro 32.7, platelet count 138,000. Sodium 138, potassium 3.9, chlorides 108, CO2 22, BUN 16, creatinine 0.8. AST is 243. ALT is 162. Albumin 2.7. Sputum sampling is thus far negative. Chest x-ray shows possible CHF. Ultrasound of the abdomen suggest cholelithiasis and possible acute cholecystitis. The patient is seen today November 24, 2024 in follow-up on the regular medical floor. She is currently resting in bed. Awake and alert in no acute distress. Maintaining good O2 saturations in the 90s on 3 L/min per nasal cannula. She is receiving normal saline at 10 mL/h. Blood cultures revealed no growth. Sputum culture revealed no growth. White count 5.5. Hemoglobin 9.9. Platelets 140. Sodium 136. Potassium 3.3. Bicarb 25. BUN 11. Creatinine 0.77. AST 130. ALT 121. She remains on DuoNeb inhalations, ceftriaxone and Flagyl. Remains on Tamiflu. The patient is seen today November 25, 2024 in follow-up on the regular medical floor. She is awake and alert in no acute distress. Resting fairly comfortably in bed. She is maintaining good O2 saturations in the 90s on 3 L/min per nasal cannula. She remains on Tamiflu. Continued on ceftriaxone and Flagyl. White count 4.5. Hemoglobin 10.4. Platelets 141. Sodium 138. Potassium 4.2. Bi carb 31. BUN 8. Creatinine 0.66. Glucose 99. AST 65. ALT 85. Alk phos 143. She is continued on DuoNeb inhalations. Heparin for DVT prophylaxis. The patient is seen today November 26, 2024 in follow-up on the regular medical floor. She is currently resting in bed. Awake and alert in no acute distress. She is maintaining good O2 saturations in the 90s on 3 L/min per nasal cannula. She is continued on ceftriaxone and Flagyl. Continued on Tamiflu. Heparin for DVT prophylaxis. Sputum culture revealed no growth. Blood culture revealed no growth. White count 5.5. Hemoglobin 10.5. Platelets 145. Sodium 139. Potassium 4.2. Bicarb 32. BUN 12. Creatinine 0.66. AST 46. ALT 64. The patient is seen today November 27, 2024 in follow-up on the regular medical floor. She is currently resting in bed. Awake and alert in no acute distress. Continues to maintain good O2 saturations in the 90s on 3 L/min per nasal cannula. She remains on ceftriaxone and Flagyl. Completed Tamiflu. She remains on bronchodilators and Mucinex as needed. Heparin for DVT prophylaxis. Blood and sputum cultures were negative. INR 1.0. Objective - Vital Signs Vital signs: Vital Signs Temp 97.7 F 11/27/24 07:41 Pulse 76 11/27/24 09:20 Resp 16 11/27/24 07:41 BP 156/82 11/27/24 07:41 Pulse Ox 100 11/27/24 09:10 FiO2 40 11/23/24 08:00 Intake & Output 11/26/24 11/27/24 11/27/24 18:59 06:59 18:59 Intake Total 270 Output Total 300 Balance -300 270 Intake: Intake, IV Titration 150 Amount cefTRIAXone 2 gm In 50 Sodium Chloride 0.9% 50 ml @ 100 mls/hr IVPB Q24HR [facility] Rx#:[id number] metroNIDAZOLE-NS PMX 500 100 mg In Saline 1 100ml.bag @ 100 mls/hr IVPB Q8HR [facility] Rx#:[id number] Oral 120 Output: Urine 300 Other: Voiding Method Incontinent External Catheter External Catheter External Catheter # Bowel Movements 1 1 - Exam GENERAL EXAM: Alert, cooperative 84-year-old female, resting comfortably in bed, on 3 L/min per nasal cannula. HEAD: Normocephalic and atraumatic EYES: Normal reaction of pupils, equal size. NOSE: Clear with pink turbinates. THROAT: No erythema or exudates. NECK: No masses, no JVD. CHEST: No chest wall deformity. LUNGS: Equal air entry with coarse rhonchi bilaterally. No conversational dyspnea. CVS: S1 and S2 normal with no audible murmur, regular rhythm. No extra heart sounds ABDOMEN: No hepatosplenomegaly, active bowel sounds, no guarding or rigidity. SPINE: No scoliosis or deformity SKIN: No rashes CENTRAL NERVOUS SYSTEM: No focal deficits, tone is normal in all 4 extremities. EXTREMITIES: There is no peripheral edema, clubbing, or cyanosis. Peripheral pulses are intact. - Labs CBC & Chem 7: 11/26/24 04:38 11/26/24 04:38 Assessment and Plan Assessment: Acute influenza A infection Suspect acute CHF exacerbation, diastolic, preserved left ventricular systolic function with ejection fraction of 50% Acute hypoxemic respiratory failure, secondary to above, chest x-ray demonstrating cardiomegaly with pulmonary vascular congestion and bibasilar atelectasis and/or less likely acute infiltrates. NT proBNP and elevated at 4500 Sepsis/septic shock, with hypotension refractory to fluid resuscitation, initia lly on low-dose norepinephrine, recovered Acute leukocytosis, recovered Acute febrile illness, recovered Elevated troponins, rule out non-ST elevation [place] Fall, unspecified; CT of the brain and C-spine done on arrival did not show any acute intracranial process. 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 Multi level wedge compression deformities throughout the visualized spine. No obvious displaced spinal fracture. Multilevel degenerative disc disease. Normocytic, normochromic anemia; possibly hemodilutional, monitor for acute blood loss History of hypertension History of hyperlipidemia History of coronary artery disease with previous CABG History of anxiety/depression History of Parkinson's disease Plan: The patient was seen and evaluated Labs and medications reviewed Currently on 3 L nasal cannula Titrate the FiO2 as tolerated Continue bronchodilators, Mucinex Heparin for DVT prophylaxis DNR CODE STATUS Awaiting ECF placement possibly at [facility] I have personally seen and examined the patient, performed the documentation and the assessment and plan as written. Number of minutes spent on the visit: 10 Dictation was produced using [employer] software. Please excuse any grammatical, word or spelling errors.
--- NOTE | 2024-11-27 13:39 | P.PN ---
Subjective Progress Note Date: 11/27/24 Patient is a 84-year-old female with CAD, hypertension, hyperlipidemia, Parkinson's, depression who came into the ED with chief complaint of weakness and a fall. Further history regarding mechanism of fall was difficult to obtain due to patient's current clinical status. Per chart review, patient was febrile on arrival and deemed to be a poor historian. She did endorse feeling fatigued at the time of interview. She also reported feeling short of breath over the past few days with subjective fever and chills. Denies experiencing chest discomfort at the time of interview. Vitals on admission for 200.9, heart rate 104, respiratory rate 18, blood pressure 134/98, saturating 92% on 3 L nasal cannula then switched to BiPAP at an FiO2 of 50% and saturating 95% EKG independently interpreted as sinus tachycardia with rate of 103 bpm and QTc of 395 ms CXR shows chronic changes and cardiomegaly with new bibasilar atelectasis and/or acute infiltrates CT of head and cervical spine showed no acute intracranial process, multilevel wedge compression deformities, multilevel degenerative disc disease X-ray of the pelvis shows no discrete fracture Labs on admission show WBCs of 19 with left shift, hemoglobin 11.5, platelet 213. PT 12.3, INR 1.1, PTT 22.9. Sodium 134, potassium 4.3, chloride 100, bic arb 24, BUN 22, creatinine 0.95, glucose 119. Lactic acid 2.5, repeat 0.8. AST 57, ALT, ALP 168. CK102. Troponin 0.86. NT proBNP 4500. Cepheid positive for influenza A. Review of systems: Pertinent positives and negatives as discussed in HPI, a complete review of systems was performed and all other systems are negative. Subjective: Patient seen and evaluated bedside. No acute events overnight. Cleared by psych, some medication adjustments were noted. Pt is pending ECF placement. Vitals: Signs Reviewed Physical Exam: Vital signs reviewed General: Somewhat ill-appearing female, no distress, appears at stated age Derm: warm, dry, intact Head: atraumatic, normocephalic, symmetric Eyes: anicteric sclera Mouth: no lip lesion, mucus membranes moist Cardiovascular: S1 S2 reg, no murmur Lungs: Coarse breath sounds with rhonchi diffusely, no rales, no accessory muscle use Abdominal: soft, non-tender to palpation, nondistended Extremities: No cyanosis, clubbing, or pedal edema. Neuro: Lethargic, Oriented to person, time and place, Gross neurological examination did not reveal any focal deficits. Cranial nerves II to XII grossly intact. Bilateral upper and lower extremity muscle strength intact and sensation intact. Psych: well appearing, appropriate affect Data Received Today: Pertinent Labs: WBC 5.5, Hgb 10.5 AST 46, ALT 64, alk phos 138 Imaging: No new imaging Assessment/Plan: Patient is a 84-year-old female CAD, hypertension, hyperlipidemia, Parkinson's, and depression who came to the ED with chief complaint of weakness and a fall. Active: Septic shock, resolved Acute hypoxic respiratory failure secondary to Influenza A infection Continue DuoNebs 4 times daily and every 2 hours as needed Procalcitonin 29.2 Blood cultures showing no growth after 72 hours Sputum culture showing sputum unsatisfactory for culture MRSA/MSSA nares: No MRSA or MSSA isolated Patient is agreeable to IV pressor support although does not wish to undergo CPR or be placed on a ventilator [facility] Pulmonology note reviewed, continue management as above Speech therapy recommending dysphagia diet, no overt aspiration noted Elevated troponin and NT proBNP NSTEMI Continue aspirin 81 mg daily Continue atorvastatin 10 mg p.o. at bedtime Troponin 0.860 => 1.730 => 1.280 Echocardiogram EF 50%, RVSP 53, moderate right ventricular dilatation Patient currently denying chest discomfort Cardiac monitoring Heparin drip switched to heparin SQ every 8 hours by cardiology Cardiology following, continue home atenolol Possible acute cholecystitis Transaminitis possibly secondary to congestive hepatopathy U/S liver Doppler showing cholelithiasis with mild wall thickening and borderline biliary duct dilatation, mild pericholecystic fluid seen. Findings suspicious for acute cholecystitis. Hepatic veins appear to be patent Continue with Flagyl 500 IV every 8 hours, and ceftriaxone 2 g every 24 hours Continue with Rocephin 2 g every 24 hours Surgery following, no plans for surgical intervention Depression Patient reported of harming herself 1 day ago, denied SI today Psych note reviewed, increase Zoloft to 37.5 mg daily, start Seroquel 12.5 nightly for sleep/hallucinations, Seroquel twice daily as needed for hallucinations/agitation Normocytic anemia Continue to monitor with follow-up CBC Mechanical fall of unknown etiology CT of head and cervical spine showed no acute intracranial process, multilevel wedge compression deformities, multilevel degenerative disc disease X-ray of the pelvis shows no discrete fracture Fall precautions PT recommending short acute rehab Chronic: Hypertension Continue atenolol 25 mg daily Hold lisinopril 5 mg daily Hyperlipidemia Continue simvastatin 20 mg p.o. at bedtime Parkinson's Continue Mirapex 0.5 mg twice daily GERD Continue omeprazole 20 mg Resolved: Hyponatremia, likely secondary to dehydration Lactic acidosis, likely secondary to dehydration Non-anion gap metabolic acidosis Hyperkalemia F: N/A E: Replete as needed N: Heart healthy A: Fall precautions DVT ppx: Heparin SQ every 8 hours Code status: NO CODE, okay with vasopressors Anticipated discharge place: [facility] Anticipated discharge time: Likely 24-48 hours Galina Pelletier MD PGY-1 IM Dictation was produced using [employer] dictation software. please excuse any grammatical, word or spelling errors. Objective - Vital Signs Vital signs: Vital Signs Temp 97.7 F 11/27/24 07:41 Pulse 84 11/27/24 12:56 Resp 16 11/27/24 07:41 BP 156/82 11/27/24 07:41 Pulse Ox 100 11/27/24 09:10 FiO2 40 11/23/24 08:00 Intake & Output 11/26/24 11/27/24 11/27/24 18:59 06:59 18:59 Intake Total 270 Output Total 300 Balance -300 270 Intake: Intake, IV Titration 150 Amount cefTRIAXone 2 gm In 50 Sodium Chloride 0.9% 50 ml @ 100 mls/hr IVPB Q24HR [facility] Rx#:[id number] metroNIDAZOLE-NS PMX 500 100 mg In Saline 1 100ml.bag @ 100 mls/hr IVPB Q8HR [facility] Rx#:[id number] Oral 120 Output: Urine 300 Other: Voiding Method Incontinent External Catheter External Catheter External Catheter # Bowel Movements 1 1 - Labs CBC & Chem 7: 11/26/24 04:38 11/26/24 04:38 Labs: Microbiology - Last 24 Hours (Table) 11/21/24 21:03 Blood Culture - Final Blood
[2024-11-28 03:51] LABS: Basophils % (A) 0 %; Eosinophils # (A) 0.2 k/uL (0-0.7); Eosinophils % (A) 4 %; HCT 32.3 % (34.0-46.0); HGB 10.2 gm/dL (11.4-16.0); Hypochromasia Marked; Lymphocytes # (A) 1.1 k/uL (1.0-4.8); Lymphocytes % (A) 20 %; MCH 27.5 pg (25.0-35.0); MCHC 31.5 g/dL (31.0-37.0); MCV 87.2 fL (80.0-100.0); Mean Platelet Volume 8.1; Monocytes # (A) 0.5 k/uL (0-1.0); Monocytes % (A) 9 %; Neutrophils # (A) 3.6 k/uL (1.3-7.7); Neutrophils % (A) 65 %; Platelet Count 149 k/uL (150-450); RDW 13.4 % (11.5-15.5); WBC 5.6 k/uL (3.8-10.6)
[2024-11-28 04:10] LABS: ALT 40 U/L (4-34); AST 40 U/L (14-36); African American GFR (CKD) >90 (>60 ml/min/1.73 sqM); Albumin 2.5 g/dL (3.5-5.0); Alkaline Phosphatase 106 U/L (38-126); Anion Gap 4 mmol/L; Blood Urea Nitrogen 13 mg/dL (7-17); Calcium 8.6 mg/dL (8.4-10.2); Carbon Dioxide 33 mmol/L (22-30); Chloride 101 mmol/L (98-107); Globulin 2.4 g/dL; Glucose 88 mg/dL (74-99); Magnesium 1.8 mg/dL (1.6-2.3); Non-African American GFR(CKD) 87 (>60 ml/min/1.73 sqM); Sodium 138 mmol/L (137-145); Total Bilirubin 0.4 mg/dL (0.2-1.3); Total Protein 4.9 g/dL (6.3-8.2)
[2024-11-28] MEDS: LACTATED RINGERS 1,000 ML IV ONE (10:24)
[2024-11-28] MEDS: DEXTROSE 5%-0.45% NACL 1,000 ML IV SCH (11:09)
--- NOTE | 2024-11-28 11:36 | P.PN ---
Subjective Progress Note Date: 11/28/24 Patient is 84-year-old female with past medical history significant for coronary artery disease with previous CABG, hypertension, hyperlipidemia, among other things. I was contacted by Sound physician as the patient was hypotensive refractory to fluid resuscitation, and needed to be started on vasopressors. Currently, an overflow patient in the ED. Patient presented the emergency department late last night after having a fall at her assisted living facility. I believe she stays at [facility]. While in the emergency department, she was noted to have high fevers with a Tmax of 101.1 F. Also, has had a cough over the last 2 days. She did test positive for influenza A. Chest x-ray showing cardiomegaly, pulmonary vascular congestion, with new bibasilar atelectasis and/or less likely acute infiltrates. Patient was placed on BiPAP in the emergency department. She has received a total of 3.5 L normal saline form of fluid boluses. Despite this, reportedly remained hypotensive, and start ed on Levophed. I am currently evaluating the patient in the emergency department, room 16. She is on BiPAP with settings 12/5 and FiO2 of 40%. She is achieving adequate tidal volumes of around 400. Respiratory rate is nontachypneic and nonlabored. SpO2 is reading 100%. She is awake and appears alert on the BiPAP. She does follow commands appropriately. It is difficult to communicate as the patient is hard of hearing and on BiPAP. Normal saline is currently infusing at 125 mL/h. Patient also is on norepinephrine at 0.03 mcg/kg/min. Blood pressure is up to 110/[address] of the brain and C-spine done on arrival did not show any acute intracranial process. 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 Multi level wedge compression deformities throughout the visualized spine correlate with pain and MRI to exclude acute/subacute fracture. No obvious displaced spinal fracture. Multilevel degenerative disc disease. Calcified pleural plaquing noted. Most recent CBC: WC count 11, hemoglobin 9, hematocrit 28.3, platelets 152. CMP: Sodium 135, potassium 3.8, chloride 107, serum bicarb 22, BUN 21, creatinine 0.9, glucose 99. Lactic was 2.5 and is down to 0.8. Magnesium 1.7. LFTs mildly elevated. Troponin initially 0.86. EKG: Sinus tachycardia, rate 103 bpm, minimal diffuse ST depressions. NT proBNP was elevated at 4500. She has been started on combination of empiric antibiotics in the form of azithromycin and cefepime, as well as, Tamiflu. Progress note dated November 23, 2024. 84-year-old female seen in consultation yesterday. Please see my note above. The patient was admitted with a diagnosis of weakness, and influenza. She was admitted to the intensive care unit, because she required fluid resuscitation, and vasopressors. Currently, she is seen today in room 253. She is on 2 L. She continues on heparin via weight-based protocol for a non-ST segment elevation myocardial infarction. In addition, she is getting saline at KVO, as well as a number of different antibiotics including azithromycin, cefepime, Flagyl, and Tamiflu. She will get some Lasix 20 mg IV push today. Her procalcitonin level was 29.2. Current laboratory includes a white count 6.3, hemoglobin 10.4, macro 32.7, platelet count 138,000. Sodium 138, potassium 3.9, chlorides 108, CO2 22, BUN 16, creatinine 0.8. AST is 243. ALT is 162. Albumin 2.7. Sputum sampling is thus far negative. Chest x-ray shows possible CHF. Ultrasound of the abdomen suggest cholelithiasis and possible acute cholecystitis. The patient is seen today November 24, 2024 in follow-up on the regular medical floor. She is currently resting in bed. Awake and alert in no acute distress. Maintaining good O2 saturations in the 90s on 3 L/min per nasal cannula. She is receiving normal saline at 10 mL/h. Blood cultures revealed no growth. Sputum culture revealed no growth. White count 5.5. Hemoglobin 9.9. Platelets 140. Sodium 136. Potassium 3.3. Bicarb 25. BUN 11. Creatinine 0.77. AST 130. ALT 121. She remains on DuoNeb inhalations, ceftriaxone and Flagyl. Remains on Tamiflu. The patient is seen today November 25, 2024 in follow-up on the regular medical floor. She is awake and alert in no acute distress. Resting fairly comfortably in bed. She is maintaining good O2 saturations in the 90s on 3 L/min per nasal cannula. She remains on Tamiflu. Continued on ceftriaxone and Flagyl. White count 4.5. Hemoglobin 10.4. Platelets 141. Sodium 138. Potassium 4.2. Bi carb 31. BUN 8. Creatinine 0.66. Glucose 99. AST 65. ALT 85. Alk phos 143. She is continued on DuoNeb inhalations. Heparin for DVT prophylaxis. The patient is seen today November 26, 2024 in follow-up on the regular medical floor. She is currently resting in bed. Awake and alert in no acute distress. She is maintaining good O2 saturations in the 90s on 3 L/min per nasal cannula. She is continued on ceftriaxone and Flagyl. Continued on Tamiflu. Heparin for DVT prophylaxis. Sputum culture revealed no growth. Blood culture revealed no growth. White count 5.5. Hemoglobin 10.5. Platelets 145. Sodium 139. Potassium 4.2. Bicarb 32. BUN 12. Creatinine 0.66. AST 46. ALT 64. The patient is seen today November 27, 2024 in follow-up on the regular medical floor. She is currently resting in bed. Awake and alert in no acute distress. Continues to maintain good O2 saturations in the 90s on 3 L/min per nasal cannula. She remains on ceftriaxone and Flagyl. Completed Tamiflu. She remains on bronchodilators and Mucinex as needed. Heparin for DVT prophylaxis. Blood and sputum cultures were negative. INR 1.0. The patient is seen today November 28, 2024 in follow-up on the regular medical floor. She is awake and alert in no acute distress. Resting in bed. Denies a ny worsening shortness of breath, cough or congestion. Maintaining good O2 saturations in the 90s on 3 L/min per nasal cannula. Normal saline at 10 mL/h. She is continued on DuoNeb and elations. Ceftriaxone and Flagyl. Heparin for DVT prophylaxis. Blood and sputum cultures revealed no growth. White count 5.6. Hemoglobin 10.2. Platelets 149. Sodium 138. Potassium 4.0. Bicarb 33. BUN 13. Creatinine 0.56. Glucose 88. Objective - Vital Signs Vital signs: Vital Signs Temp 97.5 F L 11/28/24 07:39 Pulse 82 11/28/24 09:14 Resp 17 11/28/24 07:39 BP 161/103 11/28/24 07:39 Pulse Ox 99 11/28/24 07:39 FiO2 40 11/23/24 08:00 Intake & Output 0111/28/24 11/28/24 18:59 06:59 18:59 Intake Total 850 350 Output Total 500 150 Balance 350 -150 350 Intake: Intake, IV Titration 250 150 Amount cefTRIAXone 2 gm In 50 50 Sodium Chloride 0.9% 50 ml @ 100 mls/hr IVPB Q24HR [facility] Rx#:[id number] metroNIDAZOLE-NS PMX 500 200 100 mg In Saline 1 100ml.bag @ 100 mls/hr IVPB Q8HR [facility] Rx#:[id number] Oral 600 200 Output: Urine 500 150 Other: Voiding Method External Catheter External Catheter External Catheter - Exam GENERAL EXAM: Alert, cooperative 84-year-old female, on 3 L/min per nasal cannula. HEAD: Normocephalic and atraumatic EYES: Normal reaction of pupils, equal size. NOSE: Clear with pink turbinates. THROAT: No erythema or exudates. NECK: No masses, no JVD. CHEST: No chest wall deformity. LUNGS: Equal air entry with coarse rhonchi bilaterally. No conversational dyspnea. CVS: S1 and S2 normal with no audible murmur, regular rhythm. No extra heart sounds ABDOMEN: No hepatosplenomegaly, active bowel sounds, no guarding or rigidity. SPINE: No scoliosis or deformity SKIN: No rashes CENTRAL NERVOUS SYSTEM: No focal deficits, tone is normal in all 4 extremities. EXTREMITIES: There is no peripheral edema, clubbing, or cyanosis. Peripheral pulses are intact. - Labs CBC & Chem 7: 11/28/24 03:07 11/28/24 03:07 Labs: Abnormal Lab Results - Last 24 Hours (Table) 11/28/24 11/28/24 Range/Units 03:07 03:07 RBC 3.70 L (3.80-5.40) m/uL Hgb 10.2 L (11.4-16.0) gm/dL Hct 32.3 L (34.0-46.0) % Plt Count 149 L (150-450) k/uL Carbon Dioxide 33 H (22-30) mmol/L AST 40 H (14-36) U/L ALT 40 H (4-34) U/L Total Protein 4.9 L (6.3-8.2) g/dL Albumin 2.5 L (3.5-5.0) g/dL Microbiology - Last 24 Hours (Table) 11/21/24 21:03 Blood Culture - Final Blood Assessment and Plan Assessment: Acute influenza A infection Suspect acute CHF exacerbation, diastolic, preserved left ventricular systolic function with ejection fraction of 50% Acute hypoxemic respiratory failure, secondary to above, chest x-ray demonstrating cardiomegaly with pulmonary vascular congestion and bibasilar atelectasis and/or less likely acute infiltrates. NT proBNP and elevated at 4500 Sepsis/septic shock, with hypotension refractory to fluid resuscitation, initial ly on low-dose norepinephrine, recovered Acute leukocytosis, recovered Acute febrile illness, recovered Elevated troponins, rule out non-ST elevation FL Fall, unspecified; CT of the brain and C-spine done on arrival did not show any acute intracranial process. 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 Multi level wedge compression deformities throughout the visualized spine. No obvious displaced spinal fracture. Multilevel degenerative disc disease. Normocytic, normochromic anemia; possibly hemodilutional, monitor for acute blood loss Hypertension Hyperlipidemia Coronary artery disease with previous CABG Anxiety/depression Parkinson's disease Plan: The patient was seen and evaluated Labs and medications reviewed Continue the current treatment plan DNR CODE STATUS Awaiting ECF placement possibly at [facility] I have personally seen and examined the patient, performed the documentation and the assessment and plan as written. Number of minutes spent on the visit: 10 Dictation was produced using [employer] dictation software. Please excuse any grammatical, word or spelling errors.
--- NOTE | 2024-11-28 14:08 | P.PN ---
Subjective Progress Note Date: 11/28/24 Patient is a 84-year-old female with CAD, hypertension, hyperlipidemia, Parkinson's, depression who came into the ED with chief complaint of weakness and a fall. Further history regarding mechanism of fall was difficult to obtain due to patient's current clinical status. Per chart review, patient was febrile on arrival and deemed to be a poor historian. She did endorse feeling fatigued at the time of interview. She also reported feeling short of breath over the past few days with subjective fever and chills. Denies experiencing chest discomfort at the time of interview. Vitals on admission for 200.9, heart rate 104, respiratory rate 18, blood pressure 134/98, saturating 92% on 3 L nasal cannula then switched to BiPAP at an FiO2 of 50% and saturating 95% EKG independently interpreted as sinus tachycardia with rate of 103 bpm and QTc of 395 ms CXR shows chronic changes and cardiomegaly with new bibasilar atelectasis and/or acute infiltrates CT of head and cervical spine showed no acute intracranial process, multilevel wedge compression deformities, multilevel degenerative disc disease X-ray of the pelvis shows no discrete fracture Labs on admission show WBCs of 19 with left shift, hemoglobin 11.5, platelet 213. PT 12.3, INR 1.1, PTT 22.9. Sodium 134, potassium 4.3, chloride 100, bi carb 24, BUN 22, creatinine 0.95, glucose 119. Lactic acid 2.5, repeat 0.8. AST 57, ALT, ALP 168. CK102. Troponin 0.86. NT proBNP 4500. Cepheid positive for influenza A. Review of systems: Pertinent positives and negatives as discussed in HPI, a complete review of systems was performed and all other systems are negative. Subjective: Patient seen and evaluated bedside. No acute events overnight. Cleared by psych, some medication adjustments were noted. Pt is pending ECF placement. Vitals: Signs Reviewed Physical Exam: Vital signs reviewed General: Somewhat ill-appearing female, no distress, appears at stated age Derm: warm, dry, intact Head: atraumatic, normocephalic, symmetric Eyes: anicteric sclera Mouth: no lip lesion, mucus membranes moist Cardiovascular: S1 S2 reg, no murmur Lungs: Coarse breath sounds with rhonchi diffusely, no rales, no accessory muscle use Abdominal: soft, non-tender to palpation, nondistended Extremities: No cyanosis, clubbing, or pedal edema. Neuro: Lethargic, Oriented to person, time and place, Gross neurological exami nation did not reveal any focal deficits. Cranial nerves II to XII grossly intact. Bilateral upper and lower extremity muscle strength intact and sensation intact. Psych: well appearing, appropriate affect Data Received Today: Pertinent Labs: WBC 5.5, Hgb 10.5 AST 46, ALT 64, alk phos 138 Imaging: No new imaging Assessment/Plan: Patient is a 84-year-old female CAD, hypertension, hyperlipidemia, Parkinson's, and depression who came to the ED with chief complaint of weakness and a fall. Active: Septic shock, resolved Acute hypoxic respiratory failure secondary to Influenza A infection Continue DuoNebs 4 times daily and every 2 hours as needed Procalcitonin 29.2 Blood cultures showing no growth after 72 hours Sputum culture showing sputum unsatisfactory for culture MRSA/MSSA nares: No MRSA or MSSA isolated Patient is agreeable to IV pressor support although does not wish to undergo CPR or be placed on a ventilator [facility] Pulmonology note reviewed, continue management as above Speech therapy recommending dysphagia diet, no overt aspiration noted Debility/Failure to Thrive Patient with decreased appetite Patient with low urine output secondary to minimal water consumption Spoke with the nurse to encourage oral feeding Provide patient with Ensure D5 half-normal saline at 75 cc/HR Mirtazapine 7.5 mg PO HS Elevated troponin and NT proBNP NSTEMI Continue aspirin 81 mg daily Continue atorvastatin 10 mg p.o. at bedtime Troponin 0.860 => 1.730 => 1.280 Echocardiogram EF 50%, RVSP 53, moderate right ventricular dilatation Patient currently denying chest discomfort Cardiac monitoring Heparin drip switched to heparin SQ every 8 hours by cardiology Cardiology following, continue home atenolol Possible acute cholecystitis Transaminitis possibly secondary to congestive hepatopathy U/S liver Doppler showing cholelithiasis with mild wall thickening and borderline biliary duct dilatation, mild pericholecystic fluid seen. Findings suspicious for acute cholecystitis. Hepatic veins appear to be patent Continue with Flagyl 500 IV every 8 hours, and ceftriaxone 2 g every 24 hours for 7 days Surgery following, no plans for surgical intervention Depression Psych note reviewed, increase Zoloft to 37.5 mg daily, start Seroquel 12.5 nightly for sleep/hallucinations, Seroquel twice daily as needed for hallucinations/agitation Normocytic anemia Continue to monitor with follow-up CBC Mechanical fall of unknown etiology CT of head and cervical spine showed no acute intracranial process, multilevel wedge compression deformities, multilevel degenerative disc disease X-ray of the pelvis shows no discrete fracture Fall precautions PT recommending short acute rehab Chronic: Hypertension Continue atenolol 25 mg daily Hold lisinopril 5 mg daily Hyperlipidemia Continue simvastatin 20 mg p.o. at bedtime Parkinson's Continue Mirapex 0.5 mg twice daily GERD Continue omeprazole 20 mg Resolved: Hyponatremia, likely secondary to dehydration Lactic acidosis, likely secondary to dehydration Non-anion gap metabolic acidosis Hyperkalemia F: D5 half-normal saline at 75 cc/hr E: Replete as needed N: Heart healthy A: Fall precautions DVT ppx: Heparin SQ every 8 hours Code status: NO CODE, okay with vasopressors Anticipated discharge place: [facility] Anticipated discharge time: Likely 24-48 hours Galina Pelletier MD PGY-1 IM Dictation was produced using [employer] dictation software. please excuse any grammatical, word or spelling errors. I saw and evaluated the patient during the cabezas and critical portions of this encounter, and discussed the case in detail with the resident author of this note, I agree with the Assessment and Plan, and my changes, if any, are highlighted in blue. Objective - Vital Signs Vital signs: Vital Signs Temp 98.7 F 11/28/24 02:00 Pulse 70 11/28/24 02:00 Resp 17 11/28/24 02:00 BP 157/77 11/28/24 02:00 Pulse Ox 99 11/28/24 02:00 FiO2 40 11/23/24 08:00 Intake & Output 11/27/24 11/28/24 11/28/24 18:59 06:59 18:59 Intake Total 850 Output Total 500 150 Balance 350 -150 Intake: Intake, IV Titration 250 Amount cefTRIAXone 2 gm In 50 Sodium Chloride 0.9% 50 ml @ 100 mls/hr IVPB Q24HR [facility] Rx#:[id number] metroNIDAZOLE-NS PMX 500 200 mg In Saline 1 100ml.bag @ 100 mls/hr IVPB Q8HR [facility] Rx#:[id number] Oral 600 Output: Urine 500 150 Other: Voiding Method External Catheter External Catheter - Labs CBC & Chem 7: 11/28/24 03:07 11/28/24 03:07 Labs: Abnormal Lab Results - Last 24 Hours (Table) 11/28/24 11/28/24 Range/Units 03:07 03:07 RBC 3.70 L (3.80-5.40) m/uL Hgb 10.2 L (11.4-16.0) gm/dL Hct 32.3 L (34.0-46.0) % Plt Count 149 L (150-450) k/uL Carbon Dioxide 33 H (22-30) mmol/L AST 40 H (14-36) U/L ALT 40 H (4-34) U/L Total Protein 4.9 L (6.3-8.2) g/dL Albumin 2.5 L (3.5-5.0) g/dL Microbiology - Last 24 Hours (Table) 11/21/24 21:03 Blood Culture - Final Blood
[2024-11-28] MEDS: MIRTAZAPINE 15 MG TAB PO SCH (19:44)
[2024-11-29 03:57] LABS: Basophils % (A) 1 %; Eosinophils # (A) 0.2 k/uL (0-0.7); Eosinophils % (A) 4 %; HCT 34.6 % (34.0-46.0); HGB 10.7 gm/dL (11.4-16.0); Hypochromasia Marked; Lymphocytes # (A) 1.2 k/uL (1.0-4.8); Lymphocytes % (A) 20 %; MCH 27.1 pg (25.0-35.0); MCV 87.5 fL (80.0-100.0); Mean Platelet Volume 7.9; Monocytes # (A) 0.5 k/uL (0-1.0); Monocytes % (A) 9 %; Neutrophils # (A) 3.8 k/uL (1.3-7.7); Neutrophils % (A) 65 %; Platelet Count 169 k/uL (150-450); RBC 3.95 m/uL (3.80-5.40); RDW 13.4 % (11.5-15.5); WBC 5.9 k/uL (3.8-10.6)
[2024-11-29 06:14] LABS: ALT 34 U/L (4-34); AST 32 U/L (14-36); African American GFR (CKD) >90 (>60 ml/min/1.73 sqM); Albumin 2.5 g/dL (3.5-5.0); Alkaline Phosphatase 119 U/L (38-126); Anion Gap 4 mmol/L; Blood Urea Nitrogen 13 mg/dL (7-17); Calcium 8.8 mg/dL (8.4-10.2); Carbon Dioxide 37 mmol/L (22-30); Chloride 99 mmol/L (98-107); Globulin 2.5 g/dL; Glucose 121 mg/dL (74-99); Magnesium 1.7 mg/dL (1.6-2.3); Non-African American GFR(CKD) 86 (>60 ml/min/1.73 sqM); Potassium 4.1 mmol/L (3.5-5.1); Sodium 140 mmol/L (137-145); Total Bilirubin 0.2 mg/dL (0.2-1.3)
--- NOTE | 2024-11-29 13:46 | P.DS ---
Providers Date of admission: 11/22/24 07:44 Discharge Diagnosis: Septic shock Acute hypoxic respiratory failure secondary to influenza A infection Debility Failure to thrive Elevated troponin NSTEMI Possible acute cholecystitis Depression Normocytic anemia Mechanical fall elevated Etiology Hypertension Hyperlipidemia Parkinson's disease GERD Hyponatremia Lactic acidosis Non-anion gap metabolic acidosis Hyperkalemia Hospital Course: Patient is a 84-year-old female with CAD, hypertension, hyperlipidemia, Parkinson's, depression who came into the ED with chief complaint of weakness and a fall. Further history regarding mechanism of fall was difficult to obtain due to patient's current clinical status. Per chart review, patient was febrile on arrival and deemed to be a poor historian. She did endorse feeling fatigued at the time of interview. She also reported feeling short of breath over the past few days with subjective fever and chills. Denies experiencing chest discomfort at the time of interview. Vitals on admission for 200.9, heart rate 104, respiratory rate 18, blood p ressure 134/98, saturating 92% on 3 L nasal cannula then switched to BiPAP at an FiO2 of 50% and saturating 95% EKG independently interpreted as sinus tachycardia with rate of 103 bpm and QTc of 395 ms CXR shows chronic changes and cardiomegaly with new bibasilar atelectasis and/or acute infiltrates CT of head and cervical spine showed no acute intracranial process, multilevel wedge compression deformities, multilevel degenerative disc disease X-ray of the pelvis shows no discrete fracture Labs on admission show WBCs of 19 with left shift, hemoglobin 11.5, platelet 213. PT 12.3, INR 1.1, PTT 22.9. Sodium 134, potassium 4.3, chloride 100, bicarb 24, BUN 22, creatinine 0.95, glucose 119. Lactic acid 2.5, repeat 0.8. AST 57, ALT, ALP 168. CK102. Troponin 0.86. NT proBNP 4500. Cepheid positive for influenza A. Review of systems: Pertinent positives and negatives as discussed in HPI, a complete review of systems was performed and all other systems are negative. Patient was admitted to ICU for evaluation and management of septic shock and acute hypoxic respiratory failure secondary to influenza A infection. Cardiology and pulmonology were consulted. In the ICU patient was placed on pressors for low blood pressure. She was also seen by barge pilot for elevated troponin and NSTEMI, and was placed on heparin drip. Blood pressure stabilized and [facility] While on the floor patient had complaint of right upper quadrant abdominal pain and elevated liver enzymes. Ultrasound liver showed cholelithiasis with mild wall thickening and borderline biliary duct dilatation and mild peristolic fluid. She was placed on the appropriate antibiotics for possible acute cholecystitis. Patient reported that she wanted to harm herself. She also reported of not having appetite, was not drinking as well, and depressed mood. Psych was consulted on the case for her depression. She was seen by psych and changes were made to her current medications for depre ssion. Medication was ordered to help improve hunger as well. She is to follow-up with PCP. She is being discharged to [facility]. Vital signs reviewed and stable. Physical examination: Vital signs reviewed General: non toxic, no distress, appears at stated age, normal weight Derm: no unusual rashes/lesions, warm Head: atraumatic, normocephalic, symmetric Eyes: EOMI, anicteric sclera, pupils equal round reactive to light ENT: Nose and ears atraumatic Neck: No cervical lymphadenopathy, trachea midline, supple Mouth: no lip lesion, mucus membranes moist Cardiovascular: S1S2 reg, no murmur, positive dorsalis pedis pulse bilateral, no edema Lungs: CTA bilateral, no rhonchi, no rales, no accessory muscle use Abdominal: soft, nontender to palpation, no guarding Ext: muscle strength 5 out of 5 in all 4 extremities grossly, no gross muscle atrophy Neuro: CN II-XI grossly intact, no gross focal neuro deficits Psych: Alert, oriented to person, place, and time A total of greater than 30 minutes of time were spent preparing this complex discharge summary. Patient was discharge on May 29, 2025 at 10:57. Galina Pelletier MD PGY-1 IM Dictation was produced using [employer] dictation software. please excuse any grammatical, word or spelling errors. Expected date of discharge: 11/29/24 Attending physician: Milagro Kirkland MD Consults: 11/22/24 03:52 Consult Physician Urgent Consulting Provider: Jocelynn Engle Consult Reason/Comments: Acute hypoxic respiratory failure, hypotension requiring pressors Do you want consulting provider notified?: Yes 11/25/24 11:49 Consult Physician Routine Consulting Provider: Go Farmer Consult Reason/Comments: depression, suicidal ideation Do you want consulting provider notified?: Yes [facility] Course: I saw and evaluated the patient during the cabezas and critical portions of this encounter, and discussed the case in detail with the resident author of this note, I agree with the Assessment and Plan, and my changes, if any, are highli ghted in blue. Patient Condition at Discharge: Fair Plan - Discharge Summary New Discharge Prescriptions: New QUEtiapine [SEROquel] 12.5 mg PO BID PRN tab PRN Reason: hallucinations/agitation Sertraline [Zoloft] 37.5 mg PO DAILY #0 tab QUEtiapine [SEROquel] 12.5 mg PO HS #0 tab Mirtazapine [Remeron] 7.5 mg PO HS tab Continue Simvastatin [Zocor] 20 mg PO HS lisinopriL [Zestril] 5 mg PO DAILY atenoloL [Tenormin] 25 mg PO DAILY Aspirin [Adult Low Dose Aspirin EC] 81 mg PO DAILY Pramipexole [Mirapex] 0.5 mg PO BID Docusate [Colace] 100 mg PO BID #60 capsule Ascorbic Acid [Vitamin C] 500 mg PO DAILY Omeprazole [PriLOSEC] 20 mg PO DAILY Ferrous Sulfate [Iron (65 MG Elemental)] 325 mg PO DAILY Cholecalciferol [Vitamin D3 (125 Mcg = 5000 Iu)] 125 mcg PO DAILY Furosemide [Lasix] 20 mg PO DAILY PRN #0 PRN Reason: Edema Discontinued Sertraline [Zoloft] 25 mg PO HS Discharge Medication List Simvastatin [Zocor] 20 mg PO HS 06/08/18 [History] atenoloL [Tenormin] 25 mg PO DAILY 06/08/18 [History] lisinopriL [Zestril] 5 mg PO DAILY 06/08/18 [History] Aspirin [Adult Low Dose Aspirin EC] 81 mg PO DAILY 08/19/18 [History] Cholecalciferol [Vitamin D3 (125 Mcg = 5000 Iu)] 125 mcg PO DAILY 09/20/24 [History] Ferrous Sulfate [Iron (65 MG Elemental)] 325 mg PO DAILY 09/20/24 [History] Pramipexole [Mirapex] 0.5 mg PO BID 09/20/24 [History] Docusate [Colace] 100 mg PO BID #60 capsule 09/23/24 [Rx] Ascorbic Acid [Vitamin C] 500 mg PO DAILY 11/22/24 [History] Omeprazole [PriLOSEC] 20 mg PO DAILY 11/22/24 [History] Furosemide [Lasix] 20 mg PO DAILY PRN #0 11/29/24 [Rx] Mirtazapine [Remeron] 7.5 mg PO HS tab 11/29/24 [Rx] QUEtiapine [SEROquel] 12.5 mg PO BID PRN tab 11/29/24 [Rx] QUEtiapine [SEROquel] 12.5 mg PO HS #0 tab 11/29/24 [Rx] Sertraline [Zoloft] 37.5 mg PO DAILY #0 tab 11/29/24 [Rx] Follow up Appointment(s)/Referral(s): Home Health,[facility] [place] [facility] [NON-STAFF] - 1 Week Keturah Lin [NON-STAFF] - As Needed Ross Lennon DO [Primary Care Provider] - 1-2 days Discharge/Stand Alone Forms: Who Do I Call?, Adult Foster Fdc List, Assisted Living Facilities, Help In The Home, Outpatient Counseling Discharge Disposition: TRANSFER TO SNF/ECF
[2024-11-29 14:19] VITALS: BP 143/75; RESP 18; TEMP 97.6
--- NOTE | 2024-11-29 15:39 | P.PN ---
Subjective Progress Note Date: 11/29/24 Patient is 84-year-old female with past medical history significant for coronary artery disease with previous CABG, hypertension, hyperlipidemia, among other things. I was contacted by Sound physician as the patient was hypotensive refractory to fluid resuscitation, and needed to be started on vasopressors. Currently, an overflow patient in the ED. Patient presented the emergency department late last night after having a fall at her assisted living facility. I believe she stays at [facility]. While in the emergency department, she was noted to have high fevers with a Tmax of 101.1 F. Also, has had a cough over the last 2 days. She did test positive for influenza A. Chest x-ray showing cardiomegaly, pulmonary vascular congestion, with new bibasilar atelectasis and/or less likely acute infiltrates. Patient was placed on BiPAP in the emergency department. She has received a total of 3.5 L normal saline form of fluid boluses. Despite this, reportedly remained hypotensive, and sta rted on Levophed. I am currently evaluating the patient in the emergency department, room 16. She is on BiPAP with settings 12/5 and FiO2 of 40%. She is achieving adequate tidal volumes of around 400. Respiratory rate is nontachypneic and nonlabored. SpO2 is reading 100%. She is awake and appears alert on the BiPAP. She does follow commands appropriately. It is difficult to communicate as the patient is hard of hearing and on BiPAP. Normal saline is currently infusing at 125 mL/h. Patient also is on norepinephrine at 0.03 mcg/kg/min. Blood pressure is up to 110/[address] of the brain and C-spine done on arrival did not show any acute intracranial process. 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 Multi level wedge compression deformities throughout the visualized spine correlate with pain and MRI to exclude acute/subacute fracture. No obvious displaced spinal fracture. Multilevel degenerative disc disease. Calcified pleural plaquing noted. Most recent CBC: WC count 11, hemoglobin 9, hematocrit 28.3, platelets 152. CMP: Sodium 135, potassium 3.8, chloride 107, serum bicarb 22, BUN 21, creatinine 0.9, glucose 99. Lactic was 2.5 and is down to 0.8. Magnesium 1.7. LFTs mildly elevated. Troponin initially 0.86. EKG: Sinus tachycardia, rate 103 bpm, minimal diffuse ST depressions. NT proBNP was elevated at 4500. She has been started on combination of empiric antibiotics in the form of azithromycin and cefepime, as well as, Tamiflu. Progress note dated November 23, 2024. 84-year-old female seen in consultation yesterday. Please see my note above. The patient was admitted with a diagnosis of weakness, and influenza. She was admitted to the intensive care unit, because she required fluid resuscitation, and vasopressors. Currently, she is seen today in room 253. She is on 2 L. She continues on heparin via weight-based protocol for a non-ST segment elevation myocardial infarction. In addition, she is getting saline at KVO, as well as a number of different antibiotics including azithromycin, cefepime, Flagyl, and Tamiflu. She will get some Lasix 20 mg IV push today. Her procalcitonin level was 29.2. Current laboratory includes a white count 6.3, hemoglobin 10.4, macro 32.7, platelet count 138,000. Sodium 138, potassium 3.9, chlorides 108, CO2 22, BUN 16, creatinine 0.8. AST is 243. ALT is 162. Albumin 2.7. Sputum sampling is thus far negative. Chest x-ray shows possible CHF. Ultrasound of the abdomen suggest cholelithiasis and possible acute cholecystitis. The patient is seen today November 24, 2024 in follow-up on the regular medical floor. She is currently resting in bed. Awake and alert in no acute distress. Maintaining good O2 saturations in the 90s on 3 L/min per nasal cannula. She is receiving normal saline at 10 mL/h. Blood cultures revealed no growth. Sputum culture revealed no growth. White count 5.5. Hemoglobin 9.9. Platelets 140. Sodium 136. Potassium 3.3. Bicarb 25. BUN 11. Creatinine 0.77. AST 130. ALT 121. She remains on DuoNeb inhalations, ceftriaxone and Flagyl. Remains on Tamiflu. The patient is seen today November 25, 2024 in follow-up on the regular medical floor. She is awake and alert in no acute distress. Resting fairly comfortably in bed. She is maintaining good O2 saturations in the 90s on 3 L/min per nasal cannula. She remains on Tamiflu. Continued on ceftriaxone and Flagyl. White count 4.5. Hemoglobin 10.4. Platelets 141. Sodium 138. Potassium 4.2. Bicarb 31. BUN 8. Creatinine 0.66. Glucose 99. AST 65. ALT 85. Alk phos 143. She is continued on DuoNeb inhalations. Heparin for DVT prophylaxis. The patient is seen today November 26, 2024 in follow-up on the regular medical floor. She is currently resting in bed. Awake and alert in no acute distress. She is maintaining good O2 saturations in the 90s on 3 L/min per nasal cannula. She is continued on ceftriaxone and Flagyl. Continued on Tamiflu. Heparin for DVT prophylaxis. Sputum culture revealed no growth. Blood culture revealed no growth. White count 5.5. Hemoglobin 10.5. Platelets 145. Sodium 139. Potassium 4.2. Bicarb 32. BUN 12. Creatinine 0.66. AST 46. ALT 64. The patient is seen today November 27, 2024 in follow-up on the regular medical floor. She is currently resting in bed. Awake and alert in no acute distress. Continues to maintain good O2 saturations in the 90s on 3 L/min per nasal cannula. She remains on ceftriaxone and Flagyl. Completed Tamiflu. She remains on bronchodilators and Mucinex as needed. Heparin for DVT prophylaxis. Blood and sputum cultures were negative. INR 1.0. The patient is seen today November 28, 2024 in follow-up on the regular medical floor. She is awake and alert in no acute distress. Resting in bed. Denies any worsening shortness of breath, cough or congestion. Maintaining good O2 saturations in the 90s on 3 L/min per nasal cannula. Normal saline at 10 mL/h. She is continued on DuoNeb and elations. Ceftriaxone and Flagyl. Heparin for DVT prophylaxis. Blood and sputum cultures revealed no growth. White count 5.6. Hemoglobin 10.2. Platelets 149. Sodium 138. Potassium 4.0. Bicarb 33. BUN 13. Creatinine 0.56. Glucose 88. On 11/29/2024, the patient is being seen for a follow-up. Doing well. No specific complaints. Resting comfortably in bed and the patient is going to [facility] today. She remains on 3 L of oxygen by nasal cannula. The white cell count of 5.9 with a hemoglobin 10.7 and a platelet count of 169. Sodium is at 140, BUN 13 with a creatinine of 0.58. Potassium level is at 4.1. No other significant events overnight. She remains on DuoNeb updrafts. She remains on Seroquel and Zoloft. She is also taking Remeron at bedtime 7.5 mg. Antibiotic coverage is still with a combination of Rocephin and Flagyl for possible acute cholecystitis and antibiotics are to be stopped today. LFTs are within normal limits. No nausea vomiting or abdominal pain. Objective - Vital Signs Vital signs: Vital Signs Temp 97.5 F L 11/29/24 06:54 Pulse 80 11/29/24 09:17 Resp 19 11/29/24 06:54 BP 167/90 11/29/24 06:54 Pulse Ox 96 11/29/24 09:11 FiO2 40 11/23/24 08:00 Intake & Output 11/28/24 11/29/24 11/29/24 18:59 06:59 18:59 Intake Total 2270 1120 Output Total 350 950 Balance 1920 170 Intake: Intake, IV Titration 1750 1000 Amount Dextrose 5%-0.45% NaCl 1, 600 900 000 ml @ 75 mls/hr IV . [id number] [facility] Rx#:[id number] Lactated Ringers 1,000 ml 1000 @ 999 mls/hr IV .[id number] ONE Rx#:[id number] cefTRIAXone 2 gm In 50 Sodium Chloride 0.9% 50 ml @ 100 mls/hr IVPB Q24HR [facility] Rx#:[id number]-NS PMX 500 100 100 mg In Saline 1 100ml.bag @ 100 mls/hr IVPB Q8HR [facility] Rx#:[id number] Oral 520 120 Output: Urine 350 950 Other: Voiding Method External Catheter External Catheter External Catheter # Voids 1 # Bowel Movements 1 1 - Exam GENERAL EXAM: Alert, cooperative 84-year-old female, on 3 L/min per nasal cannula. HEAD: Normocephalic and atraumatic EYES: Normal reaction of pupils, equal size. NOSE: Clear with pink turbinates. THROAT: No erythema or exudates. NECK: No masses, no JVD. CHEST: No chest wall deformity. LUNGS: Equal air entry with coarse rhonchi bilaterally. No conversational dyspnea. CVS: S1 and S2 normal with no audible murmur, regular rhythm. No extra heart sounds ABDOMEN: No hepatosplenomegaly, active bowel sounds, no guarding or rigidity. SPINE: No scoliosis or deformity SKIN: No rashes CENTRAL NERVOUS SYSTEM: No focal deficits, tone is normal in all 4 extremities. EXTREMITIES: There is no peripheral edema, clubbing, or cyanosis. Peripheral pulses are intact. - Labs CBC & Chem 7: 11/29/24 03:01 11/29/24 03:01 Labs: Abnormal Lab Results - Last 24 Hours (Table) 11/29/24 11/29/24 Range/Units 03:01 03:01 Hgb 10.7 L (11.4-16.0) gm/dL Carbon Dioxide 37 H (22-30) mmol/L Glucose 121 H (74-99) mg/dL Total Protein 5.0 L (6.3-8.2) g/dL Albumin 2.5 L (3.5-5.0) g/dL Assessment and Plan Plan: Acute influenza A infection, recovered Suspect acute CHF exacerbation, diastolic, preserved left ventricular systolic function with ejection fraction of 50% Acute hypoxemic respiratory failure, secondary to above, chest x-ray demonstrating cardiomegaly with pulmonary vascular congestion and bibasilar atelectasis and/or less likely acute infiltrates. NT proBNP and elevated at 4500 Sepsis/septic shock, with hypotension refractory to fluid resuscitation, initia lly on low-dose norepinephrine, recovered, treated with empiric antibiotics. LFTs have normalized. Questionable component of cholecystitis Acute leukocytosis, recovered Acute febrile illness, recovered Elevated troponins, rule out non-ST elevation AK Fall, unspecified; CT of the brain and C-spine done on arrival did not show any acute intracranial process. 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 Multi level wedge compression deformities throughout the visualized spine. No obvious displaced spinal fracture. Multilevel degenerative disc disease. Normocytic, normochromic anemia; possibly hemodilutional, monitor for acute blood loss Hypertension Hyperlipidemia Coronary artery disease with previous CABG Anxiety/depression Parkinson's disease Plan: May discontinue antibiotics Continue the current treatment plan DNR CODE STATUS Awaiting ECF placement possibly at [facility]
[2024-11-29 16:45] VITALS: PULSE 82
== END 2024-11-29 18:23 | DRG 871 ==
LOC: EC 20:33 → 3SCARD 22:11 → 2SICU 11-22 04:57 → OBSVTOIN 11-22 07:44 → 4SSUR 11-23 22:18
PROVIDERS: ADMIT Internal Medicine; ATTEND Internal Medicine
PROC: 5A09357 Assistance with Respiratory Ventilation, Less than 24 Consecutive Hours, Continuous Positive Airway Pressure (ICD-10-PCS; 2024-11-21)
PROC: 3E033XZ Introduction of Vasopressor into Peripheral Vein, Percutaneous Approach (ICD-10-PCS; principal; 2024-11-22)
DX: A41.9 Sepsis, unspecified organism (principal); I21.A1 Myocardial infarction type 2; R65.21 Severe sepsis with septic shock; J96.01 Acute respiratory failure with hypoxia; E87.20 Acidosis, unspecified; K80.10 Calculus of gallbladder with chronic cholecystitis without obstruction; I27.20 Pulmonary hypertension, unspecified; F32.A Depression, unspecified; D64.9 Anemia, unspecified; Z68.32 Body mass index [BMI] 32.0-32.9, adult; G20.A1 Parkinson's disease without dyskinesia, without mention of fluctuations; I11.0 Hypertensive heart disease with heart failure; I73.9 Peripheral vascular disease, unspecified; I08.1 Rheumatic disorders of both mitral and tricuspid valves; E87.1 Hypo-osmolality and hyponatremia; R45.851 Suicidal ideations; R62.7 Adult failure to thrive; J10.1 Influenza due to other identified influenza virus with other respiratory manifestations; E78.5 Hyperlipidemia, unspecified; E86.0 Dehydration; E87.6 Hypokalemia; K21.9 Gastro-esophageal reflux disease without esophagitis; F41.9 Anxiety disorder, unspecified; I50.9 Heart failure, unspecified; W18.30XA Fall on same level, unspecified, initial encounter; R54 Age-related physical debility; I25.10 Atherosclerotic heart disease of native coronary artery without angina pectoris; Z66 Do not resuscitate; I25.2 Old myocardial infarction; Z95.1 Presence of aortocoronary bypass graft; Y92.009 Unspecified place in unspecified non-institutional (private) residence as the place of occurrence of the external cause; Z79.82 Long term (current) use of aspirin; Z79.899 Other long term (current) drug therapy
CPT/HCPCS: 36415; 70450; 71045; 72125; 72170; 76705; 80053; 81001; 82550; 83605; 83735; 83880; 84100; 84145; 84484; 85025; 85610; 85730; 87040; 87070; 87205; 87449; 87636; 93005; 93306; 94640; 94660; 94760; 96365; 96366; 96367; 96368; 96375; 99285